=== PATIENT | female | born 1955 | race Caucasian/White ===

== ENCOUNTER 2019-01-01 23:44 | Emergency (ER) | payer MEDICAID ==
[~2019-01-01] VITALS: Ht 177.8 cm; Wt 195.0 kg
[2019-01-02 00:47] LABS: BASOPHILS # (AUTO) 0.1 /CMM (0.0-0.2); EOSINOPHILS % (AUTO) 4.2 % (0.0-6.0); HEMATOCRIT 31 % (33-45); HEMOGLOBIN 9.8 g/dL (11.5-14.8); LYMPHOCYTES # (AUTO) 1.7 /CMM (0.8-4.8); LYMPHOCYTES % (AUTO) 18.5 % (20.0-44.0); MEAN CORPUSCULAR HGB CONC 32 g/dl (31.0-36.0); MEAN CORPUSCULAR VOLUME 83 fL (82-100); MONOCYTES # (AUTO) 0.8 /CMM (0.1-1.30); MONOCYTES % (AUTO) 8.8 % (2.0-12.0); NEUTROPHILS # (AUTO) 6.1 /CMM (1.8-8.9); NEUTROPHILS % (AUTO) 67.5 % (43.0-81.0); PLATELET COUNT (AUTO) 284 /CMM (150-450); RED BLOOD CELL COUNT(AUTO) 3.72 MIL/uL (4.0-5.2); WHITE BLOOD COUNT (AUTO) 9.1 K/uL (4.3-11.0)
--- NOTE | 2019-01-02 00:58 | NUR ---
PT CLARA FROM [facility] FOR ABD PAIN AND BACK PAIN X 1 YR, PT NON-COMPLIANT WITH MEDICATIONS X 1 DAY. PT AXO4. PT PUT ON THE CLEANING HANDYMAN AND PULSE OX.
--- NOTE | 2019-01-02 00:59 | NUR ---
urine collected and sent to lab
[2019-01-02 01:06] LABS: CALCIUM, SERUM 9.3 mg/dL (8.5-10.1); CREATININE 1.3 mg/dL (0.6-1.3); POTASSIUM 4.3 mmol/L (3.5-5.1)
[2019-01-02 01:11] LABS: ALBUMIN 2.9 g/dL (3.4-5.0); BILIRUBIN,DIRECT 0.1 mg/dL (0.0-0.2); BILIRUBIN,TOTAL 0.4 mg/dL (0.2-1.0); TOTAL PROTEIN, SERUM 6.8 g/dL (6.4-8.2)
[2019-01-02 01:15] LABS: SALICYLATE 0.6 mg/dL (2.8-20.0)
[2019-01-02 01:21] LABS: APPEARANCE,URINE Clear (CLEAR); BILIRUBIN,URINE Negative (NEGATIVE); BLOOD, URINE Negative Ery/uL (NEGATIVE); COLOR,URINE Yellow (YELLOW); KETONES,URINE 15 (NEGATIVE); LEUKOCYTE ESTERASE ,URINE Negative (NEGATIVE); NITRITE, URINE Negative (NEGATIVE); PROTEIN,URINE >=300 mg/dl (NEGATIVE); UGLUCOSE Negative (NEGATIVE); UROBILINOGEN,URINE 0.2 EU/dL (0.2)
[2019-01-02 01:33] LABS: BACTERIA,URINE None seen /HPF (None Seen); RBC,URINE 0-2 /HPF (0-2); SQUAMOUS EPITHELIAL CELL,UR Moderate /HPF (None Seen); WBC,URINE 0-2 /HPF (0-3)
[2019-01-02 01:34] LABS: HYALINE CASTS, URINE Rare /LPF (None Seen); MUCUS,URINE Rare /LPF (None Seen)
--- NOTE | 2019-01-02 02:10 | NUR ---
OMAR PAIL BAILER AT BEDSIDE FOR EVALUATION
--- NOTE | 2019-01-02 02:41 | NUR ---
CALLED [facility] FOR TRANSPORTATION. ETA [phone]. TRIP #[id number]
[2019-01-02] MEDS ORDERED: CLONIDINE HCL 0.1 MG TABLET ONE (03:18)
[2019-01-02] MEDS ORDERED: CLONIDINE HCL 0.1 MG TABLET PO ONE (03:30)
--- NOTE | 2019-01-02 04:17 | NUR ---
PT REFUSING TO GO BACK TO FACILITY AND REQUESTING TO BE SENT BACK HOME TO APARTMENT. PT STATES "I CAN HIRE MY OWN CAREGIVER WHEN I GET HOME". ER MD AWARE AND STATES PT SHOULD SEE WEIGHT LOSS CENTRE MANAGER IN THE MORNING. PT AGREES TO NEW ARRANGEMENT. SPOKE WITH ADA, CHARGE NURSE AT [facility], AND INFORMED OF PT REFUSAL TO RETURN TO FACILITY. PT RESTING COMFORTABLY IN BED. NO ACUTE DISTRESS NOTED AT THIS TIME. WILL CONTINUE TO MONITOR.
--- NOTE | 2019-01-02 05:13 | NUR ---
PT COMPLAINING OF BACK PAIN. MD AWARE. PER VERBAL MD ORDER, WILL ADMINISTER NORCO 10/325 PO X1 NOW
[2019-01-02] MEDS ORDERED: HYDROCODONE/APAP 10/325MG 1 EA TABLET ONE (05:14)
[2019-01-02] MEDS ORDERED: HYDROCODONE/APAP 10/325MG 1 EA TABLET PO ONE (05:30)
--- NOTE | 2019-01-02 07:24 | NUR ---
REPORT GIVEN TO RAJAN ALBRIGHT FOR WAN.
--- NOTE | 2019-01-02 08:47 | NUR ---
Spoke to complex case manager Pennie regarding patient and information provided and address of her appartment.
[2019-01-02] MEDS ORDERED: HYDROCODONE/APAP 5/325MG 1 EACH TABLET ONE (08:57)
[2019-01-02] MEDS ORDERED: HYDROCODONE/APAP 5/325MG 1 EACH TABLET PO ONE (09:00)
--- NOTE | 2019-01-02 10:11 | NUR ---
spoke to patient reagrding placement to SNF and per patient she doesn't want to go back to her previous rehab, patient states "they don't treat me right over there". Explained to patient another option going to another SNF but patient insist to go back to her apartment, explained the risk and benefits and still insist to go back home. Spoke to MD and made aware.
--- NOTE | 2019-01-02 10:15 | NUR ---
called transport [phone] spoke to hiren rachel is [id number] trip number [id number]
[2019-01-02 12:25] VITALS: BP 135/81
--- NOTE | 2019-01-02 12:26 | NUR ---
Patient discharged to home in stable condition. Written and verbal after care instructions given. Patient verbalizes understanding of instruction. denies any pain nor chest at this time. In no apparent distress noted.
== END 2019-01-02 12:26 | disposition home or self-care (01) ==
LOC: ER 23:49
DX: G89.29 Other chronic pain (principal); E66.01 Morbid (severe) obesity due to excess calories; I10 Essential (primary) hypertension; E11.9 Type 2 diabetes mellitus without complications; F32.9 Major depressive disorder, single episode, unspecified; Z68.44 Body mass index [BMI] 60.0-69.9, adult; Z88.6 Allergy status to analgesic agent; Z88.8 Allergy status to other drugs, medicaments and biological substances
CPT/HCPCS: 36415; 80048; 80076; 80305; 80307; 80329; 81001; 85025; 99283; G0480; 81000-TC

== ENCOUNTER 2019-03-16 16:20 | Emergency (ER) | payer BC, MEDICAID, OTHER ==
[~2019-03-16] VITALS: Ht 180.3 cm; Wt 198.2 kg
--- NOTE | 2019-03-16 16:31 | NUR ---
CHARLETTE CULP From [facility] "Chest Pressure/ss/SOB. Given Asa/NTG no pain now. Pain worse w/activity/exertion" PT AAOX4, -SOB, NAD NOTED, VSS, PENDING MD YODER
[2019-03-16 16:42] LABS: BASOPHILS # (AUTO) 0.1 /CMM (0.0-0.2); BASOPHILS % (AUTO) 0.5 % (0.0-2.0); EOSINOPHILS % (AUTO) 3.6 % (0.0-6.0); HEMATOCRIT 34 % (33-45); LYMPHOCYTES # (AUTO) 1.1 /CMM (0.8-4.8); LYMPHOCYTES % (AUTO) 11.6 % (20.0-44.0); MEAN CORPUSCULAR HGB CONC 30 g/dl (31.0-36.0); MEAN CORPUSCULAR VOLUME 69 fL (82-100); MONOCYTES # (AUTO) 0.8 /CMM (0.1-1.30); NEUTROPHILS # (AUTO) 7.1 /CMM (1.8-8.9); NEUTROPHILS % (AUTO) 75.3 % (43.0-81.0); PLATELET COUNT (AUTO) 267 /CMM (150-450); RED BLOOD CELL COUNT(AUTO) 4.93 MIL/uL (4.0-5.2); WHITE BLOOD COUNT (AUTO) 9.4 K/uL (4.3-11.0)
[2019-03-16] MEDS ORDERED: SULF1TAB48 PO (16:43)
[2019-03-16] MEDS ORDERED: VALS320T2 PO (16:43)
[2019-03-16] MEDS ORDERED: INSU100V7 SQ (16:43)
[2019-03-16] MEDS ORDERED: FURO-145 PO (16:43)
[2019-03-16] MEDS ORDERED: ASPI-1169 PO (16:43)
[2019-03-16] MEDS ORDERED: ACET-868 PO (16:43)
[2019-03-16] MEDS ORDERED: CARV12.52 PO (16:43)
[2019-03-16] MEDS ORDERED: INSU100V27 SQ ×2 (16:43)
[2019-03-16] MEDS ORDERED: GABA-532 PO (16:43)
[2019-03-16] MEDS ORDERED: BACL10TA PO (16:43)
[2019-03-16] MEDS ORDERED: PARO10TA86 PO (16:43)
[2019-03-16] MEDS ORDERED: DOCU-141 PO (16:43)
[2019-03-16] MEDS ORDERED: HYDR28.32 TP (16:43)
[2019-03-16] MEDS ORDERED: SPIR25TA PO (16:43)
[2019-03-16 16:53] LABS: CALCIUM, SERUM 9.6 mg/dL (8.5-10.1); CREATININE 1.6 mg/dL (0.6-1.3); POTASSIUM 4.7 mmol/L (3.5-5.1)
[2019-03-16] MEDS ORDERED: FUROSEMIDE 40 MG/4 ML VIAL IV ONE (17:00)
[2019-03-16 17:06] LABS: ALBUMIN 2.8 g/dL (3.4-5.0); BILIRUBIN,DIRECT 0.1 mg/dL (0.0-0.2); BILIRUBIN,TOTAL 0.4 mg/dL (0.2-1.0); TOTAL PROTEIN, SERUM 7.2 g/dL (6.4-8.2)
--- NOTE | 2019-03-16 17:55 | NUR ---
CALLED OFFICE OF DR REVELES, LEFT VOICEMAIL
[2019-03-16 18:00] VITALS: BP 149/86
--- NOTE | 2019-03-16 18:32 | NUR ---
PT ACCCEPTED BY DR REVELES AT [facility]. AWAITING CALLBACK FROM [facility] FOR RN REPORT, GAVE AUTH FOR AMBULANCE
--- NOTE | 2019-03-16 19:19 | NUR ---
VIDEO SOFTWARE ENGINEER CHRIS [phone] STATES WAIT FOR CALL FROM [facility] FOR BED ASSIGNMENT
--- NOTE | 2019-03-16 20:25 | NUR ---
ANUSHKA [facility] [phone] CALL TRANSPORT
--- NOTE | 2019-03-16 20:33 | NUR ---
[facility] ETA [phone] TRIP#[id number]
[2019-03-16] MEDS ORDERED: MORPHINE SULFATE INJ 4 MG/ML DISP.SYRIN ONE (21:45)
[2019-03-16] MEDS ORDERED: ONDANSETRON HCL/PF 4 MG/2 ML VIAL ONE (21:45)
[2019-03-16] MEDS ORDERED: MORPHINE SULFATE INJ 2 MG/ML DISP.SYRIN IV ONE (22:00)
[2019-03-16] MEDS ORDERED: ONDANSETRON HCL/PF 4 MG/2 ML VIAL IVP ONE (22:00)
--- NOTE | 2019-03-16 22:00 | NUR ---
REPORT GIVEN TO DEJA CEDILLO AT [facility]
--- NOTE | 2019-03-16 23:30 | NUR ---
PT TRANSPORTED TO [facility], VSS, -SOB, PT STABLE, NAD NOTED, REPORT GIVEN TO STAFF
== END 2019-03-16 23:40 | disposition short-term general hospital (02) ==
LOC: ER 16:28
DX: I11.0 Hypertensive heart disease with heart failure (principal); I50.1 Left ventricular failure, unspecified; E11.9 Type 2 diabetes mellitus without complications; E66.01 Morbid (severe) obesity due to excess calories; Z68.44 Body mass index [BMI] 60.0-69.9, adult; Z88.6 Allergy status to analgesic agent; Z79.899 Other long term (current) drug therapy; Z79.4 Long term (current) use of insulin
CPT/HCPCS: 36415; 71045; 80048; 80076; 83880; 84484; 85025; 85730; 93005; 96374; 96375; 99285; J2270; J2405

== ENCOUNTER 2019-05-07 20:05 | Inpatient (IN) | payer BC, MEDICAID, OTHER ==
[~2019-05-07] VITALS: Ht 180.3 cm; Wt 163.3 kg
[~2019-05-07 20:05] MED LIST: ACET-868 PO; ASPI-1169 PO; BACL10TA PO; CARV12.52 PO; DOCU-141 PO; FURO-145 PO; GABA-532 PO; HYDR28.32 TP; INSU100V27 SQ; INSU100V7 SQ; PARO10TA86 PO; SPIR25TA PO; SULF1TAB48 PO; VALS320T2 PO
--- NOTE | 2019-05-07 20:10 | NUR ---
BIB EMS C/O CHRONIC BACK PAIN. PT WAS D/C FROM [facility] FOR BACK PAIN. PT ALERT AND AWAKE, BREATHING EVEN AND UNLABORED ON ROOM AIR W/ NAD NOTED. PT CONNECTED TO THE MONITOR AND POX.
[2019-05-07] MEDS ORDERED: ONDANSETRON HCL/PF 4 MG/2 ML VIAL ONE (20:45)
[2019-05-07] MEDS ORDERED: MORPHINE SULFATE INJ 4 MG/ML DISP.SYRIN ONE (20:46)
[2019-05-07] MEDS ORDERED: ONDANSETRON HCL/PF - ER 4 MG/2 ML VIAL IV ONE (21:00)
[2019-05-07] MEDS ORDERED: MORPHINE SULFATE INJ 2 MG/ML DISP.SYRIN IV ONE (21:00)
--- NOTE | 2019-05-07 21:20 | NUR ---
URINE COLLECTED AND SENT TO LAB
[2019-05-07 21:29] LABS: CALCIUM, SERUM 10.8 mg/dL (8.5-10.1); CREATININE 1.9 mg/dL (0.6-1.3)
[2019-05-07 21:59] LABS: BASOPHILS % (AUTO) 0.5 % (0.0-2.0); EOSINOPHILS % (AUTO) 3.3 % (0.0-6.0); HEMATOCRIT 40 % (33-45); HEMOGLOBIN 12.5 g/dL (11.5-14.8); LYMPHOCYTES # (AUTO) 1.5 /CMM (0.8-4.8); LYMPHOCYTES % (AUTO) 16.2 % (20.0-44.0); MEAN CORPUSCULAR HGB CONC 31 g/dl (31.0-36.0); MEAN CORPUSCULAR VOLUME 74 fL (82-100); MONOCYTES # (AUTO) 0.6 /CMM (0.1-1.30); MONOCYTES % (AUTO) 7.1 % (2.0-12.0); NEUTROPHILS # (AUTO) 6.5 /CMM (1.8-8.9); NEUTROPHILS % (AUTO) 72.9 % (43.0-81.0); PLATELET COUNT (AUTO) 259 /CMM (150-450); RED BLOOD CELL COUNT(AUTO) 5.41 MIL/uL (4.0-5.2)
[2019-05-07] MEDS ORDERED: IV NS 0.9% 500 ML BAG IV ONE (22:00)
[2019-05-07 22:07] LABS: APPEARANCE,URINE CLOUDY (CLEAR); COLOR,URINE YELLOW (YELLOW)
[2019-05-07 22:08] LABS: BILIRUBIN,URINE NEGATIVE (NEGATIVE); BLOOD, URINE TRACE Ery/uL (NEGATIVE); KETONES,URINE NEGATIVE (NEGATIVE); LEUKOCYTE ESTERASE ,URINE 2+ (NEGATIVE); NITRITE, URINE POSITIVE (NEGATIVE); PROTEIN,URINE 1+ mg/dl (NEGATIVE); UGLUCOSE NEGATIVE (NEGATIVE); UROBILINOGEN,URINE 0.2 EU/dL (0.2)
[2019-05-07 22:10] LABS: BACTERIA,URINE 2+ /HPF (None Seen); RBC,URINE 0-2 /HPF (0-2); WBC,URINE TOO NUMEROUS TO COUN /HPF (0-3)
[2019-05-07 22:11] LABS: SQUAMOUS EPITHELIAL CELL,UR Few /HPF (None Seen)
--- NOTE | 2019-05-07 22:20 | NUR ---
dr. alycia fountain paged per er md order.
[2019-05-07] MEDS ORDERED: MEROPENEM 1 G VIAL IV ONE (22:30)
[2019-05-07] MEDS ORDERED: MEROPENEM 500 MG in IV NS 0.9% 50 ML IV ONE (22:30)
[2019-05-07 22:42] LABS: BAND % (MANUAL) 4 % (0.0-5.0); EOSINOPHILS % (MANUAL) 6 % (0-4); LYMPHOCYTES % (MANUAL) 12 % (16-48); MONOCYTES % (MANUAL) 8 % (0-11.0); NEUTROPHILS % (MANUAL) 70 (42-76)
--- NOTE | 2019-05-07 22:43 | NUR ---
YUNG FONTANA TALKING TO DR. REVELES REGARDING PT.
--- NOTE | 2019-05-07 22:51 | NUR ---
CALLED [employer]. CORPORATE RESPONSIBILITY OFFICER WAS PAGED.
--- NOTE | 2019-05-07 22:53 | NUR ---
CALLED [facility] FOR [facility] BED
--- NOTE | 2019-05-07 23:09 | NUR ---
ER TALKING TO FARZAD CALLEJAS REGARDING PT ADMISSION.
[2019-05-07] MEDS ORDERED: IV NS 0.9% 1,000 ML IV PRN (23:40)
--- NOTE | 2019-05-07 23:58 | NUR ---
M/S [id number]
[2019-05-08] MEDS ORDERED: Z GUARD REMEDY 2 OZ OINT TP PRN
[2019-05-08] MEDS ORDERED: ACETAMINOPHEN 325 MG TABLET PO PRN
[2019-05-08] MEDS ORDERED: MAG HYDROX/AL HYDROX/SIMETH 30 ML UDC PO PRN
--- NOTE | 2019-05-08 00:05 | NUR ---
REPORT CALLED TO M/S JOSE RAMON ALEXANDRE. WILL TRANSPORT PT TO MS [id number]
--- NOTE | 2019-05-08 00:15 | NUR ---
MS/RN RECEIVED PATIENT FROM [facility]IA [facility]. PATIENT IS AWAKE, ALERT, ORIENTED, COMFORTABLE, NO SIGNS OF DISTRESS NOTED, MADE COMFORTABLE IN BED, ADMISSION DONE PER PROTOCOL, PHOTOS TAKEN ON ABNORMAL SKIN ASSESSMENT, PLAN OF CARE DISCUSSED WITH THE PATIENT, VERBALIZED UNDERSTANDING AND AGREEMENT, TAUGHT THE USE OF CALL LIGHT AND PLACED IT AT BEDSIDE WITHIN REACH, WILL MONITOR.
[2019-05-08 00:22] LABS: BILIRUBIN,DIRECT 0.1 mg/dL (0.0-0.2); BILIRUBIN,TOTAL 0.3 mg/dL (0.2-1.0); TOTAL PROTEIN, SERUM 7.7 g/dL (6.4-8.2)
[2019-05-08 00:30] VITALS: BP 142/61
[2019-05-08] MEDS: PANTOPRAZOLE 40 MG VIAL IV SCH ×2 (01:59→10:29)
[2019-05-08] MEDS: MORPHINE SULFATE INJ 2 MG/ML DISP.SYRIN IV PRN ×3 (02:06→15:24)
--- NOTE | 2019-05-08 02:50 | NUR ---
MS/RN PATIENT IS SLEEPING AT THIS TIME, APPEAR COMFORTABLE, BREATHING EVEN AND UNLABORED, NO DISTRESS NOTED, CALL LIGHT IN REACH. WILL CONTINUE TO MONITOR.
--- NOTE | 2019-05-08 07:30 | NUR ---
RN OPENING NOTES RECEIVED PATIENT IN BED RESTING. NOT IN ANY FORM OF DISTRESS. NO SOB. DENIED PAIN OR DISCOMFORT AT THIS TIME. IV ACCESS INTACT AND PATENT. KEPT PATIENT SAFE AND COMFORTABLE. BED IN LOW/LOCKED POSITION SIDERAILS UPX2, CALL LIGHT IN REACH. WILL CONT TO MONITOR ACCORDINGLY.
[2019-05-08] MEDS ORDERED: LIDO30AD10 TP (07:50)
[2019-05-08] MEDS ORDERED: HYDR-4077 PO (07:50)
[2019-05-08] MEDS ORDERED: MELO-107 PO (07:50)
[2019-05-08] MEDS ORDERED: INSU100I26 SQ (07:50)
[2019-05-08] MEDS ORDERED: LOPE2CAP PO (07:50)
[2019-05-08] MEDS ORDERED: CLON0.1T PO (07:50)
[2019-05-08 08:00] VITALS: BP 159/67
[2019-05-08 08:00] LABS: CALCIUM, SERUM 10.3 mg/dL (8.5-10.1); CREATININE 1.8 mg/dL (0.6-1.3); MAGNESIUM 2.1 mg/dL (1.8-2.4); PHOSPHORUS 4.4 mg/dL (2.5-4.9); POTASSIUM 4.6 mmol/L (3.5-5.1)
[2019-05-08 08:02] LABS: BASOPHILS % (AUTO) 0.6 % (0.0-2.0); EOSINOPHILS % (AUTO) 5.2 % (0.0-6.0); HEMATOCRIT 38 % (33-45); HEMOGLOBIN 11.8 g/dL (11.5-14.8); LYMPHOCYTES # (AUTO) 1.8 /CMM (0.8-4.8); LYMPHOCYTES % (AUTO) 24.4 % (20.0-44.0); MEAN CORPUSCULAR HGB CONC 32 g/dl (31.0-36.0); MEAN CORPUSCULAR VOLUME 74 fL (82-100); MONOCYTES # (AUTO) 0.6 /CMM (0.1-1.30); MONOCYTES % (AUTO) 8.5 % (2.0-12.0); NEUTROPHILS # (AUTO) 4.6 /CMM (1.8-8.9); NEUTROPHILS % (AUTO) 61.3 % (43.0-81.0); PLATELET COUNT (AUTO) 256 /CMM (150-450); RED BLOOD CELL COUNT(AUTO) 5.06 MIL/uL (4.0-5.2); WHITE BLOOD COUNT (AUTO) 7.5 K/uL (4.3-11.0)
[2019-05-08 08:14] LABS: THYROID STIMULATING HORMONE 1.142 uIU/mL (0.358-3.74)
[2019-05-08] MEDS ORDERED: MEROPENEM 500 MG in IV NS 0.9% 50 ML IV SCH (09:00)
[2019-05-08] MEDS: LIDOCAINE 5% (PATCH) 1 EA PATCH TP SCH ×2 (09:00→09:56)
[2019-05-08] MEDS: BACLOFEN (10 MG) 10 MG TABLET PO SCH ×3 (09:55→16:12)
[2019-05-08] MEDS: CLONIDINE HCL 0.1 MG TABLET PO SCH ×2 (09:55→16:12)
[2019-05-08] MEDS: hydrALAZINE HCL 50 MG TABLET PO SCH ×3 (09:55→16:11)
[2019-05-08] MEDS: CARVEDILOL 12.5 MG TABLET PO SCH ×2 (09:55→16:12)
[2019-05-08] MEDS: ASPIRIN 81 MG TAB.CHEW PO SCH (09:56)
[2019-05-08] MEDS: PAROXETINE HCL 10 MG TABLET PO SCH (09:56)
[2019-05-08] MEDS: DOCUSATE SODIUM 100 MG CAPSULE PO SCH (09:56)
--- NOTE | 2019-05-08 10:00 | NUR ---
rn notes patient refused lidocaine patch. per patient, "i dont want it. it doesnt work for me well.".
--- NOTE | 2019-05-08 10:25 | NUR ---
WOUND CARE CONSULT: LIMITED ASSESSMENT DUE TO PT LYING ON RT SIDE DUE TO PAIN. SKIN IS CLEAR ON BACK AND BUTTOCKS WITH SCAR NOTED TO LEFT BUTTOCK, PRESENT ON ADMISSION. PT REFUSING BARIATRIC BED. PT STATES IS ABLE TO TURN AND REPOSITION HERSELF IN BED AND IS CONTINENT AT THIS TIME. WILL SEE PRN. Addendum: 05/08/19 at 1026 by ASHLEY KNOX WNDNU Amended: Links added.
[2019-05-08] MEDS: INSULIN GLARGINE, 100 UNIT/ML CARTRIDGE SQ SCH ×2 (10:49→21:00)
[2019-05-08] MEDS: INSULIN ASPART/LISPRO 100 UNIT/ML CARTRIDGE SQ SCH ×2 (12:23→17:54)
[2019-05-08] MEDS: MEROPENEM 500 MG in IV NS 0.9% 50 ML IV SCH ×2 (12:29→23:15)
[2019-05-08] MEDS: ONDANSETRON HCL/PF 4 MG/2 ML VIAL IVP PRN (15:29)
[2019-05-08 16:00] VITALS: BP 117/45
--- NOTE | 2019-05-08 19:30 | NUR ---
RN CLOSING NOTES PATIENT IN STABLE CONDITION. ALL NEEDS ATTENDED AND PROVIDED. ALL DUE MEDS GIVEN ORDERED. KEPT PATIENT SAFE AND COMFORTABLE. BED IN LOW/LOCKED POSITION, SIDERAILS UPX2,C ALL LIGHT IN REACH. ENDORSED TO NIGHT RN FOR WAN.
--- NOTE | 2019-05-08 19:45 | NUR ---
RN OPENING NOTES RECEIVED REPORT FROM [facility]. FOUND Pt AWAKE, RESTING IN BED. ASSISTED Pt FOR REPOSITIONING. Pt IS A/OX4, VERBAL, ABLE TO MAKE NEEDS KNOWN. IV ACCESS ON LFA #22G, SL & TKO. SAFETY MEASURES IN PLACE. BED LOW, LOCKED, HOB ELEVATED, SIDE RAILS UP, CALL LIGHT AND BEDSIDE TABLE WITHIN REACH. WILL CONTINUE TO MONITOR Pt's CONDITION & SAFETY.
[2019-05-08 20:30] VITALS: BP 126/59
[2019-05-08 20:54] VITALS: BP 126/53
--- NOTE | 2019-05-08 21:39 | NUR ---
RN NOTES BLOOD GLUCOSE 130. DID NOT ADMINISTER SCHEDULED DOSE OF LANTUS 40UN. WILL CONTINUE TO MONITOR BG.
[2019-05-08] MEDS: HYDROCODONE/APAP 5/325MG 1 EACH TABLET PO PRN (21:51)
[2019-05-09] MEDS: ONDANSETRON HCL/PF 4 MG/2 ML VIAL IVP PRN ×2 (00:39→09:07)
[2019-05-09] MEDS: MORPHINE SULFATE INJ 2 MG/ML DISP.SYRIN IV PRN ×4 (00:40→21:17)
[2019-05-09] MEDS ORDERED: DEXTROSE 50%-WATER 50 ML DISP.SYRIN IV PRN (06:00)
--- NOTE | 2019-05-09 06:27 | NUR ---
RN NOTES AC ACCUCHECK BG 90. NO INSULIN COVERAGE NEEDED AT THIS TIME.
[2019-05-09] MEDS: BLOOD SUGAR DIAGNOSTIC 1 EACH STRIP IN SCH ×4 (06:36→23:03)
--- NOTE | 2019-05-09 07:00 | NUR ---
RN CLOSING NOTES NO SIGNIFICANT CHANGES IN Pt's CONDITION. ALL NEEDS MET AND ATTENDED TO. Pt IS RESTING IN BED COMFORTABLY. NO S/S OF ACUTE DISTRESS OR SOB NOTED DURING THE NIGHT. SAFETY MEASURES IN PLACE. BED LOW, LOCKED, HOB ELEVATED, SIDE RAILS UP, CALL LIGHT AND BEDSIDE TABLE WITHIN REACH. WILL ENDORSE TO DAYSHIFT RN FOR Pt's WAN.
--- NOTE | 2019-05-09 07:10 | NUR ---
M/S RN NOTES PATIENT RESTING IN BED, NO RESPIRATORY DISTRESS, NO C/O PAIN AT THIS TIME. SKIN WARM TO TOUCH, IV ACCESS SITE INTACT AND PATENT. PATIENT'S NEEDS ATTENDED, BED ON LOWEST LOCKED POSITION, CALL LIGHT WITHIN REACH. WILL CONTINUE TO MONITOR PATIENT.
[2019-05-09 07:30] LABS: FERRITIN 25 ng/mL (8-388)
[2019-05-09 08:00] VITALS: BP 156/69
[2019-05-09] MEDS: INSULIN ASPART/LISPRO 100 UNIT/ML CARTRIDGE SQ SCH ×3 (08:00→17:48)
[2019-05-09 08:33] LABS: IRON, SERUM 39 ug/dl (50-175); TOTAL IRON BINDING CAPACITY 296 ug/dl (250-450)
[2019-05-09] MEDS: PANTOPRAZOLE 40 MG VIAL IV SCH (08:43)
[2019-05-09] MEDS: hydrALAZINE HCL 50 MG TABLET PO SCH ×3 (08:44→17:00)
[2019-05-09] MEDS: ASPIRIN 81 MG TAB.CHEW PO SCH (08:44)
[2019-05-09] MEDS: BACLOFEN (10 MG) 10 MG TABLET PO SCH ×3 (08:44→17:53)
[2019-05-09] MEDS: DOCUSATE SODIUM 100 MG CAPSULE PO SCH (08:44)
[2019-05-09] MEDS: PAROXETINE HCL 10 MG TABLET PO SCH (08:45)
[2019-05-09] MEDS: INSULIN GLARGINE, 100 UNIT/ML CARTRIDGE SQ SCH ×2 (08:46→21:45)
[2019-05-09] MEDS: LIDOCAINE 5% (PATCH) 1 EA PATCH TP SCH (08:46)
[2019-05-09 08:55] LABS: CALCIUM, SERUM 9.7 mg/dL (8.5-10.1); CREATININE 1.8 mg/dL (0.6-1.3); POTASSIUM 4.2 mmol/L (3.5-5.1)
[2019-05-09] MEDS: CARVEDILOL 12.5 MG TABLET PO SCH ×2 (09:00→17:50)
[2019-05-09] MEDS: CLONIDINE HCL 0.1 MG TABLET PO SCH ×2 (09:00→17:00)
[2019-05-09] MEDS: MEROPENEM 500 MG in IV NS 0.9% 50 ML IV SCH (11:33)
[2019-05-09 16:00] VITALS: BP 139/70
--- NOTE | 2019-05-09 17:53 | NUR ---
M/S RN NOTES PATIENT'S BP AT120/73, 88 GAVE CARVEDILOL 12.5MG, WILL RECHECK BP IN AN HOUR, HELD HYDRALAZINE AND CATAPRES DUE TO BP. ALSO HELD INSULIN NOVOLOG 10 UNITS, BS AT 108. WILL CONTINUE TO MONITOR PATIENT.
--- NOTE | 2019-05-09 19:00 | NUR ---
M/S RN NOTES PATIENT RESTING IN BED, NO RESPIRATORY DISTRESS, PAIN TOLERABLE AT THIS TIME. SKIN WARM TO TOUCH, IV ACCESS SITE INTACT AND PATENT. PATIENT'S NEEDS ATTENDED, BED ON LOWEST LOCKED POSITION, CALL LIGHT WITHIN REACH, WILL ENDORSE TO ONCOMING NURSE.
--- NOTE | 2019-05-09 19:54 | NUR ---
MS RN OPENING NOTES RECEIVED PATIENT ALERT AND ORIENTED X 4. VERBALLY RESPONSIVE AND ABLE TO FOLLOW DIRECTIONS. BREATHING REGULAR AND UNLABORED ON 2 LPM VIA NC. LEFT FOREARM G22 IV LINE PATENT AND INTACT, INFUSING WELL WITH NO BLEEDING OR S/S OF INFECTION/INFILTRATION NOTED. SAFETY MEASURES IN PLACE, ASPIRATION PRECAUTION EMPHASIZED, REPOSITIONED FOR COMFORT, BED LOW AND LOCKED ON SEMI FOWLERS POSITION. CALL LIGHT WITHIN EASY REACH. WILL CONTINUE TO MONITOR ACCORDINGLY.
[2019-05-09 20:00] VITALS: BP 132/63
[2019-05-09 20:40] VITALS: BP 132/63
[2019-05-10] MEDS: MEROPENEM 500 MG in IV NS 0.9% 50 ML IV SCH ×3 (00:18→23:35)
[2019-05-10] MEDS: MORPHINE SULFATE INJ 2 MG/ML DISP.SYRIN IV PRN ×4 (01:19→22:24)
--- NOTE | 2019-05-10 06:24 | NUR ---
RN NOTES ALL NEEDS ATTENDED AND MET, ABLE TO REST AND SLEPT WITH LONG INTERVALS, KEPT CLEAN DRY AND COMFORTABLE, ASSISTED PATIENT TO REPOSITIONING. SAFETY MEASURES IN PLACE, ASPIRATION PRECAUTION EMPHASIZED, CALL LIGHT WITHIN EASY REACH. WILL ENDORSE TO AM NURSE FOR CONTINUITY OF CARE.
[2019-05-10] MEDS: BLOOD SUGAR DIAGNOSTIC 1 EACH STRIP IN SCH ×4 (07:13→22:39)
--- NOTE | 2019-05-10 07:35 | NUR ---
M/S RN NOTES PATIENT RESTING IN BED, NO RESPIRATORY DISTRESS, NO C/O PAIN AT THIS TIME. PATIENT'S IV ACCESS SITE INTACT AND PATENT, PATIENT'S NEEDS ATTENDED. BED ON LOWEST LOCKED POSITION, CALL LIGHT WITHIN REACH. WILL CONTINUE TO MONITOR.
[2019-05-10 08:00] VITALS: BP 183/81
[2019-05-10] MEDS: INSULIN ASPART/LISPRO 100 UNIT/ML CARTRIDGE SQ SCH ×3 (08:00→18:00)
[2019-05-10] MEDS: PANTOPRAZOLE 40 MG VIAL IV SCH (08:25)
[2019-05-10] MEDS: CLONIDINE HCL 0.1 MG TABLET PO SCH ×2 (08:25→18:14)
[2019-05-10] MEDS: LIDOCAINE 5% (PATCH) 1 EA PATCH TP SCH (08:25)
[2019-05-10] MEDS: DOCUSATE SODIUM 100 MG CAPSULE PO SCH (08:26)
[2019-05-10] MEDS: hydrALAZINE HCL 50 MG TABLET PO SCH ×3 (08:26→18:14)
[2019-05-10] MEDS: ASPIRIN 81 MG TAB.CHEW PO SCH (08:26)
[2019-05-10] MEDS: CARVEDILOL 12.5 MG TABLET PO SCH ×2 (08:26→18:14)
[2019-05-10] MEDS: BACLOFEN (10 MG) 10 MG TABLET PO SCH ×3 (08:26→18:17)
[2019-05-10] MEDS: INSULIN GLARGINE, 100 UNIT/ML CARTRIDGE SQ SCH ×2 (08:33→21:41)
[2019-05-10] MEDS: PAROXETINE HCL 10 MG TABLET PO SCH (08:52)
[2019-05-10] MEDS: AMLODIPINE BESYLATE 5 MG TABLET PO SCH (10:45)
[2019-05-10] MEDS: ONDANSETRON HCL/PF 4 MG/2 ML VIAL IVP PRN ×2 (12:38→18:20)
[2019-05-10 16:00] VITALS: BP 154/72
--- NOTE | 2019-05-10 19:35 | NUR ---
RN NOTES RECEIVED PATIENT IN BED RESTING COMFORTABLY IN MODERATE HIGH BACK REST. ALERT AND ORIENTED X 4. ABLE TO MAKE NEEDS KNOWN. NO SIGNS OF DISTRESS NOTED THROUGHOUT THE SHIFT. IV ACCESS INTACT AND PATENT, NO S/S OF INFECTION/INFILTRATION NOTED. PAIN IS MANAGEABLE AND TOLERABLE AT THIS TIME. SAFETY MEASURES IN PLACE, BED IN LOW AND LOCKED POSITION WITH SIDE RAILS UP X2. CALL LIGHT WITH IN EASY REACH. WILL CONTINUE TO MONITOR ACCORDINGLY.
[2019-05-10 20:00] VITALS: BP 113/69
[2019-05-10] MEDS: INSULIN REGULAR, HUMAN 100 UNIT/ML 3 ML VIAL SQ PRN (22:42)
[2019-05-11] MEDS: HYDROCODONE/APAP 5/325MG 1 EACH TABLET PO PRN (01:33)
[2019-05-11] MEDS: BLOOD SUGAR DIAGNOSTIC 1 EACH STRIP IN SCH ×4 (07:08→21:23)
--- NOTE | 2019-05-11 07:09 | NUR ---
RN NOTES ALL NEEDS ATTENDED AND MET, ABLE TO REST AND SLEPT WITH LONG INTERVALS, ATTEMPTED TO REINSERT PERIPHERAL IV ACCESS MULTIPLE TIMES, PATIENT IS HARDSTICK, PLEASE FOLLOW UP FOR MIDLINE INSERTION, WILL ENDORSE TO AM NURSE. PATIENT IS RESTING COMFORTABLY, REPOSITIONED FOR COMFORT, SAFETY MEASURES IN PLACE, NO SIGNS OF ACUTE DISTRESS, PATIENT WANTS TO TALK TO ATTENDING PHYSICIAN / MD TODAY CONCERNING HER MEDICAL HEALTH STATUS, PATIENT IS WORRIED IF SHE HAS CANCER. WILL ENDORSE TO AM NURSE FOR CONTINUITY OF CARE.
[2019-05-11 08:00] VITALS: BP 131/62
[2019-05-11] MEDS: INSULIN ASPART/LISPRO 100 UNIT/ML CARTRIDGE SQ SCH ×3 (08:00→18:00)
[2019-05-11] MEDS: PAROXETINE HCL 10 MG TABLET PO SCH ×2 (09:00→11:29)
[2019-05-11] MEDS: LIDOCAINE 5% (PATCH) 1 EA PATCH TP SCH ×2 (09:00→11:29)
[2019-05-11] MEDS: INSULIN GLARGINE, 100 UNIT/ML CARTRIDGE SQ SCH ×2 (11:16→21:26)
[2019-05-11] MEDS: PANTOPRAZOLE 40 MG VIAL IV SCH ×2 (11:27→14:26)
[2019-05-11] MEDS: BACLOFEN (10 MG) 10 MG TABLET PO SCH ×3 (11:27→17:45)
[2019-05-11] MEDS: CARVEDILOL 12.5 MG TABLET PO SCH ×2 (11:28→17:45)
[2019-05-11] MEDS: ASPIRIN 81 MG TAB.CHEW PO SCH (11:28)
[2019-05-11] MEDS: AMLODIPINE BESYLATE 5 MG TABLET PO SCH (11:28)
[2019-05-11] MEDS: DOCUSATE SODIUM 100 MG CAPSULE PO SCH (11:28)
[2019-05-11] MEDS: MAGNESIUM HYDROXIDE 30 ML UDC PO PRN (11:29)
[2019-05-11] MEDS: CLONIDINE HCL 0.1 MG TABLET PO SCH ×2 (12:30→17:45)
[2019-05-11] MEDS: hydrALAZINE HCL 50 MG TABLET PO SCH ×3 (12:30→18:27)
[2019-05-11] MEDS: MORPHINE SULFATE INJ 2 MG/ML DISP.SYRIN IV PRN ×3 (13:10→21:49)
[2019-05-11] MEDS: INSULIN REGULAR, HUMAN 100 UNIT/ML 3 ML VIAL SQ PRN (14:31)
[2019-05-11] MEDS: MEROPENEM 500 MG in IV NS 0.9% 50 ML IV SCH ×2 (15:01→23:34)
[2019-05-11 16:00] VITALS: BP 125/54
--- NOTE | 2019-05-11 18:30 | NUR ---
pt. requesting multiple checks on bgl.few insulin doses held due to pt. request.remains in isolation.in am upset with assigned md and ripped off id band and pulled out. iv and threw everything on floor. additionally refusing lidoderm patch and paxil.ok'd midline insertion. new midline lt. upper arm.
--- NOTE | 2019-05-11 19:10 | NUR ---
MS/RN OPENING NOTES: RECEIVED PATIENT RESTING COMFORTABLY IN IN BED. A/OX 4. ABLE TO MAKE NEEDS KNOWN. NO SIGNS OF DISTRESS NOTED THROUGHOUT THE SHIFT. IV ACCESS INTACT AND PATENT, NO S/S OF INFECTION/INFILTRATION NOTED. PAIN IS MANAGEABLE AND TOLERABLE AT THIS TIME. SAFETY MEASURES ARE IN PLACE, BED IN LOW AND LOCKED POSITION WITH SIDE RAILS UP X2. CALL LIGHT WITH IN EASY REACH. WILL CONTINUE TO MONITOR PATIENT ACCORDINGLY.
[2019-05-11 20:00] VITALS: BP 120/58
--- NOTE | 2019-05-11 21:49 | NUR ---
MS/RN NOTES: PATIENT COMPLAINED OF LEVEL 9 PAIN ON HER BACK. ADMINISTERED 2MG MORPHINE IV. VITAL SIGNS STABLE, BP 120/62. HR 64. PATIENT IN STABLE CONDITION. WILL CONTINUE MONITORING PATIENT ACCORDINGLY.
--- NOTE | 2019-05-11 22:00 | NUR ---
MS/RN NOTES: ACCUCHECK OF 118. NO INSULIN ADMINISTERED BASED ON SLIDING SCALE. PATIENT IS STABLE.
[2019-05-12] MEDS: MORPHINE SULFATE INJ 2 MG/ML DISP.SYRIN IV PRN ×4 (03:12→21:48)
--- NOTE | 2019-05-12 03:15 | NUR ---
MS/RN NOTES: PATIENT TURNED AND CHANGED, COMPLAINED OF LEVEL 9 PAIN ON HER BACK. ADMINISTERED 2MG MORPHINE IV. VITAL SIGNS STABLE, BP 119/64. HR 60. PATIENT IN STABLE CONDITION. WILL CONTINUE MONITORING PATIENT ACCORDINGLY.
[2019-05-12] MEDS: INSULIN REGULAR, HUMAN 100 UNIT/ML 3 ML VIAL SQ PRN ×2 (06:30→21:46)
[2019-05-12] MEDS: BLOOD SUGAR DIAGNOSTIC 1 EACH STRIP IN SCH ×4 (06:30→21:41)
--- NOTE | 2019-05-12 06:44 | NUR ---
MS/RN CLOSING NOTES: PATIENT ASLEEP IN BED. REMAINS A/OX 4. NO SIGNIFICANT CHANGES IN CONDITION. NO SIGNS OF DISTRESS NOTED THROUGHOUT THE SHIFT. IV ACCESS INTACT AND PATENT, NO COMPLAINS OF PAIN OR DISCOMFORT AT THIS TIME. ALL DUE MEDICATIONS GIVEN ORDERED, ALL NEEDS MET AND PROVIDED AT THIS TIME. KEPT WARM AND COMFORTABLE THROUGHOUT THE SHIFT. SAFETY MEASURES KEPT IN PLACE, BED IN LOW AND LOCKED POSITION WITH SIDE RAILS UP X2. CALL LIGHT WITH IN EASY REACH. WILL ENDORSE TO DAY SHIFT NURSE FOR WAN.
[2019-05-12 07:59] VITALS: BP 138/68
[2019-05-12 08:00] VITALS: BP 138/68
--- NOTE | 2019-05-12 08:00 | NUR ---
RN NOTES RECEIVED PATIENT IN THE BED OBESE, ON O2-2L NC.PATIENT HAS NO ACUTE RESPIRATORY DISTRESS, BREATHING UNLABORED. PATIENT WAS COMPLAINING OF PAIN 3/10 ON LOWER BACK, NEED ASSIST TO TURN AND REPOSTION IN THE BED. ADMINISTERED SCHEDULED MEDICATION, BS-122 MG/DL. PATIENT BED BOUND, NEEDS ATTENDED AND ANTICIPATED. IV ACCESS ON LEFT UA INTACT. PATIENT INCONTINENT USING DIAPER, SKIN INTACT, APPLIED Z-GUARD, CALL LIGHT WITHIN TO REACH, SAFETY PRECAUTION MAINTAINED ALL THE TIME.
[2019-05-12] MEDS: LIDOCAINE 5% (PATCH) 1 EA PATCH TP SCH (09:00)
[2019-05-12] MEDS: PAROXETINE HCL 10 MG TABLET PO SCH (09:00)
[2019-05-12 09:26] LABS: CALCIUM, SERUM 9.8 mg/dL (8.5-10.1); CREATININE 1.7 mg/dL (0.6-1.3); POTASSIUM 4.7 mmol/L (3.5-5.1)
[2019-05-12 09:33] LABS: BASOPHILS % (AUTO) 0.4 % (0.0-2.0); EOSINOPHILS % (AUTO) 4.3 % (0.0-6.0); HEMATOCRIT 38 % (33-45); HEMOGLOBIN 11.5 g/dL (11.5-14.8); LYMPHOCYTES # (AUTO) 1.6 /CMM (0.8-4.8); LYMPHOCYTES % (AUTO) 17.7 % (20.0-44.0); MEAN CORPUSCULAR HGB CONC 31 g/dl (31.0-36.0); MEAN CORPUSCULAR VOLUME 75 fL (82-100); MONOCYTES # (AUTO) 0.7 /CMM (0.1-1.30); MONOCYTES % (AUTO) 7.3 % (2.0-12.0); NEUTROPHILS # (AUTO) 6.3 /CMM (1.8-8.9); NEUTROPHILS % (AUTO) 70.3 % (43.0-81.0); PLATELET COUNT (AUTO) 264 /CMM (150-450)
[2019-05-12] MEDS: DOCUSATE SODIUM 100 MG CAPSULE PO SCH (10:38)
[2019-05-12] MEDS: PANTOPRAZOLE 40 MG VIAL IV SCH (10:38)
[2019-05-12] MEDS: BACLOFEN (10 MG) 10 MG TABLET PO SCH ×3 (10:39→17:29)
[2019-05-12] MEDS: AMLODIPINE BESYLATE 5 MG TABLET PO SCH (10:39)
[2019-05-12] MEDS: CLONIDINE HCL 0.1 MG TABLET PO SCH ×2 (10:39→17:30)
[2019-05-12] MEDS: hydrALAZINE HCL 50 MG TABLET PO SCH ×3 (10:40→17:29)
[2019-05-12] MEDS: CARVEDILOL 12.5 MG TABLET PO SCH ×2 (10:40→17:29)
[2019-05-12] MEDS: ASPIRIN 81 MG TAB.CHEW PO SCH (10:41)
[2019-05-12] MEDS: INSULIN GLARGINE, 100 UNIT/ML CARTRIDGE SQ SCH ×2 (10:49→21:44)
[2019-05-12] MEDS: INSULIN ASPART/LISPRO 100 UNIT/ML CARTRIDGE SQ SCH ×3 (10:51→18:00)
[2019-05-12] MEDS: MAGNESIUM HYDROXIDE 30 ML UDC PO PRN (10:56)
--- NOTE | 2019-05-12 10:56 | NUR ---
rn notes ADMINISTERED MOM FOR CONSTIPATION, ENCOURAGED TO INCREASE FLUID INTAKE.
[2019-05-12] MEDS: MEROPENEM 500 MG in IV NS 0.9% 50 ML IV SCH (12:26)
--- NOTE | 2019-05-12 12:29 | NUR ---
rn notes bs-126mg/dl, administered morphine sulfate 2 mg/ml iv push for lower back pain 01/31 per patient request, v/s taken bp 130/70, p-59, also administered scheduled medication. Infusing Merrem 100 ml/hr on left UA intact, assist patient turn and reposition q 2 hr, call light within to reach, safety precaution maintained all the time.
--- NOTE | 2019-05-12 15:08 | NUR ---
RN NOTES MEDICATION WERE ADMINISTERED FOR PAIN EFFECTIVE, PATIENT RESTING IN THE BED, ASSIST TURN AND REPOSTION Q 2 HR, CALL LIGHT WITHIN TO REACH.
[2019-05-12 16:00] VITALS: BP 142/65
--- NOTE | 2019-05-12 17:33 | NUR ---
RN NOTES ADMINISTERED MORPHINE SULFATE 2 MG/ML IV PUSH FOR LOWER BACK PAIN 10/10 PER PATIENT REQUEST PER PAIN SCALE, V/S TAKEN BP 142/65, P-55, ALSO ADMINISTERED SCHEDULED MEDICATION, CALL LIGHT WITHIN TO REACH. CONTINUED MONITORING.
--- NOTE | 2019-05-12 18:23 | NUR ---
rn notes bs-103 mg/dl no coverage given, medication were administered for pain effective. assist patient turn and reposition q 2 hr. call liight within to reach. endorsed oncoming nurse follow plan of care.
--- NOTE | 2019-05-12 19:15 | NUR ---
MS/RN OPENING NOTES: RECEIVED PATIENT RESTING COMFORTABLY IN IN BED. A/OX 4. ABLE TO MAKE NEEDS KNOWN. NO SIGNS OF DISTRESS NOTED, NO SOB NOTED. IV ACCESS INTACT AND PATENT, NO S/S OF INFECTION/INFILTRATION NOTED. NO COMPLAINS OF PAIN OR DISCOMFORT AT THIS TIME. SAFETY MEASURES ARE IN PLACE, BED IS IN LOW AND LOCKED POSITION WITH SIDE RAILS UP X2. CALL LIGHT WITH IN EASY REACH. WILL CONTINUE TO MONITOR PATIENT ACCORDINGLY.
[2019-05-12 20:00] VITALS: BP 110/50
--- NOTE | 2019-05-12 21:48 | NUR ---
MS/RN NOTES: PATIENT COMPLAINED OF LEVEL 10 PAIN ON HER BACK. ADMINISTERED 2MG MORPHINE IV. VITAL SIGNS STABLE, BP 138/68. HR 60. PATIENT IN STABLE CONDITION. WILL CONTINUE MONITORING PATIENT ACCORDINGLY.
[2019-05-13] MEDS: MORPHINE SULFATE INJ 2 MG/ML DISP.SYRIN IV PRN ×5 (02:26→22:02)
--- NOTE | 2019-05-13 02:26 | NUR ---
MS/RN NOTES: PATIENT WAS REPOSITIONED. COMPLAINED OF LEVEL 9 PAIN ON HER BACK. ADMINISTERED 2MG MORPHINE IV. VITAL SIGNS STABLE, BP 130/60. HR 62. PATIENT IN STABLE CONDITION. WILL CONTINUE MONITORING PATIENT ACCORDINGLY.
--- NOTE | 2019-05-13 06:27 | NUR ---
MS/RN NOTES: PATIENT WAS REPOSITIONED AND CHANGED. COMPLAINED OF LEVEL 9 PAIN ON HER BACK. ADMINISTERED 2MG MORPHINE IV. VITAL SIGNS STABLE, BP 120/66. HR 60. PATIENT IN STABLE CONDITION. WILL CONTINUE MONITORING PATIENT ACCORDINGLY.
--- NOTE | 2019-05-13 06:30 | NUR ---
MS/RN CLOSING NOTES: PATIENT REMAINS STABLE IN BED. A/OX 4. NO SIGNIFICANT CHANGES IN CONDITION. NO SIGNS OF DISTRESS NOTED THROUGHOUT THE SHIFT. IV ACCESS INTACT AND PATENT, NO COMPLAINS OF PAIN OR DISCOMFORT AT THIS TIME. TURNED AND ASSISTED IN REPOSITIONING. ALL DUE MEDICATIONS GIVEN ORDERED, ALL NEEDS MET AND PROVIDED AT THIS TIME. KEPT WARM AND COMFORTABLE THROUGHOUT THE SHIFT. SAFETY MEASURES KEPT IN PLACE, BED IN LOW AND LOCKED POSITION WITH SIDE RAILS UP X2. CALL LIGHT WITH IN EASY REACH. WILL ENDORSE TO DAY SHIFT NURSE FOR WAN.
[2019-05-13] MEDS: BLOOD SUGAR DIAGNOSTIC 1 EACH STRIP IN SCH ×4 (06:31→22:16)
[2019-05-13] MEDS: INSULIN REGULAR, HUMAN 100 UNIT/ML 3 ML VIAL SQ PRN ×2 (06:32→22:13)
[2019-05-13 08:00] VITALS: BP 126/59
[2019-05-13] MEDS: INSULIN ASPART/LISPRO 100 UNIT/ML CARTRIDGE SQ SCH ×3 (08:00→17:47)
--- NOTE | 2019-05-13 08:00 | NUR ---
RN NOTES RECEIVED PATIENT IN THE BED OBESE, ON O2-2L NC.PATIENT HAS NO ACUTE RESPIRATORY DISTRESS, BREATHING UNLABORED. WAS COMPLAINING OF PAIN 3/10 ON LOWER BACK, NEED ASSIST TO TURN AND REPOSTION IN THE BED. ADMINISTERED SCHEDULED MEDICATION, BS-94 MG/DL HELD COVERAGE. PATIENT BED BOUND, NEEDS ATTENDED AND ANTICIPATED. IV ACCESS ON LEFT UA INTACT. PATIENT INCONTINENT USING DIAPER, SKIN INTACT, APPLIED Z-GUARD, CALL LIGHT WITHIN TO REACH, SAFETY PRECAUTION MAINTAINED ALL THE TIME.
[2019-05-13] MEDS: LIDOCAINE 5% (PATCH) 1 EA PATCH TP SCH (09:00)
[2019-05-13] MEDS: PAROXETINE HCL 10 MG TABLET PO SCH (09:00)
[2019-05-13] MEDS: PANTOPRAZOLE 40 MG VIAL IV SCH (10:15)
[2019-05-13] MEDS: BACLOFEN (10 MG) 10 MG TABLET PO SCH ×3 (10:15→17:56)
[2019-05-13] MEDS: DOCUSATE SODIUM 100 MG CAPSULE PO SCH (10:15)
[2019-05-13] MEDS: CLONIDINE HCL 0.1 MG TABLET PO SCH ×2 (10:16→17:56)
[2019-05-13] MEDS: ASPIRIN 81 MG TAB.CHEW PO SCH (10:17)
[2019-05-13] MEDS: hydrALAZINE HCL 50 MG TABLET PO SCH ×3 (10:17→17:56)
[2019-05-13] MEDS: AMLODIPINE BESYLATE 5 MG TABLET PO SCH (10:18)
[2019-05-13] MEDS: CARVEDILOL 12.5 MG TABLET PO SCH ×2 (10:23→17:55)
[2019-05-13] MEDS: INSULIN GLARGINE, 100 UNIT/ML CARTRIDGE SQ SCH ×2 (10:33→22:14)
--- NOTE | 2019-05-13 10:44 | NUR ---
rn notes administered morphine sulfate 2mg/ml iv push for lower back pain 01/31 per patient request v/s taken bp 126/65, p-66, continued monitoring.
--- NOTE | 2019-05-13 11:37 | NUR ---
rn notes Patient depress stated "I have a cancer and i need treatment". Hospitalist aware of it. psych consultation ordered. continued monitoring.
[2019-05-13] MEDS: MEROPENEM 500 MG in IV NS 0.9% 50 ML IV SCH ×4 (12:35→23:52)
[2019-05-13 16:00] VITALS: BP 121/52
--- NOTE | 2019-05-13 17:51 | NUR ---
rn notes administered morphine sulfate 2 mg/ml iv push for pain 01/31 per patient request, v/s taken bp121/52, p-56, also administered scheduled medication, bs-113 mg/dl, no coverage given. needs attended and anticipated, call light within to reach, assist patient turn and reposition q 2 hr, patient eating dinner. endorsed oncoming nurse follow plan of care.
[2019-05-13] MEDS: MAGNESIUM HYDROXIDE 30 ML UDC PO PRN (18:58)
--- NOTE | 2019-05-13 18:58 | NUR ---
RN NOTES ADMINISTERED MILK OF MAGNESIA 30 ML PO PEN FOR CONSTIPATION, ENCOURAGED TO INCREASE FLUID INTAKE.
--- NOTE | 2019-05-13 19:45 | NUR ---
MS RN NOTES RECEIVED ON BED A/O X4,ABLE TO VERBALIZED NEEDS,OBESE,WITH LEFT UPPER ARM MIDLINE FOR MEDS.NOTED REDNESS ON BREAST FOLD,MANAGE WITH REMEDY.CALL LIGHT IN REACH,NEEDS ANTICIPATED.
[2019-05-13 20:00] VITALS: BP 139/60
--- NOTE | 2019-05-13 20:43 | NUR ---
MS RN NOTES ISOLATION PRECAUTION FOR ESBL URINE.
--- NOTE | 2019-05-13 21:30 | NUR ---
MS RN NOTES ACCU-CHECK BLOOD SUGAR CHECK 144,COVERED WITH HUMULIN R 2 UNITS PER SLIDING SCALE,ALONG WITH LANTUS 40UNITS GIVEN SQ ON RIGHT DELTOID.
--- NOTE | 2019-05-13 22:02 | NUR ---
MS RN NOTES PAIN MANAGEMENT C/O GENERALIZED PAIN 10/10 ON PAIN SCALE.MEDICATED WITH MORPHINE 2MG IV ORDERED.
--- NOTE | 2019-05-14 03:00 | NUR ---
MS RN NOTES SLEEPING,KEPT WARM AND COMFORTABLE.
--- NOTE | 2019-05-14 05:40 | NUR ---
MS RN NOTES ACCU-CHECK BLOOD SUGAR CHECK 101.NO INSULIN COVERAGE.
[2019-05-14] MEDS: BLOOD SUGAR DIAGNOSTIC 1 EACH STRIP IN SCH ×4 (06:21→21:16)
[2019-05-14] MEDS: MORPHINE SULFATE INJ 2 MG/ML DISP.SYRIN IV PRN ×2 (06:26→17:55)
--- NOTE | 2019-05-14 06:26 | NUR ---
MS RN NOTES PAIN MANAGEMENT AWAKE,C/O GENERALIZED PAIN 8/10 ON PAIN SCALE POST MORNING CARE,MEDICATED WITH MORPHINE 2MG IV ORDERED.
--- NOTE | 2019-05-14 06:58 | NUR ---
MS RN NOTES SLEPT WELL AT NIGHT,C/O GENERALIZED PAIN MANAGE WITH MORPHINE.IV ABX TOLERATED WELL.REMAINS ON ISOLATION PRECAUTION FOR ESBL URINE.IN NO ACUTE DISTRESS.WILL ENDORSE TO DAY NURSE FOR WAN.
[2019-05-14 08:00] VITALS: BP 134/65
[2019-05-14] MEDS: INSULIN ASPART/LISPRO 100 UNIT/ML CARTRIDGE SQ SCH ×4 (08:00→17:47)
--- NOTE | 2019-05-14 08:00 | NUR ---
MS RN NOTES RECEIVED ON BED A/O X4,ABLE TO VERBALIZED NEEDS,OBESE,WITH LEFT UPPER ARM MIDLINE FOR MEDS.NOTED REDNESS ON BREAST FOLD,MANAGE WITH REMEDY.CALL LIGHT IN REACH,NEEDS ANTICIPATED AND ATTENDED.ON CONTACT ISOLATION PRECAUTIONS FOR ESBL URINE.
[2019-05-14] MEDS: LIDOCAINE 5% (PATCH) 1 EA PATCH TP SCH ×2 (09:00→09:35)
[2019-05-14] MEDS: AMLODIPINE BESYLATE 5 MG TABLET PO SCH (09:38)
[2019-05-14] MEDS: ASPIRIN 81 MG TAB.CHEW PO SCH (09:43)
[2019-05-14] MEDS: CLONIDINE HCL 0.1 MG TABLET PO SCH ×2 (09:44→17:56)
[2019-05-14] MEDS: CARVEDILOL 12.5 MG TABLET PO SCH ×2 (09:44→17:57)
[2019-05-14] MEDS: hydrALAZINE HCL 50 MG TABLET PO SCH ×3 (09:44→17:58)
[2019-05-14] MEDS: DOCUSATE SODIUM 100 MG CAPSULE PO SCH (09:44)
[2019-05-14] MEDS: PAROXETINE HCL 10 MG TABLET PO SCH (09:45)
[2019-05-14] MEDS: PANTOPRAZOLE 40 MG VIAL IV SCH (09:45)
[2019-05-14] MEDS: BACLOFEN (10 MG) 10 MG TABLET PO SCH ×3 (09:45→17:56)
--- NOTE | 2019-05-14 09:50 | NUR ---
ROUTINE NOVOLOG 10 UNITS HELD AND NOT ADMINISTERED.BS 101
[2019-05-14] MEDS: HYDROCODONE/APAP 5/325MG 1 EACH TABLET PO PRN ×2 (09:54→13:54)
[2019-05-14] MEDS: INSULIN GLARGINE, 100 UNIT/ML CARTRIDGE SQ SCH ×2 (10:02→21:16)
--- NOTE | 2019-05-14 11:01 | NUR ---
PT REFUSED LIDOCAINE PATCH SAYING SHE FEELS NAUSEOUS WHEN SHE USES IT.DISCARDED LIDOCAINE PATCH THAT IS HALF OPENED.
--- NOTE | 2019-05-14 13:42 | NUR ---
BS 118-HELD NOVOLOG 10 UNITS
[2019-05-14] MEDS: MEROPENEM 500 MG in IV NS 0.9% 50 ML IV SCH (13:46)
[2019-05-14 16:00] VITALS: BP 111/46
--- NOTE | 2019-05-14 17:47 | NUR ---
BS 104-held novolog Insulin
--- NOTE | 2019-05-14 19:00 | NUR ---
DISCHARGE ON HOLD DUE TO AMBULANCE DOESN'T HAVE ANY BARIATRIC GURNEY.DENIES ANY PAIN OR DISTRESS.
--- NOTE | 2019-05-14 19:29 | NUR ---
RN NOTES PM SHIFT PATIENT ALERT AND ORIENTED X4, ON ROOM AIR, CHRONIC BACK PAIN, RECEIVED MORPHINE FROM AM SHIFT, CORBIN MIDLINE, PATENT AND SECURED WITH DRESSING, DELAYED DISCHARGE DUE TO NO AVAILABLE BARIATRIC GURNEY
[2019-05-14 20:00] VITALS: BP 122/59
[2019-05-14 20:31] VITALS: BP 122/59
[2019-05-14] MEDS: INSULIN REGULAR, HUMAN 100 UNIT/ML 3 ML VIAL SQ PRN (21:16)
--- NOTE | 2019-05-14 21:17 | NUR ---
RN NOTES BG N127 MG/DL, NO INSULIN GIVEN
[2019-05-15] MEDS: MEROPENEM 500 MG in IV NS 0.9% 50 ML IV SCH ×2 (00:14→12:19)
[2019-05-15] MEDS: MORPHINE SULFATE INJ 2 MG/ML DISP.SYRIN IV PRN ×4 (00:20→22:04)
[2019-05-15] MEDS: BLOOD SUGAR DIAGNOSTIC 1 EACH STRIP IN SCH ×4 (06:30→22:45)
[2019-05-15] MEDS: INSULIN REGULAR, HUMAN 100 UNIT/ML 3 ML VIAL SQ PRN ×2 (06:31→22:32)
--- NOTE | 2019-05-15 06:31 | NUR ---
RN NOTES BG 79 MG/DL, NO INSULIN GIVEN
--- NOTE | 2019-05-15 06:34 | NUR ---
RN NOTES RN NOTES PM SHIFT PATIENT ALERT AND ORIENTED X4, ON 2LPM VIA NC, CHRONIC LOW BACK PAIN, MORPHINE 2 MG IVPB GIVEN WITH ADEQUATE RELIEF, MERREM IVPB GIVEN FOR UTI, CORBIN MIDLINE SECURED WITH DRESSING, CONTACT ISOLATION DUE TO ESBL IN URINE, DRY COUGH NOTED, NOTIFIED DR. HERNANDEZ, NEW ORDER OF TESSALON PEARLS PO TID, FOR DISCHARGE TODAY AT [facility], DELAYED DISCHARGE DUE TO NO AVAILABLE BARIATRIC AMBULANCE, PHOTOS FOR DISCHARGE TAKEN AND IN CHART.
[2019-05-15 06:42] LABS: BASOPHILS % (AUTO) 0.2 % (0.0-2.0); EOSINOPHILS % (AUTO) 5.5 % (0.0-6.0); HEMATOCRIT 37 % (33-45); HEMOGLOBIN 11.6 g/dL (11.5-14.8); LYMPHOCYTES # (AUTO) 1.1 /CMM (0.8-4.8); LYMPHOCYTES % (AUTO) 13.4 % (20.0-44.0); MEAN CORPUSCULAR HGB CONC 31 g/dl (31.0-36.0); MEAN CORPUSCULAR VOLUME 75 fL (82-100); MONOCYTES # (AUTO) 0.6 /CMM (0.1-1.30); MONOCYTES % (AUTO) 7.2 % (2.0-12.0); NEUTROPHILS # (AUTO) 5.8 /CMM (1.8-8.9); NEUTROPHILS % (AUTO) 73.7 % (43.0-81.0); PLATELET COUNT (AUTO) 231 /CMM (150-450); RED BLOOD CELL COUNT(AUTO) 5.01 MIL/uL (4.0-5.2); WHITE BLOOD COUNT (AUTO) 7.9 K/uL (4.3-11.0)
[2019-05-15] MEDS: BENZONATATE 100 MG CAPSULE PO PRN (06:52)
[2019-05-15 06:59] LABS: ALBUMIN 2.5 g/dL (3.4-5.0); BILIRUBIN,TOTAL 0.3 mg/dL (0.2-1.0); CALCIUM, SERUM 9.6 mg/dL (8.5-10.1); CREATININE 1.4 mg/dL (0.6-1.3); MAGNESIUM 2.1 mg/dL (1.8-2.4); PHOSPHORUS 3.4 mg/dL (2.5-4.9); TOTAL PROTEIN, SERUM 6.7 g/dL (6.4-8.2)
--- NOTE | 2019-05-15 07:25 | NUR ---
MS RN OPENING NOTES: RECEIVED PATIENT AWAKE IN BED IN NO ACUTE SIGNS OF DISTRESS. A/OX 4. ABLE TO MAKE NEEDS KNOWN, DENIES PAIN OR ANY DISCOMFORTS AT THIS TIME. ON 02 VIA N/C @ 2LPM, TOLERATING WELL WITH NO SOB NOTED. CORBIN MIDLINE INTACT AND PATENT. SAFETY MEASURES IN PLACE: BED IS IN LOW AND LOCKED POSITION WITH SIDE RAILS UP X2. CALL LIGHT WITH IN EASY REACH. WILL CONTINUE TO MONITOR PATIENT ACCORDINGLY.
[2019-05-15 08:00] VITALS: BP 141/63
[2019-05-15] MEDS: INSULIN ASPART/LISPRO 100 UNIT/ML CARTRIDGE SQ SCH ×3 (08:00→17:52)
[2019-05-15] MEDS: ASPIRIN 81 MG TAB.CHEW PO SCH (08:33)
[2019-05-15] MEDS: DOCUSATE SODIUM 100 MG CAPSULE PO SCH (08:33)
[2019-05-15] MEDS: PAROXETINE HCL 10 MG TABLET PO SCH (08:34)
[2019-05-15] MEDS: BACLOFEN (10 MG) 10 MG TABLET PO SCH ×3 (08:34→16:59)
[2019-05-15] MEDS: hydrALAZINE HCL 50 MG TABLET PO SCH ×3 (08:34→17:00)
[2019-05-15] MEDS: CARVEDILOL 12.5 MG TABLET PO SCH ×2 (08:35→16:59)
[2019-05-15] MEDS: CLONIDINE HCL 0.1 MG TABLET PO SCH ×2 (08:35→17:00)
[2019-05-15] MEDS: AMLODIPINE BESYLATE 5 MG TABLET PO SCH (08:35)
--- NOTE | 2019-05-15 08:39 | NUR ---
RN NOTES/PAIN MANAGEMENT PT NOTED MOANING AND GRIMACING IN PAIN WITH C/O GENERALIZED PAIN WITH SCALE OF 9/10, MORPHINE 2MG/1ML IVP AT 0832. WILL CONTINUE TO MONITOR AND REASSESS PT.
[2019-05-15] MEDS: PANTOPRAZOLE 40 MG VIAL IV SCH (08:49)
[2019-05-15] MEDS: INSULIN GLARGINE, 100 UNIT/ML CARTRIDGE SQ SCH ×2 (09:00→21:00)
[2019-05-15] MEDS: LIDOCAINE 5% (PATCH) 1 EA PATCH TP SCH (09:00)
--- NOTE | 2019-05-15 09:27 | NUR ---
RN NOTES BLOOD SUGAR THIS MORNING IS 97MG/DL PT REFUSED LANTUS 40u. WILL CONTINUE TO MONITOR
[2019-05-15] MEDS: HYDROCODONE/APAP 5/325MG 1 EACH TABLET PO PRN (11:15)
--- NOTE | 2019-05-15 11:17 | NUR ---
RN NOTES/PAIN MANAGEMENT PT C/O LOWER BACK PAIN WITH SCALE OF 7/10, PRN NORCO 5/325 MG PO AT 1115. WILL CONTINUE TO MONITOR AND REASSESS PT.
--- NOTE | 2019-05-15 15:46 | NUR ---
RN NOTES/PAIN MANAGEMENT PT NOTED MOANING AND GRIMACING IN PAIN WITH C/O GENERALIZED PAIN ESPECIALLY ON HER LOWER BACK WITH SCALE OF 10/10, MORPHINE 2MG/1ML IVP AT 1544. WILL CONTINUE TO MONITOR AND REASSESS PT.
[2019-05-15] MEDS: ONDANSETRON HCL/PF 4 MG/2 ML VIAL IVP PRN ×2 (16:34→22:05)
[2019-05-15 16:36] VITALS: BP 124/62
--- NOTE | 2019-05-15 16:36 | NUR ---
RN NOTES PT COMPLAINED THAT SHE IS NAUSEATED AND VOMITED SMALL AMOUNT OF CLEAR LIQUIDS. PRN ZOFRAN 4MG/2ML IVP ADMINISTERED AT 1634. WILL CONTINUE TO MONITOR AND REASSESS PT.
--- NOTE | 2019-05-15 18:42 | NUR ---
MS RN CLOSING NOTES: PATIENT AWAKE IN BED AT THIS TIME. HOB KEPT ELEVATED. A/OX 4. ABLE TO MAKE NEEDS KNOWN. ON 02 VIA N/C @ 2LPM, TOLERATING WELL WITH NO SOB NOTED. CORBIN MIDLINE INTACT AND PATENT, NO REDNESS OR PHLEBITIS NOTED AT SITE. PT KEPT CLEAN, DRY AND COMFORTABLE IN BED. ALL NEEDS AND CARE ATTENDED WELL. SAFETY MEASURES KEPT IN PLACE: BED IN LOW LOCKED POSITION WITH SIDE RAILS UP X2. CALL LIGHT WITH IN EASY REACH. WILL ENDORSE TO TILE MECHANIC HELPER NURSE FOR WAN.
[2019-05-15 20:00] VITALS: BP 153/87
[2019-05-16] MEDS: MEROPENEM 500 MG in IV NS 0.9% 50 ML IV SCH ×2 (00:42→12:33)
--- NOTE | 2019-05-16 06:00 | NUR ---
MS RN NOTES BS CHECKED 134. PT REFUSED 2 UNITS OF REGULAR INSULIN COVERAGE. EXPLAINED TO PT IMPORTANCE OF BS COVERAGE IN HER POC BUT PT STILL REFUSED. WILL CONTINUE TO MONITOR.
[2019-05-16] MEDS: BLOOD SUGAR DIAGNOSTIC 1 EACH STRIP IN SCH ×4 (06:34→21:34)
--- NOTE | 2019-05-16 06:56 | NUR ---
MS RN NOTES AWAKE & RESPONSIVE. NOT IN ANY DISTRESS. NO SOB NOTED. DENIES ANY PAIN OR DISCOMFORT AT THIS TIME. WITH IVF INFUSING WELL. AM CARE DONE. MONITORED ACCORDINGLY. CALL LIGHT WITHIN REACH. BED IN LOWEST POSITION. SR UP X 2 FOR SAFETY. WILL ENDORSE TO NEXT SHIFT.
[2019-05-16] MEDS: MORPHINE SULFATE INJ 2 MG/ML DISP.SYRIN IV PRN ×3 (07:34→20:56)
[2019-05-16] MEDS: ONDANSETRON HCL/PF 4 MG/2 ML VIAL IVP PRN ×2 (07:36→20:56)
--- NOTE | 2019-05-16 07:38 | NUR ---
MS/RN OPENING NOTES RECEIVED PATIENT AWAKED LYING ON BED. ALERT AND ORIENTED X4. PATIENT COMPLAINED OF PAIN AT 9/10. PAIN MEDICATION WAS ADMINISTERED. NO RESPIRATORY DISTRESS NOTED. PATIENT WITH O2 AT 3L/MIN IN PLACE. BED IN LOWEST POSITION. SIDE RAILS UP X2. WILL CONTINUE TO MONITOR.
[2019-05-16 08:00] VITALS: BP 144/70
[2019-05-16] MEDS: INSULIN ASPART/LISPRO 100 UNIT/ML CARTRIDGE SQ SCH ×3 (08:04→18:00)
[2019-05-16] MEDS: AMLODIPINE BESYLATE 5 MG TABLET PO SCH (08:31)
[2019-05-16] MEDS: CLONIDINE HCL 0.1 MG TABLET PO SCH ×2 (08:32→17:20)
[2019-05-16] MEDS: CARVEDILOL 12.5 MG TABLET PO SCH ×2 (08:32→17:20)
[2019-05-16] MEDS: DOCUSATE SODIUM 100 MG CAPSULE PO SCH (08:32)
[2019-05-16] MEDS: ASPIRIN 81 MG TAB.CHEW PO SCH (08:33)
[2019-05-16] MEDS: LIDOCAINE 5% (PATCH) 1 EA PATCH TP SCH ×3 (08:33→09:00)
[2019-05-16] MEDS: hydrALAZINE HCL 50 MG TABLET PO SCH ×3 (08:33→17:19)
[2019-05-16] MEDS: BACLOFEN (10 MG) 10 MG TABLET PO SCH ×3 (08:33→17:20)
[2019-05-16] MEDS: PANTOPRAZOLE 40 MG VIAL IV SCH (08:57)
[2019-05-16] MEDS: PAROXETINE HCL 10 MG TABLET PO SCH (08:57)
[2019-05-16] MEDS: INSULIN GLARGINE, 100 UNIT/ML CARTRIDGE SQ SCH ×2 (09:00→21:00)
[2019-05-16 16:15] VITALS: BP 122/64
[2019-05-16] MEDS: HYDROCODONE/APAP 5/325MG 1 EACH TABLET PO PRN (17:19)
--- NOTE | 2019-05-16 17:45 | NUR ---
MS/RN NOTES BS 113MG/DL NO COVERAGE
--- NOTE | 2019-05-16 18:36 | NUR ---
MS/RN NOTES INSULIN NOT ADMINISTERED DUE TO BS 113, PATIENT IS NOT EATING.
--- NOTE | 2019-05-16 19:11 | NUR ---
MS/RN NOTES AWAKE & RESPONSIVE. NOT IN ANY DISTRESS. NO SOB NOTED. DENIES ANY PAIN OR DISCOMFORT AT THIS TIME. AM CARE DONE. MONITORED ACCORDINGLY. CALL LIGHT WITHIN REACH. BED IN LOWEST POSITION. SR UP X 2 FOR SAFETY. WILL ENDORSE TO NEXT SHIFT.
[2019-05-16 21:27] VITALS: BP 110/68
[2019-05-17] MEDS: MEROPENEM 500 MG in IV NS 0.9% 50 ML IV SCH ×2 (00:19→11:03)
[2019-05-17] MEDS: MORPHINE SULFATE INJ 2 MG/ML DISP.SYRIN IV PRN ×4 (02:31→20:30)
[2019-05-17] MEDS: ONDANSETRON HCL/PF 4 MG/2 ML VIAL IVP PRN ×3 (02:32→15:01)
[2019-05-17] MEDS: HYDROCODONE/APAP 5/325MG 1 EACH TABLET PO PRN ×2 (05:46→10:34)
[2019-05-17] MEDS: BLOOD SUGAR DIAGNOSTIC 1 EACH STRIP IN SCH ×4 (06:37→21:24)
--- NOTE | 2019-05-17 06:38 | NUR ---
MS RN NOTES AWAKE & RESPONSIVE. NOT IN ANY DISTRESS. NO SOB NOTED. DENIES ANY PAIN OR DISCOMFORT AT THIS TIME. WITH IV-HL PATENT & INTACT. AM CARE DONE. MONITORED ACCORDINGLY. CALL LIGHT WITHIN REACH. BED IN LOWEST POSITION. SR UP X 2 FOR SAFETY. WILL ENDORSE TO NEXT SHIFT.
--- NOTE | 2019-05-17 07:42 | NUR ---
RN OPENING NOTE PT RECEIVED IN BED AT LOWEST AND LOCKED POSITION WITH SIDE RAILS UP X2, A/O X4 BREATHING EVEN AND UNLABORED WITH NO S/S OF ANY DISTRESS, IV IS PATENT AND INTACT, POSSIBLE D/C WAS INFORMED THAT D/C WAS DELAYED TO BARIATRIC GURNEY BEING NEEDED, ON ISOLATION, SAFETY PRECAUTIONS IN PLACE, CALL LIGHT IN REACH, WILL MONITOR ACCORDINGLY.
[2019-05-17] MEDS: INSULIN ASPART/LISPRO 100 UNIT/ML CARTRIDGE SQ SCH ×3 (08:00→17:38)
--- NOTE | 2019-05-17 08:00 | NUR ---
RN NOTE 0800 DOSE OF NOVALOG NOT GIVEN DUE TO BS LEVEL OF 117, WILL MONITOR
[2019-05-17] MEDS: PANTOPRAZOLE 40 MG VIAL IV SCH (08:32)
[2019-05-17] MEDS: PAROXETINE HCL 10 MG TABLET PO SCH (08:32)
[2019-05-17] MEDS: AMLODIPINE BESYLATE 5 MG TABLET PO SCH (08:33)
[2019-05-17] MEDS: ASPIRIN 81 MG TAB.CHEW PO SCH (08:33)
[2019-05-17] MEDS: BACLOFEN (10 MG) 10 MG TABLET PO SCH ×3 (08:33→16:44)
[2019-05-17] MEDS: DOCUSATE SODIUM 100 MG CAPSULE PO SCH (08:33)
[2019-05-17] MEDS: hydrALAZINE HCL 50 MG TABLET PO SCH ×3 (08:34→16:44)
[2019-05-17] MEDS: CARVEDILOL 12.5 MG TABLET PO SCH ×2 (08:35→16:45)
[2019-05-17] MEDS: CLONIDINE HCL 0.1 MG TABLET PO SCH ×2 (08:36→16:45)
[2019-05-17] MEDS: INSULIN GLARGINE, 100 UNIT/ML CARTRIDGE SQ SCH ×2 (08:43→21:29)
[2019-05-17] MEDS: LIDOCAINE 5% (PATCH) 1 EA PATCH TP SCH (08:43)
[2019-05-17 09:41] VITALS: BP 127/58
--- NOTE | 2019-05-17 12:41 | NUR ---
RN NOTE 1300 NOVALOG NOT GIVEN DUE TO BS LEVEL OF 122, WILL MONITOR ACCORDINGLY
[2019-05-17 16:00] VITALS: BP 131/60
--- NOTE | 2019-05-17 17:39 | NUR ---
RN NOTE 1800 ABEL HELD DUE TO BS LEVEL OF 124, WILL MONITOR ACCORDINGLY
--- NOTE | 2019-05-17 18:21 | NUR ---
RN CLOSING NOTE PT IN BED AT LOWEST AND LOCKED POSITION WITH SIDE RAILS UP X2, A/O X4 BREATHING EVEN AND UNLABORED WITH NO DISTRESS OR PAIN AT THIS TIME, IV IS PATENT AND INTACT, PLACEMENT PENDING, ON ISOLATION, SAFETY PRECAUTIONS IN PLACE, CALL LIGHT IN REACH, ALL NEEDS ATTENDED TO, WILL ENDORSE TO NIGHT RN FOR WAN.
--- NOTE | 2019-05-17 19:17 | NUR ---
RN NOTES : RECEIVED AWAKE ONE BED, SEMI FOWLERS POSITION, LYING COMFORTABLY IN BED, A/OX4, BED BOUND, OBESE, CORBIN MID LINE INTACT AND PATENT. FALL,SAFETY ASPIRATION PRECAUTION OBSERVE, BED LOW AND LOCKED, CALL LIGHT KEPT WITHIN EASY REACH.ISOLATION PRECAUTION FOR ESBL URINE OBSERVED.
--- NOTE | 2019-05-17 19:47 | NUR ---
RN NOTES: TURN AND REPOSITIONED, 3 PERSON ASSIST, KEPT ON SEMI FOWLERS POSITION,ABLE TO MAKE NEEDS KNOWN, ATTENDED.
[2019-05-17 20:00] VITALS: BP 150/60
--- NOTE | 2019-05-17 20:34 | NUR ---
RN NOTES: AFTER REPOSITIONING, SHE COMPLAINTS OF BACK PAIN 8/, REQUESTING FOR HER PAIN MEDICATION, MORPHINE GIVEN, BP-150/60.NON PHARMACOLOGIC INTERVENTION GIVEN, BACK RUB, DIM LIGHT.
[2019-05-17 20:42] VITALS: BP 150/60
[2019-05-17] MEDS: INSULIN REGULAR, HUMAN 100 UNIT/ML 3 ML VIAL SQ PRN (21:40)
--- NOTE | 2019-05-17 21:54 | NUR ---
RN NOTES: BLOOD SUGAR CHECK-144, LANTUS AND HUMULIN R KIRT, WILL CONTINUE TO MONITOR FOR SIGN OF HYPER/HYPOGLYCEMIA. Addendum: 05/17/19 at 2204 by BIJAN SERRANO RN MAKE CORRECTION: BLOOD SUGAR IS 141 NOT 144.
[2019-05-18] MEDS: MEROPENEM 500 MG in IV NS 0.9% 50 ML IV SCH ×2 (00:25→11:50)
[2019-05-18] MEDS: MORPHINE SULFATE INJ 2 MG/ML DISP.SYRIN IV PRN ×5 (03:15→22:53)
--- NOTE | 2019-05-18 03:23 | NUR ---
RN NOTES: TURN AND REPOSITION, COMPLAINED OF PAIN /, REQUEST FOR HER PAIN MEDICATION, SHE ALSO SAID SHE PEE, MORNING CARE DONE, CLEAN AND CHANGE. KEPT COMFORTABLE IN BED, NON PHARMACOLOGIC INTERVENTION RENDERED, WARM BLANKET, AND GIVEN ICE CHIPS.
[2019-05-18] MEDS: BLOOD SUGAR DIAGNOSTIC 1 EACH STRIP IN SCH ×4 (06:43→21:25)
[2019-05-18] MEDS: HYDROCODONE/APAP 5/325MG 1 EACH TABLET PO PRN ×4 (06:43→21:35)
--- NOTE | 2019-05-18 06:45 | NUR ---
RN NOTES: COMPLAINED OF PAIN 12/01 REQUESTING FOR HER INJECTION BUT NOT YET DUE, EXPLAINED TO HER, SHE AGREED, SHE ASK FOR PAIN PILL, NORCO GIVEN AFTER NON PHARMACOLOGIC INTERVENTION IS INEFFECTIVE.
--- NOTE | 2019-05-18 07:22 | NUR ---
RN OPENING NOTE PT RECEIVED IN BED AT LOWEST AND LOCKED POSITION WITH SIDE RAILS UP X2, A/O X4 BREATHING EVEN AND UNLABORED WITH NO S/S OF ANY DISTRESS, IV IS PATENT AND INTACT, D/C PENDING, ON ISOLATION, SAFETY PRECAUTIONS IN PLACE, CALL LIGHT IN REACH, WILL MONITOR ACCORDINGLY.
--- NOTE | 2019-05-18 07:33 | NUR ---
RN NOTES: TURNING AND REPOSITIONING DONE, NEEDS ATTENDED, GIVEN JUICE, LATEST BS-93,FALL,SAFETY AND ASPIRATION PRECAUTION OBSERVE, ENDORSED FOR CONTINUITY .
[2019-05-18 08:00] VITALS: BP 125/45
[2019-05-18] MEDS: INSULIN ASPART/LISPRO 100 UNIT/ML CARTRIDGE SQ SCH ×3 (08:00→17:22)
--- NOTE | 2019-05-18 08:00 | NUR ---
RN NOTE 0800 NOVALOG NOT GIVEN DUE TO BS OF 116, WILL MONITOR
[2019-05-18] MEDS: DOCUSATE SODIUM 100 MG CAPSULE PO SCH (08:23)
[2019-05-18] MEDS: BACLOFEN (10 MG) 10 MG TABLET PO SCH ×3 (08:24→16:10)
[2019-05-18] MEDS: CARVEDILOL 12.5 MG TABLET PO SCH ×2 (08:25→16:11)
[2019-05-18] MEDS: ASPIRIN 81 MG TAB.CHEW PO SCH (08:25)
[2019-05-18] MEDS: PAROXETINE HCL 10 MG TABLET PO SCH (08:26)
[2019-05-18] MEDS: CLONIDINE HCL 0.1 MG TABLET PO SCH ×2 (08:28→16:11)
[2019-05-18] MEDS: hydrALAZINE HCL 50 MG TABLET PO SCH ×3 (08:28→16:10)
[2019-05-18] MEDS: PANTOPRAZOLE 40 MG VIAL IV SCH (08:28)
[2019-05-18] MEDS: LIDOCAINE 5% (PATCH) 1 EA PATCH TP SCH (08:49)
[2019-05-18] MEDS: INSULIN GLARGINE, 100 UNIT/ML CARTRIDGE SQ SCH ×2 (08:50→21:25)
[2019-05-18] MEDS: AMLODIPINE BESYLATE 5 MG TABLET PO SCH (08:52)
--- NOTE | 2019-05-18 11:14 | NUR ---
RN NOTE INSTRUMENT MAN CALLED AND FOLLOWED UP REGARDING D/C PLANNING, PER CM STILL AWAITING FOR FACILITY ACCEPTANCE
[2019-05-18] MEDS: INSULIN REGULAR, HUMAN 100 UNIT/ML 3 ML VIAL SQ PRN (13:14)
[2019-05-18] MEDS: ONDANSETRON HCL/PF 4 MG/2 ML VIAL IVP PRN (13:32)
[2019-05-18 16:00] VITALS: BP 115/54
--- NOTE | 2019-05-18 17:22 | NUR ---
RN NOTE 1800 NOVALOG NOT GIVEN DUE TO BS OF 123
--- NOTE | 2019-05-18 18:34 | NUR ---
RN CLOSING NOTE PT IN BED AT LOWEST AND LOCKED POSITION WITH SIDE RAILS UP X2, A/O X4 BREATHING EVEN AND UNLABORED WITH NO DISTRESS OR PAIN AT THIS TIME, IV IS PATENT AND INTACT, PLACEMENT PENDING, SAFETY PRECAUTIONS IN PLACE, CALL LIGHT IN REACH, ALL NEEDS ATTENDED TO, WILL ENDORSE TO NIGHT RN FOR WAN.
--- NOTE | 2019-05-18 19:35 | NUR ---
MS RN NOTES PATIENT IN BED RESTING COMFORTABLY IN MODERATE HIGH BACK REST. A/O X1, NO SIGNS OF DISTRESS NOTED THROUGHOUT THE SHIFT. MIDLINE ON HER LEFT UPPER ARM, INTACT AND PATENT. SAFETY MEASURES IN PLACE, BED ON LOWEST POSITION AND LOCKED. BED ALARM ON. DENIES ANY PAIN AT THIS TIME. CALL LIGHT WITH IN EASY REACH. WILL CONTINUE TO MONITOR ACCORDINGLY.
[2019-05-18 20:00] VITALS: BP 109/52
[2019-05-19] MEDS: MEROPENEM 500 MG in IV NS 0.9% 50 ML IV SCH ×2 (00:06→12:03)
[2019-05-19] MEDS: MORPHINE SULFATE INJ 2 MG/ML DISP.SYRIN IV PRN ×2 (03:58→08:42)
[2019-05-19] MEDS: BLOOD SUGAR DIAGNOSTIC 1 EACH STRIP IN SCH ×4 (06:51→22:00)
--- NOTE | 2019-05-19 07:06 | NUR ---
RN NOTES ALL NEEDS ATTENDED, ABLE TO REST AND SLEPT AT INTERVALS, SAFETY MEASURES INPLACE, KEPT CLEAN DRY AND COMFORTABLE. ENDORSED TO AM NURSE FOR CONTINUITY OF CARE.
--- NOTE | 2019-05-19 07:41 | NUR ---
MS RN OPENING NOTES RECEIVED PATIENT IN BED, AWAKE, A/O X 4. PATIENT ON OXYGEN THERAPY AT 3 LPM VIA NASAL CANULA. BREATHING NORMAL, NON-LABORED. MILD PAIN AT THIS TIME IN HER BACK DUE TO CHRONIC BACK PAIN. CORBIN MIDLINE PRESENT AND INTACT, FLUSHING WELL. SAFETY PRECAUTIONS IN PLACE; BED LOW AND LOCKED, RAILS UP X2, CALL LIGHT WITHIN REACH. WILL CONTINUE TO MONITOR PATIENT.
[2019-05-19 08:00] VITALS: BP 144/53
[2019-05-19] MEDS: INSULIN ASPART/LISPRO 100 UNIT/ML CARTRIDGE SQ SCH ×3 (08:00→18:00)
[2019-05-19] MEDS: PAROXETINE HCL 10 MG TABLET PO SCH (08:49)
[2019-05-19] MEDS: CARVEDILOL 12.5 MG TABLET PO SCH ×2 (08:50→16:43)
[2019-05-19] MEDS: CLONIDINE HCL 0.1 MG TABLET PO SCH ×2 (08:50→16:43)
[2019-05-19] MEDS: BACLOFEN (10 MG) 10 MG TABLET PO SCH ×3 (08:51→16:44)
[2019-05-19] MEDS: PANTOPRAZOLE 40 MG VIAL IV SCH (08:51)
[2019-05-19] MEDS: DOCUSATE SODIUM 100 MG CAPSULE PO SCH (08:51)
[2019-05-19] MEDS: ASPIRIN 81 MG TAB.CHEW PO SCH (08:51)
[2019-05-19] MEDS: LIDOCAINE 5% (PATCH) 1 EA PATCH TP SCH (08:53)
[2019-05-19] MEDS: hydrALAZINE HCL 50 MG TABLET PO SCH ×3 (09:00→16:43)
--- NOTE | 2019-05-19 09:12 | NUR ---
MS RN NOTES PATIENT IN PAIN 10/10 BACK AND LEGS REQUESTING MORPHINE. PRN MORPHINE ADMINISTERED. WILL REASSES LATER.
--- NOTE | 2019-05-19 09:15 | NUR ---
MS RN NOTES INSULIN NOVOLOG NON-ADMINISTERED DUE TO LOW BS THIS MORNING OF 92 AND PATIENT REFUSED TO EAT HER BREAKFAST. WILL CHECK LATER.
[2019-05-19] MEDS: AMLODIPINE BESYLATE 5 MG TABLET PO SCH (10:41)
[2019-05-19] MEDS: INSULIN GLARGINE, 100 UNIT/ML CARTRIDGE SQ SCH ×2 (11:14→21:00)
--- NOTE | 2019-05-19 14:16 | NUR ---
MS RN NOTES INSULIN NOVOLOG NON-ADMINISTERED. PATIENT'S BP HAS BEEN ON A LOWER SIDE SO FAR. PATIENT IS NOT EATING MUCH. LAST READING 128.
[2019-05-19 16:00] VITALS: BP 141/66
--- NOTE | 2019-05-19 16:45 | NUR ---
MS RN NOTES PATIENT REFUSES ALL HER MEDS STATING SHE HAS CANCER AND NOTHING WILL HELP HER. SHE IS FREE TO DECLINE HER MEDS.
--- NOTE | 2019-05-19 18:44 | NUR ---
MS RN CLOSING NOTES PATIENT IS IN BED AT THIS TIME, AWAKE, A/O X 3. PATIENT ON OXYGEN THERAPY AT 3 LPM VIA NASAL CANULA. BREATHING NORMAL, NON-LABORED. MILD PAIN AT THIS TIME IN HER BACK DUE TO CHRONIC BACK PAIN. MEDICATION ADMINISTERED TO MANAGE PAIN. PER MD PAIN MEDICATION WAS MODIFIED. CORBIN MIDLINE PRESENT AND INTACT, FLUSHING WELL. PATIENT REFUSED ALL HER MEDS AND VS AFTER 1600 STATING ITS HER CHOICE. SAFETY PRECAUTIONS IN PLACE; BED LOW AND LOCKED, RAILS UP X2, CALL LIGHT WITHIN REACH. WILL ENDORSE TO SET UP AND LAY OUT INSPECTOR.
--- NOTE | 2019-05-19 19:58 | NUR ---
RN NOTES RECEIVED PATIENT IRRITABLE, COMPLAINED OF PAIN BUT REFUSED TO TAKE PRN PAIN MEDICATIONS PER MD ORDERED. SAFETY MEASURES IN PLACE, ASPIRATION PRECAUTION EMPHASIZED, BED IN LOCKED POSITION, CALL LIGHT WITH IN EASY REACH. ALL NEEDS ANTICIPATED, WILL CONTINUE TO MONITOR ACCORDINGLY.
--- NOTE | 2019-05-19 20:25 | NUR ---
RN NOTES PATIENT REFUSED VITAL SIGNS ASSESSMENT.
--- NOTE | 2019-05-19 21:40 | NUR ---
RN NOTES PATIENT REFUSED INSULIN LANTUS 40 UNITS.
--- NOTE | 2019-05-19 22:10 | NUR ---
RN NOTES PATIENT REFUSED ACCUCHECK.
--- NOTE | 2019-05-19 23:00 | NUR ---
RN NOTES PATIENT REFUSED SKIN RE-ASSESSMENT, UNABLE TO TAKE PHOTOS FOR SKIN RE-ASSESSMENT. CHARGE NURSE AWARE THAT PATIENT HAS BEEN REFUSING ANY NURSING CARE AND MEDICAL INTERVENTION, SINCE 1900 UPON RECEIVING PATIENT.
--- NOTE | 2019-05-20 00:22 | NUR ---
RN NOTES PATIENT REFUSED ANTIBIOTIC MEROPENEM 500MG IV.
[2019-05-20] MEDS: HYDROCODONE/APAP 5/325MG 1 EACH TABLET PO PRN ×3 (03:40→22:39)
[2019-05-20 04:55] VITALS: BP 148/65
--- NOTE | 2019-05-20 06:17 | NUR ---
RN NOTES ALL NEEDS ATTENDED. PATIENT REFUSED SKIN RE-ASSESSMENT / REFUSED TO TAKE PHOTOS OF HER SKIN CONDITION. AT THIS TIME," NO, I DON'T WANT WANT TO BE BOTHERED, I WANT TO REST", VERBALIZED BY PATIENT. WILL ENDORSE TO AM NURSE FOR CONTINUITY OF CARE. SAFETY MEASURES MAINTAINED, CALL LIGHT WITHIN EASY REACH.
[2019-05-20 06:38] LABS: BASOPHILS % (AUTO) 0.3 % (0.0-2.0); EOSINOPHILS % (AUTO) 0.2 % (0.0-6.0); HEMATOCRIT 36 % (33-45); HEMOGLOBIN 11.3 g/dL (11.5-14.8); LYMPHOCYTES # (AUTO) 0.5 /CMM (0.8-4.8); LYMPHOCYTES % (AUTO) 14.9 % (20.0-44.0); MEAN CORPUSCULAR HGB CONC 31 g/dl (31.0-36.0); MEAN CORPUSCULAR VOLUME 75 fL (82-100); MONOCYTES # (AUTO) 0.5 /CMM (0.1-1.30); MONOCYTES % (AUTO) 14.4 % (2.0-12.0); NEUTROPHILS # (AUTO) 2.5 /CMM (1.8-8.9); NEUTROPHILS % (AUTO) 70.2 % (43.0-81.0); PLATELET COUNT (AUTO) 139 /CMM (150-450); RED BLOOD CELL COUNT(AUTO) 4.84 MIL/uL (4.0-5.2); WHITE BLOOD COUNT (AUTO) 3.5 K/uL (4.3-11.0)
[2019-05-20 06:45] LABS: ALBUMIN 2.2 g/dL (3.4-5.0); BILIRUBIN,TOTAL 0.3 mg/dL (0.2-1.0); CALCIUM, SERUM 8.7 mg/dL (8.5-10.1); CREATININE 1.4 mg/dL (0.6-1.3); MAGNESIUM 1.7 mg/dL (1.8-2.4); PHOSPHORUS 2.7 mg/dL (2.5-4.9); POTASSIUM 4.2 mmol/L (3.5-5.1); TOTAL PROTEIN, SERUM 6.5 g/dL (6.4-8.2)
[2019-05-20] MEDS: INSULIN ASPART/LISPRO 100 UNIT/ML CARTRIDGE SQ SCH ×3 (08:00→17:34)
[2019-05-20 08:29] VITALS: BP 143/58
--- NOTE | 2019-05-20 08:30 | NUR ---
m/s regional administrative assistant: md visit seen and examined by dr. gomez at this time.
[2019-05-20] MEDS: BACLOFEN (10 MG) 10 MG TABLET PO SCH ×3 (08:58→16:55)
[2019-05-20] MEDS: CARVEDILOL 12.5 MG TABLET PO SCH ×2 (08:58→16:45)
[2019-05-20] MEDS: PAROXETINE HCL 10 MG TABLET PO SCH (08:58)
[2019-05-20] MEDS: AMLODIPINE BESYLATE 5 MG TABLET PO SCH (08:58)
[2019-05-20] MEDS: CLONIDINE HCL 0.1 MG TABLET PO SCH ×2 (08:59→16:55)
[2019-05-20] MEDS: ASPIRIN 81 MG TAB.CHEW PO SCH (08:59)
[2019-05-20] MEDS: hydrALAZINE HCL 50 MG TABLET PO SCH ×3 (08:59→16:54)
[2019-05-20] MEDS: DOCUSATE SODIUM 100 MG CAPSULE PO SCH (08:59)
[2019-05-20] MEDS: LIDOCAINE 5% (PATCH) 1 EA PATCH TP SCH (09:00)
[2019-05-20] MEDS: INSULIN GLARGINE, 100 UNIT/ML CARTRIDGE SQ SCH ×2 (09:02→22:48)
[2019-05-20] MEDS: HEPARIN SODIUM, PORCINE 5000 UNITS/1 ML VIAL SQ SCH ×2 (09:06→22:46)
[2019-05-20] MEDS: BLOOD SUGAR DIAGNOSTIC 1 EACH STRIP IN SCH ×4 (09:07→22:48)
[2019-05-20] MEDS: PANTOPRAZOLE 40 MG VIAL IV SCH (09:30)
--- NOTE | 2019-05-20 09:44 | NUR ---
m/s clamp truck driver: notes c/o 10/31 generalize discomfort, medicated with 1 tab of norco as ordered. instructed to call for assistance. will monitor.
--- NOTE | 2019-05-20 10:30 | NUR ---
m/s administrative support coordinator: notes p.t., dr. gomez, primary nurse and video recorder mechanic at bedside for encouragement for changing and p.t. tx, pt refused to get up, but able to sit her up for a minute with max assistance. prior to sitting up, incontinent care of bladder and am care rendered by staff. no skin breakdown noted, pt still refuses skin photos. assisted back to bed, kept comfortable. instructed to call for assistance.
[2019-05-20] MEDS: MEROPENEM 500 MG in IV NS 0.9% 50 ML IV SCH ×3 (11:35)
--- NOTE | 2019-05-20 12:00 | NUR ---
m/s staple laster: notes lunch served, but pt doesn't want to eat it right now, pt goes back to sleep. call light within reach. will continue to monitor.
[2019-05-20] MEDS: Magnesium 1GM/D5W 100ML PREMIX 100 ML IV SCH ×2 (12:05→13:07)
--- NOTE | 2019-05-20 13:00 | NUR ---
m/s communications strategist: notes pt refused 1 pm due meds when offered. instructed to call for assistance.
--- NOTE | 2019-05-20 15:00 | NUR ---
m/s broach grinder: notes resting comfortable in bed. no distress noted. call light within reach. will monitor.
[2019-05-20 16:26] VITALS: BP 141/63
--- NOTE | 2019-05-20 18:25 | NUR ---
m/s contract agent: notes pm care rendered. kept clean and dry. needs attended. instructed to call for assistance. will continue to monitor.
--- NOTE | 2019-05-20 19:27 | NUR ---
m/s senior manager: notes bedside report given to bjorn (roxana) for continuity of care.
[2019-05-20 19:30] VITALS: BP 129/55
--- NOTE | 2019-05-20 19:40 | NUR ---
MSRN FULLY AWAKE, RESTING QUIETLY. NO SOB, PAINFREE. PROVIDED ICECHIPS REQUESTED. PLAN OF CARE AND MEDICATION REGIMEN DISCUSSED WITH PATIENT APPEARS TO UNDERSTAND. INSTRUCTED TO CALL STAFF FOR ANY ASSISTANCE OR DISCOMFORTS, KEPT DRY CLEAN AND COMFORTABLE.
[2019-05-20 20:00] VITALS: BP 129/55
--- NOTE | 2019-05-20 22:40 | NUR ---
MSRN VERBALIZES BUTTOCK PAIN, NORCO 1 TAB PO ADMINISTERED. BS WAS 102, NO COVERAGE. LANTUS HEL FOR NOW AND PATIENT STATED SHE DOES NOT NEED LANTUS TONIGHT. OFFERED SNACKS DECLINED. ONLY WANTS ICECHIPS. REPOSITIONED FOR COMFORT. KEPT DRY, CLEAN AND COMFORTABLE.
[2019-05-21] MEDS: MEROPENEM 500 MG in IV NS 0.9% 50 ML IV SCH ×3 (00:14→23:31)
[2019-05-21] MEDS: HYDROCODONE/APAP 5/325MG 1 EACH TABLET PO PRN ×3 (06:31→21:38)
--- NOTE | 2019-05-21 06:34 | NUR ---
msrn verbalizes generalized pain, norco 1 tab po administered.am care done, kept comfortable.
[2019-05-21] MEDS: BLOOD SUGAR DIAGNOSTIC 1 EACH STRIP IN SCH ×4 (06:36→21:48)
[2019-05-21] MEDS: INSULIN ASPART/LISPRO 100 UNIT/ML CARTRIDGE SQ SCH ×3 (08:00→17:20)
[2019-05-21 08:25] VITALS: BP 151/61
--- NOTE | 2019-05-21 08:30 | NUR ---
m/s pantograph transferrer: md visit seen and examined by katelyn ([email or web address]), pt for d'c planning to [facility] or home with home health. case management to make arrangement. pt verbalized understanding. will continue to monitor.
[2019-05-21] MEDS: BACLOFEN (10 MG) 10 MG TABLET PO SCH ×3 (08:32→17:00)
[2019-05-21] MEDS: hydrALAZINE HCL 50 MG TABLET PO SCH ×3 (08:32→17:00)
[2019-05-21] MEDS: AMLODIPINE BESYLATE 5 MG TABLET PO SCH (08:33)
[2019-05-21] MEDS: CARVEDILOL 12.5 MG TABLET PO SCH ×2 (08:33→17:00)
[2019-05-21] MEDS: DOCUSATE SODIUM 100 MG CAPSULE PO SCH (08:33)
[2019-05-21] MEDS: ASPIRIN 81 MG TAB.CHEW PO SCH (08:33)
[2019-05-21] MEDS: LIDOCAINE 5% (PATCH) 1 EA PATCH TP SCH (08:34)
[2019-05-21] MEDS: CLONIDINE HCL 0.1 MG TABLET PO SCH ×2 (08:34→17:00)
[2019-05-21] MEDS: INSULIN GLARGINE, 100 UNIT/ML CARTRIDGE SQ SCH ×2 (08:34→21:46)
[2019-05-21] MEDS: PAROXETINE HCL 10 MG TABLET PO SCH (08:36)
[2019-05-21] MEDS: HEPARIN SODIUM, PORCINE 5000 UNITS/1 ML VIAL SQ SCH ×2 (08:41→21:37)
[2019-05-21] MEDS: PANTOPRAZOLE 40 MG VIAL IV SCH (08:56)
--- NOTE | 2019-05-21 11:30 | NUR ---
m/s sql server architect: notes incontinent of bowel and bladder rendered. turned and repositioned. kept comfortable. instructed to call for assistance. will continue to monitor.
[2019-05-21] MEDS: PANTOPRAZOLE 40 MG TABLET.DR PO SCH (11:46)
--- NOTE | 2019-05-21 12:51 | NUR ---
m/s lump room supervisor: notes c/o 10/31 generalized discomfort. medicated with norco 5/325mg 1 tab po as ordered. instructed to call for assistance. will continue to monitor.
--- NOTE | 2019-05-21 13:51 | NUR ---
m/s senior java data architect: notes pt sounds asleep. no resp. distress noted. call light within reach. will continue to monitor.
[2019-05-21 16:05] VITALS: BP 145/69
--- NOTE | 2019-05-21 17:21 | NUR ---
m/s inductor tester: notes pt refused pm meds when offered, pt has no motivation at this time. encouraged to verbalized feelings. instructed to call for assistance. will monitor.
--- NOTE | 2019-05-21 19:13 | NUR ---
m/s consignee: notes bedside report given to sosa (rn) for continuity of care.
[2019-05-21 20:00] VITALS: BP 142/63
--- NOTE | 2019-05-21 20:06 | NUR ---
MS RN OPENING NOTES PATIENT RECEIVED RESTING BED A/O X 4. ON 4L OF O2 VIA NC BREATHING EVEN AND UNLABORED. NO SIGNS OF ACUTE DISTRESS. NO COMPLAINTS OF PAIN OR DISCOMFORT. MIDLINE LOCATED ON L UPPERARM. SAFETY PRECAUTIONS IN PLACE WITH CALL LIGHT WITHIN REACH, BREAKS ON, SIDE RAILS UP X 2, AND LOWEST POSITION. WILL CONTINUE TO MONITOR.
[2019-05-22] MEDS: HYDROCODONE/APAP 5/325MG 1 EACH TABLET PO PRN (03:51)
--- NOTE | 2019-05-22 06:13 | NUR ---
MS RN CLOSING NOTES PATIENT CURRENTLY RESTING IN BED A/O X 4. ON 2L OF O2 VIA NC BREATHING EVEN AND UNLABORED. NO COMPLAINTS OF PAIN OR DISCOMFORT. MIDLINE LOCATED ON L UPPER ARM. SAFETY PRECAUTIONS IN PLACE WITH BED IN LOWEST POSITION, CALL LIGHT WITHIN REACH, BREAKS ON, SIDE RAILS UP. PATIENT WAS KEPT CLEAN AND DRY THROUGHOUT THE NIGHT, ALL NEEDS ATTENDED TO. PATIENT WAS KEPT CLEAN AND DRY THROUGHOUT THE NIGHT, ALL NEEDS ATTENDED TO. WILL ENDORSE TO ONCOMING SHIFT ABOUT WAN.
[2019-05-22 06:30] LABS: BASOPHILS % (AUTO) 0.6 % (0.0-2.0); EOSINOPHILS % (AUTO) 1.2 % (0.0-6.0); HEMATOCRIT 37 % (33-45); HEMOGLOBIN 11.4 g/dL (11.5-14.8); LYMPHOCYTES # (AUTO) 0.9 /CMM (0.8-4.8); LYMPHOCYTES % (AUTO) 28.9 % (20.0-44.0); MEAN CORPUSCULAR HGB CONC 31 g/dl (31.0-36.0); MEAN CORPUSCULAR VOLUME 75 fL (82-100); MONOCYTES # (AUTO) 0.4 /CMM (0.1-1.30); MONOCYTES % (AUTO) 12.6 % (2.0-12.0); NEUTROPHILS # (AUTO) 1.7 /CMM (1.8-8.9); NEUTROPHILS % (AUTO) 56.7 % (43.0-81.0); PLATELET COUNT (AUTO) 144 /CMM (150-450)
[2019-05-22] MEDS: BLOOD SUGAR DIAGNOSTIC 1 EACH STRIP IN SCH ×4 (06:31→21:07)
[2019-05-22 07:05] LABS: ALBUMIN 2.2 g/dL (3.4-5.0); BILIRUBIN,TOTAL 0.4 mg/dL (0.2-1.0); CALCIUM, SERUM 9.1 mg/dL (8.5-10.1); CREATININE 1.3 mg/dL (0.6-1.3); MAGNESIUM 1.9 mg/dL (1.8-2.4); PHOSPHORUS 2.9 mg/dL (2.5-4.9); TOTAL PROTEIN, SERUM 6.4 g/dL (6.4-8.2)
[2019-05-22 08:00] VITALS: BP 164/63
[2019-05-22] MEDS: INSULIN ASPART/LISPRO 100 UNIT/ML CARTRIDGE SQ SCH ×3 (08:00→17:11)
--- NOTE | 2019-05-22 08:02 | NUR ---
MS RN OPENING NOTE PATIENT IN BED RESTING COMFORTABLY. PATIENT IN NO ACUTE DISTRESS. NO SOB NOTED. PATIENT BREATHING IS EVEN AND UNLABORED. PATIENT BED ALARM IS ON. PATIENT SAFETY PRECAUTIONS IN PLACE. PATIENT BED IS LOCKED AND IN LOWEST POSITION. CALL LIGHT WITHIN REACH. WILL CONTINUE TO MONITOR.
[2019-05-22] MEDS: hydrALAZINE HCL 50 MG TABLET PO SCH ×3 (09:00→17:08)
[2019-05-22] MEDS: LIDOCAINE 5% (PATCH) 1 EA PATCH TP SCH (09:00)
[2019-05-22] MEDS: AMLODIPINE BESYLATE 5 MG TABLET PO SCH (09:00)
[2019-05-22] MEDS: PAROXETINE HCL 10 MG TABLET PO SCH (09:00)
[2019-05-22] MEDS: CARVEDILOL 12.5 MG TABLET PO SCH ×2 (09:00→17:08)
[2019-05-22] MEDS: CLONIDINE HCL 0.1 MG TABLET PO SCH ×2 (09:00→17:08)
[2019-05-22] MEDS: INSULIN GLARGINE, 100 UNIT/ML CARTRIDGE SQ SCH ×2 (09:00→21:08)
[2019-05-22] MEDS: ASPIRIN 81 MG TAB.CHEW PO SCH (09:04)
[2019-05-22] MEDS: PANTOPRAZOLE 40 MG TABLET.DR PO SCH (09:04)
[2019-05-22] MEDS: DOCUSATE SODIUM 100 MG CAPSULE PO SCH (09:04)
[2019-05-22] MEDS: BACLOFEN (10 MG) 10 MG TABLET PO SCH ×3 (09:04→17:08)
[2019-05-22] MEDS: HEPARIN SODIUM, PORCINE 5000 UNITS/1 ML VIAL SQ SCH ×2 (09:10→21:12)
--- NOTE | 2019-05-22 09:10 | NUR ---
MS RN NOTE PATIENT BLOOD SUGAR 77. NON ADMIN HUMALOG WITH DECREASED BLOOD SUGAR. PATIENT REFUSED LANTUS. PATIENT NON ADMIN BP MEDS WITH HR 54. PATIENT REFUSED PAXIL AND LIDODERM PATCH, EDUCATED RISKS VS BENEFITS. PATIENT CONTINUED TO REFUSE.
--- NOTE | 2019-05-22 10:00 | NUR ---
MS RN NOTE PATIENT WITH BACK PAIN RATED AT 6/10, OFFERED NORCO BUT PATIENT REFUSED. REPOSITIONED PATIENT FOR COMFORT AND KEPT CLEAN AND DRY.
--- NOTE | 2019-05-22 12:27 | NUR ---
MS RN NOTE PATIENT BLOOD SUGAR 85 NO INSULIN COVERAGE PER PROTOCOL. HELD INSULIN HUMALOG 1300 DOSE DUE TO POOR APPETITE INTAKE AND DECREASED BLOOD SUGAR.
[2019-05-22 16:00] VITALS: BP 140/73
--- NOTE | 2019-05-22 17:11 | NUR ---
MS RN NOTE PATIENT BLOOD SUGAR IS 92. NO INSULIN COVERAGE NEEDED PER PROTOCOL. WILL HOLD INSULIN NOVOLOG DUE TO DECREASED INTAKE, APPETITE, AND DECREASED BLOOD SUGAR.
--- NOTE | 2019-05-22 18:55 | NUR ---
MS RN CLOSING NOTE PATIENT IN BED RESTING COMFORTABLY. PATIENT IN NO ACUTE DISTRESS. NO SOB NOTED. PATIENT BREATHING IS EVEN AND UNLABORED. PATIENT BED ALARM IS ON. PATIENT KEPT CLEAN, DRY, AND COMFORTABLE THROUGHOUT SHIFT. NEEDS AND CONCERNS ADDRESSED. PATIENT EXTREMITIES OFFLOADED ON PILLOWS. PATIENT TURNED AND REPOSITIONED MUCH PATIENT WOULD ALLOW. SAFETY PRECAUTIONS IN PLACE. PATIENT BED IS LOCKED AND IN LOWEST POSITION. CALL LIGHT WITHIN REACH. WILL ENDORSE CARE TO PM SHIFT FOR WAN.
--- NOTE | 2019-05-22 19:48 | NUR ---
MS/RN OPENING NOTE: PATIENT IN BED RESTING COMFORTABLY. PATIENT IN NO ACUTE DISTRESS. NO SOB NOTED. PATIENT BREATHING IS EVEN AND UNLABORED. PATIENT BED ALARM IS ON. PATIENT SAFETY PRECAUTIONS IN PLACE. PATIENT BED IS LOCKED AND IN LOWEST POSITION. CALL LIGHT WITHIN REACH. WILL CONTINUE TO MONITOR.
[2019-05-22 20:00] VITALS: BP 131/61
[2019-05-22] MEDS: INSULIN REGULAR, HUMAN 100 UNIT/ML 3 ML VIAL SQ PRN (21:13)
[2019-05-23] MEDS: HYDROCODONE/APAP 5/325MG 1 EACH TABLET PO PRN ×2 (04:02→16:27)
--- NOTE | 2019-05-23 04:05 | NUR ---
MS/RN NOTE: PATIENT WITH BACK PAIN RATED AT 7/10, ADMINISTERED 5MG NORCO PO 1 TAB. TOLERATED WELL. REPOSITIONED PATIENT FOR COMFORT AND KEPT CLEAN AND DRY. WILL CONTINUE MONITORING PT ACCORDINGLY.
--- NOTE | 2019-05-23 06:23 | NUR ---
MS/RN CLOSING NOTES: PATIENT IS RESTING IN BED. REMAINS A/O X 4. ON 2L OF O2 VIA NC. NO SOB NOTED, BREATHING EVEN AND UNLABORED. NO COMPLAINTS OF PAIN OR DISCOMFORT. MIDLINE LOCATED ON L UPPER ARM. ACCU-CHECK DONE WITH BS OF 103. NO INSULIN GIVEN BASED ON THE SLIDING SCALE. SAFETY PRECAUTIONS IN PLACE WITH BED IN LOWEST POSITION, CALL LIGHT WITHIN REACH, BREAKS ON, SIDE RAILS UP. KEPT WARM AND COMFORTABLE THROUGHOUT THE NIGHT. ALL NEEDS ATTENDED TO. PATIENT WAS KEPT CLEAN AND DRY THROUGHOUT THE SHIFT, WILL ENDORSE TO ONCOMING SHIFT ABOUT WAN.
[2019-05-23] MEDS: BLOOD SUGAR DIAGNOSTIC 1 EACH STRIP IN SCH ×3 (06:30→16:28)
[2019-05-23] MEDS: INSULIN REGULAR, HUMAN 100 UNIT/ML 3 ML VIAL SQ PRN (06:30)
[2019-05-23 08:00] VITALS: BP 133/66
[2019-05-23] MEDS: INSULIN ASPART/LISPRO 100 UNIT/ML CARTRIDGE SQ SCH ×3 (08:00→17:35)
--- NOTE | 2019-05-23 08:10 | NUR ---
ms rn received on bed, awake,alert,oriented x4,not in any form of distress, respirations even and unlabored,no sob noted, lungs are clear,abdomen soft,positive bowel sounds, denies pain at this time,all needs attended.
[2019-05-23] MEDS: hydrALAZINE HCL 50 MG TABLET PO SCH ×3 (09:00→16:27)
[2019-05-23] MEDS: AMLODIPINE BESYLATE 5 MG TABLET PO SCH (09:00)
[2019-05-23] MEDS: LIDOCAINE 5% (PATCH) 1 EA PATCH TP SCH (09:00)
[2019-05-23] MEDS: CLONIDINE HCL 0.1 MG TABLET PO SCH ×2 (09:00→16:28)
[2019-05-23] MEDS: INSULIN GLARGINE, 100 UNIT/ML CARTRIDGE SQ SCH (09:00)
--- NOTE | 2019-05-23 09:50 | NUR ---
ms rn due meds given, b/p meds held due to low b/p, refused to take accucheck for sugar, insulins held at this time. no s/s of hyper/hypoglycemia noted.
[2019-05-23] MEDS: BENZONATATE 100 MG CAPSULE PO PRN (10:07)
[2019-05-23] MEDS: BACLOFEN (10 MG) 10 MG TABLET PO SCH ×3 (10:07→16:26)
[2019-05-23] MEDS: ASPIRIN 81 MG TAB.CHEW PO SCH (10:07)
[2019-05-23] MEDS: PANTOPRAZOLE 40 MG TABLET.DR PO SCH (10:07)
[2019-05-23] MEDS: DOCUSATE SODIUM 100 MG CAPSULE PO SCH (10:07)
[2019-05-23] MEDS: PAROXETINE HCL 10 MG TABLET PO SCH (10:07)
[2019-05-23] MEDS: CARVEDILOL 12.5 MG TABLET PO SCH ×2 (10:11→16:27)
[2019-05-23] MEDS: HEPARIN SODIUM, PORCINE 5000 UNITS/1 ML VIAL SQ SCH (10:12)
--- NOTE | 2019-05-23 12:00 | NUR ---
ms rn accu check done - 89 - no insulins given at this time.
--- NOTE | 2019-05-23 14:00 | NUR ---
ms rn patient is to be discharge at 1630, ready for discharge,but patient refused to take pictures at this itme, will ask again in am.
[2019-05-23 16:00] VITALS: BP 148/60
--- NOTE | 2019-05-23 16:30 | NUR ---
ms rn due meds given,, blood sugar - 105- no insulin given at this time,all needs attended.
--- NOTE | 2019-05-23 17:00 | NUR ---
ms carpet yarn winder operator transportation no here, time moved later at 1830,all needs attended.
--- NOTE | 2019-05-23 20:20 | NUR ---
DISCHARGE Patient is A/O x4 has been cleared for discharge to SNF but patient strongly refused and preferred to go home. Per AM nurse and MIKAYLA Shay [facility] with caregiver will follow patient at home. Patient lives alone by herself. Discussed discharge instruction to patient with length of time, verbalized understanding. CORBIN midline removed, gauze applied. Patient refused skin body assessment for photos. All personal belongings checked and send with the patient upon dc. Patient left hosp in stable condition via ambulance.
--- NOTE | 2019-05-23 22:05 | NUR ---
CONTINUE PREVIOUS ORDERS Patient is back to hospital after being discharged to home. Per ambulance staff report, patient unable to transfer with assist from gurney to wheelchair, difficulty standing up. Patient is then c/o back pain and requesting to go back in the hosp. Per ambulance staff, there was no room to maneuver the gurney, not enough space to move gurney closer to patients house. Ambulance staff then brought patient back to the hosp. Nurse glazing department supervisor is aware. Informed Dr. Alvarenga with orders to continue previous orders, Charge nurse aware.
[2019-05-23 22:10] VITALS: BP 166/71
[2019-05-24] MEDS ORDERED: ACETAMINOPHEN 325 MG TABLET PO PRN (00:30)
[2019-05-24 01:25] VITALS: BP 166/72
[2019-05-24] MEDS: HYDROCODONE/APAP 5/325MG 1 EACH TABLET PO PRN ×4 (01:29→21:32)
[2019-05-24] MEDS ORDERED: Z GUARD REMEDY 2 OZ OINT TP PRN (01:30)
[2019-05-24] MEDS ORDERED: DEXTROSE 50%-WATER 50 ML DISP.SYRIN IV PRN (01:30)
[2019-05-24] MEDS ORDERED: BENZONATATE 100 MG CAPSULE PO PRN (02:30)
--- NOTE | 2019-05-24 06:23 | NUR ---
END OF SHIFT REPORT Patient in bed, A/O x3. Remains on Oxygen at 2LPM via NC, tolerating well. Reposition with 2 persons assist, refused at times. Skin precaution maintained. Back pain managed with PRN Kaplan. Safety measure in place.
[2019-05-24] MEDS: BLOOD SUGAR DIAGNOSTIC 1 EACH STRIP IN SCH ×4 (06:57→21:32)
[2019-05-24] MEDS: INSULIN REGULAR, HUMAN 100 UNIT/ML 3 ML VIAL SQ PRN (06:57)
[2019-05-24] MEDS: PANTOPRAZOLE 40 MG TABLET.DR PO SCH (07:30)
[2019-05-24] MEDS: INSULIN ASPART/LISPRO 100 UNIT/ML CARTRIDGE SQ SCH ×3 (08:00→18:00)
--- NOTE | 2019-05-24 08:01 | NUR ---
RN NOTES Patient requested for norco, and when about to give it to her she stated that she does not want it. Wasted the medication with Kierra ALBRIGHT at this time.
--- NOTE | 2019-05-24 08:04 | NUR ---
RN OPENING NOTES Patient remains on 2L nasal cannula, a/o x4 and is stating that she wants to leave this place. Unable to ambulate self at this time. Patient is stating that she is in pain but does not want to take norco at this time. Bed at the lowest setting, call light within reach, side rails up x2.
--- NOTE | 2019-05-24 08:34 | NUR ---
rn notes patient removed IV line at this time
[2019-05-24] MEDS: LIDOCAINE 5% (PATCH) 1 EA PATCH TP SCH (08:59)
[2019-05-24] MEDS: INSULIN GLARGINE, 100 UNIT/ML CARTRIDGE SQ SCH ×2 (09:00→21:00)
[2019-05-24] MEDS ORDERED: PAROXETINE HCL 10 MG TABLET PO SCH (09:00)
[2019-05-24] MEDS ORDERED: HEPARIN SODIUM,PORCINE/PF 50 UNIT/5 ML DISP.SYRIN IV SCH (09:00)
[2019-05-24] MEDS: CARVEDILOL 12.5 MG TABLET PO SCH ×2 (09:42→21:00)
[2019-05-24] MEDS: DOCUSATE SODIUM 100 MG CAPSULE PO SCH (09:42)
[2019-05-24] MEDS: AMLODIPINE BESYLATE 5 MG TABLET PO SCH (09:42)
[2019-05-24] MEDS: ASPIRIN 81 MG TAB.CHEW PO SCH (09:43)
[2019-05-24] MEDS: PAROXETINE HCL 10 MG TABLET PO SCH (09:43)
[2019-05-24] MEDS: hydrALAZINE HCL 50 MG TABLET PO SCH ×2 (09:43→18:16)
[2019-05-24] MEDS: CLONIDINE HCL 0.1 MG TABLET PO SCH ×2 (09:43→18:15)
[2019-05-24] MEDS: BACLOFEN (10 MG) 10 MG TABLET PO SCH ×3 (09:44→18:15)
[2019-05-24] MEDS: HEPARIN SODIUM, PORCINE 5000 UNITS/1 ML VIAL SQ SCH ×2 (09:46→21:31)
--- NOTE | 2019-05-24 12:07 | NUR ---
rn notes insulin not given due to blood sugar results of 113, and 107. Patient stated that she did not want the insulin at this time.
[2019-05-24 16:00] VITALS: BP 163/67
--- NOTE | 2019-05-24 18:27 | NUR ---
RN CLOSING NOTES Patient remains on 2l nasal cannula, no sob ntoed, patient remains a/ox 3. Patient denies pain at this time. Removed IV line and stated that she does not want one at this time. Blood sugar stable and refused her night time blood sugar check. No new labs at this time. Bed at the lowest setting, call light within reach, side rails up x2. Will give report to NOC RN for WAN bedside.
[2019-05-24 20:00] VITALS: BP 116/58
--- NOTE | 2019-05-24 20:00 | NUR ---
MS RN NOTE: PATIENT RESTING IN BED, NO ACUTE DISTRESS NOTED. BREATHING EVEN AND UNLABORED, NO SOB NOTED. ISOLATION PRECAUTIONS OBSERVED. NO S/S HYPER/HYPOGLYCEMIA NOTED. BED LOCKED AND IN LOWEST POSITION, CALL LIGHT IN REACH. WILL CONTINUE TO MONITOR.
--- NOTE | 2019-05-24 21:35 | NUR ---
MS RN NOTE: PATIENT BLOOD SUGAR LEVEL 116MG/DL, NO INSULIN GIVEN PER SLIDING SCALE. LANTUS NOT GIVEN AT THIS TIME. NO S/S OF HYPER/HYPOGLYCEMIA NOTED. WILL CONTINUE TO MONITOR.
--- NOTE | 2019-05-24 21:40 | NUR ---
MS RN NOTE: PATIENT COMPLAINS OF BACK PAIN 10/31, NORCO 5/325MG 1 TAB ORAL GIVEN PER MD ORDER. WILL CONTINUE TO MONITOR.
[2019-05-25] MEDS: HYDROCODONE/APAP 5/325MG 1 EACH TABLET PO PRN ×2 (03:15→08:09)
--- NOTE | 2019-05-25 03:20 | NUR ---
MS RN NOTE: PATIENT COMPLAINS OF BACK PAIN 10/31, NORCO 5/325MG 1 TAB ORAL GIVEN PER MD ORDER. WILL CONTINUE TO MONITOR.
--- NOTE | 2019-05-25 06:45 | NUR ---
MS RN NOTE: PATIENT RESTING IN BED, NO ACUTE DISTRESS NOTED. BREATHING EVEN AND UNLABORED, NO SOB NOTED. ISOLATION PRECAUTIONS OBSERVED. PATIENT BLOOD SUGAR LEVEL 110MG/DL, NO INSULIN NEEDED PER SLIDING SCALE. NO S/S HYPER/HYPOGLYCEMIA NOTED. BED LOCKED AND IN LOWEST POSITION, CALL LIGHT IN REACH. WILL ENDORSE TO DAY NURSE TO CONTINUE WITH PLAN OF CARE.
[2019-05-25] MEDS: BLOOD SUGAR DIAGNOSTIC 1 EACH STRIP IN SCH ×4 (06:46→21:35)
--- NOTE | 2019-05-25 07:10 | NUR ---
M/S RN NOTES PATIENT RESTING IN BED, NO RESPIRATORY DISTRESS, NO C/O PAIN AT THIS TIME. PATIENT SKIN WARM TO TOUCH. PATIENT REPOSITIONED Q2HRS, PATIENT'S NEEDS ATTENDED. BED ON LOWEST LOCKED POSITION, CALL LIGHT WITHIN REACH. WILL CONTINUE TO MONITOR.
[2019-05-25] MEDS: PANTOPRAZOLE 40 MG TABLET.DR PO SCH (07:36)
[2019-05-25 08:00] VITALS: BP 140/62
[2019-05-25] MEDS: INSULIN ASPART/LISPRO 100 UNIT/ML CARTRIDGE SQ SCH ×3 (08:00→17:38)
[2019-05-25] MEDS ORDERED: MORPHINE SULFATE INJ 2 MG/ML DISP.SYRIN SQ PRN (08:30)
[2019-05-25] MEDS: LIDOCAINE 5% (PATCH) 1 EA PATCH TP SCH (09:00)
[2019-05-25] MEDS: HEPARIN SODIUM, PORCINE 5000 UNITS/1 ML VIAL SQ SCH ×2 (09:04→21:28)
[2019-05-25] MEDS: BACLOFEN (10 MG) 10 MG TABLET PO SCH ×3 (09:05→16:17)
[2019-05-25] MEDS: DOCUSATE SODIUM 100 MG CAPSULE PO SCH (09:05)
[2019-05-25] MEDS: CLONIDINE HCL 0.1 MG TABLET PO SCH ×2 (09:05→16:17)
[2019-05-25] MEDS: ASPIRIN 81 MG TAB.CHEW PO SCH (09:05)
[2019-05-25] MEDS: AMLODIPINE BESYLATE 5 MG TABLET PO SCH (09:06)
[2019-05-25] MEDS: hydrALAZINE HCL 50 MG TABLET PO SCH ×2 (09:06→16:17)
[2019-05-25] MEDS: PAROXETINE HCL 10 MG TABLET PO SCH (09:06)
[2019-05-25] MEDS: CARVEDILOL 12.5 MG TABLET PO SCH ×2 (09:07→21:24)
[2019-05-25] MEDS: INSULIN GLARGINE, 100 UNIT/ML CARTRIDGE SQ SCH ×2 (09:19→21:00)
[2019-05-25] MEDS: MORPHINE SULFATE INJ 2 MG/ML DISP.SYRIN SQ PRN ×2 (13:25→21:25)
--- NOTE | 2019-05-25 17:38 | NUR ---
M/S RN NOTES PATIENT'S BS AT 80, INSULIN NOVOLOG NOT ADMINISTERED.
--- NOTE | 2019-05-25 18:30 | NUR ---
M/S RN NOTES PATIENT RESTING IN BED, NO RESPIRATORY DISTRESS, NO C/O PAIN AT THIS TIME. PATIENT'S SKIN WARM TO TOUCH. PT REPOSITIONED Q2HRS. PATIENT'S NEEDS ATTENDED, BED ON LOWEST LOCKED POSITION, CALL LIGHT WITHIN REACH. WILL ENDORSE TO ONCOMING NURSE.
--- NOTE | 2019-05-25 19:35 | NUR ---
RN OPEN NOTES RECEIVED PATIENT AWAKE IN BED. A/OX4. NO SIGNS OF DISTRESS OR DISCOMFORT. BREATHING EVEN AND UNLABORED. ON 2LPM O2 VIA NC. PATIENT HAS NO IV ACCESS, MD AWARE. BED IN LOW LOCKED POSITION WITH SIDE RAILS X2. CALL LIGHT WITHIN REACH. WILL CONTINUE TO MONITOR.
--- NOTE | 2019-05-25 21:25 | NUR ---
RN NOTES ADMINISTERED MORPHINE 2MG IN L ARM SQ ORDERED FOR 8/10 GENERALIZED PAIN AT PATIENT REQUEST. VSS. WILL CONTINUE TO MONITOR.
[2019-05-25 22:01] VITALS: BP 152/65
[2019-05-26] MEDS: HYDROCODONE/APAP 5/325MG 1 EACH TABLET PO PRN ×2 (01:13→08:55)
[2019-05-26] MEDS: BLOOD SUGAR DIAGNOSTIC 1 EACH STRIP IN SCH ×4 (06:34→21:52)
--- NOTE | 2019-05-26 06:45 | NUR ---
RN CLOSING NOTES PATIENT AWAKE IN BED. A/OX4. NO SIGNS OF DISTRESS OR DISCOMFORT. BREATHING EVEN AND UNLABORED. ON 2LPM O2 VIA NC. PATIENT HAS NO IV ACCESS, MD AWARE. ALL NEEDS MET. NO SIGNIFICANT CHANGES THROUGH THE NIGHT. PATIENT ASSISTED WITH REPOSITIONING Q2H AND PRN. BED IN LOW LOCKED POSITION WITH SIDE RAILS X2. CALL LIGHT WITHIN REACH. WILL ENDORSE TO AM SHIFT FOR WAN.
[2019-05-26] MEDS: PANTOPRAZOLE 40 MG TABLET.DR PO SCH (07:32)
[2019-05-26] MEDS: INSULIN ASPART/LISPRO 100 UNIT/ML CARTRIDGE SQ SCH ×3 (07:34→17:07)
--- NOTE | 2019-05-26 07:34 | NUR ---
M/S RN OPENING NOTES RECEIVED PATIENT ON BED, NON-AMBULATORY. A/O X4, RESPONSIVE TO ALL STIMULI. RESPIRATION EVEN AND NON LABORED WITH NO ACUTE RESPIRATORY DISTRESS, ON O2 AT 2LPM, PT REFUSED TO ELEVATE HEAD OF BED FOR GOOD BREATHING PATTERN STATED "I'M OKAY LIKE THIS" (FLAT). ABD SOFT AND NON DISTENDED WITH ACTIVE BOWEL SOUNDS. SKIN WARM TO TOUCH AND DRY. DENIES PAIN AND DISCOMFORT. ON ISOLATION DUE TO ESBL URINE. PENDING DISCHARGE WITH SNF PLACEMENT. PT HAS NO IV SITE. BLOOD SUGAR OF 106, NOT GIVEN FAST ACTING INSULIN. PT VERBALIZED UNDERSTANDING FOR NON-ADMIN. CALL LIGHT WITHIN REACH. ALL CONCERNS ATTENDED AT THIS TIME, WILL CONTINUE TO MONITOR CARE.
[2019-05-26 08:00] VITALS: BP 147/63
--- NOTE | 2019-05-26 08:17 | NUR ---
M/S RN NOTES PT SEEN BY JANELL. NO NEW ORDERS. WAITING FOR DISCHARGE PLACEMENT.
[2019-05-26] MEDS: PAROXETINE HCL 10 MG TABLET PO SCH (08:36)
[2019-05-26] MEDS: ASPIRIN 81 MG TAB.CHEW PO SCH (08:36)
[2019-05-26] MEDS: hydrALAZINE HCL 50 MG TABLET PO SCH ×2 (08:36→16:59)
[2019-05-26] MEDS: BACLOFEN (10 MG) 10 MG TABLET PO SCH ×3 (08:36→16:59)
[2019-05-26] MEDS: CLONIDINE HCL 0.1 MG TABLET PO SCH ×2 (08:36→16:58)
[2019-05-26] MEDS: DOCUSATE SODIUM 100 MG CAPSULE PO SCH (08:36)
[2019-05-26] MEDS: LIDOCAINE 5% (PATCH) 1 EA PATCH TP SCH ×3 (08:36→08:59)
[2019-05-26] MEDS: AMLODIPINE BESYLATE 5 MG TABLET PO SCH (08:36)
[2019-05-26] MEDS: INSULIN GLARGINE, 100 UNIT/ML CARTRIDGE SQ SCH ×2 (08:37→21:50)
[2019-05-26] MEDS: CARVEDILOL 12.5 MG TABLET PO SCH ×2 (08:37→21:51)
[2019-05-26] MEDS: HEPARIN SODIUM, PORCINE 5000 UNITS/1 ML VIAL SQ SCH ×2 (08:38→21:49)
--- NOTE | 2019-05-26 08:53 | NUR ---
M/S RN NOTES LIDOCAINE PATCH NON ADMINISTERED, PT REFUSED THE PATCH DUE TO REACTION OF "SHAKING". RISK AND BENEFITS DISCUSSED WITH PATIENT. NORCO ADMINISTERED FOR PAIN 4/10 GENERALIZED BODY. WILL EVALUATE PAIN
[2019-05-26] MEDS: MORPHINE SULFATE INJ 2 MG/ML DISP.SYRIN SQ PRN ×2 (09:37→16:59)
--- NOTE | 2019-05-26 12:13 | NUR ---
M/S RN NOTES INSULIN NOT GIVEN DUE TO BLOOD SUGAR 104. PT MADE AWARE OF THE RESULT AND STATED "ITS SAFE NOT TO GET IT CAUSE I KNOW MY SUGAR IS NORMAL ANYWAY". RISK AND BENEFITS DISCUSSED, PT VERBALIZED UNDERSTANDING. WILL MONITOR CARE
--- NOTE | 2019-05-26 14:35 | NUR ---
M/S RN NOTES PT ROUNDING DONE, PT ASLEEP COMFORTABLE ON RIGHT SIDE LYING POSITION. WILL CONTINUE TO MONITOR CARE
[2019-05-26 16:00] VITALS: BP 135/56
--- NOTE | 2019-05-26 17:07 | NUR ---
M/S RN NOTES BLOOD SUGAR 101. INSULIN DUE NOT GIVEN DUE TO NORMAL BLOOD SUGAR. PT REFUSED TO TAKE MEDICATION STATING "ITS IN NORMAL RANGE AGAIN, SO I'M OK". RISK AND BENEFITS DISCUSSED. WILL CONTINUE TO MONITOR CARE
--- NOTE | 2019-05-26 18:30 | NUR ---
M/S RN CLOSING NOTES PT A/OX 4, RESPONSIVE TO ALL STIMULI. PT NOT IN ACUTE RESPIRATORY DISTRESS, ON O2 AT 2LPM VIA N/C, SOB IN MINIMAL EXERTION SUCH REPOSITIONING. ABD SOFT AND NON DISTENDED, INCONTINENCE B&B. SKIN WARM TO TOUCH AND DRY. PAIN MANAGED BY MORPHINE AT THIS TIME, WITH PAIN SCALE OF 3/10, PAIN LOCATED ON LOWER BACK, AND GENERALIZED BODY ACHE. BED BATH GIVEN TODAY, NO NEW OPEN SKIN BREAKDOWN, PT TOLERATED WELL. BLE OFFLOAD. ALL CONCERNS ATTENDED. CALL LIGHT WITHIN REACHED. ENDORSED PT CARE TO NEXT SHIFT.
[2019-05-26 20:56] VITALS: BP 113/50
[2019-05-26] MEDS: INSULIN REGULAR, HUMAN 100 UNIT/ML 3 ML VIAL SQ PRN (21:50)
[2019-05-27] MEDS: MORPHINE SULFATE INJ 2 MG/ML DISP.SYRIN SQ PRN ×3 (00:13→15:17)
--- NOTE | 2019-05-27 06:14 | NUR ---
PT COOPERATIVE WITH MORNING HYGIENE CARE AND COMPLETE LINEN CHANGE. PT ABLE TO TURN WITH MINIMAL ASSISTANCE FROM MYSELF AND COVER MAKING MACHINE OPERATOR. PT TOLERATED INTERVENTION WELL. OBSERVED PT RESTING THROUGHOUT MOST OF SHIFT NO SIGNIFICANT CHANGE NOTED
[2019-05-27] MEDS: BLOOD SUGAR DIAGNOSTIC 1 EACH STRIP IN SCH ×4 (06:42→21:17)
--- NOTE | 2019-05-27 07:10 | NUR ---
RN OPENING NOTES RECEIVED PATIENT ON BED WATCHING TV. A/OX3, ABLE TO MAKE NEEDS KNOWN. NOT IN ANY FORM OF DISTRESS. NO SOB. DENIED PAIN OR DISCOMFORT AT THIS TIME. IV ACCESS INTACT AND PATENT. KEPT PATIENT SAFE AND COMFORTABLE. BED IN LOW/LOCKED POSITION, SIDERAILS UPX2,CALL LIGHT IN REACH. WILL CONTINUE TO MONITOR ACCORDINGLY. Addendum: 05/27/19 at 1110 by WESTON COLLAZO correction: NO IV ACCESS
[2019-05-27] MEDS: INSULIN ASPART/LISPRO 100 UNIT/ML CARTRIDGE SQ SCH ×3 (08:00→17:27)
[2019-05-27] MEDS: HEPARIN SODIUM, PORCINE 5000 UNITS/1 ML VIAL SQ SCH ×2 (08:30→21:00)
[2019-05-27] MEDS: hydrALAZINE HCL 50 MG TABLET PO SCH ×2 (08:35→17:27)
[2019-05-27] MEDS: PANTOPRAZOLE 40 MG TABLET.DR PO SCH (08:35)
[2019-05-27] MEDS: BACLOFEN (10 MG) 10 MG TABLET PO SCH ×3 (08:35→17:27)
[2019-05-27] MEDS: DOCUSATE SODIUM 100 MG CAPSULE PO SCH (08:36)
[2019-05-27] MEDS: CLONIDINE HCL 0.1 MG TABLET PO SCH ×2 (08:36→17:27)
[2019-05-27] MEDS: PAROXETINE HCL 10 MG TABLET PO SCH ×2 (08:36→08:43)
[2019-05-27] MEDS: AMLODIPINE BESYLATE 5 MG TABLET PO SCH (08:37)
[2019-05-27] MEDS: ASPIRIN 81 MG TAB.CHEW PO SCH (08:37)
[2019-05-27] MEDS: CARVEDILOL 12.5 MG TABLET PO SCH ×2 (08:37→21:00)
[2019-05-27] MEDS: LIDOCAINE 5% (PATCH) 1 EA PATCH TP SCH (08:43)
[2019-05-27] MEDS: INSULIN GLARGINE, 100 UNIT/ML CARTRIDGE SQ SCH ×2 (08:43→21:00)
[2019-05-27 09:16] VITALS: BP 151/75
[2019-05-27 16:00] VITALS: BP 135/57
[2019-05-27 16:04] VITALS: BP 135/57
--- NOTE | 2019-05-27 19:30 | NUR ---
RN CLOSING NOTES PATIENT IN STABLE CONDITION. ALL NEEDS ATTENDED AND PROVIDED. ALL DUE MEDS GIVEN ORDERED. ASSISTED WITH ADLS. KEPT PATIENT SAFE AND COMFORTABLE. BED IN LOW/LOCKED POSITION. SIDERAILS UPX2, HOB ELEVATED. CALL LIGHT IN REACH. ENDORSED TO NIGHT NURSE ACCORDINGLY.
[2019-05-27 20:00] VITALS: BP 138/66
[2019-05-27 20:18] VITALS: BP 138/66
--- NOTE | 2019-05-27 20:29 | NUR ---
MS RN OPENING NOTES PATIENT RESTING IN BED COMFORTABLY; A/O X3; BREATHING EVEN AND UNLABORED; NO SOB; NO S/S OF ACUTE RESPIRATORY DISTRESS NOTED; SAFETY PRECAUTIONS IN PLACE; HOB ELEVATED; BED LOCKED IN LOW POSITION; SIDE RAILS X2; CALL LIGHT WITHIN REACH; WILL CONTINUE TO MONITOR
[2019-05-28] MEDS: HYDROCODONE/APAP 5/325MG 1 EACH TABLET PO PRN (02:11)
[2019-05-28] MEDS: MORPHINE SULFATE INJ 2 MG/ML DISP.SYRIN SQ PRN ×4 (02:27→23:20)
--- NOTE | 2019-05-28 06:26 | NUR ---
MS RN CLOSING NOTES PATIENT RESTING IN BED COMFORTABLY; AWAKE, A/O X3; PATIENT BREATHING EVEN AND UNLABORED; PATIENT ON 3L NC, TOLERATING WELL; NO SOB OR S/S OF ACUTE RESPIRATORY DISTRESS NOTED; ALL NEEDS TENDED TO; SAFETY PRECAUTIONS IN PLACE; BED LOCKED IN LOW POSITION; BILATERAL SIDE RAILS X2; CALL LIGHT WITHIN EASY REACH; WILL ENDORSE CONTINUITY OF CARE TO ONCOMING NURSE.
[2019-05-28 07:34] LABS: BASOPHILS % (AUTO) 0.3 % (0.0-2.0); EOSINOPHILS % (AUTO) 7.1 % (0.0-6.0); HEMATOCRIT 39 % (33-45); HEMOGLOBIN 11.9 g/dL (11.5-14.8); LYMPHOCYTES # (AUTO) 1.1 /CMM (0.8-4.8); LYMPHOCYTES % (AUTO) 21.2 % (20.0-44.0); MEAN CORPUSCULAR HGB CONC 31 g/dl (31.0-36.0); MEAN CORPUSCULAR VOLUME 75 fL (82-100); MONOCYTES # (AUTO) 0.6 /CMM (0.1-1.30); MONOCYTES % (AUTO) 12.1 % (2.0-12.0); NEUTROPHILS % (AUTO) 59.3 % (43.0-81.0); PLATELET COUNT (AUTO) 208 /CMM (150-450); RED BLOOD CELL COUNT(AUTO) 5.12 MIL/uL (4.0-5.2)
[2019-05-28 07:47] LABS: ALBUMIN 2.4 g/dL (3.4-5.0); BILIRUBIN,TOTAL 0.4 mg/dL (0.2-1.0); CALCIUM, SERUM 9.4 mg/dL (8.5-10.1); CREATININE 1.1 mg/dL (0.6-1.3); MAGNESIUM 1.7 mg/dL (1.8-2.4); PHOSPHORUS 3.5 mg/dL (2.5-4.9); POTASSIUM 4.2 mmol/L (3.5-5.1); TOTAL PROTEIN, SERUM 6.5 g/dL (6.4-8.2)
[2019-05-28] MEDS: INSULIN ASPART/LISPRO 100 UNIT/ML CARTRIDGE SQ SCH ×3 (07:58→17:32)
[2019-05-28] MEDS: BLOOD SUGAR DIAGNOSTIC 1 EACH STRIP IN SCH ×4 (07:58→21:18)
[2019-05-28 08:00] VITALS: BP 141/62
--- NOTE | 2019-05-28 08:00 | NUR ---
m/s rn psychiatric: initial assessment received pt lying in bed awake, a/ox4. pt is well known to be non-compliant with meds/treatment. encouraged to verbalized feelings. also pt likes to lie supine, pt refused to be turned from side to side despite education provided prn. also pt is selective with her meds. pt has no iv access, still pending for discharge. instructed to call for assistance. will continue to monitor.
[2019-05-28] MEDS: INSULIN GLARGINE, 100 UNIT/ML CARTRIDGE SQ SCH ×2 (08:30→21:16)
[2019-05-28] MEDS: DOCUSATE SODIUM 100 MG CAPSULE PO SCH (08:31)
[2019-05-28] MEDS: PAROXETINE HCL 10 MG TABLET PO SCH (08:31)
[2019-05-28] MEDS: CARVEDILOL 12.5 MG TABLET PO SCH ×2 (08:31→21:18)
[2019-05-28] MEDS: ASPIRIN 81 MG TAB.CHEW PO SCH (08:32)
[2019-05-28] MEDS: PANTOPRAZOLE 40 MG TABLET.DR PO SCH (08:32)
[2019-05-28] MEDS: BACLOFEN (10 MG) 10 MG TABLET PO SCH ×3 (08:32→17:30)
[2019-05-28] MEDS: CLONIDINE HCL 0.1 MG TABLET PO SCH ×2 (08:32→16:51)
[2019-05-28] MEDS: LIDOCAINE 5% (PATCH) 1 EA PATCH TP SCH (08:33)
[2019-05-28] MEDS: AMLODIPINE BESYLATE 5 MG TABLET PO SCH (08:33)
[2019-05-28] MEDS: hydrALAZINE HCL 50 MG TABLET PO SCH ×2 (08:34→16:51)
[2019-05-28] MEDS: HEPARIN SODIUM, PORCINE 5000 UNITS/1 ML VIAL SQ SCH ×2 (08:38→21:17)
--- NOTE | 2019-05-28 08:40 | NUR ---
m/s catapult and arresting gear officer: notes c/o 12/01 generalized discomfort. medicated with morphine 2mg sq to left abdomen as ordered. instructed to call for assistance. will continue to monitor.
--- NOTE | 2019-05-28 09:10 | NUR ---
m/s outside sales consultant: notes verbalized relief of pain. instructed to call for assistance. will continue to monitor.
--- NOTE | 2019-05-28 10:00 | NUR ---
m/s tooth cutter spur: notes pt refusing to be turned and repositioned. instructed to call for assistance. will continue to monitor.
--- NOTE | 2019-05-28 10:25 | NUR ---
m/s microsoft application developer: notes order received for discharge to snf. cn aware. case management making arrangement. will continue to monitor.
[2019-05-28] MEDS ORDERED: MAGNESIUM OXIDE 400 MG TABLET PO ONE (11:30)
--- NOTE | 2019-05-28 12:00 | NUR ---
m/s new car make ready mechanic: notes lunch served. pt refused to be positioned. instructed to call for assistance. will monitor.
[2019-05-28] MEDS: INSULIN REGULAR, HUMAN 100 UNIT/ML 3 ML VIAL SQ PRN ×3 (12:05→21:16)
--- NOTE | 2019-05-28 14:42 | NUR ---
m/s administrative manager: notes c/o 12/01 generalized discomfort. medicated with morphine 2mg sq to left abdomen as ordered. instructed to call for assistance. will continue to monitor.
--- NOTE | 2019-05-28 15:12 | NUR ---
m/s cuff maker: notes pt verbalized relief of pain. instructed to call for assistance. will continue to monitor.
[2019-05-28 16:00] VITALS: BP 140/83
--- NOTE | 2019-05-28 17:00 | NUR ---
m/s gastroenterology nurse practitioner: notes dinner served. instructed to call for assistance. will continue to monitor.
--- NOTE | 2019-05-28 19:10 | NUR ---
m/s healthcare customer service: notes bedside report given to dilia (rn) for continuity of care.
--- NOTE | 2019-05-28 19:25 | NUR ---
MS RN OPENING NOTES PATIENT AWAKE IN BED. A/OX4. ABLE TO VERBALIZE NEEDS. ON 3L NC. NO S/S OF ACUTE RESPIRATORY DISTRESS AND NO COMPLAINTS OF PAIN AT THIS TIME. NO IV PRESENT. CONTACT PRECAUTIONS IN PLACE. BED LOCKED, SIDE RAILS X2, CALL LIGHT WITHIN REACH. WILL CONTINUE TO MONITOR.
[2019-05-28 20:00] VITALS: BP 142/65
[2019-05-28 20:42] VITALS: BP 142/65
[2019-05-28 21:00] VITALS: BP 154/76
[2019-05-29 07:24] LABS: CALCIUM, SERUM 9.1 mg/dL (8.5-10.1); CREATININE 1.1 mg/dL (0.6-1.3); MAGNESIUM 1.6 mg/dL (1.8-2.4); POTASSIUM 4.2 mmol/L (3.5-5.1)
[2019-05-29] MEDS: BLOOD SUGAR DIAGNOSTIC 1 EACH STRIP IN SCH ×4 (07:58→21:57)
[2019-05-29 08:00] VITALS: BP 144/68
--- NOTE | 2019-05-29 08:00 | NUR ---
MS RN CLOSING NOTES PATIENT AWAKE IN BED. A/OX4. ON 3L NC. NO S/S OF SOB AND NO COMPLAINTS OF PAIN AT THIS TIME. NO IV PRESENT. PATIENT ABLE TO VERBALIZE NEEDS. BED LOCKED, ALARM ON, SIDE RAILS X2, CALL LIGHT WITHIN REACH. WILL ENDORSE TO DAY SHIFT NURSE TO FOLLOW PLAN OF CARE.
[2019-05-29] MEDS: PANTOPRAZOLE 40 MG TABLET.DR PO SCH (08:21)
[2019-05-29] MEDS: DOCUSATE SODIUM 100 MG CAPSULE PO SCH (08:22)
[2019-05-29] MEDS: AMLODIPINE BESYLATE 5 MG TABLET PO SCH (08:22)
[2019-05-29] MEDS: hydrALAZINE HCL 50 MG TABLET PO SCH ×2 (08:22→17:28)
[2019-05-29] MEDS: PAROXETINE HCL 10 MG TABLET PO SCH (08:22)
[2019-05-29] MEDS: CLONIDINE HCL 0.1 MG TABLET PO SCH ×2 (08:22→17:28)
[2019-05-29] MEDS: ASPIRIN 81 MG TAB.CHEW PO SCH (08:23)
[2019-05-29] MEDS: BACLOFEN (10 MG) 10 MG TABLET PO SCH ×3 (08:23→17:28)
[2019-05-29] MEDS: HEPARIN SODIUM, PORCINE 5000 UNITS/1 ML VIAL SQ SCH ×2 (08:26→21:56)
[2019-05-29] MEDS: INSULIN ASPART/LISPRO 100 UNIT/ML CARTRIDGE SQ SCH ×3 (08:27→18:00)
[2019-05-29] MEDS: CARVEDILOL 12.5 MG TABLET PO SCH ×2 (08:33→21:56)
[2019-05-29] MEDS: INSULIN GLARGINE, 100 UNIT/ML CARTRIDGE SQ SCH ×2 (08:35→21:57)
[2019-05-29] MEDS: LIDOCAINE 5% (PATCH) 1 EA PATCH TP SCH (09:00)
[2019-05-29] MEDS ORDERED: MAGNESIUM OXIDE 400 MG TABLET PO ONE (10:00)
[2019-05-29] MEDS: MORPHINE SULFATE INJ 2 MG/ML DISP.SYRIN SQ PRN (10:19)
[2019-05-29] MEDS: INSULIN REGULAR, HUMAN 100 UNIT/ML 3 ML VIAL SQ PRN ×3 (12:36→21:58)
--- NOTE | 2019-05-29 15:20 | NUR ---
Patient cleared for d//c to rehab by . All paperwork for d/c prepared and d/c pictures taken
[2019-05-29 16:00] VITALS: BP 148/66
--- NOTE | 2019-05-29 18:11 | NUR ---
called to [facility] for report, no response
--- NOTE | 2019-05-29 19:25 | NUR ---
MS RN OPENING NOTES RECEIVED PATIENT FROM MORNING SHIFT, ALERT AND ORIENTED X 3. VERBALLY RESPONSIVE AND ABLE TO FOLLOW DIRECTIONS. BREATHING REGULAR AND UNLABORED ON OXYGEN AT 3L/MIN VIA NASAL CANNULA . NO IV ACCESS. REFUSED BODY ASSESSMENT AND VITAL SIGNS TAKING, RISK AND BENEFITS EXPLAINED. NO COMPLAINTS OF PAIN/DISCOMFORT REPORTED AT THIS TIME. BED LOW AND LOCKED ON SEMI FOWLERS POSITION. CALL LIGHT IN REACH. WILL CONTINUE TO MONITOR.
--- NOTE | 2019-05-29 19:43 | NUR ---
PATIENT CLEARED FOR D/C TO REHAB BY . ALL NEEDS ATTENDED, D/C INSTRUCTIONS PREPARED, D/C PICTURES TAKEN AND PLACED IN THE CHART. NO IV ASSESS. VS ARE STABLE AND WITHIN ROOM AIR . WILL ENDORSE TO NEXT SHIFT FOR WAN.
[2019-05-29 22:00] VITALS: BP 155/71
--- NOTE | 2019-05-29 22:00 | NUR ---
MS RN NOTES PATIENT REFUSED TO BE DISCHARGE IN SNF, PER HER SHE WANTED TO GO HOME. EXPLAINED TO HER THAT SHE NEEDS TO HAVE SOMEONE TO TAKE CARE OF HER AND IN THE [facility] THEY CAN ASSIST HER WITH ALL HER NEEDS. RISK AND BENEFITS EXPLAINED. CHARGE NURSE AND RN CONVENIENCE STORE MANAGER NOTIFIED. CALLED SECURITY AND SPOKE TO THE PATIENT BUT SHE STILL REFUSED TO GO. [facility] WAITING OUTSIDE THE ROOM. MARTY VALDEZ MADE AWARE AND PER HIM JUST DO THE DISCHARGE TOMORROW MORNING. [facility] AWARE. WILL CONTINUE TO MONITOR.
--- NOTE | 2019-05-29 22:30 | NUR ---
MS RN NOTES BS 141MG/DL, LANTUS 40UNITS AND REGULAR INSULIN 2UNITS GIVEN SQ, SITE ROTATED. SNACKS PROVIDED ON BEDSIDE. WILL CONTINUE TO MONITOR.
--- NOTE | 2019-05-30 05:40 | NUR ---
MS RN NOTES REFUSED BLOOD DRAW FOR AM LABS, RISK AND BENEFITS EXPLAINED X 3.
[2019-05-30] MEDS: INSULIN REGULAR, HUMAN 100 UNIT/ML 3 ML VIAL SQ PRN (06:37)
[2019-05-30] MEDS: BLOOD SUGAR DIAGNOSTIC 1 EACH STRIP IN SCH ×2 (06:37→12:22)
--- NOTE | 2019-05-30 06:38 | NUR ---
MS RN NOTES BS 150MG/DL, REGULAR INSULIN 2UNITS GIVEN SQ. SNACKS PROVIDED ON BEDSIDE. WILL CONTINUE TO MONITOR.
--- NOTE | 2019-05-30 06:40 | NUR ---
MS RN CLOSING NOTES PATIENT IN BED ALERT AND ORIENTED X 3. VERBALLY RESPONSIVE AND ABLE TO FOLLOW DIRECTIONS. BREATHING REGULAR AND UNLABORED ON OXYGEN AT 3L/MIN VIA NASAL CANNULA . NO IV ACCESS. NO COMPLAINTS OF PAIN/DISCOMFORT REPORTED THE WHOLE SHIFT. BED LOW AND LOCKED ON SEMI FOWLERS POSITION. CALL LIGHT IN REACH. WILL ENDORSE TO MORNING SHIFT FOR WAN AND DISCHARGE.
[2019-05-30] MEDS: PANTOPRAZOLE 40 MG TABLET.DR PO SCH (07:33)
[2019-05-30 08:00] VITALS: BP 158/69
[2019-05-30] MEDS: INSULIN ASPART/LISPRO 100 UNIT/ML CARTRIDGE SQ SCH ×2 (08:00→13:00)
[2019-05-30] MEDS: LIDOCAINE 5% (PATCH) 1 EA PATCH TP SCH (09:00)
[2019-05-30] MEDS: BACLOFEN (10 MG) 10 MG TABLET PO SCH ×2 (09:03→13:00)
[2019-05-30] MEDS: DOCUSATE SODIUM 100 MG CAPSULE PO SCH (09:03)
[2019-05-30] MEDS: AMLODIPINE BESYLATE 5 MG TABLET PO SCH (09:03)
[2019-05-30] MEDS: CARVEDILOL 12.5 MG TABLET PO SCH (09:03)
[2019-05-30] MEDS: PAROXETINE HCL 10 MG TABLET PO SCH (09:03)
[2019-05-30] MEDS: ASPIRIN 81 MG TAB.CHEW PO SCH (09:03)
[2019-05-30 09:04] VITALS: BP 158/69
[2019-05-30] MEDS: hydrALAZINE HCL 50 MG TABLET PO SCH (09:04)
[2019-05-30] MEDS: CLONIDINE HCL 0.1 MG TABLET PO SCH (09:04)
[2019-05-30] MEDS: HEPARIN SODIUM, PORCINE 5000 UNITS/1 ML VIAL SQ SCH (09:06)
[2019-05-30] MEDS: INSULIN GLARGINE, 100 UNIT/ML CARTRIDGE SQ SCH (09:13)
[2019-05-30] MEDS: MORPHINE SULFATE INJ 2 MG/ML DISP.SYRIN SQ PRN ×3 (09:21→10:18)
--- NOTE | 2019-05-30 09:57 | NUR ---
MS/RN OPENING NOTES PATIENT IN BED ALERT AND ORIENTED X 3. VERBALLY RESPONSIVE AND ABLE TO FOLLOW DIRECTIONS. BREATHING REGULAR AND UNLABORED ON OXYGEN AT 3L/MIN VIA NASAL CANNULA. FOR DISCHARGE TODAY. BED LOW AND LOCKED ON SEMI FOWLERS POSITION. CALL LIGHT IN REACH. WILL CONTINUE TO MONITOR.
[2019-05-30 14:15] LABS: BASOPHILS % (AUTO) 0.3 % (0.0-2.0); EOSINOPHILS % (AUTO) 3.2 % (0.0-6.0); HEMATOCRIT 37 % (33-45); HEMOGLOBIN 11.7 g/dL (11.5-14.8); LYMPHOCYTES # (AUTO) 1.1 /CMM (0.8-4.8); MEAN CORPUSCULAR HGB CONC 31 g/dl (31.0-36.0); MEAN CORPUSCULAR VOLUME 75 fL (82-100); MONOCYTES # (AUTO) 0.7 /CMM (0.1-1.30); MONOCYTES % (AUTO) 10.9 % (2.0-12.0); NEUTROPHILS # (AUTO) 4.2 /CMM (1.8-8.9); NEUTROPHILS % (AUTO) 67.6 % (43.0-81.0); PLATELET COUNT (AUTO) 224 /CMM (150-450); RED BLOOD CELL COUNT(AUTO) 4.99 MIL/uL (4.0-5.2); WHITE BLOOD COUNT (AUTO) 6.2 K/uL (4.3-11.0)
--- NOTE | 2019-05-30 14:34 | NUR ---
MS/RN NOTES PATIENT IS LYING ON BED COMFORTABLY. PATIENT IS ALERT AND ORIENTED X3. PATIENT DENIES PAIN AT THIS TIME. RESPIRATION REGULAR AND UNLABORED. THE PATIENT IN NO APPARENT DISTRESS. PATIENT DISCHARGED AT 1352 PM. PATIENT WAS GIVEN DISCHARGED INSTRUCTIONS AND PATIENT VERBALIZED UNDERSTANDING. THE PATIENT LEFT THE HOSPITAL IN A STABLE CONDITION, ACCOMPANIED BY 4 EMT VIA AMBULANCE.
[2019-05-30 14:40] LABS: CALCIUM, SERUM 9.4 mg/dL (8.5-10.1); MAGNESIUM 1.6 mg/dL (1.8-2.4); PHOSPHORUS 2.7 mg/dL (2.5-4.9); POTASSIUM 3.9 mmol/L (3.5-5.1)
[2019-07-02] MEDS ORDERED: NITR100C15 PO (12:36)
== END 2019-05-30 13:45 | DRG 463 ==
LOC: ER 20:06 → TELE 23:00 → MED 23:58 → UNDOADMIN 23:58 → UNDODISIN 05-23 20:20 → MED 05-23 22:34
PROVIDERS: ADMIT Nurse Practitioner Acute Care; ATTEND Nurse Practitioner Acute Care
PROC: 05HF33Z Insertion of Infusion Device into Left Cephalic Vein, Percutaneous Approach (ICD-10-PCS; principal; 2019-05-11)
DX: N12 Tubulo-interstitial nephritis, not specified as acute or chronic (principal); N17.0 Acute kidney failure with tubular necrosis; G93.41 Metabolic encephalopathy; I50.33 Acute on chronic diastolic (congestive) heart failure; E66.01 Morbid (severe) obesity due to excess calories; N28.1 Cyst of kidney, acquired; E11.9 Type 2 diabetes mellitus without complications; B96.20 Unspecified Escherichia coli [E. coli] as the cause of diseases classified elsewhere; F29 Unspecified psychosis not due to a substance or known physiological condition; F32.9 Major depressive disorder, single episode, unspecified; I11.0 Hypertensive heart disease with heart failure; G89.29 Other chronic pain; Z91.19 Patient's noncompliance with other medical treatment and regimen; Z74.01 Bed confinement status; Z87.11 Personal history of peptic ulcer disease; Z87.440 Personal history of urinary (tract) infections; Z90.49 Acquired absence of other specified parts of digestive tract; I25.10 Atherosclerotic heart disease of native coronary artery without angina pectoris; G47.33 Obstructive sleep apnea (adult) (pediatric); Z88.6 Allergy status to analgesic agent; Z88.8 Allergy status to other drugs, medicaments and biological substances; Z79.4 Long term (current) use of insulin; Z79.82 Long term (current) use of aspirin; Z79.899 Other long term (current) drug therapy; Z68.43 Body mass index [BMI] 50.0-59.9, adult; T50.1X5A Adverse effect of loop [high-ceiling] diuretics, initial encounter; T46.5X5A Adverse effect of other antihypertensive drugs, initial encounter; Y92.129 Unspecified place in nursing home as the place of occurrence of the external cause; F45.21 Hypochondriasis; N20.0 Calculus of kidney
CPT/HCPCS: 36410; 36415; 73502; 80048-TC; 80053-TC; 80061-TC; 80076-TC; 81000-TC; 82728-TC; 82962-TC; 83540-TC; 83690-TC; 83735-TC; 84100-TC; 84443-TC; 84484-TC; 85025-TC; 87040-TC; 87081-TC; 87086-TC; 87186-TC; 93307-TC; 97110-TC; 97112-TC; 97530-TC; A4216; C9113; G0378; J1642; J1644; J1815; J2185; J2270; J2405; J3475; J7030; J7040; J7050

== ENCOUNTER 2019-06-29 03:02 | Inpatient (IN) | payer MEDICAID ==
[2019-06-28 20:00] VITALS: BP 136/67
[~2019-06-29] VITALS: Ht 170.2 cm; Wt 151.5 kg
[~2019-06-29 03:02] MED LIST changes: -ACET-868 PO; +CLON0.1T PO; -GABA-532 PO; +HYDR-4077 PO; -HYDR28.32 TP; +INSU100I26 SQ; -INSU100V7 SQ; +LIDO30AD10 TP; +LOPE2CAP PO; +MELO-107 PO; -SULF1TAB48 PO
--- NOTE | 2019-06-29 03:20 | NUR ---
PT BIBA C/O SOB, CHRONIC LOWER BACK PAIN, NAUSEA, AND VOMITING. PT AAOX4, RR EVEN AND UNLABORED ON ROOM AIR W/ NAD NOTED. PT CONNECTED TO THE MIDDLE SCHOOL TEACHER AND POX. AWAITING FOR MD YODER
[2019-06-29] MEDS ORDERED: OLAN2.5T3 PO (03:37)
[2019-06-29] MEDS ORDERED: GLIM2TAB31 PO (03:37)
[2019-06-29] MEDS ORDERED: OLAN5TAB3 PO (03:37)
[2019-06-29] MEDS ORDERED: LINA5TAB PO (03:37)
--- NOTE | 2019-06-29 03:42 | NUR ---
URINE COLLECTED AND SENT TO LAB
[2019-06-29 03:43] LABS: BASOPHILS # (AUTO) 0.1 /CMM (0.0-0.2); BASOPHILS % (AUTO) 0.5 % (0.0-2.0); EOSINOPHILS % (AUTO) 1.6 % (0.0-6.0); HEMATOCRIT 41 % (33-45); HEMOGLOBIN 12.9 g/dL (11.5-14.8); LYMPHOCYTES # (AUTO) 1.6 /CMM (0.8-4.8); LYMPHOCYTES % (AUTO) 12.2 % (20.0-44.0); MEAN CORPUSCULAR HGB CONC 32 g/dl (31.0-36.0); MEAN CORPUSCULAR VOLUME 79 fL (82-100); MONOCYTES # (AUTO) 1.1 /CMM (0.1-1.30); MONOCYTES % (AUTO) 8.9 % (2.0-12.0); NEUTROPHILS # (AUTO) 9.9 /CMM (1.8-8.9); NEUTROPHILS % (AUTO) 76.8 % (43.0-81.0); PLATELET COUNT (AUTO) 255 /CMM (150-450); RED BLOOD CELL COUNT(AUTO) 5.17 MIL/uL (4.0-5.2); WHITE BLOOD COUNT (AUTO) 12.8 K/uL (4.3-11.0)
[2019-06-29 04:00] LABS: CALCIUM, SERUM 10.1 mg/dL (8.5-10.1); CARBON DIOXIDE 28 mmol/L (21-32); CHLORIDE 104 mmol/L (98-107); CREATININE 1.8 mg/dL (0.6-1.3); GLUCOSE 256 mg/dL (74-106); POTASSIUM 3.9 mmol/L (3.5-5.1); SODIUM SERUM 143 mmol/L (136-145); UREA NITROGEN, BLOOD 59 mg/dL (7-18)
[2019-06-29 04:03] LABS: APPEARANCE,URINE CLOUDY (CLEAR); BILIRUBIN,URINE NEGATIVE (NEGATIVE); BLOOD, URINE MODERATE Ery/uL (NEGATIVE); COLOR,URINE YELLOW (YELLOW); KETONES,URINE NEGATIVE (NEGATIVE); LEUKOCYTE ESTERASE ,URINE LARGE (NEGATIVE); NITRITE, URINE NEGATIVE (NEGATIVE); PH,URINE 5.5 (5.0-8.0); PROTEIN,URINE 100 mg/dl (NEGATIVE); UGLUCOSE NEGATIVE (NEGATIVE); UROBILINOGEN,URINE 0.2 EU/dL (0.2)
[2019-06-29 04:04] LABS: ACETAMINOPHEN 0 ug/ml (10-30); ALANINE AMINOTRANSFERASE 23 U/L (12-78); ALBUMIN 2.9 g/dL (3.4-5.0); ALCOHOL, BLOOD < 3 mg/dL (0-0); ALKALINE PHOSPHATASE 97 U/L (46-116); ASPARTATE AMINOTRANSFERASE 15 U/L (15-37); BILIRUBIN,DIRECT 0.1 mg/dL (0.0-0.2); BILIRUBIN,TOTAL 0.4 mg/dL (0.2-1.0); SALICYLATE 1.5 mg/dL (2.8-20.0); TOTAL PROTEIN, SERUM 7.6 g/dL (6.4-8.2)
[2019-06-29 04:08] LABS: RBC,URINE 21-50 /HPF (0-2)
[2019-06-29 04:09] LABS: BACTERIA,URINE Many /HPF (None Seen); SQUAMOUS EPITHELIAL CELL,UR Few /HPF (None Seen); WBC,URINE TOO NUMEROUS TO COUN /HPF (0-3)
[2019-06-29] MEDS ORDERED: NITROFURANTOIN/NITROFURAN MAC 100 MG CAPSULE PO ONE (05:30)
--- NOTE | 2019-06-29 05:30 | NUR ---
PT REFUSED MACROBID AND PAIN MEDICATION. PT STARTED YELLING AND REMOVING HER PULSE OX AND CUFF.
[2019-06-29] MEDS ORDERED: NITROFURANTOIN/NITROFURAN MAC 100 MG CAPSULE ONE (05:33)
--- NOTE | 2019-06-29 06:00 | NUR ---
CRISIS WOOD TOOL MAKER ART AT BEDSIDE
--- NOTE | 2019-06-29 07:32 | NUR ---
REPORT GIVEN TO TYRONE FROM [facility]
--- NOTE | 2019-06-29 07:33 | NUR ---
REPORT GIVEN TO JOSE RAMON WANG FOR WAN
--- NOTE | 2019-06-29 07:34 | NUR ---
RECEIVED REPORT FROM JOSE RAMON RODRIGUEZ FOR WAN. PT IS ASLEEP EASILY AROUSABLE, AAOX0, NOT IN RESPIRATORY DISTRESS, V/S STABLE, KEPT RESTED AND COMFORTABLE, WILL CONTINUE TO MONITOR.
--- NOTE | 2019-06-29 07:57 | NUR ---
TRANSPORT CALLED [phone] [facility] 90 MINS TRIP NUMBER [id number]
--- NOTE | 2019-06-29 09:00 | NUR ---
PER PT SHE DOESNT WANT TO GO BACK TO FACILITY MD AWARE.
--- NOTE | 2019-06-29 09:22 | NUR ---
DELAYED PICKUP TO 1200
[2019-06-29] MEDS ORDERED: ACET-2605 PO (10:15)
[2019-06-29] MEDS ORDERED: ACET-868 PO (10:15)
--- NOTE | 2019-06-29 12:28 | NUR ---
PLACED [facility] ON WILL CALL
--- NOTE | 2019-06-29 13:39 | NUR ---
CALLED ENEDELIA KENT FOR UPDATE [facility] LEFT MESSAGE. AWAITING CALL BACK.
--- NOTE | 2019-06-29 13:59 | NUR ---
ENEDELIA KENT ON THE PHONE TALKING TO DR SHORT ABOUT PT'S PLAN OF CARE.
--- NOTE | 2019-06-29 14:57 | NUR ---
GAVE MOVESHEET TO ADMITTING
[2019-06-29] MEDS ORDERED: CEFTRIAXONE 1GM BAG (ER ONLY) 1 GM/50 ML PIGGYBACK IV ONE (15:30)
[2019-06-29] MEDS ORDERED: IV NS 0.9% 1,000 ML IV PRN (16:17)
[2019-06-29] MEDS ORDERED: MAGNESIUM HYDROXIDE 30 ML UDC PO PRN (16:30)
[2019-06-29] MEDS ORDERED: DEXTROSE 50%-WATER 50 ML DISP.SYRIN IV PRN (16:30)
[2019-06-29] MEDS ORDERED: ACETAMINOPHEN 325 MG TABLET PO PRN ×2 (16:30)
[2019-06-29] MEDS ORDERED: LOPERAMIDE HCL (2 MG CAP) 2 MG CAPSULE PO PRN (16:30)
[2019-06-29] MEDS ORDERED: MAG HYDROX/AL HYDROX/SIMETH 30 ML UDC PO PRN (16:30)
[2019-06-29] MEDS ORDERED: Z GUARD REMEDY 2 OZ OINT TP PRN (16:30)
[2019-06-29] MEDS ORDERED: CEFTRIAXONE 1GM BAG (ER ONLY) 50 ML IV ONE (16:31)
--- NOTE | 2019-06-29 16:50 | NUR ---
ADMIT TO ROOM 203 MEDSURG
[2019-06-29] MEDS ORDERED: MISCELLANEOUS MED 1 EA EA PO SCH (17:00)
--- NOTE | 2019-06-29 17:42 | NUR ---
REPORT GIVEN TO JOSE RAMON ONTIVEROS, PT WILL BE TRANSPORTED TO 2ND FLOOR
--- NOTE | 2019-06-29 18:15 | NUR ---
RECEIVED PATIENT FROM ER VIA GURNEY. PATIENT IS A/OX3-4, ABLE TO MAKE NEEDS KNOWN. NOT IN ANY FORM OF DISTRESS. NO SOB. DENIED PAIN OR DISCOMFORT AT THIS TIME. IV ACCESS INTACT AND PATENT. SITUATED THE PATIENT IN THE ROOM. VSS. CLEANED AND CHANGED PATIENT'S SOILED DIAPER. BELONGINGS CHECKED AND NOTED ON THE BELONGINGS FORM. BED IN LOW/LOCKED POSITION, SIDERAILS UPX2, CALL LIGHT IN REACH. ENDORSED TO RUBBER PRODUCTION MACHINE OPERATOR NURSE FOR ADMISSION
[2019-06-29 18:23] VITALS: BP 139/94
[2019-06-29] MEDS: CARVEDILOL 12.5 MG TABLET PO SCH (18:24)
[2019-06-29] MEDS: FUROSEMIDE 20 MG TABLET PO SCH (18:24)
[2019-06-29] MEDS: hydrALAZINE HCL 50 MG TABLET PO SCH (18:25)
[2019-06-29] MEDS: BACLOFEN (10 MG) 10 MG TABLET PO SCH (18:25)
[2019-06-29] MEDS: CEPHALEXIN MONOHYDRATE 500 MG CAPSULE PO SCH (18:25)
[2019-06-29] MEDS: CLONIDINE HCL 0.1 MG TABLET PO SCH (18:25)
[2019-06-29] MEDS: BLOOD SUGAR DIAGNOSTIC 1 EACH STRIP IN SCH ×2 (18:43→22:08)
[2019-06-29] MEDS: ENOXAPARIN SODIUM 30 MG/0.3 ML DISP.SYRIN SQ SCH (18:44)
--- NOTE | 2019-06-29 19:20 | NUR ---
RN CLOSING NOTES PATIENT IN STABLE CONDITION. ALL NEEDS ATTENDED AND PROVIDED. ALL DUE MEDS GIVEN ORDERED. KEPT PATIENT SAFE AND COMFORTABLE. BED IN LOW/LOCKED POSITION, SIDERAILS UPX2, CALL LIGHT IN REACH. ENDORSED ACCORDINGLY.
--- NOTE | 2019-06-29 19:50 | NUR ---
RN OPENING NOTES RECEIVED REPORT FROM AKILANHSHARON ONTIVEROS. Pt IS A NEW ADMISSION, ARRIVED TO THE FLOOR @1815. FOUND Pt AWAKE, RESTING IN BED. A/OX3, VERBAL, ABLE TO MAKE NEEDS KNOWN. IV ACCESS ON RAC #20G. SAFETY MEASURES IN PLACE. BED LOW, LOCKED, HOB ELEVATED, SIDE RAILS UP, CALL LIGHT AND BEDSIDE TABLE WITHIN REACH. WILL CONTINUE TO MONITOR Pt's CONDITION AND SAFETY THROUGHOUT THE NIGHT.
[2019-06-29] MEDS: OLANZAPINE 5 MG TABLET PO SCH (22:00)
--- NOTE | 2019-06-29 22:05 | NUR ---
RN NOTES BG 270. ADMINISTERED 6UN OF INSULIN PER SLIDING SCALE. Pt GIVEN A SNACK AT BEDSIDE.
[2019-06-29] MEDS: INSULIN REGULAR, HUMAN 100 UNIT/ML 3 ML VIAL SQ PRN (22:21)
[2019-06-30 06:16] LABS: BASOPHILS # (AUTO) 0.1 /CMM (0.0-0.2); BASOPHILS % (AUTO) 0.5 % (0.0-2.0); EOSINOPHILS % (AUTO) 2.9 % (0.0-6.0); HEMATOCRIT 40 % (33-45); HEMOGLOBIN 12.8 g/dL (11.5-14.8); LYMPHOCYTES # (AUTO) 1.7 /CMM (0.8-4.8); LYMPHOCYTES % (AUTO) 15.7 % (20.0-44.0); MEAN CORPUSCULAR HGB CONC 32 g/dl (31.0-36.0); MEAN CORPUSCULAR VOLUME 80 fL (82-100); MONOCYTES # (AUTO) 0.9 /CMM (0.1-1.30); MONOCYTES % (AUTO) 8.1 % (2.0-12.0); NEUTROPHILS % (AUTO) 72.8 % (43.0-81.0); PLATELET COUNT (AUTO) 242 /CMM (150-450); RED BLOOD CELL COUNT(AUTO) 5.05 MIL/uL (4.0-5.2)
--- NOTE | 2019-06-30 06:30 | NUR ---
RN NOTES AC ACCUCHECK BG 235. ADMINISTERED 4UN OF INSULIN PER SLIDING SCALE.
[2019-06-30] MEDS: BLOOD SUGAR DIAGNOSTIC 1 EACH STRIP IN SCH ×4 (06:54→21:43)
[2019-06-30] MEDS: HYDROCODONE/APAP 5/325MG 1 EACH TABLET PO PRN (06:55)
[2019-06-30 07:02] LABS: CALCIUM, SERUM 10.1 mg/dL (8.5-10.1); CREATININE 1.6 mg/dL (0.6-1.3); MAGNESIUM 2.2 mg/dL (1.8-2.4); PHOSPHORUS 4.9 mg/dL (2.5-4.9); POTASSIUM 3.8 mmol/L (3.5-5.1)
[2019-06-30 07:03] LABS: THYROID STIMULATING HORMONE 0.832 uIU/mL (0.358-3.74)
[2019-06-30] MEDS: INSULIN REGULAR, HUMAN 100 UNIT/ML 3 ML VIAL SQ PRN ×5 (07:04→22:32)
[2019-06-30] MEDS: PANTOPRAZOLE 40 MG TABLET.DR PO SCH (07:30)
--- NOTE | 2019-06-30 07:35 | NUR ---
RN CLOSING NOTES NO SIGNIFICANT CHANGES IN Pt's CONDITION. Pt IS RESTING IN BED. NO S/S OF ACUTE DISTRESS OR SOB NOTED DURING THE NIGHT. ALL NEEDS MET AND ATTENDED TO. SAFETY MEASURES IN PLACE. ENDORSED TO DAYSHIFT RN FOR Pt's WAN.
--- NOTE | 2019-06-30 07:49 | NUR ---
MS RN OPENING NOTE PATIENT IN BED RESTING COMFORTABLY. PATIENT IN NO ACUTE DISTRESS. NO SOB NOTED. PATIENT BREATHING IS EVEN AND UNLABORED. PATIENT BED ALARM IS ON. SAFETY PRECAUTIONS IN PLACE. PATIENT BED IS LOCKED AND IN LOWEST POSITION. CALL LIGHT WITHIN REACH. WILL CONTINUE TO MONITOR.
[2019-06-30 08:00] VITALS: BP 131/61
[2019-06-30] MEDS: OLANZAPINE 2.5 MG TABLET PO SCH (08:23)
[2019-06-30] MEDS: PAROXETINE HCL 10 MG TABLET PO SCH (08:23)
[2019-06-30] MEDS: SPIRONOLACTONE 25 MG TABLET PO SCH (08:31)
[2019-06-30] MEDS: hydrALAZINE HCL 50 MG TABLET PO SCH ×4 (08:33→17:22)
[2019-06-30] MEDS: GLIMEPIRIDE 1 MG TABLET PO SCH (08:33)
[2019-06-30] MEDS: DOCUSATE SODIUM 100 MG CAPSULE PO SCH (08:34)
[2019-06-30] MEDS: CARVEDILOL 12.5 MG TABLET PO SCH ×3 (08:34→17:21)
[2019-06-30] MEDS: ASPIRIN 81 MG TAB.CHEW PO SCH (08:34)
[2019-06-30] MEDS: CLONIDINE HCL 0.1 MG TABLET PO SCH ×3 (08:34→17:21)
[2019-06-30] MEDS: CEPHALEXIN MONOHYDRATE 500 MG CAPSULE PO SCH ×3 (08:35→17:21)
[2019-06-30] MEDS: BACLOFEN (10 MG) 10 MG TABLET PO SCH ×4 (08:35→17:00)
[2019-06-30] MEDS: FUROSEMIDE 20 MG TABLET PO SCH (08:35)
[2019-06-30] MEDS: VALSARTAN 80 MG TABLET PO SCH (08:35)
[2019-06-30] MEDS: LINAGLIPTIN 5 MG TABLET PO SCH (08:36)
--- NOTE | 2019-06-30 08:46 | NUR ---
MS RN NOTE PATIENT REFUSING ALL 0730 AND 0900 AM MEDICATIONS. DISCUSSED RISKS VS BENEFITS, EDUCATION, AND IMPORTANCE OF MEDICATIONS. PATIENT STATES " NO I DONT WANT ANY OF THOSE I CHANGED MY MIND AND I REFUSE ALL THOSE MEDICATIONS. I WANTED TO BE CHECKED FOR BONE CANCER, NOT THESE MEDICATIONS." SUMMER NICOLE NOTIFIED AND MADE AWARE.
[2019-06-30] MEDS ORDERED: MELOXICAM 7.5 MG TABLET PO PRN (09:00)
--- NOTE | 2019-06-30 10:51 | NUR ---
MS RN NOTE PATIENT GOT AGITATED AND REFUSED TO HAVE IV FLUIDS ONGOING. EDUCATED RISKS VS BENEFITS AND STATED THAT IT WAS NORMAL SALINE INFUSING. PATIENT RAISE VOICED AND STATED REFUSAL OF IV FLUIDS. Addendum: 06/30/19 at 1054 by SURINDER ANTHONY RN MS RN NOTE PATIENT GOT AGITATED AND REFUSED TO HAVE IV FLUIDS ONGOING. EDUCATED RISKS VS BENEFITS AND STATED THAT IT WAS NORMAL SALINE 0.9% INFUSING. PATIENT RAISE VOICED AND STATED REFUSAL OF IV FLUIDS.
--- NOTE | 2019-06-30 11:45 | NUR ---
MS RN NOTE ATTEMPTED TO OBTAIN BLOOD SUGAR CHECK.PATIENT CHOSE TO IGNORE ME TWICE WHEN SPEAKING TO THE PATIENT IN A KIND MANNER. ON THE THIRD ATTEMPT PATIENT ALLOWED ME TO CHECK BLOOD SUGAR AND WAS 171 AND PATIENT ALLOWED FOR INSULIN COVERAGE 3 UNITS INSULIN PRN.
--- NOTE | 2019-06-30 12:13 | NUR ---
MS RN NOTE PATIENT REFUSED TO HAVE 1300 MEDICATIONS FOR TODAY. EDUCATED IMPORTANCE OF MEDICATIONS. PATIENT IGNORED ME DESPITE RISKS VS BENEFITS EDUCATION. PATIENT CONTINUED TO REFUSE.
[2019-06-30] MEDS ORDERED: HALOPERIDOL LACTATE INJ 5 MG/ML VIAL IM PRN (13:00)
--- NOTE | 2019-06-30 14:18 | NUR ---
MS RN NOTE KINDLY OFFERED TO REPOSITION AND CHANGE LINEN FOR PATIENT, PATIENT REFUSED AT THIS TIME.
[2019-06-30 16:00] VITALS: BP 115/76
--- NOTE | 2019-06-30 16:59 | NUR ---
MS RN NOTE PATIENT REFUSED 1700 MEDICATIONS. PATIENT REFUSED INSULIN COVERAGE PRN FOR BLOOD SUGAR 171. EDUCATED RISKS VS BENEFITS. 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 NOTIFIED SUMMER NICOLE AND MADE AWARE TO HER OF PATIENT CONDITION AND NON COMPLIANCE. DR. RANDALL SEEN AND EVALUATED PATIENT. WILL CONTINUE TO MONITOR.
--- NOTE | 2019-06-30 17:30 | NUR ---
MS RN NOTE PATIENT CHANGED MIND AND NOW HAD STATED TO TAKE 1700 MEDICATIONS, TO COMPLY WITH MEDICATIONS AT THIS TIME. PATIENT ONLY REFUSED BACLOFEN 1700 DOSE. EDUCATED IMPORTANCE OF MEDICATIONS COMPLIANCE. PATIENT CONTINUED TO REFUSE BACLOFEN AT THIS TIME. PATIENT AGREED TO TAKE INSULIN FOR 3 UNITS INSULIN PRN FOR BLOOD SUGAR 171.
--- NOTE | 2019-06-30 18:59 | NUR ---
MS RN CLOSING NOTE PATIENT IN BED RESTING COMFORTABLY. PATIENT IN NO ACUTE DISTRESS. NO SOB NOTED. PATIENT BREATHING IS EVEN AND UNLABORED. PATIENT REFUSING IVF AT THIS TIME. PATIENT ONLY ALLOWED US TO REPOSITION HER TWICE TOWARDS 1700 AND 1800. EDUCATED RISKS AND BENEFITS. PATIENT HAD ONE BOWEL MOVEMENT AND WAS KEPT CLEAN AND DRY ONCE PATIENT ALLOWED US TO CHANGE HER LINENS PARTIALLY. PATIENT HAS BEEN INCONSISTENT WITH COMPLIANCE TO CARE. SUMMER NICOLE HAS BEEN MADE AWARE. ATTENDED TO PATIENT NEEDS. PATIENT BED ALARM IS ON. SAFETY PRECAUTIONS IN PLACE. PATIENT BED IS LOCKED AND IN LOWEST POSITION. CALL LIGHT WITHIN REACH. WILL ENDORSE CARE TO PM SHIFT FOR WAN.
--- NOTE | 2019-06-30 19:45 | NUR ---
RN OPENING NOTES RECEIVED REPORT FROM DAYSHIFT JOSE RAMON CADENA. FOUND Pt AWAKE, RESTING IN BED, WATCHING TV. Pt IS A/OX2-3, VERBAL, ABLE TO MAKE NEEDS KNOWN. IV ACCESS ON RAC #20G. Pt IS REFUSING NS IVF AT THIS TIME. NO S/S OF ACUTE DISTRESS OR SOB NOTED. SAFETY MEASURES IN PLACE. BED LOW, LOCKED, HOB ELEVATED, SIDE RAILS UP, CALL LIGHT AND BEDSIDE TABLE WITHIN REACH. WILL CONTINUE TO MONITOR Pt's CONDITION AND SAFETY THROUGHOUT THE NIGHT.
[2019-06-30 20:25] VITALS: BP 113/68
--- NOTE | 2019-06-30 20:30 | NUR ---
RN NOTES PAGED ONCALL HOSPITALIST DR ROLON IN REGARDS TO Pt REQUESTING FOR STRONGER PAIN MEDS THAN NORCO-5. WAITING FOR CALL BACK.
--- NOTE | 2019-06-30 20:45 | NUR ---
RN NOTES SPOKE WITH DR ROLON ON THE PHONE. GAVE VERBAL ORDERS TO PLACE PRN MORPHINE 2MG Q6H FOR PAIN. WILL CARRY OUT ORDERS.
[2019-06-30 21:00] VITALS: BP 113/68
[2019-06-30] MEDS: OLANZAPINE 5 MG TABLET PO SCH (21:41)
[2019-06-30] MEDS: ENOXAPARIN SODIUM 30 MG/0.3 ML DISP.SYRIN SQ SCH (21:42)
[2019-06-30] MEDS: MORPHINE SULFATE INJ 2 MG/ML DISP.SYRIN IV PRN (21:44)
[2019-06-30] MEDS: ONDANSETRON HCL/PF 4 MG/2 ML VIAL IVP PRN (22:02)
--- NOTE | 2019-06-30 22:37 | NUR ---
RN NOTES BG ACCUCHECK 232. ADMINISTERED 4UN OF INSULIN PER SLIDING SCALE. SNACKS PROVIDED.
[2019-07-01 06:35] LABS: BASOPHILS # (AUTO) 0.1 /CMM (0.0-0.2); BASOPHILS % (AUTO) 0.5 % (0.0-2.0); EOSINOPHILS % (AUTO) 4.8 % (0.0-6.0); HEMATOCRIT 38 % (33-45); HEMOGLOBIN 12.1 g/dL (11.5-14.8); LYMPHOCYTES % (AUTO) 20.7 % (20.0-44.0); MEAN CORPUSCULAR HGB CONC 32 g/dl (31.0-36.0); MEAN CORPUSCULAR VOLUME 81 fL (82-100); MONOCYTES # (AUTO) 0.7 /CMM (0.1-1.30); MONOCYTES % (AUTO) 7.3 % (2.0-12.0); NEUTROPHILS # (AUTO) 6.3 /CMM (1.8-8.9); NEUTROPHILS % (AUTO) 66.7 % (43.0-81.0); PLATELET COUNT (AUTO) 236 /CMM (150-450); RED BLOOD CELL COUNT(AUTO) 4.75 MIL/uL (4.0-5.2); WHITE BLOOD COUNT (AUTO) 9.4 K/uL (4.3-11.0)
[2019-07-01] MEDS: PANTOPRAZOLE 40 MG TABLET.DR PO SCH (06:35)
[2019-07-01] MEDS: BLOOD SUGAR DIAGNOSTIC 1 EACH STRIP IN SCH ×4 (06:36→22:06)
[2019-07-01] MEDS: INSULIN REGULAR, HUMAN 100 UNIT/ML 3 ML VIAL SQ PRN ×3 (06:44→21:19)
--- NOTE | 2019-07-01 06:45 | NUR ---
RN NOTES AC ACCUCHECK BG 222. ADMINISTERED 4UN OF INSULIN PER SLIDING SCALE.
--- NOTE | 2019-07-01 06:49 | NUR ---
RN CLOSING NOTES NO SIGNIFICANT CHANGES IN Pt's CONDITION. Pt IS RESTING IN BED. PER Pt NO LONGER WANTS TO TAKE ZYPREXA, WILL ENDORSE TO NEXT RN. NO S/S OF ACUTE DISTRESS OR SOB NOTED DURING THE NIGHT. ALL NEEDS MET AND ATTENDED TO. SAFETY MEASURES IN PLACE. WILL ENDORSE TO DAYSHIFT RN FOR Pt's WAN.
[2019-07-01 06:57] LABS: ALBUMIN 2.8 g/dL (3.4-5.0); BILIRUBIN,TOTAL 0.3 mg/dL (0.2-1.0); CALCIUM, SERUM 9.9 mg/dL (8.5-10.1); CREATININE 1.7 mg/dL (0.6-1.3); MAGNESIUM 2.2 mg/dL (1.8-2.4); PHOSPHORUS 5.1 mg/dL (2.5-4.9); POTASSIUM 3.7 mmol/L (3.5-5.1); TOTAL PROTEIN, SERUM 7.1 g/dL (6.4-8.2)
--- NOTE | 2019-07-01 07:47 | NUR ---
M/S RN NOTES PATIENT RESTING IN BED, NO RESPIRATORY DISTRESS, O2 AT 2L VIA NASAL CANULA. PATIENT WITH NO C/O PAIN AT THIS TIME. SKIN WARM TO TOUCH, IV ACCESS SITE INTACT AND PATENT. PATIENT'S NEEDS ATTENDED, BED ON LOWEST LOCKED POSITION, CALL LIGHT WITHIN REACH. WILL CONTINUE TO MONITOR.
[2019-07-01 08:00] VITALS: BP 108/58
[2019-07-01] MEDS: GLIMEPIRIDE 1 MG TABLET PO SCH (08:58)
[2019-07-01] MEDS: DOCUSATE SODIUM 100 MG CAPSULE PO SCH (08:58)
[2019-07-01] MEDS: LINAGLIPTIN 5 MG TABLET PO SCH (08:58)
[2019-07-01] MEDS: BACLOFEN (10 MG) 10 MG TABLET PO SCH ×3 (08:59→17:00)
[2019-07-01] MEDS: ASPIRIN 81 MG TAB.CHEW PO SCH (08:59)
[2019-07-01] MEDS: CEPHALEXIN MONOHYDRATE 500 MG CAPSULE PO SCH (08:59)
[2019-07-01] MEDS: OLANZAPINE 2.5 MG TABLET PO SCH (08:59)
[2019-07-01] MEDS: PAROXETINE HCL 10 MG TABLET PO SCH (08:59)
[2019-07-01] MEDS: hydrALAZINE HCL 50 MG TABLET PO SCH ×3 (09:00→17:00)
[2019-07-01] MEDS: CARVEDILOL 12.5 MG TABLET PO SCH ×2 (09:00→17:00)
[2019-07-01] MEDS: VALSARTAN 80 MG TABLET PO SCH (09:00)
[2019-07-01] MEDS: SPIRONOLACTONE 25 MG TABLET PO SCH (09:00)
[2019-07-01] MEDS: CLONIDINE HCL 0.1 MG TABLET PO SCH ×2 (09:00→17:00)
[2019-07-01] MEDS: HYDROCODONE/APAP 5/325MG 1 EACH TABLET PO PRN ×2 (11:56→20:53)
[2019-07-01] MEDS: NITROFURANTOIN/NITROFURAN MAC 100 MG CAPSULE PO SCH (18:08)
--- NOTE | 2019-07-01 18:30 | NUR ---
M/S RN NOTES PATIENT AWAKE IN BED, NO RESPIRATORY DISTRESS, NO C/O PAIN AT THIS TIME. SKIN WARM TO TOUCH, IV ACCESS SITE INTACT AND PATENT. PATIENT REFUSES SOME MEDICATIONS, GIVEN RISKS AND BENEFITS BUT PATIENT STILL REFUSES. PATIENT'S NEEDS ATTENDED, BED ON LOWEST LOCKED POSITION, CALL LIGHT WITHIN REACH. WILL ENDORSE TO ONCOMING NURSE.
--- NOTE | 2019-07-01 19:05 | NUR ---
RN MS OPENING NOTES RECEIVED PATIENT IN BED AWAKE ALERT AND ORIENTED X3, RESPIRATIONS EVEN AND UNLABORED WITH EQUAL RISE AND FALL OF CHEST, ON 2 L VIA NC TOLERATING WELL , AT THIS TIME DENIES PAIN. IV SITE TO RIGHT AC #20G INTACT AND PATENT NO REDNESS, NO INFILTRATION PRESENT, SAFETY PRECAUTIONS IN PLACE, LOW BED AND LOCKED, BED ALARM IN PLACE, ORIENTED TO STAFF AND CALL LIGHT AND KEPT WITHIN REACH. ICS PER REQUEST GIVEN AND PERINEAL CARE PROVIDED. ALL NEEDS ATTENDED AT THIS TIME, WILL CONTINUE TO MONITOR AND ATTEND TO NEEDS.
[2019-07-01 20:00] VITALS: BP 138/69
--- NOTE | 2019-07-01 20:53 | NUR ---
rn ms notes patient complaint of pain to generalized area states 10/31 requested for norco prn norco given as ordered, will continue to monitor for effectiveness. offered repositioning. lights dimmed.
[2019-07-01] MEDS ORDERED: SULFAMETH/TRIMETH 800/160 MG 1 UDTAB TABLET PO SCH (21:00)
[2019-07-01 21:06] VITALS: BP 138/69
[2019-07-01] MEDS: ENOXAPARIN SODIUM 30 MG/0.3 ML DISP.SYRIN SQ SCH (21:11)
[2019-07-01] MEDS: OLANZAPINE 5 MG TABLET PO SCH (22:00)
--- NOTE | 2019-07-01 22:05 | NUR ---
RN MS NOTES PATIENT REFUSED ZYPREXA STATES " IT TOOK A LONG TIME TO LEAVE HER SYSTEM AND MADE HER ANGRY"
[2019-07-01] MEDS: ONDANSETRON HCL/PF 4 MG/2 ML VIAL IVP PRN (22:18)
--- NOTE | 2019-07-01 22:22 | NUR ---
RN MS NOTES PATIENT COMPLAINT OF NAUSEA ZOFRAN PRN OFFERED PATIENT AGREED. PRN ZOFRAN GIVEN WILL CONTINUE TO MONITOR FOR EFFECTIVENESS.
[2019-07-02] MEDS: MORPHINE SULFATE INJ 2 MG/ML DISP.SYRIN IV PRN ×2 (02:14→10:57)
--- NOTE | 2019-07-02 02:16 | NUR ---
rn ms notes patient complaint of pain 7/10 sometimes goes to 10/10 generalized pain at this time. requested for pain medication. morphine prn offered patient agreed. prn given will continue to monitor for effectiveness. vs wnl 149/62, 80,18,100% sp02
[2019-07-02 04:46] LABS: APPEARANCE,URINE SL CLOUDY (CLEAR); BILIRUBIN,URINE NEGATIVE (NEGATIVE); BLOOD, URINE NEGATIVE Ery/uL (NEGATIVE); COLOR,URINE YELLOW (YELLOW); KETONES,URINE NEGATIVE (NEGATIVE); LEUKOCYTE ESTERASE ,URINE SMALL (NEGATIVE); NITRITE, URINE NEGATIVE (NEGATIVE); PROTEIN,URINE TRACE mg/dl (NEGATIVE); UGLUCOSE NEGATIVE (NEGATIVE); UROBILINOGEN,URINE 0.2 EU/dL (0.2)
[2019-07-02 05:00] LABS: CREATININE, URINE 137.7 MG/DL (30.0-125.0); URINE TOTAL PROTEIN 46.4 mg/dL (0-11.9)
[2019-07-02 05:03] LABS: BACTERIA,URINE Few /HPF (None Seen); RBC,URINE 0-2 /HPF (0-2); SQUAMOUS EPITHELIAL CELL,UR Few /HPF (None Seen); WBC,URINE TOO NUMEROUS TO COUN /HPF (0-3)
[2019-07-02 05:50] LABS: EOSINOPHIL,URINE None Seen
[2019-07-02] MEDS: INSULIN REGULAR, HUMAN 100 UNIT/ML 3 ML VIAL SQ PRN ×3 (06:23→17:41)
[2019-07-02] MEDS: BLOOD SUGAR DIAGNOSTIC 1 EACH STRIP IN SCH ×3 (06:23→17:42)
[2019-07-02 06:26] LABS: BASOPHILS % (AUTO) 0.5 % (0.0-2.0); EOSINOPHILS % (AUTO) 4.6 % (0.0-6.0); HEMATOCRIT 38 % (33-45); HEMOGLOBIN 12.1 g/dL (11.5-14.8); LYMPHOCYTES # (AUTO) 1.7 /CMM (0.8-4.8); LYMPHOCYTES % (AUTO) 17.6 % (20.0-44.0); MEAN CORPUSCULAR HGB CONC 32 g/dl (31.0-36.0); MEAN CORPUSCULAR VOLUME 81 fL (82-100); MONOCYTES # (AUTO) 0.7 /CMM (0.1-1.30); MONOCYTES % (AUTO) 7.6 % (2.0-12.0); NEUTROPHILS # (AUTO) 6.7 /CMM (1.8-8.9); NEUTROPHILS % (AUTO) 69.7 % (43.0-81.0); PLATELET COUNT (AUTO) 234 /CMM (150-450); RED BLOOD CELL COUNT(AUTO) 4.67 MIL/uL (4.0-5.2); WHITE BLOOD COUNT (AUTO) 9.6 K/uL (4.3-11.0)
[2019-07-02 06:44] LABS: CALCIUM, SERUM 9.7 mg/dL (8.5-10.1); CREATININE 1.8 mg/dL (0.6-1.3); MAGNESIUM 2.1 mg/dL (1.8-2.4); PHOSPHORUS 4.7 mg/dL (2.5-4.9); POTASSIUM 3.7 mmol/L (3.5-5.1)
--- NOTE | 2019-07-02 07:10 | NUR ---
RN MS CLOSING NOTES PATIENT IN BED AWAKE ALERT AND ORIENTED X3, RESPIRATIONS EVEN AND UNLABORED WITH EQUAL RISE AND FALL OF CHEST, ON 2 L VIA NC TOLERATING WELL , AT THIS TIME DENIES PAIN. IV SITE TO RIGHT AC #20G INTACT AND PATENT NO REDNESS, NO INFILTRATION PRESENT,IVF RUNNING ORDERED, SAFETY PRECAUTIONS IN PLACE, LOW BED AND LOCKED, BED ALARM IN PLACE, CALL LIGHT KEPT WITHIN REACH. ICE PER REQUEST GIVEN AND PERINEAL CARE PROVIDED. ALL NEEDS ATTENDED AT THIS TIME, WILL CONTINUE TO MONITOR AND ENDORSE TO NEXT SHIFT, PATIENT SLEPT WELL THROUGHOUT SHIFT.
--- NOTE | 2019-07-02 07:30 | NUR ---
RN MS NOTES PT IN BED, ASLEEP, EASY TO AROUSE, ALERT AND ORIENTED, NO COMPLAINT OF PAIN OR ANY DISCOMFORT AT THIS TIME, BREATHING PATTERN NORMAL, CALL LIGHT WITHIN REACH, IV FLUIDS INFUSING WELL, NEEDS ATTENDED.
[2019-07-02 08:06] VITALS: BP 150/74
[2019-07-02] MEDS: SPIRONOLACTONE 25 MG TABLET PO SCH (08:10)
[2019-07-02] MEDS: VALSARTAN 80 MG TABLET PO SCH (08:10)
[2019-07-02] MEDS: NITROFURANTOIN/NITROFURAN MAC 100 MG CAPSULE PO SCH (08:11)
[2019-07-02] MEDS: ASPIRIN 81 MG TAB.CHEW PO SCH (08:11)
[2019-07-02] MEDS: CARVEDILOL 12.5 MG TABLET PO SCH ×2 (08:11→16:27)
[2019-07-02] MEDS: DOCUSATE SODIUM 100 MG CAPSULE PO SCH (08:11)
[2019-07-02] MEDS: GLIMEPIRIDE 1 MG TABLET PO SCH (08:11)
[2019-07-02] MEDS: PANTOPRAZOLE 40 MG TABLET.DR PO SCH (08:11)
[2019-07-02] MEDS: BACLOFEN (10 MG) 10 MG TABLET PO SCH ×3 (08:12→16:28)
[2019-07-02] MEDS: CLONIDINE HCL 0.1 MG TABLET PO SCH ×3 (08:12→18:14)
[2019-07-02] MEDS: hydrALAZINE HCL 50 MG TABLET PO SCH ×3 (08:12→16:27)
[2019-07-02] MEDS: PAROXETINE HCL 10 MG TABLET PO SCH (08:22)
[2019-07-02] MEDS: LINAGLIPTIN 5 MG TABLET PO SCH (08:24)
[2019-07-02] MEDS: OLANZAPINE 2.5 MG TABLET PO SCH (08:24)
[2019-07-02] MEDS: ONDANSETRON HCL/PF 4 MG/2 ML VIAL IVP PRN (11:01)
[2019-07-02] MEDS ORDERED: NITR100C15 PO (12:36)
--- NOTE | 2019-07-02 13:00 | NUR ---
RN MS NOTES PT IN BED, AWAKE, ALERT AND ORIENTED, PAIN MEDS GIVEN FOR PAIN MANAGEMENT, TOLERATES CURRENT DIET, IV FLUIDS INFUSING WELL, CALL LIGHT WITHIN REACH, NO OTHER COMPLAINT AT THIS TIME, NEEDS ATTENDED.
[2019-07-02 16:30] VITALS: BP 116/60
[2019-07-02 18:14] VITALS: BP 162/66
--- NOTE | 2019-07-02 18:24 | NUR ---
RN MS NOTES PT IN BED, AWAKE, ALERT AND ORIENTED, NO COMPLAINT OF PAIN OR ANY DISCOMFORT, NO SOB, TOLERATES ROOM AIR, CALL LIGHT WITHIN REACH, DISCHARGE ORDER GIVEN BY DR. RANGEL, DISCHARGE AND MEDICATION INSTRUCTIONS PROVIDED TO PT, VERBALIZED UNDERSTANDING, REPORT GIVEN TO PATRIC ALBRIGHT ADMITTING NURSE OF [facility], BELONGINGS ACCOUNTED FOR, SKIN CHECK AND PHOTOS DONE, PICKED UP BY 5 AMBULANCE PERSONNEL, LEFT VIA GUERNEY IN STABLE CONDITION.
== END 2019-07-02 18:24 | DRG 463 ==
LOC: ER 03:05 → MEDSG2 16:51
PROVIDERS: ADMIT Registered Nurse; ATTEND Nurse Practitioner Acute Care
DX: N39.0 Urinary tract infection, site not specified (principal); N17.0 Acute kidney failure with tubular necrosis; G92 Toxic encephalopathy; F33.3 Major depressive disorder, recurrent, severe with psychotic symptoms; E44.1 Mild protein-calorie malnutrition; E66.01 Morbid (severe) obesity due to excess calories; E11.9 Type 2 diabetes mellitus without complications; B96.20 Unspecified Escherichia coli [E. coli] as the cause of diseases classified elsewhere; I11.0 Hypertensive heart disease with heart failure; I50.9 Heart failure, unspecified; Z79.4 Long term (current) use of insulin; Z87.891 Personal history of nicotine dependence; Z87.11 Personal history of peptic ulcer disease; Z90.49 Acquired absence of other specified parts of digestive tract; Z90.710 Acquired absence of both cervix and uterus; F44.81 Dissociative identity disorder; G89.4 Chronic pain syndrome; Z91.19 Patient's noncompliance with other medical treatment and regimen; Z79.82 Long term (current) use of aspirin; D72.829 Elevated white blood cell count, unspecified; E88.09 Other disorders of plasma-protein metabolism, not elsewhere classified; Z68.43 Body mass index [BMI] 50.0-59.9, adult; E86.9 Volume depletion, unspecified; Z79.84 Long term (current) use of oral hypoglycemic drugs
CPT/HCPCS: 36415; 80048-TC; 80053-TC; 80061-TC; 80076-TC; 80305; 81000-TC; 82550-TC; 82570-TC; 82962-TC; 83735-TC; 84100-TC; 84155-TC; 84300-TC; 84443-TC; 85025-TC; 87081-TC; 87086-TC; 87186-TC; 97112-TC; 97530-TC; G0378; G0480; J0696; J1650; J1815; J2270; J2405; J7030

== ENCOUNTER 2020-02-22 14:18 | Inpatient (IN) | payer MEDICAID ==
[~2020-02-22] VITALS: Ht 177.8 cm; Wt 158.8 kg
[~2020-02-22 14:18] MED LIST changes: +ACET-2605 PO; +ACET-868 PO; +GLIM2TAB31 PO; -LIDO30AD10 TP; +LINA5TAB PO; +NITR100C15 PO; +OLAN2.5T3 PO; +OLAN5TAB3 PO
--- NOTE | 2020-02-22 14:18 | NUR ---
PT BIBRA 39 FROM SNF C/O TAIL BONE FOR 8 MONTHS. PT IS AAOX3, NOT IN RESPIRATORY DISTRESS, V/S STABLE, KEPT RESTED AND COMFORTABLE. WILL CONTINUE TO MONITOR.
--- NOTE | 2020-02-22 15:37 | NUR ---
URINE SPECIMEN COLLECTED AND SENT TO LAB.
[2020-02-22 16:25] LABS: BASOPHILS # (AUTO) 0.1 /CMM (0.0-0.2); BASOPHILS % (AUTO) 0.9 % (0.0-2.0); EOSINOPHILS % (AUTO) 4.2 % (0.0-6.0); HEMATOCRIT 40 % (33-45); HEMOGLOBIN 12.8 g/dL (11.5-14.8); LYMPHOCYTES # (AUTO) 1.8 /CMM (0.8-4.8); LYMPHOCYTES % (AUTO) 14.6 % (20.0-44.0); MEAN CORPUSCULAR HGB CONC 32 g/dl (31.0-36.0); MEAN CORPUSCULAR VOLUME 89 fL (82-100); MONOCYTES # (AUTO) 0.8 /CMM (0.1-1.30); MONOCYTES % (AUTO) 6.6 % (2.0-12.0); NEUTROPHILS # (AUTO) 8.9 /CMM (1.8-8.9); NEUTROPHILS % (AUTO) 73.7 % (43.0-81.0); PLATELET COUNT (AUTO) 281 /CMM (150-450); RED BLOOD CELL COUNT(AUTO) 4.55 MIL/uL (4.0-5.2); WHITE BLOOD COUNT (AUTO) 12.1 K/uL (4.3-11.0)
[2020-02-22] MEDS ORDERED: ONDA4TAB5 PO (16:31)
[2020-02-22] MEDS ORDERED: NA P133E RC (16:31)
[2020-02-22] MEDS ORDERED: CRAN400C PO (16:31)
[2020-02-22] MEDS ORDERED: BISA10SU11 RC (16:31)
[2020-02-22] MEDS ORDERED: GLUC1KIT IJ (16:31)
[2020-02-22] MEDS ORDERED: CRAN3875 PO (16:31)
[2020-02-22 16:40] LABS: APPEARANCE,URINE CLEAR (CLEAR); BILIRUBIN,URINE NEGATIVE (NEGATIVE); BLOOD, URINE SMALL Ery/uL (NEGATIVE); COLOR,URINE YELLOW (YELLOW); LEUKOCYTE ESTERASE ,URINE MODERATE (NEGATIVE); NITRITE, URINE NEGATIVE (NEGATIVE); PH,URINE 5.5 (5.0-8.0); PROTEIN,URINE 30 mg/dl (NEGATIVE); UGLUCOSE NEGATIVE (NEGATIVE); UROBILINOGEN,URINE 0.2 EU/dL (0.2)
[2020-02-22 16:44] LABS: CALCIUM, SERUM 10.3 mg/dL (8.5-10.1); CARBON DIOXIDE 27 mmol/L (21-32); CHLORIDE 105 mmol/L (98-107); CREATININE 1.6 mg/dL (0.6-1.3); GLUCOSE 179 mg/dL (74-106); POTASSIUM 4.6 mmol/L (3.5-5.1); SODIUM SERUM 139 mmol/L (136-145); UREA NITROGEN, BLOOD 41 mg/dL (7-18)
[2020-02-22] MEDS ORDERED: HYDR-4384 PO (16:44)
[2020-02-22] MEDS ORDERED: LINA5TAB PO (16:44)
[2020-02-22] MEDS ORDERED: SENN-175 PO (16:44)
[2020-02-22] MEDS ORDERED: METO-295 PO (16:44)
[2020-02-22] MEDS ORDERED: HYDR-4077 PO (16:44)
[2020-02-22] MEDS ORDERED: PARO10TA86 PO (16:44)
[2020-02-22] MEDS ORDERED: MELO-107 PO (16:44)
[2020-02-22] MEDS ORDERED: LANS15CA18 PO (16:44)
[2020-02-22] MEDS ORDERED: METF-440 PO (16:44)
[2020-02-22] MEDS ORDERED: INSU100V27 SQ (16:44)
[2020-02-22] MEDS ORDERED: INSU100V42 (16:44)
[2020-02-22] MEDS ORDERED: ACET-2605 PO (16:44)
[2020-02-22] MEDS ORDERED: LOPE2CAP PO (16:44)
[2020-02-22] MEDS ORDERED: ACET325T53 PO (16:44)
[2020-02-22 16:52] LABS: BACTERIA,URINE 4+ /HPF (None Seen); SQUAMOUS EPITHELIAL CELL,UR 0-2 /HPF (None Seen); WBC,URINE 21-50 /HPF (0-3)
[2020-02-22] MEDS ORDERED: IV NS 0.9% 1,000 ML BAG IV ONE (17:00)
[2020-02-22] MEDS ORDERED: CEFTRIAXONE 1 G in IV D5W 50 ML IV ONE (17:00)
[2020-02-22] MEDS ORDERED: CEFTRIAXONE 1GM BAG (ER ONLY) 50 ML IV ONE (17:00)
[2020-02-22 17:20] LABS: ALANINE AMINOTRANSFERASE 20 U/L (12-78); ALBUMIN 2.8 g/dL (3.4-5.0); ALKALINE PHOSPHATASE 93 U/L (46-116); ASPARTATE AMINOTRANSFERASE 20 U/L (15-37); BILIRUBIN,DIRECT 0.1 mg/dL (0.0-0.2); BILIRUBIN,TOTAL 0.4 mg/dL (0.2-1.0); TOTAL PROTEIN, SERUM 7.7 g/dL (6.4-8.2)
[2020-02-22 17:22] LABS: ACETAMINOPHEN < 2 ug/ml (10-30)
[2020-02-22 17:42] LABS: ALCOHOL, BLOOD < 3 mg/dL (0-0)
--- NOTE | 2020-02-22 19:08 | NUR ---
REPORT GIVEN TO JOSE RAMON BRUNO FOR WAN.
--- NOTE | 2020-02-22 19:10 | NUR ---
PT AAOX4, VSS, RESPIRATIONS EVEN AND UNLABORED ON RA W/ NAD NOTED. PT CONNECTED TO THE MONITOR AND POX
--- NOTE | 2020-02-22 19:46 | NUR ---
CALLED LAB FOR COVID [facility]AB
--- NOTE | 2020-02-22 20:17 | NUR ---
TAKEN TO CT.
[2020-02-22] MEDS ORDERED: HYDROCODONE/APAP 10/325MG TABLET PO ONE (20:30)
--- NOTE | 2020-02-22 20:36 | NUR ---
DR. LEON SPEAKING WITH DR. CLEMENTS
[2020-02-22] MEDS ORDERED: OLANZAPINE 5 MG TABLET ONE (20:43)
[2020-02-22] MEDS ORDERED: HYDROCODONE/APAP 10/325MG TABLET ONE (20:43)
[2020-02-22] MEDS ORDERED: OLANZAPINE 5 MG/TAB.RAPDIS ONE (20:44)
--- NOTE | 2020-02-22 20:52 | NUR ---
PT REFUSED TO HAVE HER VS TAKEN
--- NOTE | 2020-02-22 20:52 | NUR ---
PT REFUSED TO BE PLACED ON THE MONITOR
[2020-02-22] MEDS ORDERED: OLANZAPINE 5 MG/TAB.RAPDIS PO ONE (21:00)
--- NOTE | 2020-02-22 21:31 | NUR ---
Call from lab. Rapid covid negative.
[2020-02-22] MEDS ORDERED: TEMAZEPAM 15 MG CAPSULE PO PRN (23:00)
[2020-02-22] MEDS ORDERED: DEXTROSE 50%-WATER 50 ML DISP.SYRIN IV PRN (23:00)
[2020-02-22] MEDS ORDERED: MAGNESIUM HYDROXIDE 30 ML UDC PO PRN (23:00)
[2020-02-22] MEDS ORDERED: ONDANSETRON HCL/PF 4 MG/2 ML VIAL IVP PRN (23:00)
[2020-02-22] MEDS ORDERED: MAG HYDROX/AL HYDROX/SIMETH 30 ML UDC PO PRN (23:00)
[2020-02-22] MEDS ORDERED: ACETAMINOPHEN 325 MG TABLET PO PRN (23:00)
[2020-02-22] MEDS ORDERED: Z GUARD REMEDY 2 OZ OINT TP PRN (23:00)
--- NOTE | 2020-02-22 23:29 | NUR ---
REPORT GIVEN TO JOSE RAMON FALLON FOR WAN
[2020-02-22 23:40] VITALS: BP 114/64
--- NOTE | 2020-02-22 23:40 | NUR ---
rn ms notes received patient from er via gurney safely transferred to bed ,awake alert and oriented x3, respirations even and unlabored with equal rise and fall of chest, denies any pain or discomfort at this time, iv site to right wrist #20g intact and patent, no redness,no infiltration present, skin assessment done note with right and left post.upper thigh scattered pressure ulcers, and sacral dti, redness, to right breastfold. abd fold and perineal , areas cleansed and covered, and kept dry, belongings list done, oriented to staff and call light and kept within reach, low bed and locked, bed alarm in place, discussed plan of care, will continue to monitor, remains comfortable at this time.
[2020-02-23] MEDS: IV NS 0.9% 1,000 ML IV PRN ×2 (00:23→12:13)
[2020-02-23] MEDS ORDERED: MEROPENEM 1 G in IV NS 0.9% 100 ML IV ONE (05:00)
[2020-02-23] MEDS: METOCLOPRAMIDE HCL 10 MG TABLET PO SCH ×3 (05:00→21:00)
[2020-02-23] MEDS ORDERED: MEROPENEM 1 G in IV NS 0.9% 100 ML IV SCH (05:00)
[2020-02-23] MEDS ORDERED: MEROPENEM 1 G VIAL IV ONE (05:15)
[2020-02-23] MEDS: BLOOD SUGAR DIAGNOSTIC 1 EACH STRIP IN SCH ×4 (06:11→22:07)
[2020-02-23] MEDS: INSULIN REGULAR, HUMAN 100 UNIT/ML 3 ML VIAL SQ PRN ×4 (06:11→22:09)
--- NOTE | 2020-02-23 06:20 | NUR ---
rn ms closing notes patient in bed ,awake ,alert ,and oriented x3, respirations even and unlabored with equal rise and fall of chest, denies any pain or discomfort at this time, iv site to right wrist #20g intact and patent, no redness,no infiltration present, right and left post.upper thigh scattered pressure ulcers, and sacral dti, redness, to right breastfold. abd fold and perineal , areas cleansed and covered, and kept dry, offloaded. call light kept within reach, low bed and locked, bed alarm in place, discussed plan of care, will continue to monitor, remains comfortable at this time, fluids offered throughout shift pt did not want fluids when asked, also refused ordered reglan states 'i dont want it i dont take that". will endorse to next shift. all needs met.
[2020-02-23] MEDS: PANTOPRAZOLE 40 MG TABLET.DR PO SCH (07:30)
[2020-02-23 07:32] LABS: BASOPHILS % (AUTO) 0.6 % (0.0-2.0); EOSINOPHILS % (AUTO) 7.5 % (0.0-6.0); HEMATOCRIT 37 % (33-45); HEMOGLOBIN 11.9 g/dL (11.5-14.8); LYMPHOCYTES # (AUTO) 1.8 /CMM (0.8-4.8); MEAN CORPUSCULAR HGB CONC 32 g/dl (31.0-36.0); MEAN CORPUSCULAR VOLUME 89 fL (82-100); MONOCYTES # (AUTO) 0.6 /CMM (0.1-1.30); MONOCYTES % (AUTO) 8.5 % (2.0-12.0); NEUTROPHILS # (AUTO) 4.5 /CMM (1.8-8.9); NEUTROPHILS % (AUTO) 59.4 % (43.0-81.0); PLATELET COUNT (AUTO) 254 /CMM (150-450); RED BLOOD CELL COUNT(AUTO) 4.18 MIL/uL (4.0-5.2); WHITE BLOOD COUNT (AUTO) 7.6 K/uL (4.3-11.0)
--- NOTE | 2020-02-23 07:53 | NUR ---
MS RN OPENING NOTES BEDSIDE ENDORSEMENT DONE. PATIENT IS IN BED SLEEPING, ABLE TO BE AWAKENED. A/O X3, ABLE TO MAKE NEEDS KNOWN. BREATHING EVEN AND UNLABORED IN ROOM AIR, NO ACUTE DISTRESS. IV LINE ON RIGHT WRIST #20 INTACT AND PATENT. ENDORSED BY PREVIOUS SHIFT RN THAT PATIENT HAS TENDENCY TO REFUSE MEDS, AND WOUND CONSULT ALREADY ORDERED. SAFETY PRECAUTIONS IN PLACE: BED LOCKED AND ON LOWEST POSITION, SR UP X2, CALL LIGHT W/IN REACH. WILL CONTINUE TO MONITOR.
[2020-02-23 08:04] LABS: CALCIUM, SERUM 9.6 mg/dL (8.5-10.1); CREATININE 1.3 mg/dL (0.6-1.3); MAGNESIUM 2.1 mg/dL (1.8-2.4); PHOSPHORUS 3.3 mg/dL (2.5-4.9); POTASSIUM 4.2 mmol/L (3.5-5.1)
[2020-02-23 08:14] LABS: THYROID STIMULATING HORMONE 0.255 uIU/mL (0.358-3.74)
[2020-02-23] MEDS: OLANZAPINE 5 MG TABLET PO SCH (09:00)
[2020-02-23] MEDS: HEPARIN SODIUM, PORCINE 5000 UNITS/1 ML VIAL SQ SCH ×2 (09:00→21:00)
[2020-02-23] MEDS: PAROXETINE HCL 20 MG TABLET PO SCH (09:00)
[2020-02-23] MEDS: hydrALAZINE HCL 50 MG TABLET PO SCH ×3 (09:00→16:26)
[2020-02-23] MEDS: VALSARTAN 80 MG TABLET PO SCH (09:33)
[2020-02-23] MEDS: HYDROCODONE/APAP 5/325MG TABLET PO PRN ×2 (09:33→20:18)
--- NOTE | 2020-02-23 10:09 | NUR ---
RN NOTES SPOKE W/ PATIENT AND ASKED ABOUT MEDICATIONS THAT SHE WANTS TO TAKE. PATIENT IS AWAKE AND VERBALLY RESPONSIVE, A/O X3, ABLE TO MAKE NEEDS KNOWN. PATIENT REFUSED MORNING MEDICATIONS EXCEPT FOR VALSARTAN, ALSO WANTED PAIN MEDICATION; PATIENT IS OKAY WITH NORCO. BOTH MEDICATIONS GIVEN TO PATIENT.
[2020-02-23] MEDS: MEROPENEM 1 G in IV NS 0.9% 100 ML IV SCH ×2 (12:14→20:17)
--- NOTE | 2020-02-23 12:14 | NUR ---
RN NOTES INFORMED PATIENT THAT SHE HAS ACCU-CHECK AND IV/PO MEDICATIONS FOR NOON TIME; PER PATIENT, SHE IS OKAY WITH ACCU-CHECK AND IV MEDICATIONS BUT REFUSES HYDRALAZINE AND REGLAN.
--- NOTE | 2020-02-23 18:55 | NUR ---
MS RN CLOSING NOTES PATIENT IS IN BED SLEEPING, ABLE TO BE AWAKENED. A/O X3, ABLE TO MAKE NEEDS KNOWN. BREATHING EVEN AND UNLABORED IN ROOM AIR, NO ACUTE DISTRESS. IV LINE ON RIGHT WRIST #20 INTACT AND PATENT W/ IVF OF NS RUNNING AT 75ML/HR, INFUSING WELL. SAFETY PRECAUTIONS MAINTAINED: BED LOCKED AND ON LOWEST POSITION, SR UP X2, CALL LIGHT W/IN REACH. WILL ENDORSE TO SUPERCHARGER MECHANIC RN FOR WAN.
--- NOTE | 2020-02-23 19:00 | NUR ---
RN OPENING NOTE RECEIVED PATIENT IN BED RESTING ALERT ORIENTED X3 VERBALLY RESPONSIVE,ON MED SURG MONITORING, NO SOB NOT ACUTE DISTRESS NOTED,ON ROOM AIR,IV SITE IS ON RIGHT WRIST PATENT,INTACT FLUSHED IV HYDRATION NORMAL SALINE 0.9% 75 CC/HR RUNNING INCONTINENT BOWEL/BLADDER,IMPLEMENT SAFETY MEASURE,BED LOCKED IN LOW POSITON,BED ALARM IS ON,CALL LIGHT WITHIN REACH,CONTINUE TO MONITOR.
[2020-02-23 20:00] VITALS: BP 132/73
--- NOTE | 2020-02-23 21:12 | NUR ---
RN NOTE PATIENT REFUSED TO TAKE REGLAN AND HEPARIN INJECTION,EXPLAINED RISKS AND BENEFITS STILL REFUSED,CONTINUE TO MONITOR
[2020-02-23] MEDS: OLANZAPINE 2.5 MG TABLET PO SCH (22:00)
--- NOTE | 2020-02-23 22:16 | NUR ---
RN NOTE PATIENT REFUSED TO TAKE ZYPREXA 5 MG,EXPLAINED RISKS AND BENEFITS STILL REFUSED,CONTINUE TO MONITOR,BLOOD SUGAR IS 83 NOT INSULIN REQUIRED ,WILL RECHECK BS ONE HOUR LATER,OFFERED HER ORANG JUICE SHE REFUSED PUT IN BED SIDE WHEN SHE WANTS DRINK,CALL LIGHT WITHIN REACH CONTINUE TO MONITOR
--- NOTE | 2020-02-23 23:16 | NUR ---
RN NOTE BLOOD SUGAR IS 110 CONTINUE TO MONITOR.
--- NOTE | 2020-02-23 23:29 | NUR ---
Received report from JOSE RAMON Fischer for continuity of care.
--- NOTE | 2020-02-23 23:30 | NUR ---
Patient in bed resting comfortably. Patient is alert and oriented x3. Able to make needs known. Patient breathing well on roof air, no SOB or acute respiratory distress noted. IV access noted on right wrist 20 gauge, infusing NS @ 75mL/hr. Safety precaution in place, bed is in the lowest level, bed is locked, alarm is on, side rails x2 are up, and call light is within reach. Will continue to monitor.
--- NOTE | 2020-02-23 23:32 | NUR ---
RN NOTE PATIENT REMAINS ALERT ORIENTED X3 VERBALLY RESPONSIVE NO SOB NOT ACUTE DISTRESS NOTED ENDORSE AILYN ALBRIGHT FOR CONTINUATION OF CARE.
[2020-02-24] MEDS: MEROPENEM 1 G in IV NS 0.9% 100 ML IV SCH ×3 (04:19→21:56)
[2020-02-24] MEDS: HYDROCODONE/APAP 5/325MG TABLET PO PRN ×3 (04:20→15:48)
--- NOTE | 2020-02-24 04:20 | NUR ---
Patient complains of generalized body ache. Patient rates pain 7 on a 0-10 numerical scale. Administered PRN [place] per MD order. Will continue to monitor.
[2020-02-24] MEDS: METOCLOPRAMIDE HCL 10 MG TABLET PO SCH ×3 (04:21→21:00)
--- NOTE | 2020-02-24 04:21 | NUR ---
Patient refused Reglan. Explained the risks and benefits but patient still refused.
[2020-02-24] MEDS: BLOOD SUGAR DIAGNOSTIC 1 EACH STRIP IN SCH ×4 (06:32→21:53)
[2020-02-24] MEDS: INSULIN REGULAR, HUMAN 100 UNIT/ML 3 ML VIAL SQ PRN ×3 (06:32→21:41)
[2020-02-24 06:39] LABS: BASOPHILS % (AUTO) 0.6 % (0.0-2.0); CALCIUM, SERUM 9.4 mg/dL (8.5-10.1); CREATININE 1.3 mg/dL (0.6-1.3); EOSINOPHILS % (AUTO) 7.2 % (0.0-6.0); HEMATOCRIT 38 % (33-45); HEMOGLOBIN 12.1 g/dL (11.5-14.8); LYMPHOCYTES # (AUTO) 1.8 /CMM (0.8-4.8); LYMPHOCYTES % (AUTO) 23.9 % (20.0-44.0); MEAN CORPUSCULAR HGB CONC 32 g/dl (31.0-36.0); MEAN CORPUSCULAR VOLUME 90 fL (82-100); MONOCYTES # (AUTO) 0.6 /CMM (0.1-1.30); MONOCYTES % (AUTO) 8.7 % (2.0-12.0); NEUTROPHILS # (AUTO) 4.4 /CMM (1.8-8.9); NEUTROPHILS % (AUTO) 59.6 % (43.0-81.0); PLATELET COUNT (AUTO) 255 /CMM (150-450); POTASSIUM 4.2 mmol/L (3.5-5.1); RED BLOOD CELL COUNT(AUTO) 4.28 MIL/uL (4.0-5.2); WHITE BLOOD COUNT (AUTO) 7.4 K/uL (4.3-11.0)
--- NOTE | 2020-02-24 07:15 | NUR ---
MS RN NOTES PATIENT RECEIVED IN BED SLEEPING EASILY AWAKEN BY NAME AND LIGHT TOUCH. ALERT AND ORIENTED X 3. PATIENT ON ROOM AIR WITH NO SIGNS OF RESPIRATORY DISTRESS WITH EVEN NON-LABORED BREATHING. PATIENT SKIN WARM AND DRY TO TOUCH. IV ACCESS INTACT AND PATENT. SAFETY PRECAUTIONS IMPLEMENTED WITH BED LOCKED BED IN THE LOWEST POSITION, BILATERAL SIDE RAILS UP, BED ALARM ON, AND CALL LIGHT WITHIN EASY REACH OF THE PATIENT. WILL CONTINUE TO MONITOR PATIENT.
--- NOTE | 2020-02-24 07:15 | NUR ---
Patient in bed sleeping comfortably. Patient breathing well. No SOB or acute respiratory distress noted. Safety precaution maintained, bed in lowest level, bed is locked, side rails x2 are up, and call light is within reach. Will endorse to next shift.
[2020-02-24] MEDS: PANTOPRAZOLE 40 MG TABLET.DR PO SCH (07:30)
[2020-02-24 08:00] VITALS: BP_SYST 163; BP_DIAS 84; BP_DIAS 86
[2020-02-24] MEDS: HEPARIN SODIUM, PORCINE 5000 UNITS/1 ML VIAL SQ SCH ×2 (08:31→21:40)
[2020-02-24] MEDS: VALSARTAN 80 MG TABLET PO SCH (08:34)
[2020-02-24] MEDS: hydrALAZINE HCL 50 MG TABLET PO SCH ×3 (08:34→16:39)
[2020-02-24] MEDS: PAROXETINE HCL 20 MG TABLET PO SCH (08:35)
[2020-02-24] MEDS: OLANZAPINE 5 MG TABLET PO SCH (08:35)
--- NOTE | 2020-02-24 08:40 | NUR ---
MS RN NOTES PATIENT REFUSED MORNING MEDICATIONS STATING, "I DON'T NEED THEM, THEY DON'T WORK FOR ME." EDUCATED THE PATIENT THE IMPORTANCE OF EACH MEDICATION, PATIENT STILL KEPT REFUSING AFTER MULTIPLE ATTEMPTS. WILL CONTINUE TO MONITOR PATIENT.
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
[2020-02-24 12:00] VITALS: BP 149/84
[2020-02-24] MEDS: CLOTRIMAZOLE 1% 15 GM TUBE TP SCH ×2 (12:20→16:39)
[2020-02-24 16:00] VITALS: BP 157/80
[2020-02-24] MEDS: IV NS 0.9% 1,000 ML IV PRN (16:42)
--- NOTE | 2020-02-24 18:22 | NUR ---
MS RN NOTES PATIENT IN BED, AWAKE, ALERT AND ORIENTED X 3. ON ROOM AIR WITH NO SIGNS OF RESPIRATORY DISTRESS, WITH EVEN NON-LABORED BREATHING, AND NO SOB NOTED. PATIENT SKIN KEPT CLEAN AND DRY AND MET ALL OF PATIENT'S NEEDS. IV ACCESS INTACT AND PATENT, INFUSING IV FLUIDS AT 75ml/hr. INFORMED DR. 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 PATIENT PRESENTS WITH NO SIGNS OF PAIN OR DISCOMFORT AT THIS TIME. SAFETY PRECAUTIONS IMPLEMENTED WITH THE BED LOCKED, BED IN THE LOWEST POSITION, BILATERAL SIDE RAILS UP, BED ALARM ON AND CALL LIGHT WITHIN EASY REACH OF THE PATIENT. WILL ENDORSE PLAN OF CARE TO UPCOMING RN.
[2020-02-24] MEDS: HYDROCODONE/APAP 10/325MG TABLET PO PRN (19:34)
--- NOTE | 2020-02-24 19:34 | NUR ---
MS/RN NOTE Patient c/o generalized pain level 8, aching throbbing. Administered 10mg norco as ordered. VSS. Will continue to monitor.
[2020-02-24 20:00] VITALS: BP 149/81
--- NOTE | 2020-02-24 20:00 | NUR ---
MS/RN OPENING NOTE Patient awake in bed, A/O x3. Breathing even, clear, unlabored, on room air. No acute distress or SOB noted. Tongue midline, no tracheal deviation. CRP <3 seconds. No JVD. Pedal pulses 2+. Skin warm, pink, dry. Redness noted on perineum, sacrum, and breast folds. IV site right wrist 20g running NS 75 ml/hr. No redness or infiltration. Abdomen large, round, soft, non-tender. BS hypoactive all quadrants. Patient is incontinent. Urine output clear, yellow. Bed in low position, wheels locked, side rails up x2, call light within reach.
[2020-02-24] MEDS: MUPIROCIN OINT 2% 22 GM TUBE NS SCH (21:38)
[2020-02-24] MEDS: OLANZAPINE 2.5 MG TABLET PO SCH (21:56)
--- NOTE | 2020-02-24 22:34 | NUR ---
MS/RN NOTE Patient refused PO medications at this time. Will continue to monitor.
[2020-02-25] MEDS: HYDROCODONE/APAP 10/325MG TABLET PO PRN ×2 (00:50→09:36)
--- NOTE | 2020-02-25 00:50 | NUR ---
MS/RN NOTE Patient c/o generalized pain level 9, aching throbbing. Administered 10mg norco as ordered. VSS. Will continue to monitor.
[2020-02-25] MEDS: MEROPENEM 1 G in IV NS 0.9% 100 ML IV SCH ×2 (04:03→13:00)
[2020-02-25] MEDS: METOCLOPRAMIDE HCL 10 MG TABLET PO SCH ×2 (04:07→13:00)
--- NOTE | 2020-02-25 04:24 | NUR ---
MS/RN NOTE Patient c/o pain medication ineffective in managing pain. Contacted hospitalist regarding pain management. No new med orders at this time, no more pain medications for this patient per hospitalist. Will continue to monitor.
[2020-02-25] MEDS: PANTOPRAZOLE 40 MG TABLET.DR PO SCH (06:30)
[2020-02-25] MEDS: BLOOD SUGAR DIAGNOSTIC 1 EACH STRIP IN SCH ×2 (06:43→12:00)
[2020-02-25] MEDS: INSULIN REGULAR, HUMAN 100 UNIT/ML 3 ML VIAL SQ PRN (06:44)
--- NOTE | 2020-02-25 06:51 | NUR ---
MS/RN CLOSING NOTE Patient awake in bed, A/O x3. Breathing even, clear, unlabored, on room air. No acute distress or SOB noted. Skin warm, pink, dry. Redness noted on perineum, sacrum, and breast folds. Bony prominences offload. IV site LFA wrist 20g running NS 75 ml/hr. No redness or infiltration. 1 bowel movement this shift, moderate, brown soft, formed. Patient is incontinent. Urine output clear, yellow x2. Bed in low position, wheels locked, side rails up x2, call light within reach.
--- NOTE | 2020-02-25 07:33 | NUR ---
MS RN OPENING NOTES BEDSIDE ENDORSEMENT DONE. PATIENT IS IN BED AWAKE AND VERBALLY. A/O X3, ABLE TO MAKE NEEDS KNOWN. BREATHING EVEN AND UNLABORED IN ROOM AIR, NO ACUTE DISTRESS. IV LINE DISLODGED PER PATIENT AND SEEN BY PRODUCT SUPPORT REP RN AT BEDSIDE. PATIENT NO COMPLAINT OF DISCOMFORT AT THIS TIME. SAFETY PRECAUTIONS IN PLACE: BED LOCKED AND ON LOWEST POSITION, SR UP X2, CALL LIGHT W/IN REACH. WILL CONTINUE TO MONITOR.
[2020-02-25 08:00] VITALS: BP_SYST 143; BP_SYST 173; BP_DIAS 88; BP_DIAS 98
[2020-02-25] MEDS ORDERED: FURO-145 PO (08:31)
[2020-02-25] MEDS ORDERED: NITR100C6 PO (08:31)
[2020-02-25] MEDS: hydrALAZINE HCL 50 MG TABLET PO SCH ×2 (09:00→13:00)
[2020-02-25] MEDS: OLANZAPINE 5 MG TABLET PO SCH (09:00)
[2020-02-25] MEDS: HEPARIN SODIUM, PORCINE 5000 UNITS/1 ML VIAL SQ SCH (09:00)
[2020-02-25] MEDS: PAROXETINE HCL 20 MG TABLET PO SCH (09:00)
[2020-02-25] MEDS: MUPIROCIN OINT 2% 22 GM TUBE NS SCH (09:00)
[2020-02-25] MEDS: CLOTRIMAZOLE 1% 15 GM TUBE TP SCH (09:00)
[2020-02-25] MEDS: VALSARTAN 80 MG TABLET PO SCH (09:35)
--- NOTE | 2020-02-25 13:59 | NUR ---
RN NOTES PATIENT REFUSED PHOTOS TO BE TAKEN OF SKIN ISSUES. PATIENT IS A/O X3 AND MAKES NEEDS KNOWN AND UNDERSTANDS.
[2020-02-25] MEDS: HYDROCODONE/APAP 5/325MG TABLET PO PRN (14:47)
--- NOTE | 2020-02-25 15:10 | NUR ---
RN NOTES PATIENT FOR DISCHARGE TO [facility]. REPORT GIVEN TO JOSE RAMON GEORGES, OF [facility]. MIKAYLA GUERRA INFORMED PATIENT'S BROTHER OF PATIENT'S DISCHARGE TODAY.
[2020-02-25 16:00] VITALS: BP 130/72
--- NOTE | 2020-02-25 16:30 | NUR ---
AUTO CLUTCH SPECIALIST NOTES NOTES PATIENT DISCHARGED TODAY TO [facility], PICKED UP BY 2 NEWSPAPER CARRIERS SUPERVISOR, VIA [facility] [employer]. PATIENT IS AWAKE AND VERBALLY RESPONSIVE, A/O X3, ABLE TO MAKE NEEDS KNOWN. BELONGINGS LIST AND DISCHARGE FORM SIGNED BY PATIENT. PATIENT ABLE TO BE CLEANED BY ME AND EBENEZER ROBB ASSIGNED; PATIENT REFUSED PHOTOS TO BE TAKEN. BEDSIDE ENDORSEMENT GIVEN TO EMT STAFF. CHARGE NURSE AND MD AWARE OF DISCHARGE. Addendum: 02/25/20 at 1636 by DANTE OWENS RN VS TAKEN BP-130/72, P-76, R-20, T-97.5, [id number]-70% IN ROOM AIR
== END 2020-02-25 16:25 | DRG 422 ==
LOC: ER 14:19 → MED 23:14
PROVIDERS: ADMIT Nurse Practitioner Acute Care; ATTEND Internal Medicine
DX: E86.0 Dehydration (principal); N39.0 Urinary tract infection, site not specified; N17.0 Acute kidney failure with tubular necrosis; F29 Unspecified psychosis not due to a substance or known physiological condition; R53.2 Functional quadriplegia; D68.59 Other primary thrombophilia; G47.33 Obstructive sleep apnea (adult) (pediatric); E11.40 Type 2 diabetes mellitus with diabetic neuropathy, unspecified; E66.01 Morbid (severe) obesity due to excess calories; Z91.19 Patient's noncompliance with other medical treatment and regimen; G89.29 Other chronic pain; Z85.828 Personal history of other malignant neoplasm of skin; Z87.11 Personal history of peptic ulcer disease; Z88.6 Allergy status to analgesic agent; Z88.8 Allergy status to other drugs, medicaments and biological substances; Z91.048 Other nonmedicinal substance allergy status; Z79.4 Long term (current) use of insulin; Z79.899 Other long term (current) drug therapy; Z79.82 Long term (current) use of aspirin; B96.89 Other specified bacterial agents as the cause of diseases classified elsewhere; F45.21 Hypochondriasis; K21.9 Gastro-esophageal reflux disease without esophagitis; I50.32 Chronic diastolic (congestive) heart failure; E44.0 Moderate protein-calorie malnutrition; I13.0 Hypertensive heart and chronic kidney disease with heart failure and stage 1 through stage 4 chronic kidney disease, or unspecified chronic kidney disease; E11.22 Type 2 diabetes mellitus with diabetic chronic kidney disease; N18.9 Chronic kidney disease, unspecified; L60.0 Ingrowing nail; M20.42 Other hammer toe(s) (acquired), left foot; M20.41 Other hammer toe(s) (acquired), right foot; R60.9 Edema, unspecified; Z90.710 Acquired absence of both cervix and uterus; Z90.49 Acquired absence of other specified parts of digestive tract; Z16.35 Resistance to multiple antimicrobial drugs; B96.20 Unspecified Escherichia coli [E. coli] as the cause of diseases classified elsewhere; Z87.891 Personal history of nicotine dependence; Z82.49 Family history of ischemic heart disease and other diseases of the circulatory system; E07.9 Disorder of thyroid, unspecified; Z68.43 Body mass index [BMI] 50.0-59.9, adult
CPT/HCPCS: 36415; 70450-TC; 71045-TC; 72220-TC; 80048-TC; 80061-TC; 80076-TC; 81000-TC; 82962-TC; 83735-TC; 84100-TC; 84443-TC; 84484-TC; 85025-TC; 87081-TC; 87086-TC; 87186-TC; 97112-TC; 97530-TC; C9803; G0378; G0480; J0696; J1644; J1815; J2185; J7030; J7060; J8597

== ENCOUNTER 2020-03-09 13:53 | Inpatient (IN) | payer MEDICAID ==
[~2020-03-09] VITALS: Ht 177.8 cm; Wt 161.9 kg
[~2020-03-09 13:53] MED LIST changes: -ACET-868 PO; +ACET325T53 PO; -BACL10TA PO; +BISA10SU11 RC; +CRAN3875 PO; +CRAN400C PO; +GLUC1KIT IJ; +HYDR-4384 PO; +LANS15CA18 PO; -MELO-107 PO; +METF-440 PO; +METO-295 PO; +NA P133E RC; -NITR100C15 PO; +NITR100C6 PO; +ONDA4TAB5 PO; +SENN-175 PO
--- NOTE | 2020-03-09 14:16 | NUR ---
[facility]O FROM SNF TO ER BED 7. AAOX4. NOT IN RESP DISTRESS. BROUGHT IN FOR R HIP PAIN S/P FELL OFF HER BED AND LANDED ON HER RIGHT SIDE. PAIN IS 10/10. UNABLE TO MOVE HER LEG TO ASSESS FOR SHORTNING OR ROTATION. WAS AT THE BEDSIDE FOR EVAL.
[2020-03-09] MEDS ORDERED: ONDANSETRON HCL/PF 4 MG/2 ML VIAL ONE (14:24)
[2020-03-09] MEDS ORDERED: HYDROMORPHONE 1 MG/1 ML DISP.SYRIN ONE ×3 (14:24→17:30)
[2020-03-09] MEDS ORDERED: ONDANSETRON HCL/PF - ER 4 MG/2 ML VIAL IV ONE (14:30)
[2020-03-09] MEDS ORDERED: HYDROMORPHONE 1 MG/1 ML DISP.SYRIN IV ONE ×3 (14:30→17:30)
[2020-03-09] MEDS ORDERED: RIVA10TA PO (14:36)
[2020-03-09] MEDS ORDERED: LACT1CAP7 PO (14:36)
[2020-03-09] MEDS ORDERED: MAGN400O6 PO (14:36)
[2020-03-09] MEDS ORDERED: CRAN425C6 PO (14:36)
[2020-03-09] MEDS ORDERED: FURO-145 PO (14:36)
[2020-03-09] MEDS ORDERED: AMIN30LI27 PO (14:36)
[2020-03-09] MEDS ORDERED: MAG30ORA PO (14:36)
[2020-03-09 15:02] LABS: BASOPHILS # (AUTO) 0.1 /CMM (0.0-0.2); BASOPHILS % (AUTO) 0.7 % (0.0-2.0); EOSINOPHILS % (AUTO) 1.8 % (0.0-6.0); HEMATOCRIT 37 % (33-45); HEMOGLOBIN 11.7 g/dL (11.5-14.8); LYMPHOCYTES # (AUTO) 1.9 /CMM (0.8-4.8); MEAN CORPUSCULAR HGB CONC 32 g/dl (31.0-36.0); MEAN CORPUSCULAR VOLUME 88 fL (82-100); MONOCYTES # (AUTO) 0.7 /CMM (0.1-1.30); MONOCYTES % (AUTO) 5.8 % (2.0-12.0); NEUTROPHILS # (AUTO) 9.1 /CMM (1.8-8.9); NEUTROPHILS % (AUTO) 75.7 % (43.0-81.0); PLATELET COUNT (AUTO) 304 /CMM (150-450); RED BLOOD CELL COUNT(AUTO) 4.22 MIL/uL (4.0-5.2)
[2020-03-09 15:30] LABS: CALCIUM, SERUM 9.4 mg/dL (8.5-10.1); CREATININE 1.5 mg/dL (0.6-1.3); POTASSIUM 4.4 mmol/L (3.5-5.1)
--- NOTE | 2020-03-09 16:03 | NUR ---
LEACH CATH INSERTED PER MD ORDERED WITH STRICT STERILE TECHNIQUE. PT WAS MEDICATED PRIOR TO PROCEDURE FOR PAIN
[2020-03-09] MEDS ORDERED: IV NS 0.9% 1,000 ML IV ONE (16:30)
--- NOTE | 2020-03-09 16:41 | NUR ---
PAGED [facility].
--- NOTE | 2020-03-09 16:56 | NUR ---
CALLED NURSING SUP FOR M/S BED.
--- NOTE | 2020-03-09 17:51 | NUR ---
PAGEDon BROWN FOR ORTHO CONSULT.
[2020-03-09] MEDS ORDERED: Z GUARD REMEDY 2 OZ OINT TP PRN (18:30)
[2020-03-09] MEDS ORDERED: MAGNESIUM HYDROXIDE 30 ML UDC PO PRN (18:30)
[2020-03-09] MEDS ORDERED: ACETAMINOPHEN 325 MG TABLET PO PRN (18:30)
[2020-03-09] MEDS ORDERED: ONDANSETRON HCL/PF 4 MG/2 ML VIAL IVP PRN (18:30)
[2020-03-09] MEDS ORDERED: MAG HYDROX/AL HYDROX/SIMETH 30 ML UDC PO PRN (18:30)
--- NOTE | 2020-03-09 20:00 | NUR ---
PT REFUSED TO HAVE HER VITAL SIGN TAKEN
--- NOTE | 2020-03-09 20:05 | NUR ---
BED ASSIGNMENT 323-2
--- NOTE | 2020-03-09 20:30 | NUR ---
REPORT GIVEN TO JOSE RAMON WARE FOR WAN
--- NOTE | 2020-03-09 20:39 | NUR ---
PT BEING TRANSPORTWED TO UNIT ON [facility] WITH EMT AND RN AT BEDSIDE. PT IS IN STABLE CONDITION FOR TRANSPORT.
[2020-03-09] MEDS: HYDROMORPHONE 1 MG/1 ML DISP.SYRIN IV PRN (20:51)
[2020-03-09] MEDS: IV NS 0.9% 1,000 ML IV PRN (20:54)
[2020-03-09 21:00] VITALS: BP_SYST 124; BP_SYST 148; BP_DIAS 72; BP_DIAS 79
--- NOTE | 2020-03-09 21:00 | NUR ---
MS WEB PRODUCTION ASSISTANT NOTES RECEIVED PATIENT FROM ER VIA GURNEY, ALERT AND ORIENTED X 3. VERBALLY RESPONSIVE AND ABLE TO FOLLOW DIRECTIONS. BREATHING REGULAR AND UNLABORED ON ROOM AIR. LEFT HAND G20 IV LINE INTACT AND PATENT, FLUSHING WELL WITH NO BLEEDING OR S/S OF INFILTRATION NOTED. CRIES AND SCREAMS OF PAIN ON HER RIGHT HIP, DILAUDID 1MG GIVEN VIA IVP. NON-PHARMACOLOGICAL INTERVENTIONS PROVIDED. PRE MEDICATED PATIENT PRIOR TO BODY ASSESSMENT. NOTED WITH SACRAL REDNESS, RIGHT GROIN AND ABDOMINAL FOLDS REDNESS, RIGHT LOWER LEG SCABS AND LEFT POSTERIOR LEG SKIN TEAR. PHOTOS TAKEN, ATTACHED TO CHART. LEACH CATH INTACT, DRAINING CLEAR YELLOW URINE WITH MODERATE AMOUNT ON BAG. VITAL SIGNS AND BELONGINGS CHECKED BY GUNNER'S MATE M. PATIENT SAID SHE DOESN'T HAVE AN ADVANCE DIRECTIVES AND WISHED TO BE FULL CODE. BED LOW AND LOCKED ON LOW FOWLERS POSITION. CALL LIGHT IN REACH. WILL CONTINUE TO MONITOR.
--- NOTE | 2020-03-09 21:45 | NUR ---
MS RN NOTES PATIENT REQUESTING ICE CHIPS AND WATER, NOTIFIED WITH ORDERS TO START NOTHING BY MOUTH DIET POST MIDNIGHT.
--- NOTE | 2020-03-09 22:00 | NUR ---
MS RN NOTES PATIENT REFUSED FLU VACCINE, VERBALIZED THAT IT HAS A "REVERSE EFFECT" ON HER. ALSO REFUSED DVT PUMP APPLICATION. RISK AND BENEFITS EXPLAINED.
[2020-03-09] MEDS: HYDROCODONE/APAP 5/325MG TABLET PO PRN (22:15)
[2020-03-09] MEDS: SENNOSIDES 8.6 MG TABLET PO SCH (22:15)
[2020-03-10] MEDS ORDERED: DEXTROSE 50%-WATER 50 ML DISP.SYRIN IV PRN (01:00)
[2020-03-10] MEDS: METOCLOPRAMIDE HCL 10 MG TABLET PO SCH ×3 (04:50→21:40)
[2020-03-10] MEDS: HYDROMORPHONE 1 MG/1 ML DISP.SYRIN IV PRN ×5 (05:24→23:00)
[2020-03-10] MEDS: INSULIN REGULAR, HUMAN 100 UNIT/ML 3 ML VIAL SQ PRN ×2 (05:25→23:56)
[2020-03-10] MEDS: BLOOD SUGAR DIAGNOSTIC 1 EACH STRIP IN SCH ×3 (05:25→23:54)
[2020-03-10] MEDS: IV NS 0.9% 1,000 ML IV PRN ×2 (06:04→23:41)
--- NOTE | 2020-03-10 06:30 | NUR ---
MS RN CLOSING NOTES PATIENT IN BED, ALERT AND ORIENTED X 3. AFEBRILE WITH NO S/S OF DISTRESS OBSERVED. LEFT HAND G20 IV LINE PATENT AND INFUSING WELL. NO COMPLAINTS OF PAIN/DISCOMFORT REPORTED AT THIS TIME. MAINTAINED NOTHING BY MOUTH. BED LOW AND LOCKED ON LOW FOWLERS POSITION. CALL LIGHT IN REACH. WILL ENDORSE TO MORNING SHIFT FOR WAN.
[2020-03-10 07:37] LABS: BASOPHILS % (AUTO) 0.5 % (0.0-2.0); EOSINOPHILS % (AUTO) 2.7 % (0.0-6.0); HEMATOCRIT 36 % (33-45); HEMOGLOBIN 11.4 g/dL (11.5-14.8); LYMPHOCYTES # (AUTO) 1.5 /CMM (0.8-4.8); LYMPHOCYTES % (AUTO) 16.4 % (20.0-44.0); MEAN CORPUSCULAR HGB CONC 32 g/dl (31.0-36.0); MEAN CORPUSCULAR VOLUME 87 fL (82-100); MONOCYTES # (AUTO) 0.8 /CMM (0.1-1.30); MONOCYTES % (AUTO) 8.8 % (2.0-12.0); NEUTROPHILS # (AUTO) 6.8 /CMM (1.8-8.9); NEUTROPHILS % (AUTO) 71.6 % (43.0-81.0); PLATELET COUNT (AUTO) 230 /CMM (150-450); RED BLOOD CELL COUNT(AUTO) 4.07 MIL/uL (4.0-5.2); WHITE BLOOD COUNT (AUTO) 9.4 K/uL (4.3-11.0)
[2020-03-10 08:00] VITALS: BP 154/77
--- NOTE | 2020-03-10 08:00 | NUR ---
RECEIVED PT. NPO FOR SURGERY TODAY.DR. BROWN CALLING RN AND STATING POSSIBLE INTRAMEDULLARY NAILING RT. FEMUR IF HE CAN GET HER ON SCHEDULE.PT. NPO SINCE MIDNOC.
[2020-03-10 08:01] LABS: ALBUMIN 2.5 g/dL (3.4-5.0); BILIRUBIN,TOTAL 0.4 mg/dL (0.2-1.0); CREATININE 1.3 mg/dL (0.6-1.3); MAGNESIUM 1.9 mg/dL (1.8-2.4); POTASSIUM 4.7 mmol/L (3.5-5.1); TOTAL PROTEIN, SERUM 6.8 g/dL (6.4-8.2)
[2020-03-10] MEDS: CARVEDILOL 12.5 MG TABLET PO SCH ×2 (09:00→17:29)
[2020-03-10] MEDS: FUROSEMIDE 20 MG TABLET PO SCH (09:00)
[2020-03-10] MEDS: PAROXETINE HCL 10 MG TABLET PO SCH (09:00)
[2020-03-10] MEDS: SPIRONOLACTONE 25 MG TABLET PO SCH (09:00)
[2020-03-10] MEDS: GLIMEPIRIDE 1 MG TABLET PO SCH (09:00)
[2020-03-10] MEDS: VALSARTAN 80 MG TABLET PO SCH (09:00)
[2020-03-10] MEDS: CLONIDINE HCL 0.1 MG TABLET PO SCH ×2 (09:00→17:30)
[2020-03-10] MEDS: OLANZAPINE 5 MG TABLET PO SCH (09:00)
[2020-03-10] MEDS: hydrALAZINE HCL 50 MG TABLET PO SCH ×3 (09:00→18:25)
[2020-03-10] MEDS: LINAGLIPTIN 5 MG TABLET PO SCH (09:00)
[2020-03-10] MEDS: ASPIRIN 81 MG TAB.CHEW PO SCH (09:00)
[2020-03-10] MEDS: INSULIN GLARGINE, 100 UNIT/ML CARTRIDGE SQ SCH ×2 (09:00→17:00)
[2020-03-10] MEDS: PANTOPRAZOLE 40 MG VIAL IV SCH (09:01)
[2020-03-10 09:37] LABS: IRON, SERUM 45 ug/dl (50-175); TOTAL IRON BINDING CAPACITY 283 ug/dl (250-450)
[2020-03-10 09:55] LABS: CHOLESTEROL 146 mg/dL (<200); FERRITIN 53 ng/mL (8-388); HDL CHOLESTEROL 36 mg/dL (40-60); LDL 84 mg/dL (0-99); THYROID STIMULATING HORMONE 0.205 uIU/mL (0.358-3.74); TRIGLYCERIDES 154 mg/dL (30-150)
--- NOTE | 2020-03-10 11:04 | NUR ---
WOUND CARE CONSULT: PT REFUSED TO BE TURNED FOR SKIN ASSESSMENT. REVIEWED CHART, NURSING DOCUMENTATION AND PHOTOS WHICH INDICATE SKIN DISCOLORATIONS, RASHES TO SKIN FOLDS AND WOUND TO LEFT POSTERIOR THIGH, PRESENT ON ADMISSION. RECOMMENDATIONS MADE FOR SKIN PROTECTION AND WOUND CARE. DISCUSSED WITH NURSING STAFF. PT IS ON TU ISOFLEX LOW AIRLOSS BED. MDIN AGREEMENT WITH PLAN OF CARE.
[2020-03-10] MEDS ORDERED: HEPARIN SODIUM, PORCINE 5000 UNITS/1 ML VIAL SQ SCH (11:30)
--- NOTE | 2020-03-10 14:51 | NUR ---
IV INFILTRATED,REMOVED,RESTART RT.WRISt. #20 GAUGE,
[2020-03-10 16:00] VITALS: BP 128/60
[2020-03-10] MEDS: HYDROCODONE/APAP 5/325MG TABLET PO PRN ×2 (17:08→21:41)
[2020-03-10] MEDS: CLOTRIMAZOLE 1% 15 GM TUBE TP SCH (17:31)
--- NOTE | 2020-03-10 17:31 | NUR ---
JUST MEDICATED FOR RT. HIP PAIN AND BACK PAIN.SURGERY PENDING NOW FOR TOMORROW.SO WILL BE OFF NPO FOR NOW AND WILL RECEIVE DINNER.NO FOOD TODAY AND ONLY SALINE IV,SO INSULIN COVERAGE AND LANTUS HELD AT DINNER.
[2020-03-10] MEDS ORDERED: HEPARIN SODIUM, PORCINE 5000 UNITS/1 ML VIAL SQ ONE (18:00)
--- NOTE | 2020-03-10 18:16 | NUR ---
MED. X2 WITH DILAUDID INJECTION,X1 WITH NORCO.
--- NOTE | 2020-03-10 18:38 | NUR ---
JUST MEDICATED AGAIN WITH DILAUDID.
--- NOTE | 2020-03-10 19:39 | NUR ---
RN OPENING NOTE: Patient in bed resting comfortably. Patient awake, alert, and oriented x3, able to make needs known. Patient breathing even and unlabored on room air. No SOB or acute respiratory distress noted. Noted IV access on right wrist, 20 gauge, patent, no redness, or infiltration. Infusing NS@ 75mL/hr. Noted Foreman Catheter draining clear yellow output. Safety precaution in place, bed is in the lowest level, bed is locked, alarm is on, side rails x2 are up, and call light is within reach. Will continue to monitor.
[2020-03-10 20:00] VITALS: BP 115/64
[2020-03-10] MEDS: SENNOSIDES 8.6 MG TABLET PO SCH (21:40)
--- NOTE | 2020-03-10 21:41 | NUR ---
Patient complains of right hip pain. Patient describes pain as aching and throbbing and rates pain 7 on a 0-10 numerical scale. Administered PRN [place] per MD order.
--- NOTE | 2020-03-10 22:00 | NUR ---
Patient refused wound care. Explained risk and benefit but patient still refused.
--- NOTE | 2020-03-10 23:01 | NUR ---
Patient complains of right hip pain and back. Patient describes pain as throbbing and aching and rates pain 8 on a 0-10 numerical scale. Administered PRN Dilaudid per MD order. Will continue to monitor.
[2020-03-11] MEDS: HYDROMORPHONE 1 MG/1 ML DISP.SYRIN IV PRN ×4 (03:07→20:37)
--- NOTE | 2020-03-11 03:08 | NUR ---
Patient complains of right hip pain. Patient describes pain as aching and throbbing and rates pain an 8 on a 0-10 numerical scale. Administered PRN Dilaudid per MD order. Will continue to monitor.
[2020-03-11] MEDS: METOCLOPRAMIDE HCL 10 MG TABLET PO SCH ×3 (05:00→21:00)
--- NOTE | 2020-03-11 05:03 | NUR ---
Patient refused Reglan. Explained risk and benefits but patient still refused.
[2020-03-11] MEDS: INSULIN REGULAR, HUMAN 100 UNIT/ML 3 ML VIAL SQ PRN ×3 (05:13→17:16)
[2020-03-11] MEDS: BLOOD SUGAR DIAGNOSTIC 1 EACH STRIP IN SCH ×3 (05:13→17:16)
--- NOTE | 2020-03-11 06:33 | NUR ---
RN CLOSING NOTE: Patient in bed resting comfortably. Patient breathing even and unlabored with no signs of SOB or acute respiratory distress. Safety measure maintained, bed is in the lowest level, bed is locked, alarm is on, side rails x2 are up, and call light is within reach. Will endorse to next shift.
[2020-03-11 07:10] LABS: BASOPHILS % (AUTO) 0.5 % (0.0-2.0); HEMATOCRIT 33 % (33-45); HEMOGLOBIN 10.6 g/dL (11.5-14.8); LYMPHOCYTES # (AUTO) 1.5 /CMM (0.8-4.8); LYMPHOCYTES % (AUTO) 15.7 % (20.0-44.0); MEAN CORPUSCULAR HGB CONC 32 g/dl (31.0-36.0); MEAN CORPUSCULAR VOLUME 89 fL (82-100); MONOCYTES # (AUTO) 0.8 /CMM (0.1-1.30); NEUTROPHILS # (AUTO) 6.8 /CMM (1.8-8.9); NEUTROPHILS % (AUTO) 70.8 % (43.0-81.0); PLATELET COUNT (AUTO) 222 /CMM (150-450); RED BLOOD CELL COUNT(AUTO) 3.75 MIL/uL (4.0-5.2); WHITE BLOOD COUNT (AUTO) 9.6 K/uL (4.3-11.0)
[2020-03-11 07:37] LABS: ALBUMIN 2.3 g/dL (3.4-5.0); BILIRUBIN,TOTAL 0.3 mg/dL (0.2-1.0); CALCIUM, SERUM 8.9 mg/dL (8.5-10.1); CREATININE 1.3 mg/dL (0.6-1.3); PHOSPHORUS 2.6 mg/dL (2.5-4.9); POTASSIUM 4.6 mmol/L (3.5-5.1); TOTAL PROTEIN, SERUM 6.5 g/dL (6.4-8.2)
--- NOTE | 2020-03-11 07:43 | NUR ---
MS RN OPENING NOTES RECEIVED PT AWAKE IN BED IN NO ACUTE SIGNS OF DISTRESS. HOB ELEVATED. A/O X 3. ABLE TO MAKE NEEDS KNOWN, DENIES PAIN OR ANY DISCOMFORTS AT THIS TIME. ON 02 VIA N/C AT 2LPM AT THIS TIME, BREATHING EVEN AND UNLABORED. IV ACCESS ON RIGHT WRIST #20G RUNNING NS @ 75 ML/HR, NO S/S OF INFILTRATION NOTED AT SITE. LEACH IN PLACE AND DRAINING CLEAR YELLOW URINE TO BEDSIDE URINARY BAG. SAFETY PRECAUTIONS IN PLACE: BED IN LOWEST LOCKED POSITION, CALL LIGHT WITHIN REACH, BREAKS ON, SIDE RAILS UP X2. WILL CONTINUE TO MONITOR PT ACCORDINGLY.
[2020-03-11 08:00] VITALS: BP 125/92
--- NOTE | 2020-03-11 08:43 | NUR ---
RN NOTES PT C/O RIGHT HIP AND BACK PAIN WITH SCALE OF 8/10, PRN DILAUDID 1MG/ML IVP ADMINISTERED AT 0842. WILL CONTINUE TO MONITOR AND REASSESS PT.
[2020-03-11] MEDS: hydrALAZINE HCL 50 MG TABLET PO SCH ×3 (09:00→17:02)
[2020-03-11] MEDS: SPIRONOLACTONE 25 MG TABLET PO SCH (09:00)
[2020-03-11] MEDS: VALSARTAN 80 MG TABLET PO SCH (09:00)
[2020-03-11] MEDS: CLONIDINE HCL 0.1 MG TABLET PO SCH ×2 (09:00→17:02)
[2020-03-11] MEDS: FUROSEMIDE 20 MG TABLET PO SCH (09:00)
[2020-03-11] MEDS: CARVEDILOL 12.5 MG TABLET PO SCH ×2 (09:00→17:02)
[2020-03-11] MEDS: ASPIRIN 81 MG TAB.CHEW PO SCH (09:00)
[2020-03-11] MEDS: LINAGLIPTIN 5 MG TABLET PO SCH (09:00)
[2020-03-11] MEDS: OLANZAPINE 5 MG TABLET PO SCH (09:00)
[2020-03-11] MEDS: PAROXETINE HCL 10 MG TABLET PO SCH (09:00)
[2020-03-11] MEDS: GLIMEPIRIDE 1 MG TABLET PO SCH (09:00)
[2020-03-11] MEDS: INSULIN GLARGINE, 100 UNIT/ML CARTRIDGE SQ SCH ×2 (09:00→17:15)
[2020-03-11] MEDS: PANTOPRAZOLE 40 MG VIAL IV SCH (09:10)
[2020-03-11] MEDS: CLOTRIMAZOLE 1% 15 GM TUBE TP SCH ×2 (09:16→17:03)
--- NOTE | 2020-03-11 09:17 | NUR ---
RN NOTES BLOOD SUGAR 209MG/DL, INSULIN LANTUS 40 UNITS SCHEDULED FOR 0900 NOT ADMINISTERED PT IS NPO PER MD ORDER. WILL CONTINUE TO MONITOR.
[2020-03-11] MEDS: IV NS 0.9% 1,000 ML IV PRN (16:58)
[2020-03-11] MEDS: HYDROCODONE/APAP 5/325MG TABLET PO PRN (18:43)
--- NOTE | 2020-03-11 19:02 | NUR ---
MS RN CLOSING NOTES PT IN BED AWAKE AT THIS TIME. HOB ELEVATED. A/O X 3. ABLE TO MAKE NEEDS KNOWN. ON 02 VIA N/C AT 2LPM AT THIS TIME, BREATHING EVEN AND UNLABORED. IV ACCESS ON LFA #22G INTACT AND PATENT, NS @ 75 ML/HR INFUSING, NO S/S OF INFILTRATION NOTED AT SITE. LEACH IN PLACE AND DRAINING CLEAR YELLOW URINE TO BEDSIDE URINARY BAG. SAFETY PRECAUTIONS IN PLACE: BED IN LOWEST LOCKED POSITION, CALL LIGHT WITHIN REACH, BREAKS ON, SIDE RAILS UP X2. PT FOR IM RODDING OF RIGHT HIP BY DR BROWN TOMORROW AT 0730, NPO POST MIDNIGHT WILL BE ENFORCED. WILL ENDORSE TO TRANSPORT ASSISTANT NURSE FOR WAN.
--- NOTE | 2020-03-11 19:30 | NUR ---
MS/RN OPENING NOTES RECEIVED PATIENT IN BED, AWAKE. PATIENT IS ALERT AND ORIENTED X 3. PATIENT IS ON 2L OXYGEN NC, TOLERATING WELL. NO SIGNS OF SOB OR RESPIRATORY DISTRESS NOTED. PATIENT STATES PAIN AT RIGHT HIP AREA AT THIS TIME. PATIENT HAS LEACH CATH IN PLACE, DRAINING CLEAR YELLOW URINE. PATIENT HAS RIGHT FOREARM IV INTACT RUNNING NS AT 75 ML/HR. PATIENT WILL GO FOR IM RODDING OF RIGHT HIP BY DR BROWN TOMORROW AT 0730, NPO POST MIDNIGHT WILL BE ENFORCED. SAFETY MEASURES ARE IN PLACE, BED IS LOCKED AND PLACED IN THE LOW POSITION, SIDE RAILS UP X 2. CALL LIGHT IS WITHIN REACH. WILL MONITOR THROUGH OUT SHIFT.
[2020-03-11 20:00] VITALS: BP 128/63
[2020-03-11] MEDS ORDERED: HEPARIN SODIUM, PORCINE 5000 UNITS/1 ML VIAL SQ ONE (20:00)
--- NOTE | 2020-03-11 20:10 | NUR ---
MS/RN NOTES PATIENT HAS NEW ORDER FOR HEPARIN 1ML. PATIENT WILL HAVE SURGERY TOMORROW. NOTIFIED MARTY KING ABOUT ORDER. MARTY KING VERIFIED TO GIVE HEPARIN. ORDERS HAVE BEEN CARRIED OUT.
--- NOTE | 2020-03-11 20:40 | NUR ---
MS/RN NOTES PATIENT IN PAIN, STATED 10/10 ON RIGHT HIP. PATIENT GIVEN DILAUDID 1MG IVP. V/S ARE WITHIN NORMAL LIMITS. WILL CONTINUE TO ASSESS PATIENT.
[2020-03-11] MEDS: SENNOSIDES 8.6 MG TABLET PO SCH (22:00)
[2020-03-12] VITALS (24 sets, daily range): BP systolic 102–177; BP diastolic 51–128
--- NOTE | 2020-03-12 | NUR ---
MS/RN NOTES INSULIN HELD PER SLIDING SCALE, PATIENT IS NPO FOR AM SURGERY.
[2020-03-12] MEDS: BLOOD SUGAR DIAGNOSTIC 1 EACH STRIP IN SCH ×4 (00:09→17:31)
[2020-03-12] MEDS: HYDROMORPHONE 1 MG/1 ML DISP.SYRIN IV PRN ×2 (00:37→04:35)
--- NOTE | 2020-03-12 00:40 | NUR ---
MS/RN NOTES PATIENT IN PAIN, ON RIGHT HIP. PATIENT GIVEN DILAUDID 1MG IVP. V/S ARE WITHIN NORMAL LIMITS. WILL CONTINUE TO ASSESS PATIENT.
[2020-03-12] MEDS: METOCLOPRAMIDE HCL 10 MG TABLET PO SCH ×4 (05:00→21:34)
[2020-03-12 06:13] LABS: BASOPHILS % (AUTO) 0.4 % (0.0-2.0); EOSINOPHILS % (AUTO) 3.9 % (0.0-6.0); HEMATOCRIT 34 % (33-45); HEMOGLOBIN 10.9 g/dL (11.5-14.8); LYMPHOCYTES # (AUTO) 1.3 /CMM (0.8-4.8); LYMPHOCYTES % (AUTO) 11.2 % (20.0-44.0); MEAN CORPUSCULAR HGB CONC 32 g/dl (31.0-36.0); MEAN CORPUSCULAR VOLUME 88 fL (82-100); MONOCYTES # (AUTO) 0.8 /CMM (0.1-1.30); MONOCYTES % (AUTO) 7.1 % (2.0-12.0); NEUTROPHILS # (AUTO) 8.7 /CMM (1.8-8.9); NEUTROPHILS % (AUTO) 77.4 % (43.0-81.0); PLATELET COUNT (AUTO) 226 /CMM (150-450); RED BLOOD CELL COUNT(AUTO) 3.92 MIL/uL (4.0-5.2); WHITE BLOOD COUNT (AUTO) 11.3 K/uL (4.3-11.0)
--- NOTE | 2020-03-12 06:30 | NUR ---
MS/RN CLOSING NOTES PATIENT IN BED, RESTING. PATIENT IS ALERT AND ORIENTED X 3. PATIENT IS ON 2L OXYGEN NC, TOLERATING WELL. NO SIGNS OF SOB OR RESPIRATORY DISTRESS NOTED. PATIENT HAS LEACH CATH IN PLACE, DRAINING CLEAR YELLOW URINE. PATIENT HAS RIGHT FOREARM IV INTACT RUNNING NS AT 75 ML/HR. PATIENT WILL GO FOR IM RODDING OF RIGHT HIP BY DR BROWN THIS MORNING AT 0730, NPO POST MIDNIGHT. ALL NEEDS HAVE BEEN MET DURING SHIFT. SAFETY MEASURES ARE IN PLACE, BED IS LOCKED AND PLACED IN THE LOW POSITION, SIDE RAILS UP X 2. CALL LIGHT IS WITHIN REACH. WILL ENDORSE TO DAY SHIFT.
[2020-03-12 06:54] LABS: CALCIUM, SERUM 8.9 mg/dL (8.5-10.1); CREATININE 1.2 mg/dL (0.6-1.3); MAGNESIUM 1.7 mg/dL (1.8-2.4); PHOSPHORUS 2.5 mg/dL (2.5-4.9); POTASSIUM 4.1 mmol/L (3.5-5.1)
[2020-03-12] MEDS ORDERED: BACITRACIN 50000 UNITS/VIAL ONE (07:13)
[2020-03-12] MEDS ORDERED: BUPIVACAINE 0.5 % PF 150 MG/30 ML VIAL ONE (07:13)
[2020-03-12] MEDS ORDERED: ANESTHESIA TRAY IN PYXIS 1 EA TRAY MC ONE (07:13)
--- NOTE | 2020-03-12 07:15 | NUR ---
RECEIVED REPORT FROM ASSOCIATE THEATRE PROFESSOR NURSE SJ, PATIENT VITALS WERE WITHIN NORMAL LIMIT AND NO FEVER. PATIENT WAS NPO AND SURGERY CONSENTS WERE SIGNED AND CHECKLIST WAS DONE BY ASSOCIATE THEATRE PROFESSOR NURSE. PATIENT LEFT TO SURGERY VIA GURNEY TO THE OR AT 0715.
[2020-03-12] MEDS ORDERED: TETRACAINE/BENZOCAINE/BUTAMBEN 56 GM SPRAY TP ONE (07:22)
[2020-03-12] MEDS ORDERED: SEVOFLURANE 250 ML BOTTLE IH ONE (07:22)
[2020-03-12] MEDS ORDERED: LIDOCAINE 2% JEL 5 ML TUBE ONE (07:23)
[2020-03-12] MEDS ORDERED: FENTANYL PF 250MCG/5ML AMPUL ONE (07:24)
[2020-03-12] MEDS ORDERED: KETAMINE HCL (500MG/10ML) 50 MG/ML VIAL ONE (07:24)
[2020-03-12] MEDS ORDERED: AMIODARONE 150 MG/3 ML VIAL IV ONE (08:32)
[2020-03-12] MEDS: VALSARTAN 80 MG TABLET PO SCH (09:00)
[2020-03-12] MEDS: CLONIDINE HCL 0.1 MG TABLET PO SCH ×2 (09:00→17:11)
[2020-03-12] MEDS: OLANZAPINE 5 MG TABLET PO SCH (09:00)
[2020-03-12] MEDS: SPIRONOLACTONE 25 MG TABLET PO SCH (09:00)
[2020-03-12] MEDS: LINAGLIPTIN 5 MG TABLET PO SCH (09:00)
[2020-03-12] MEDS: FUROSEMIDE 20 MG TABLET PO SCH (09:00)
[2020-03-12] MEDS: GLIMEPIRIDE 1 MG TABLET PO SCH (09:00)
[2020-03-12] MEDS: hydrALAZINE HCL 50 MG TABLET PO SCH ×3 (09:00→17:11)
[2020-03-12] MEDS: CLOTRIMAZOLE 1% 15 GM TUBE TP SCH ×2 (09:00→17:12)
[2020-03-12] MEDS: ASPIRIN 81 MG TAB.CHEW PO SCH (09:00)
[2020-03-12] MEDS: PANTOPRAZOLE 40 MG VIAL IV SCH (09:00)
[2020-03-12] MEDS: INSULIN GLARGINE, 100 UNIT/ML CARTRIDGE SQ SCH ×2 (09:00→17:26)
[2020-03-12] MEDS: PAROXETINE HCL 10 MG TABLET PO SCH (09:00)
[2020-03-12] MEDS: CARVEDILOL 12.5 MG TABLET PO SCH ×2 (09:00→17:10)
[2020-03-12] MEDS ORDERED: DESFLURANE 240 ML BOTTLE IH ONE (09:24)
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
[2020-03-12] MEDS ORDERED: FENTANYL PF 100MCG/2ML AMPUL ONE (10:46)
[2020-03-12] MEDS ORDERED: HYDROMORPHONE 1 MG/1 ML DISP.SYRIN ONE (10:46)
--- NOTE | 2020-03-12 10:55 | NUR ---
GAVE REPORT TO ICU NURSE BERNA Mcintosh FOR CONTINUITY OF CARE. PATIENT BELONGINGS WERE TAKEN TO ICU ROOM 256 BY EBENEZER HOLLAND.
[2020-03-12] MEDS: Magnesium 1GM/D5W 100ML PREMIX 100 ML IV SCH ×2 (11:17→11:42)
[2020-03-12] MEDS ORDERED: IV D5/0.45 NACL W/20 MEQ KCL 1L IV PRN ×2 (12:30)
[2020-03-12] MEDS: MORPHINE SULFATE INJ 4 MG/ML DISP.SYRIN IV PRN ×5 (12:32→22:44)
[2020-03-12] MEDS ORDERED: DEXAMETHASONE SOD PHOSPHATE 4 MG/ML VIAL IV ONE (14:30)
[2020-03-12] MEDS: ALBUTEROL HALF STRENGTH 1.25 MG/3 ML VIAL.NEB NEB SCH ×2 (16:19→19:59)
[2020-03-12] MEDS: IPRATROPIUM NEB FS 0.5 MG/2.5 ML AMPUL.NEB NEB SCH ×2 (16:19→19:59)
[2020-03-12] MEDS: ANCEF 1 GM/50 ML D5W IV SCH ×2 (17:09)
[2020-03-12] MEDS: INSULIN REGULAR, HUMAN 100 UNIT/ML 3 ML VIAL SQ PRN (17:29)
[2020-03-12] MEDS: SENNOSIDES 8.6 MG TABLET PO SCH ×2 (21:34→22:00)
--- NOTE | 2020-03-12 22:00 | NUR ---
RN NOTES PATIENT REFUSED FOR BP CUFF TO BE PLACE FOR BP MONITORING. EXPLAINED RISK AND BENEFITS BUT PT STILL REFUSES. OUTPATIENT PHYSICAL THERAPIST MADE AWARE. OUTPATIENT PHYSICAL THERAPIST ALSO ATTEMPTED TO TALK TO PT BUT PT STILL REFUSED. WILL INFORM RAMÓN FONTANA FOR HEADS UP. WILL CONTINUE TO MONITOR AND ASSESS THROUGHOUT THE SHIFT.
--- NOTE | 2020-03-12 22:05 | NUR ---
RN NOTES CALLED AND COMMUNICATED WITH RAMÓN FONTANA REGARDING REFUSAL OF PT FOR BP MONITORING / FOR PLACEMENT OF BP CUFF. RAMÓN FONTANA ACKNOWLEDGED. ALSO VERIFIED IF PT CAN ALREADY BE DOWNGRADED TO [facility] STATUS PROVIDED CURRENT STATUS OF PT. RAMÓN FONTANA SAID YES. WILL CARRY OUT ORDER ADVISED.
--- NOTE | 2020-03-12 22:50 | NUR ---
RN NOTES GAVE REPORT TO ADAN. PATIENT IS ALERT AND ORIENTED X2-3 ARABIC SPEAKING. PATIENT MOST RECENT V/S TAKEN AND RECORDED BP(125/51) T (98.2) HR (77) RR (20) 02 SAT (99%). PATIENT HAS IV LINE @ L AC #18 ; RUNNING IVF OF D5 1/2 NS +20 MEQ POTASSIUM CHLORIDE AT 75 ML/HR AND .9 NS @75MLS/HR ; INFUSING WELL. LAST PAIN MEDS (MORPHINE 4MG @2240 PM. PT STILL NPO. WITH LEACH CATH DRAINING 200 CC URINE OUTPUTAT THE TIME OF TRANSFER. PATIENT TRANSFERRED TO [facility] UNIT ROOM 103 VIA MEDICAL BED. ALL PATIENT BELONGINGS TRANSFERRED WITH THE PATIENT. PATIENT SAFETY WAS MAINTAINED, JOSE RAMON ARELLANO RECEIVED THE PATIENT AND WILL CONTINUE CARE. REGIONAL RETAIL SALES MANAGER FROM ICU AND [facility] BOTH MADE AWARE.
--- NOTE | 2020-03-12 23:05 | NUR ---
RN OPENING NOTES RECEIVED PT IN BED, A/O X 4. ON OXYGEN VIA NASAL CANNULA AT 3L. TOLERATING WELL. PT SATURATING AT 99%. NO SIGNS OF RESP DISTRESS OR SOB NOTED AT THIS TIME. NO DIFFICULTY BREATHING. PT HAS IV LINE LEFT AC #20 WITH D5 1/2 NS RUNNING AT 75ML/HR NO S/S OF INFILTRATION NOTED AT THIS TIME. PT PT HAS F/C NOTED DRAINING CLEAR YELLOW URINE. PT STILL NPO AT THIS TIME. SAFETY MEASURES IN PLACE. CALL LIGHT WITHIN REACH. BED IS LOCKED IN LOWEST POSITION WITH BED ALARM ON. WILL CONTINUE TO MONITOR.
[2020-03-13] VITALS: BP 120/62
--- NOTE | 2020-03-13 00:30 | NUR ---
PER MD ENVIRONMENTAL SERVICES AIDE CHRISTINE BAIRD DC D5 1/2 NS WITH POTASSIUM, CONTINUE IV NS ORDERED.
[2020-03-13] MEDS: BLOOD SUGAR DIAGNOSTIC 1 EACH STRIP IN SCH ×5 (00:51→23:15)
[2020-03-13] MEDS: IV NS 0.9% 1,000 ML IV PRN (00:51)
[2020-03-13] MEDS: INSULIN REGULAR, HUMAN 100 UNIT/ML 3 ML VIAL SQ PRN ×5 (01:21→23:14)
[2020-03-13] MEDS: ANCEF 1 GM/50 ML D5W IV SCH ×2 (01:22)
[2020-03-13] MEDS: IPRATROPIUM NEB FS 0.5 MG/2.5 ML AMPUL.NEB NEB SCH ×5 (01:30→20:07)
[2020-03-13] MEDS: ALBUTEROL HALF STRENGTH 1.25 MG/3 ML VIAL.NEB NEB SCH ×5 (01:30→20:07)
--- NOTE | 2020-03-13 02:15 | NUR ---
RT AT BEDSIDE, PT REFUSED BREATHING TREATMENT AT THIS TIME. STILL ON O2 VIA NASAL CANNULA AT 3L SATURATING WELL AT 99% NO S/S OF DIFFICULTY BREATHING OR RESP DISTRESS OR SOB AT THIS TIME.
[2020-03-13 04:00] VITALS: BP 108/50
[2020-03-13] MEDS: MORPHINE SULFATE INJ 4 MG/ML DISP.SYRIN IV PRN ×7 (04:44→22:22)
[2020-03-13] MEDS: METOCLOPRAMIDE HCL 10 MG TABLET PO SCH ×3 (05:00→20:03)
--- NOTE | 2020-03-13 05:00 | NUR ---
PT C/O PAIN LOCATED RIGHT LEG AND GENERALIZED PAIN. PRN M[place]PH[place] ADMINISTERED ORDERED. WILL CONTINUE TO MONITOR.
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
[2020-03-13 06:55] LABS: BASOPHILS % (AUTO) 0.1 % (0.0-2.0); EOSINOPHILS % (AUTO) 0.1 % (0.0-6.0); HEMATOCRIT 29 % (33-45); HEMOGLOBIN 9.3 g/dL (11.5-14.8); LYMPHOCYTES # (AUTO) 1.3 /CMM (0.8-4.8); LYMPHOCYTES % (AUTO) 10.1 % (20.0-44.0); MEAN CORPUSCULAR HGB CONC 32 g/dl (31.0-36.0); MEAN CORPUSCULAR VOLUME 88 fL (82-100); MONOCYTES # (AUTO) 0.8 /CMM (0.1-1.30); MONOCYTES % (AUTO) 6.4 % (2.0-12.0); NEUTROPHILS # (AUTO) 10.9 /CMM (1.8-8.9); NEUTROPHILS % (AUTO) 83.3 % (43.0-81.0); PLATELET COUNT (AUTO) 224 /CMM (150-450); RED BLOOD CELL COUNT(AUTO) 3.35 MIL/uL (4.0-5.2); WHITE BLOOD COUNT (AUTO) 13.1 K/uL (4.3-11.0)
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
--- NOTE | 2020-03-13 07:30 | NUR ---
RN OPENING NOTES RECEIVED PT IN BED, A/O X 4. ON O2 VIA NASAL CANNULA AT 3L, SATURATING AT 100%. NO SOB OR ANY SIGNS OF RESP NOTED AT THIS TIME. IV LINE LAC #20 WITH D5 1/2 NS RUNNING AT 75ML/HR, INFUSING WELL. PT HAS LEACH CATH DRAINING CLEAR YELLOW URINE. PT STILL NPO. SAFETY MEASURES IMPLEMENTED. CALL LIGHT WITHIN REACH. BED IS LOCKED AND AT LOWEST POSITION WITH SIDE RAILS UP X2. WILL CONTINUE TO MONITOR.
[2020-03-13 07:42] LABS: CALCIUM, SERUM 8.6 mg/dL (8.5-10.1); CREATININE 1.1 mg/dL (0.6-1.3); MAGNESIUM 1.9 mg/dL (1.8-2.4); PHOSPHORUS 2.8 mg/dL (2.5-4.9); POTASSIUM 4.7 mmol/L (3.5-5.1)
[2020-03-13 08:00] VITALS: BP 108/69
[2020-03-13] MEDS: CLOTRIMAZOLE 1% 15 GM TUBE TP SCH ×2 (09:00→17:00)
[2020-03-13] MEDS: INSULIN GLARGINE, 100 UNIT/ML CARTRIDGE SQ SCH ×2 (09:00→17:00)
[2020-03-13] MEDS ORDERED: IOHEXOL-350 100 ML VIAL IV ONE (09:03)
[2020-03-13] MEDS ORDERED: CT SWABBABLE VALVE TRANS SET 1 EA INFUS.SET MC ONE (09:03)
[2020-03-13] MEDS ORDERED: IV NS 0.9% 250 ML IV ONE (09:03)
--- NOTE | 2020-03-13 09:10 | NUR ---
RN NOTES PT BROUGHT TO RADIOLOGY FOR CT PULMONARY ANGIOGRAM. PT STABLE. VS WNL. NO SOB OR ANY DISTRESS NOTED AT THIS TIME
--- NOTE | 2020-03-13 09:25 | NUR ---
RN NOTES PT BROUGHT BACK TO ROOM. PT ON STABLE CONDITION. VS WNL. NO SOB OR ANY RESPI DISTRESS NOTED AT TIME. PT REPORTED PAIN. ADMINISTERED MORPHINE ORDERED. WILL CONTINUE TO MONITOR
[2020-03-13] MEDS: PANTOPRAZOLE 40 MG VIAL IV SCH (09:34)
--- NOTE | 2020-03-13 09:55 | NUR ---
RN NOTES CALLED DR. SCHWARTZ ABOUT PT STILL ON NPO. MD ORDERED RESUME PREVIOUS DIET. MECHANICAL SOFT DIET. CARRIED OUT
[2020-03-13] MEDS: VALSARTAN 80 MG TABLET PO SCH (11:29)
[2020-03-13] MEDS: LINAGLIPTIN 5 MG TABLET PO SCH (11:30)
[2020-03-13] MEDS: GLIMEPIRIDE 1 MG TABLET PO SCH (11:30)
[2020-03-13] MEDS: CLONIDINE HCL 0.1 MG TABLET PO SCH ×2 (11:30→17:00)
[2020-03-13] MEDS: OLANZAPINE 5 MG TABLET PO SCH (11:30)
[2020-03-13] MEDS: CARVEDILOL 12.5 MG TABLET PO SCH ×2 (11:31→17:00)
[2020-03-13] MEDS: HYDROCODONE/APAP 5/325MG TABLET PO PRN ×2 (11:31→16:58)
[2020-03-13] MEDS: ASPIRIN 81 MG TAB.CHEW PO SCH (11:31)
[2020-03-13] MEDS: hydrALAZINE HCL 50 MG TABLET PO SCH ×3 (11:32→17:00)
[2020-03-13] MEDS: PAROXETINE HCL 10 MG TABLET PO SCH (11:33)
[2020-03-13] MEDS: RIVAROXABAN 10 MG TABLET PO SCH ×2 (11:41→17:00)
[2020-03-13 12:00] VITALS: BP 116/45
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
[2020-03-13 16:00] VITALS: BP 123/42
--- NOTE | 2020-03-13 17:00 | NUR ---
RN NOTES PT REFUSED INSULIN LANTUS, COREG, CLONIDINE, HYDRALAZINE AND XARELTO DESPITE EDUCATION X3. WILL CONTINUE TO MONITOR
--- NOTE | 2020-03-13 19:21 | NUR ---
RN CLOSING NOTES PT RESTING IN BED, A/O X 4. ON O2 VIA NASAL CANNULA AT 3L, SATURATING AT 100%. NO SOB OR ANY SIGNS OF RESP NOTED AT THIS TIME. IV LINE LAC #20 INTACT, PATENT AND FLUSHED. PT HAS LEACH CATH DRAINING CLEAR YELLOW URINE. PT STILL NPO. SAFETY MEASURES IMPLEMENTED. CALL LIGHT WITHIN REACH. BED IS LOCKED AND AT LOWEST POSITION WITH SIDE RAILS UP X2. WILL ENDORSE TO NIGHT NURSE FOR WAN.
[2020-03-13 20:00] VITALS: BP 107/57
[2020-03-13] MEDS: ZOLPIDEM TARTRATE 5 MG TABLET PO PRN (20:02)
[2020-03-13] MEDS: SENNOSIDES 8.6 MG TABLET PO SCH (20:02)
[2020-03-13] MEDS ORDERED: ENOXAPARIN SODIUM 40 MG/0.4 ML DISP.SYRIN SQ SCH (23:30)
[2020-03-14] VITALS: BP 137/54
[2020-03-14] MEDS: MORPHINE SULFATE INJ 4 MG/ML DISP.SYRIN IV PRN ×8 (01:44→21:51)
[2020-03-14] MEDS: IPRATROPIUM NEB FS 0.5 MG/2.5 ML AMPUL.NEB NEB SCH ×4 (01:56→19:44)
[2020-03-14] MEDS: ALBUTEROL HALF STRENGTH 1.25 MG/3 ML VIAL.NEB NEB SCH ×4 (01:56→19:44)
[2020-03-14 04:00] VITALS: BP 107/49
[2020-03-14] MEDS: METOCLOPRAMIDE HCL 10 MG TABLET PO SCH ×3 (04:28→21:35)
[2020-03-14] MEDS: INSULIN REGULAR, HUMAN 100 UNIT/ML 3 ML VIAL SQ PRN ×4 (04:44→23:37)
[2020-03-14] MEDS: BLOOD SUGAR DIAGNOSTIC 1 EACH STRIP IN SCH ×4 (05:00→23:35)
[2020-03-14] MEDS ORDERED: HYDROMORPHONE INJ 2 MG/ML DISP.SYRIN IV PRN ×2 (06:30→07:00)
--- NOTE | 2020-03-14 06:35 | NUR ---
RN notes Received patient awake in bed with no pulmonary distress. Breathing even and unlabored. On O2 via nasal cannula at 3lpm tolerating well. Alert and oriented x 4, verbally able to communicate needs. Complaining of right hip pain with 10/10 using pain scale. Morphine 4mg IV push given almost every 2 hours. Effective only for 2 hours and patient would start moaning and screaming for pain again. Called MD and obtained order for hydromorphone 2mg slow IV push. Noted and carried out. Needs attended. Kept clean and dry. Will endorse to next shift for continuity of care. Addendum: 03/14/20 at 0659 by UNIQUE JACQUES RN dilaudid order was only 2mg and not 4mg as above stated x 1. Aministered via slow iv push with relief.
[2020-03-14 07:20] LABS: BASOPHILS % (AUTO) 0.4 % (0.0-2.0); EOSINOPHILS % (AUTO) 4.9 % (0.0-6.0); HEMATOCRIT 30 % (33-45); HEMOGLOBIN 9.2 g/dL (11.5-14.8); LYMPHOCYTES # (AUTO) 1.8 /CMM (0.8-4.8); LYMPHOCYTES % (AUTO) 14.9 % (20.0-44.0); MEAN CORPUSCULAR HGB CONC 31 g/dl (31.0-36.0); MEAN CORPUSCULAR VOLUME 89 fL (82-100); MONOCYTES % (AUTO) 8.5 % (2.0-12.0); NEUTROPHILS # (AUTO) 8.4 /CMM (1.8-8.9); NEUTROPHILS % (AUTO) 71.3 % (43.0-81.0); PLATELET COUNT (AUTO) 232 /CMM (150-450); RED BLOOD CELL COUNT(AUTO) 3.33 MIL/uL (4.0-5.2); WHITE BLOOD COUNT (AUTO) 11.7 K/uL (4.3-11.0)
[2020-03-14 07:41] LABS: CALCIUM, SERUM 8.8 mg/dL (8.5-10.1); CREATININE 1.3 mg/dL (0.6-1.3); MAGNESIUM 2.1 mg/dL (1.8-2.4); PHOSPHORUS 2.5 mg/dL (2.5-4.9); POTASSIUM 4.5 mmol/L (3.5-5.1)
--- NOTE | 2020-03-14 07:58 | NUR ---
ASSISTANT TO THE DEAN NOTE PATIENT IN BED AWAKE ALERT , ON 3L NC, NO SOB NOTED AT THIS TIME,ON TELEMONITOR HR 98 , LAC HL INTACT AND FLUSHED WELL , REFUSED TO PLACE DVT PUMPS AT THIS TIME, DRESSING ON RT HIP IN PLACE ,NO ACTIVE BLEEDING NOTED WITH LEACH CATH TO GRAVITY WITH YELLOW COLOR URINE , BED IN LOWEST AND LOCKED POSITION , CALL LIGHT WITHIN REACH
[2020-03-14 08:00] VITALS: BP 150/66
[2020-03-14] MEDS: ASPIRIN 81 MG TAB.CHEW PO SCH (08:38)
[2020-03-14] MEDS: hydrALAZINE HCL 50 MG TABLET PO SCH ×3 (08:39→16:26)
[2020-03-14] MEDS: LINAGLIPTIN 5 MG TABLET PO SCH (08:39)
[2020-03-14] MEDS: VALSARTAN 80 MG TABLET PO SCH (08:42)
[2020-03-14] MEDS: CARVEDILOL 12.5 MG TABLET PO SCH ×2 (08:44→16:26)
[2020-03-14] MEDS: PANTOPRAZOLE 40 MG VIAL IV SCH (08:45)
[2020-03-14] MEDS: CLONIDINE HCL 0.1 MG TABLET PO SCH ×2 (08:54→16:25)
[2020-03-14] MEDS: GLIMEPIRIDE 1 MG TABLET PO SCH (08:54)
[2020-03-14] MEDS: INSULIN GLARGINE, 100 UNIT/ML CARTRIDGE SQ SCH ×2 (08:55→16:32)
[2020-03-14] MEDS: OLANZAPINE 5 MG TABLET PO SCH (08:55)
[2020-03-14] MEDS: PAROXETINE HCL 10 MG TABLET PO SCH (09:00)
[2020-03-14] MEDS: CLOTRIMAZOLE 1% 15 GM TUBE TP SCH ×2 (09:00→16:26)
--- NOTE | 2020-03-14 10:00 | NUR ---
MS RN NOTE CALLED TO CHARLINE SCHWARTZ RN SUPERVISOR HOME RESTORATION SERVICE NOTIFIED THAT PATIENT STILL WITH SEVERE PAIN STSTED OK TO HAVE NORCO IN BETWEEN MORPHINE
--- NOTE | 2020-03-14 10:48 | NUR ---
MS RN NOTE TRIED X3 TO REPOSITION PATEIN AND OFFERED ICE PACK ON PAIN SITE RT SIDE, STILL DONT WANT IT AND DONT WANT TO HAVE NORCO IN BETWEEN MORPHINE SHOT AND REFUSED TO DO REPOSITION , EXPLAINED OF IMPORTANCE AND RISK POSITING STILL REFUSING, WILL CONT TO ENCOURAGE TO CHANGE POSITION
--- NOTE | 2020-03-14 11:17 | NUR ---
MS RN NOTE PT AT BEDSIDE REFUSED TO DO TX AND EVAL ALSO REFUSED TO APPLY DVT PUMPS EXPLAINED OF IMPORTANCE AND BENEFITS, STILL REFUSING
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
--- NOTE | 2020-03-14 13:15 | NUR ---
ms rn note on ra, no sob will monitor
[2020-03-14] MEDS: HYDROCODONE/APAP 5/325MG TABLET PO PRN ×2 (13:40→18:11)
--- NOTE | 2020-03-14 13:47 | NUR ---
ileana schmidt note called again to Guerita schmidt reservations agent reported that patient still in pain still wants to give norco first Addendum: 03/14/20 at 1400 by DEBBIE CASTILLO RN [place] given as ordered ,will cont to monitor
[2020-03-14] MEDS: ENOXAPARIN SODIUM 40 MG/0.4 ML DISP.SYRIN SQ SCH (15:19)
--- NOTE | 2020-03-14 15:25 | NUR ---
MS RN NOTE OFFERED AGAIN TO DO REPOSITION AND CLEAN UP BUT STRONGLY REFUSED CALLED CHARGE NURSE SOON AND EXPLAINED AGAIN FOE BENEFITS OF CLEANING AND REPOSITION WITH 3 NURSES AN CHARGE NURSE ABLE TO CLEAN UP AND REPOSITION PATIENT STILL VERY ANGRY MORPHINE 4 MG IVP GIVEN ORDERED
--- NOTE | 2020-03-14 15:29 | NUR ---
MS RN MARLENA BALL RN CASH CHECKER AT BEDSIDE NOTIFIED THAT PATIENT REFUSING REPOSIION AND USE INTENSIVE SPIROMETER AND DVT PUMPS AND SOME PO MEDS ,NOTIFIED THAT RT LEG IS SWOLLEN , ORDERED DOPPLEX STUDY , WILL CONT TO MONITOR CLOSELY Addendum: 03/14/20 at 1606 by DEBBIE CASTILLO RN OFFERED TO DO REPOSITION STATED WANTS TO STAY ON MY BACK ITS FEEL MORE COMFORTABLE , PATIENT WISH IS RESPECTED
[2020-03-14 16:00] VITALS: BP 116/45
--- NOTE | 2020-03-14 17:36 | NUR ---
MS RN NOTE MORPHINE 4MG IVP GIVEN ORDERED HAVING DINNER ,FED BY STAFF, WILL CONT TO MONITOR
--- NOTE | 2020-03-14 18:15 | NUR ---
ms rn note placed back to 3l nc of o2 saturation 95%, [place] po given bp 139/68, still prefer to say on her back and refused any change position , will cont to monitor
[2020-03-14 20:00] VITALS: BP 138/68
--- NOTE | 2020-03-14 20:20 | NUR ---
RN NOTES: -RECEIVED ENDORSEMENT FROM BERTHA/RN,PATIENT IS ON O2 AT 3L/MIN VIA NC, SHE REFUSE BIPAP, A/0X4, ORIENTED TO UNIT AND STAFF, ON BLOOD SUGAR MONITORING, OBESE PATIENT.ON LEACH CATH DRAINING INTO YELLOWISH COLORED URINE. -FALL,SAFETY AND ASPIRATION PRECAUTION OBSERVED, BED LOW AND LOCKED, CALL LIGHT KEPT WITHIN EASY REACH, SIDE RAILS UP X2.
[2020-03-14] MEDS: SENNOSIDES 8.6 MG TABLET PO SCH (21:35)
--- NOTE | 2020-03-14 21:47 | NUR ---
RN NOTES: -AWAKEN TO TAKE HER ORAL MEDICATION,INITIALLY SHE REFUSED THEN SHE AGREED, SHE STARTED TO CRY AND MOAN, SHE VERBALIZED SHE IS IN PAIN AND ASKING FOR HER MORPHINE PRN Q2H, DUE NOW, LATEST BP-135/65, RR-20 [id number]%RA. -9 MORPHINE GIVEN.
--- NOTE | 2020-03-14 22:06 | NUR ---
RN NOTES: -JEROD/RT WITH ANOTHER RT, JUST CAME IN TO START HER ON BIPAP, SHE AGREED. -NOTIFIED RT SHE JUST HAD HER PAIN MEDICATION AT 2150. KEPT ON CLOSE WATCH. -FALL,SAFETY AND ASPIRATION PRECAUTION OBSERVED, BED LOW AND LOCKED, KEPT CALL LIGHT WITHIN EASY REACH.
--- NOTE | 2020-03-14 22:20 | NUR ---
RN NOTES: RT/JEROD NOTIFIED RN THAT PATIENT REFUSED FOR THE BIPAP RIGHT NOW, THE FACE MASK DID NOT FIT HER WELL,DESPITE RT EXPLANATION AND TRYING TO ADJUST IT TO HER COMFORT, SHE REFUSED AT THE MOMENT, RT SAID THEY WILL COME BACK AND RE-CHECK HER AGAIN. -SHE WAS PUT BACK IN O2 AT 4L/MIN VIA NC SPO2-96%.
--- NOTE | 2020-03-14 22:24 | NUR ---
RT attempted to placed pt on noc bipap, per md order. pt did not tolerate, even with mask size adjustment. placed back on 3LNC. pt tolerating well. notified roxana castellon. will try again later, if pt allows.
--- NOTE | 2020-03-14 23:40 | NUR ---
RN NOTES: BLOOD SUGAR CHECKED-225, INSULIN GIVEN PER SCALE WILL CONTINUE TO MONITOR FOR SIGN OF HYPER/HYPOGLYCEMIA.
[2020-03-15] VITALS: BP 129/60
[2020-03-15] MEDS: MORPHINE SULFATE INJ 4 MG/ML DISP.SYRIN IV PRN ×7 (00:05→17:03)
--- NOTE | 2020-03-15 00:18 | NUR ---
RN NOTES: -AWAKE SHE IS RESTLESS AND ANXIOUS ASKING FOR HER PAIN MEDICATION,BP-128/65 WA-75 RR-21, MORPHINE GIVEN PER PATIENT REQUEST. -KEPT ON CLOSE WATCH, ASK IF SHE WANTS RT TO START HER ON BIPAP, SHE REFUSED.
--- NOTE | 2020-03-15 01:13 | NUR ---
RN NOTES: ABLE TO SLEEP AND REST, KEPT ON CLOSE MONITOR.
[2020-03-15] MEDS: IPRATROPIUM NEB FS 0.5 MG/2.5 ML AMPUL.NEB NEB SCH ×4 (01:42→19:54)
[2020-03-15] MEDS: ALBUTEROL HALF STRENGTH 1.25 MG/3 ML VIAL.NEB NEB SCH ×4 (01:42→19:54)
--- NOTE | 2020-03-15 02:27 | NUR ---
RN NOTES: -AWAKE IN BETWEEN, RT GIVE NEBULIZATION, AFTER THAT SHE COMPLAINED OF PAIN /, SHE KEEP ON INSISTING FOR HER PAIN MEDICATION,CHECKED BP-127/60 DE-75 RR-18,NON LABORED BREATHING, NO SOB, MORPHINE PRN GIVEN.NON PHARMACOLOGIC INTERVENTION RENDERED. KEPT WARM AND COMFORTABLE. -KEPT ON CLOSE VISUAL CHECK.
[2020-03-15 04:00] VITALS: BP 139/60
[2020-03-15] MEDS: METOCLOPRAMIDE HCL 10 MG TABLET PO SCH ×3 (05:00→21:53)
[2020-03-15] MEDS: BLOOD SUGAR DIAGNOSTIC 1 EACH STRIP IN SCH ×3 (05:21→17:50)
--- NOTE | 2020-03-15 05:21 | NUR ---
RN NOTES: BLOOD SUGAR CHECKED-172, INSULIN GIVEN PER SCALE, SHE REFUSED TO TAKE HER ORAL MEDICATION.WILL CONTINUE TO MONITOR FOR SIGN OF HYPER/HYPOGLYCEMIA.
[2020-03-15] MEDS: INSULIN REGULAR, HUMAN 100 UNIT/ML 3 ML VIAL SQ PRN ×2 (05:24→22:31)
[2020-03-15 06:14] LABS: BASOPHILS # (AUTO) 0.1 /CMM (0.0-0.2); BASOPHILS % (AUTO) 0.6 % (0.0-2.0); EOSINOPHILS % (AUTO) 7.1 % (0.0-6.0); HEMATOCRIT 28 % (33-45); HEMOGLOBIN 8.7 g/dL (11.5-14.8); LYMPHOCYTES # (AUTO) 1.7 /CMM (0.8-4.8); LYMPHOCYTES % (AUTO) 17.3 % (20.0-44.0); MEAN CORPUSCULAR HGB CONC 31 g/dl (31.0-36.0); MEAN CORPUSCULAR VOLUME 88 fL (82-100); MONOCYTES # (AUTO) 0.8 /CMM (0.1-1.30); MONOCYTES % (AUTO) 8.1 % (2.0-12.0); NEUTROPHILS # (AUTO) 6.5 /CMM (1.8-8.9); NEUTROPHILS % (AUTO) 66.9 % (43.0-81.0); PLATELET COUNT (AUTO) 217 /CMM (150-450); RED BLOOD CELL COUNT(AUTO) 3.15 MIL/uL (4.0-5.2); WHITE BLOOD COUNT (AUTO) 9.7 K/uL (4.3-11.0)
[2020-03-15 06:24] LABS: CALCIUM, SERUM 9.1 mg/dL (8.5-10.1); CREATININE 1.4 mg/dL (0.6-1.3); MAGNESIUM 2.1 mg/dL (1.8-2.4); POTASSIUM 4.5 mmol/L (3.5-5.1)
--- NOTE | 2020-03-15 06:53 | NUR ---
RN NOTES: ABLE TO SLEEP AND REST, REPOSITIONED,URINE OUTPUT-600, NO BOWEL MOVEMENT, LATEST WEIGHT-360, NON LABORED BREATHING, NO SOB,ENDORSE FOR CONTINUITY OF CARE.
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
[2020-03-15 08:00] VITALS: BP 138/72
[2020-03-15] MEDS: CARVEDILOL 12.5 MG TABLET PO SCH ×3 (09:00→17:02)
[2020-03-15] MEDS: CLONIDINE HCL 0.1 MG TABLET PO SCH ×3 (09:00→17:02)
[2020-03-15] MEDS: hydrALAZINE HCL 50 MG TABLET PO SCH ×4 (09:00→17:03)
[2020-03-15] MEDS: CLOTRIMAZOLE 1% 15 GM TUBE TP SCH ×2 (09:00→17:10)
[2020-03-15] MEDS: LINAGLIPTIN 5 MG TABLET PO SCH ×2 (09:00→09:13)
[2020-03-15] MEDS: ASPIRIN 81 MG TAB.CHEW PO SCH ×2 (09:00→09:13)
[2020-03-15] MEDS: GLIMEPIRIDE 1 MG TABLET PO SCH ×2 (09:00→09:12)
[2020-03-15] MEDS: PANTOPRAZOLE 40 MG/PACK PACK PO SCH ×2 (09:00→09:13)
[2020-03-15] MEDS: VALSARTAN 80 MG TABLET PO SCH ×2 (09:00→09:14)
[2020-03-15] MEDS: OLANZAPINE 5 MG TABLET PO SCH ×2 (09:00→09:13)
[2020-03-15] MEDS: PAROXETINE HCL 10 MG TABLET PO SCH ×2 (09:00→09:13)
[2020-03-15] MEDS: INSULIN GLARGINE, 100 UNIT/ML CARTRIDGE SQ SCH ×2 (09:00→17:00)
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
--- NOTE | 2020-03-15 10:13 | NUR ---
RN NOTE PATIENT IS CURRENTLY REFUSING OXYGEN AND REFUSING ALL CARE. STATES SHE WANTS TO LEAVE THE HOSPITAL. EDUCATION GIVEN, BUT PATIENT IGNORED.
--- NOTE | 2020-03-15 11:52 | NUR ---
RN NOTES ACCUCHECK. BS 192 MG/DL. PATIENT REFUSED INSULIN COVERAGE DESPITE EXPLAINING THE RISK.
--- NOTE | 2020-03-15 12:22 | NUR ---
RN NOTE PATIENT REFUSED TO TAKE AFTERNOON MEDICATION. EXPLAINED RISKS TO PATIENT AND PROVIDED EDUCATION X3, PATIENT CONTINUED TO REFUSED.
--- NOTE | 2020-03-15 14:56 | NUR ---
RN NOTES PM CARE DONE. DRESSING CHANGE TO SURGICAL SITE, SOILED.
[2020-03-15] MEDS: ENOXAPARIN SODIUM 40 MG/0.4 ML DISP.SYRIN SQ SCH (15:22)
[2020-03-15 16:00] VITALS: BP 146/57
--- NOTE | 2020-03-15 17:11 | NUR ---
RN NOTE: INSULIN PATIENT REFUSED LANTUS INSULIN. EDUCATED PATIENT ABOUT THE MEDICATION AND THE RISKS OF NOT TAKING IT X3, PATIENT CONTINUED TO REFUSE STATING "I'M NOT EATING ANYWAY".
--- NOTE | 2020-03-15 18:00 | NUR ---
RN NOTE PATIENT SEEN BY .
--- NOTE | 2020-03-15 18:19 | NUR ---
RN CLOSING NOTE PT RESTING IN BED, A/O X 4. ON O2 VIA NASAL CANNULA AT 3L BUT REFUSES TO PUT NASAL CANNULA ON. NO SOB OR ANY SIGNS OF RESP NOTED AT THIS TIME. IV LINE LAC #20 INTACT, PATENT AND FLUSHED. PT HAS LEACH CATH DRAINING CLEAR YELLOW URINE. PATIENT HAS CONTINUED REFUSING TREATMENT. BOTH DOSES OF LANTUS INSULIN WERE REFUSED WELL THE REGULAR INSULIN FOR SLIDING SCALE. SAFETY MEASURES IMPLEMENTED. CALL LIGHT WITHIN REACH. BED IS LOCKED AND AT LOWEST POSITION WITH SIDE RAILS UP X2. WILL ENDORSE TO NIGHT NURSE FOR WAN.
[2020-03-15 20:00] VITALS: BP 138/68
[2020-03-15] MEDS: SENNOSIDES 8.6 MG TABLET PO SCH (21:52)
[2020-03-15] MEDS: ZOLPIDEM TARTRATE 5 MG TABLET PO PRN (21:52)
[2020-03-16] MEDS: MORPHINE SULFATE INJ 2 MG/ML DISP.SYRIN IV PRN ×4 (00:07→18:31)
[2020-03-16] MEDS: BLOOD SUGAR DIAGNOSTIC 1 EACH STRIP IN SCH ×4 (00:08→18:07)
--- NOTE | 2020-03-16 00:13 | NUR ---
RT NOTE PT REFUSING BIPAP AT THIS TIME. RN UNIQUE NOTIFIED AND IS AWARE. NO DISTRESS NOTED AT THIS TIME. WILL CONTINUE TO MONITOR CLOSELY.
[2020-03-16] MEDS: IPRATROPIUM NEB FS 0.5 MG/2.5 ML AMPUL.NEB NEB SCH ×3 (01:30→13:11)
[2020-03-16] MEDS: ALBUTEROL HALF STRENGTH 1.25 MG/3 ML VIAL.NEB NEB SCH ×3 (01:30→13:11)
--- NOTE | 2020-03-16 01:44 | NUR ---
RT NOTE PT REFUSING BIPAP AND TX AT THIS TIME. NASAL CANNULA OFF. PT NOT COOPERATING. NO DISTRESS NOTED. RN UNIQUE AWARE.
[2020-03-16] MEDS: HYDROCODONE/APAP 5/325MG TABLET PO PRN ×2 (03:03→09:29)
[2020-03-16 04:00] VITALS: BP 141/67
--- NOTE | 2020-03-16 04:02 | NUR ---
RN notes Received patient in bed with no pulmonary distress or shortness of breath breathing even and unlabored. On 2 lpm O2 via nasal cannula tolerating well. Intermittently awake and sleep. When awake, patient is agitated and screams a lot. She wants to get up and out and to bring her to a hospital. Tried to divert attention, effective for a while and then starts screaming again. At about 02:00 patient removed all her wrist bands and refused to wear it back. Pulled out her IV and nasal cannula. Throws pillows around and undress herself. Morphine administered, Golden given with help. Patient refused BIPAP. Doing continuous monitoring and visual checking. Kept clean and dry. Needs attended.
[2020-03-16] MEDS: METOCLOPRAMIDE HCL 10 MG TABLET PO SCH ×2 (04:27→12:39)
--- NOTE | 2020-03-16 04:48 | NUR ---
RN nurse Patient awoke from sleep very agitated, thrown all her food on the floor. Spoke to patient to relax and morphine would be administered. Patient instantly calmed down. Re-inserted IV on the left hand with good back flow, Procedure well tolerated. Wrist band and Blood band were put on the left ankle.
[2020-03-16] MEDS: INSULIN REGULAR, HUMAN 100 UNIT/ML 3 ML VIAL SQ PRN ×3 (06:08→18:11)
[2020-03-16 06:54] LABS: CALCIUM, SERUM 8.9 mg/dL (8.5-10.1); CREATININE 1.1 mg/dL (0.6-1.3); MAGNESIUM 1.9 mg/dL (1.8-2.4); PHOSPHORUS 2.4 mg/dL (2.5-4.9); POTASSIUM 4.1 mmol/L (3.5-5.1)
--- NOTE | 2020-03-16 07:00 | NUR ---
RN OPENING NOTE PT IN BED, AWAKE, A/Ox3, ON NC 3LPM WITH NO SIGNS OF RESP DISTRESS OR SOB. PT STATES PAIN LEVEL OF 8/10, WILL ADMIN PAIN MEDS PER PROTOCOL. PT HAS LEACH CATH DRAINING TO GRAVITY, CLEAR SEAN URINE. PT IS BED BOUND, PER REPORT REFUSING TO GET OOB. PT HAS SACRAL REDNESS AND RT HIP SUTURE SITE, DRSG CLEAN AND INTACT. PT HAS A LT AC #20 FLUSHED, PATENT AND SALINE LOCKED, NO SIGNS OF INFECTION OF INFILTRATION. PT SAFETY PRECAUTIONS IN PLACE- BED LOCKED AND IN LOWEST POSITION, CALL LIGHT WITHIN REACH, BED ALARM ON, SR UPx2. WILL CONTINUE TO MONITOR.
[2020-03-16] MEDS: INSULIN GLARGINE, 100 UNIT/ML CARTRIDGE SQ SCH ×2 (09:00→18:10)
[2020-03-16] MEDS: GLIMEPIRIDE 1 MG TABLET PO SCH (09:01)
[2020-03-16] MEDS: hydrALAZINE HCL 50 MG TABLET PO SCH ×3 (09:03→17:18)
[2020-03-16] MEDS: ASPIRIN 81 MG TAB.CHEW PO SCH (09:03)
[2020-03-16] MEDS: PAROXETINE HCL 10 MG TABLET PO SCH (09:04)
[2020-03-16] MEDS: CARVEDILOL 12.5 MG TABLET PO SCH ×2 (09:06→17:18)
[2020-03-16] MEDS: OLANZAPINE 5 MG TABLET PO SCH (09:09)
[2020-03-16] MEDS: PANTOPRAZOLE 40 MG/PACK PACK PO SCH (09:09)
[2020-03-16] MEDS: LINAGLIPTIN 5 MG TABLET PO SCH (09:10)
[2020-03-16] MEDS: CLOTRIMAZOLE 1% 15 GM TUBE TP SCH ×2 (09:11→17:20)
[2020-03-16] MEDS: VALSARTAN 80 MG TABLET PO SCH (09:20)
[2020-03-16 10:10] LABS: BASOPHILS % (AUTO) 0.4 % (0.0-2.0); EOSINOPHILS % (AUTO) 5.2 % (0.0-6.0); HEMATOCRIT 27 % (33-45); HEMOGLOBIN 8.8 g/dL (11.5-14.8); LYMPHOCYTES # (AUTO) 1.4 /CMM (0.8-4.8); LYMPHOCYTES % (AUTO) 13.1 % (20.0-44.0); MEAN CORPUSCULAR HGB CONC 32 g/dl (31.0-36.0); MEAN CORPUSCULAR VOLUME 88 fL (82-100); MONOCYTES # (AUTO) 0.8 /CMM (0.1-1.30); MONOCYTES % (AUTO) 7.2 % (2.0-12.0); NEUTROPHILS # (AUTO) 7.8 /CMM (1.8-8.9); NEUTROPHILS % (AUTO) 74.1 % (43.0-81.0); PLATELET COUNT (AUTO) 235 /CMM (150-450); RED BLOOD CELL COUNT(AUTO) 3.09 MIL/uL (4.0-5.2); WHITE BLOOD COUNT (AUTO) 10.6 K/uL (4.3-11.0)
[2020-03-16] MEDS: CLONIDINE HCL 0.1 MG TABLET PO SCH ×2 (10:58→17:18)
[2020-03-16] MEDS: NEUTRA PHOS 1 POWD.PACKET PO SCH ×2 (11:08→18:30)
[2020-03-16 12:00] VITALS: BP 148/75
--- NOTE | 2020-03-16 13:19 | NUR ---
RN MS1 PER ORDERS TO CHANGE ZYPREX DAILY TO 5 MG BI DAILY
[2020-03-16] MEDS: ENOXAPARIN SODIUM 40 MG/0.4 ML DISP.SYRIN SQ SCH (15:27)
[2020-03-16] MEDS ORDERED: PARO10TA4 PO (15:54)
[2020-03-16] MEDS ORDERED: OLAN5TAB3 PO (15:54)
[2020-03-16] MEDS ORDERED: OLANZAPINE 5 MG TABLET PO SCH (17:00)
[2020-03-16 17:18] VITALS: BP 140/64
--- NOTE | 2020-03-16 18:12 | NUR ---
RN MS1 PATIENT GETTING DISCHARGE TO [facility]. FAMILY AWARE MD AWARE. PATIENT DID NOT WANT TO SIGN DISCHARGE PAPER WORK , PATIENT ALSO REFUSED TO TAKE PICTURES PATIENT EDUCATION 3X TIMES. PATIENT STILL REFUSED. AND WANTED US OUT OF THE ROOM AT THIS TIME PATIENT IS WAITING FOR PIC UP FROM REPORT GIVEN TO CHARGE NURSE AT [facility] ALSO TOLD CHARGE MARIA EUGENIA THAT THEY REQUIRE BARIATRIC BED
--- NOTE | 2020-03-16 19:49 | NUR ---
MEDICAL RECORDS SECRETARY NOTES, PATIENT TAKEN AT THIS TIME BY [facility]NEY , ACCOMPANIED BY [facility], IN STABLE CONDITION, A/O AND AWARE THAT SHES GOING TO [facility], NO SOB/ACUTE DISTRESS NOTED, PATIENT TAKE BELONGINGS WITH HER, VERBALIZED UNDERSTANDING, F/C AND IV SITE REMOVED PRIOR TO DISCHARGE, PATIENT VS 128/70, 89, 20, 98.5, 95% ON 2LP VIA NC.
== END 2020-03-16 19:49 | DRG 308 ==
LOC: ER 14:00 → MED 20:17 → ICU 03-12 10:37 → TELE-TD 03-12 22:50 → TELE1 03-13 09:11 → MEDSG1 03-14 08:26
PROVIDERS: ADMIT Nurse Practitioner Acute Care; ATTEND Nurse Practitioner Acute Care
PROC: 0QS806Z Reposition Right Femoral Shaft with Intramedullary Internal Fixation Device, Open Approach (ICD-10-PCS; principal; 2020-03-12)
DX: M80.051A Age-related osteoporosis with current pathological fracture, right femur, initial encounter for fracture (principal); N17.0 Acute kidney failure with tubular necrosis; G92 Toxic encephalopathy; I13.0 Hypertensive heart and chronic kidney disease with heart failure and stage 1 through stage 4 chronic kidney disease, or unspecified chronic kidney disease; N18.9 Chronic kidney disease, unspecified; E11.22 Type 2 diabetes mellitus with diabetic chronic kidney disease; E44.0 Moderate protein-calorie malnutrition; D68.69 Other thrombophilia; D72.829 Elevated white blood cell count, unspecified; W18.30XA Fall on same level, unspecified, initial encounter; Y93.9 Activity, unspecified; Y92.129 Unspecified place in nursing home as the place of occurrence of the external cause; Z79.4 Long term (current) use of insulin; Z79.82 Long term (current) use of aspirin; Z87.891 Personal history of nicotine dependence; Z91.19 Patient's noncompliance with other medical treatment and regimen; I25.10 Atherosclerotic heart disease of native coronary artery without angina pectoris; E66.01 Morbid (severe) obesity due to excess calories; Z68.43 Body mass index [BMI] 50.0-59.9, adult; D64.9 Anemia, unspecified; F44.81 Dissociative identity disorder; G47.33 Obstructive sleep apnea (adult) (pediatric); Z87.440 Personal history of urinary (tract) infections; F33.3 Major depressive disorder, recurrent, severe with psychotic symptoms; I50.9 Heart failure, unspecified; J96.91 Respiratory failure, unspecified with hypoxia; F43.10 Post-traumatic stress disorder, unspecified; Z87.11 Personal history of peptic ulcer disease
CPT/HCPCS: 36415; 71045-TC; 73501; 73502; 73552; 80048-TC; 80053-TC; 80061-TC; 82728-TC; 82962-TC; 83540-TC; 83735-TC; 84100-TC; 84439-TC; 84443-TC; 84484-TC; 85025-TC; 85610-TC; 85730-TC; 86850-TC; 87081-TC; 93307-TC; 93970-TC; 94799-TC; A6209; C1713; C9113; C9803; G0378; J0282; J0690; J1100; J1170; J1644; J1650; J1815; J2270; J2405; J2704; J3010; J3475; J3480; J3490; J7030; J7050; J7060; J8597; Q9967

== ENCOUNTER 2020-12-30 17:41 | Emergency (ER) | payer MEDICARE, MEDICAID ==
[~2020-12-30] VITALS: Ht 177.8 cm; Wt 181.4 kg
[~2020-12-30 17:41] MED LIST changes: -ACET325T53 PO; +AMIN30LI27 PO; -CRAN3875 PO; -CRAN400C PO; +CRAN425C6 PO; -GLUC1KIT IJ; +LACT1CAP7 PO; +MAG30ORA PO; +MAGN400O6 PO; -NITR100C6 PO; -OLAN2.5T3 PO; +PARO10TA4 PO; -PARO10TA86 PO; +RIVA10TA PO
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
--- NOTE | 2020-12-30 18:30 | NUR ---
RADIOLOGY AT BEDSIDE
[2020-12-30 18:55] LABS: BASOPHILS # (AUTO) 0.1 K/uL (0.0-0.2); BASOPHILS % (AUTO) 0.6 % (0.0-2.0); EOSINOPHILS % (AUTO) 4.1 % (0.0-6.0); HEMATOCRIT 34 % (33-45); HEMOGLOBIN 10.7 g/dL (11.5-14.8); LYMPHOCYTES # (AUTO) 2.2 K/uL (0.8-4.8); LYMPHOCYTES % (AUTO) 16.4 % (20.0-44.0); MEAN CORPUSCULAR HGB CONC 32 g/dl (31.0-36.0); MEAN CORPUSCULAR VOLUME 84 fL (82-100); MONOCYTES # (AUTO) 0.9 K/uL (0.1-1.30); MONOCYTES % (AUTO) 6.9 % (2.0-12.0); NEUTROPHILS # (AUTO) 9.6 K/uL (1.8-8.9); PLATELET COUNT (AUTO) 278 K/uL (150-450); RED BLOOD CELL COUNT(AUTO) 4.02 MIL/uL (4.0-5.2); WHITE BLOOD COUNT (AUTO) 13.3 K/uL (4.3-11.0)
[2020-12-30 19:14] LABS: CREATINE KINASE, TOTAL 70 U/L (26-192)
[2020-12-30 19:27] LABS: ALANINE AMINOTRANSFERASE 15 U/L (12-78); ALBUMIN 2.8 g/dL (3.4-5.0); ALKALINE PHOSPHATASE 87 U/L (46-116); ASPARTATE AMINOTRANSFERASE 18 U/L (15-37); BILIRUBIN,TOTAL 0.1 mg/dL (0.2-1.0); CALCIUM, SERUM 9.8 mg/dL (8.5-10.1); CARBON DIOXIDE 25 mmol/L (21-32); CHLORIDE 106 mmol/L (98-107); CREATININE 1.9 mg/dL (0.6-1.3); GLUCOSE 191 mg/dL (74-106); LIPASE 48 U/L (73-393); POTASSIUM 4.7 mmol/L (3.5-5.1); SODIUM SERUM 141 mmol/L (136-145); UREA NITROGEN, BLOOD 56 mg/dL (7-18)
[2020-12-30 19:36] LABS: BILIRUBIN,URINE Negative (NEGATIVE); COLOR,URINE YELLOW (YELLOW); LEUKOCYTE ESTERASE ,URINE Small (NEGATIVE); NITRITE, URINE Positive (NEGATIVE); PH,URINE 5.5 (5.0-8.0); PROTEIN,URINE Trace mg/dl (NEGATIVE); UGLUCOSE Negative (NEGATIVE); UROBILINOGEN,URINE 0.2 EU/dL (0.2)
[2020-12-30 19:43] LABS: BACTERIA,URINE 2+ /HPF (None Seen); RBC,URINE NONE SEEN /HPF (0-2); SQUAMOUS EPITHELIAL CELL,UR Few /HPF (None Seen)
[2020-12-30] MEDS ORDERED: CIPR500T5 PO (19:50)
--- NOTE | 2020-12-30 19:50 | NUR ---
CALLED [facility], NO BARIATRIC GURNEY AVAILABLE
--- NOTE | 2020-12-30 19:55 | NUR ---
CALLED [facility], NO BARIATRIC GURNEY AVAILABLE
--- NOTE | 2020-12-30 19:58 | NUR ---
CALLED [facility], NO BARIATRIC GURNEY AVAILABLE
--- NOTE | 2020-12-30 19:58 | NUR ---
Patient is to be discharged back to facility. Written and verbal after care instructions given. Patient verbalizes understanding of instruction.
--- NOTE | 2020-12-30 20:01 | NUR ---
CALLED [facility], NO BARIATRIC GURNEY AVAILABLE
--- NOTE | 2020-12-30 20:05 | NUR ---
CALLED [facility], NO BARIATRIC GURNEY AVAILABLE
--- NOTE | 2020-12-30 20:15 | NUR ---
PT REMOVED BP CUFF AND REFUSING V/S.
--- NOTE | 2020-12-30 20:30 | NUR ---
Isabela dugan in ED - 12/30/20 at 2030 by LYNNE CALLED [facility], NO BARIATRIC MIAN DICKEY
--- NOTE | 2020-12-30 20:30 | NUR ---
Isabela dugan in [facility] - 12/30/20 at 2032 by LYNNE CALLED [facility], RAUL DICKEY
--- NOTE | 2020-12-30 20:30 | NUR ---
[facility]ED [facility], NO BARIAT[facility]IC GURNEY AVAILABLE
--- NOTE | 2020-12-30 20:49 | NUR ---
VENESSA RENDON [facility] [phone] CONFIRMED 1AM KATHY PAPPAS SHELLFISH MEAT SEPARATOR OPERATOR.
--- NOTE | 2020-12-30 21:01 | NUR ---
CALLED [facility] TWICE, UNABLE TO GET IN TOUCH WITH SNF STAFF. LINE TRANSFERRED TO [facility] DEPT WHO ATTEMPTED TO FORWARD CALL TO SNF, AGAIN UNABLE TO BE PICKED UP BY STAFF. WILL CALL BACK LATER.
--- NOTE | 2020-12-30 22:07 | NUR ---
GAVE REPORT TO BECKY FROM [facility].
--- NOTE | 2020-12-31 00:54 | NUR ---
GAVE REPORT TO [facility]. PICKED UP PT IN STABLE CONDITION.
[2020-12-31 00:58] VITALS: BP 125/75
== END 2020-12-31 00:59 ==
LOC: ER 17:48
DX: N39.0 Urinary tract infection, site not specified (principal); E66.01 Morbid (severe) obesity due to excess calories; Z68.43 Body mass index [BMI] 50.0-59.9, adult; I12.9 Hypertensive chronic kidney disease with stage 1 through stage 4 chronic kidney disease, or unspecified chronic kidney disease; E11.22 Type 2 diabetes mellitus with diabetic chronic kidney disease; N18.9 Chronic kidney disease, unspecified; G89.29 Other chronic pain; Z90.49 Acquired absence of other specified parts of digestive tract; Z98.890 Other specified postprocedural states; Z88.6 Allergy status to analgesic agent; Z88.8 Allergy status to other drugs, medicaments and biological substances; Z91.048 Other nonmedicinal substance allergy status; Z79.899 Other long term (current) drug therapy; Z79.84 Long term (current) use of oral hypoglycemic drugs; Z79.82 Long term (current) use of aspirin
CPT/HCPCS: 36415; 71045-TC; 80048-TC; 80076-TC; 81001; 82550-TC; 83690-TC; 83880; 84484-TC; 85025-TC; 85730-TC; 87086-TC; 87186-TC

== ENCOUNTER 2021-08-15 19:07 | Inpatient (IN) | payer MEDICARE, MEDICAID ==
[~2021-08-15] VITALS: Ht 167.6 cm; Wt 163.3 kg
[~2021-08-15 19:07] MED LIST changes: +CIPR500T5 PO
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
--- NOTE | 2021-08-15 19:24 | NUR ---
LAC #20G S/L; PATENT AND INTACT. BLOOD COLLECTED AND SENT TO LAB
--- NOTE | 2021-08-15 19:27 | NUR ---
F/C 16FR INSERTED. URINE COLLECTED AND SENT TO LAB
--- NOTE | 2021-08-15 20:01 | NUR ---
PT RETURNED TO ER BED [address]
[2021-08-15 20:07] LABS: BASOPHILS # (AUTO) 0.1 K/uL (0.0-0.2); BASOPHILS % (AUTO) 0.8 % (0.0-2.0); EOSINOPHILS % (AUTO) 2.9 % (0.0-6.0); HEMATOCRIT 34 % (33-45); HEMOGLOBIN 10.9 g/dL (11.5-14.8); LYMPHOCYTES # (AUTO) 1.9 K/uL (0.8-4.8); LYMPHOCYTES % (AUTO) 14.4 % (20.0-44.0); MEAN CORPUSCULAR HGB CONC 32 g/dl (31.0-36.0); MEAN CORPUSCULAR VOLUME 84 fL (82-100); MONOCYTES # (AUTO) 0.7 K/uL (0.1-1.30); MONOCYTES % (AUTO) 5.1 % (2.0-12.0); NEUTROPHILS # (AUTO) 9.9 K/uL (1.8-8.9); NEUTROPHILS % (AUTO) 76.8 % (43.0-81.0); PLATELET COUNT (AUTO) 333 K/uL (150-450); WHITE BLOOD COUNT (AUTO) 12.9 K/uL (4.3-11.0)
[2021-08-15 20:08] LABS: CALCIUM, SERUM 10.1 mg/dL (8.5-10.1); CARBON DIOXIDE 27 mmol/L (21-32); CHLORIDE 104 mmol/L (98-107); CREATININE 2.2 mg/dL (0.6-1.3); GLUCOSE 259 mg/dL (74-106); POTASSIUM 5.4 mmol/L (3.5-5.1); SODIUM SERUM 140 mmol/L (136-145); UREA NITROGEN, BLOOD 57 mg/dL (7-18)
--- NOTE | 2021-08-15 20:09 | NUR ---
RT AT PT'S BEDSIDE FOR ABG
[2021-08-15 20:14] LABS: ALANINE AMINOTRANSFERASE 19 U/L (12-78); ALBUMIN 2.8 g/dL (3.4-5.0); ALCOHOL, BLOOD < 3 mg/dL (0-0); ALKALINE PHOSPHATASE 77 U/L (46-116); ASPARTATE AMINOTRANSFERASE 27 U/L (15-37); BILIRUBIN,DIRECT 0.1 mg/dL (0.0-0.2); BILIRUBIN,TOTAL 0.2 mg/dL (0.2-1.0)
[2021-08-15 20:14] LABS: ABG BASE EXCESS 1.1 mmol/L; ABG PCO2 40.8 mmHg (35.0-45.0); ABG PH 7.417 (7.350-7.450); ABG PO2 123.1 mmHg (75.0-100.0); COHb 0.3 % (0.5-1.5); O2Hb 98.3 % (94.0-97.0); SITE, ABG Left Radial
[2021-08-15] MEDS ORDERED: IV NS 0.9% 1,000 ML BAG IV ONE (20:30)
[2021-08-15 20:34] LABS: BILIRUBIN,URINE NEGATIVE (NEGATIVE); COLOR,URINE YELLOW (YELLOW); LEUKOCYTE ESTERASE ,URINE MODERATE (NEGATIVE); NITRITE, URINE POSITIVE (NEGATIVE); PROTEIN,URINE 30 mg/dl (NEGATIVE); UGLUCOSE 500 MG/DL mg/dL (NEGATIVE); UROBILINOGEN,URINE 0.2 EU/dL (0.2)
[2021-08-15 20:48] LABS: BACTERIA,URINE Many /HPF (None Seen); SQUAMOUS EPITHELIAL CELL,UR FEW /HPF (None Seen); WBC,URINE TOO NUMEROUS TO COUN /HPF (0-3)
--- NOTE | 2021-08-15 20:50 | NUR ---
COVID SWAB COLLECTED AND SENT TO LAB
--- NOTE | 2021-08-15 20:56 | NUR ---
MOVE SHEET SUBMITTED.
[2021-08-15] MEDS ORDERED: MORPHINE SULFATE INJ 4 MG/ML DISP.SYRIN ONE (20:59)
[2021-08-15] MEDS ORDERED: CEFTRIAXONE 1 G in IV D5W 50 ML IV ONE (21:00)
[2021-08-15] MEDS ORDERED: MORPHINE SULFATE INJ 2 MG/ML DISP.SYRIN IV ONE (21:00)
[2021-08-15] MEDS ORDERED: CEFTRIAXONE 1GM BAG (ER ONLY) 50 ML IV ONE (21:03)
[2021-08-15] MEDS ORDERED: BISACODYL SUPP (10 MG) 10 MG/SUPP.RECT SUPP.RECT RC PRN (22:00)
[2021-08-15] MEDS ORDERED: MAG HYDROX/AL HYDROX/SIMETH 30 ML UDC PO PRN (22:00)
[2021-08-15] MEDS ORDERED: MAGNESIUM HYDROXIDE 30 ML UDC PO PRN (22:00)
[2021-08-15] MEDS ORDERED: Z GUARD REMEDY 4 OZ OINT TP PRN (22:00)
[2021-08-15] MEDS ORDERED: ACETAMINOPHEN 325 MG TABLET PO PRN (22:00)
[2021-08-15] MEDS ORDERED: DEXTROSE 50%-WATER 50 ML DISP.SYRIN IV PRN (22:00)
[2021-08-15] MEDS ORDERED: ENOXAPARIN SODIUM 40 MG/0.4 ML DISP.SYRIN SQ SCH (22:00)
--- NOTE | 2021-08-15 22:18 | NUR ---
NURSING SUP CALLED AND BED [phone] - 2
[2021-08-15] MEDS: hydrALAZINE HCL 50 MG TABLET PO SCH (22:30)
--- NOTE | 2021-08-15 22:33 | NUR ---
REPORT GIVEN TO GRICELDA
[2021-08-15 22:50] VITALS: BP 134/73
--- NOTE | 2021-08-15 22:52 | NUR ---
PT TRANSFERRED TO 3W VIA ACLS IN STABLE CONDITION.
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
[2021-08-15] MEDS ORDERED: PIPERACILLIN /TAZOBACTAM 3.375 G VIAL IV ONE (23:37)
[2021-08-15] MEDS: BLOOD SUGAR DIAGNOSTIC 1 EACH STRIP IN SCH (23:54)
[2021-08-16] VITALS: BP 133/65
--- NOTE | 2021-08-16 | NUR ---
NURSING SWALLOW EVAL PATIENT NOT ABLE TO FOLLOW COMMANDS. PATIENT WILL BE KEPT NPO. CHARGE NURSE AWARE. PO MEDS HELD.
[2021-08-16] MEDS: ZOSYN IVPB 3.375 G in IV D5W 50ml IV SCH ×4 (00:01→17:45)
[2021-08-16 04:00] VITALS: BP 153/69
[2021-08-16] MEDS: hydrALAZINE HCL 50 MG TABLET PO SCH ×3 (05:00→21:00)
[2021-08-16] MEDS ORDERED: PIPERACILLIN /TAZOBACTAM 3.375 G VIAL IV ONE (05:56)
[2021-08-16] MEDS: MORPHINE SULFATE INJ 2 MG/ML DISP.SYRIN IV PRN ×3 (06:00→16:53)
[2021-08-16 06:01] LABS: BASOPHILS % (AUTO) 0.3 % (0.0-2.0); EOSINOPHILS % (AUTO) 2.1 % (0.0-6.0); HEMATOCRIT 34 % (33-45); HEMOGLOBIN 10.4 g/dL (11.5-14.8); LYMPHOCYTES # (AUTO) 1.2 K/uL (0.8-4.8); LYMPHOCYTES % (AUTO) 11.4 % (20.0-44.0); MEAN CORPUSCULAR HGB CONC 31 g/dl (31.0-36.0); MEAN CORPUSCULAR VOLUME 85 fL (82-100); MONOCYTES # (AUTO) 0.6 K/uL (0.1-1.30); MONOCYTES % (AUTO) 5.4 % (2.0-12.0); NEUTROPHILS # (AUTO) 8.7 K/uL (1.8-8.9); NEUTROPHILS % (AUTO) 80.8 % (43.0-81.0); PLATELET COUNT (AUTO) 295 K/uL (150-450); RED BLOOD CELL COUNT(AUTO) 3.99 MIL/uL (4.0-5.2); WHITE BLOOD COUNT (AUTO) 10.8 K/uL (4.3-11.0)
--- NOTE | 2021-08-16 06:37 | NUR ---
RN CLOSING NOTE PATIENT BS 315 MG/DL, INSULIN COVERAGE PER SS. [facility]. PATIENT GIVEN MORPHINE PATIENT WAS RESTLESS AND SCREAMING. PATIENT IS STILL CONFUSED, UNABLE TO COMPREHEND INSTRUCTIONS. PATIENT IS CURRENTLY NPO AT THIS TIME PENDING ST [facility]. SAFETY MEASURES IN PLACE: BED LOCKED AND IN LOWEST POSITION, CALL LIGHT WITHIN REACH, SIDE RAILS UP, BED ALARM ON. WILL ENDORSE TO DAY SHIFT NURSE FOR WAN. Addendum: 08/16/21 at 0644 by DANE SINHA RN TELE MONITOR READS SR 80 BPM WITH BBB
[2021-08-16] MEDS: BLOOD SUGAR DIAGNOSTIC 1 EACH STRIP IN SCH ×3 (06:46→17:45)
[2021-08-16] MEDS: INSULIN REGULAR, HUMAN 100 UNIT/ML 3 ML VIAL SQ PRN ×2 (07:01→12:15)
[2021-08-16 07:26] LABS: ALBUMIN 2.6 g/dL (3.4-5.0); BILIRUBIN,TOTAL 0.2 mg/dL (0.2-1.0); CALCIUM, SERUM 9.8 mg/dL (8.5-10.1); CREATININE 2.1 mg/dL (0.6-1.3); MAGNESIUM 2.1 mg/dL (1.8-2.4); PHOSPHORUS 3.3 mg/dL (2.5-4.9); POTASSIUM 5.5 mmol/L (3.5-5.1); TOTAL PROTEIN, SERUM 7.5 g/dL (6.4-8.2)
--- NOTE | 2021-08-16 07:30 | NUR ---
RADIO MACHINIST OPENING NOTES RECEIVED PATIENT ON BED RESTING AND A/O X1, CONFUSED AND UNABLE TO FOLLOW INSTRUCTIONS. ON O2 AT 4LPM VIA NASAL CANNULA TOLERATING WELL. NO SOB NOTED. ON TELE MONITOR CURRENTLY READING SINUS RHYTHM AT 86BPM. WITH IV ACCESS AT LEFT AC G20 SALINE LOCKED, PATENT AND INTACT. WITH LEACH CATHETER IN PLACED DRAINING CLEAR YELLOW URINE. SAFETY MEASURES IN PLACED. CALL LIGHT WITHIN REACH. BED ON LOWEST LOCKED POSITION, SIDE RAILS UP X2. WILL CONTINUE TO MONITOR.
[2021-08-16 08:20] VITALS: BP 153/70
[2021-08-16 08:20] LABS: THYROID STIMULATING HORMONE 0.354 uIU/mL (0.358-3.74)
[2021-08-16] MEDS: ASPIRIN 81 MG TAB.CHEW PO SCH (09:00)
[2021-08-16] MEDS: DOCUSATE SODIUM 100 MG CAPSULE PO SCH ×2 (09:00→16:46)
[2021-08-16] MEDS ORDERED: FUROSEMIDE 20 MG TABLET PO SCH (09:00)
[2021-08-16] MEDS: SPIRONOLACTONE 25 MG TABLET PO SCH (09:00)
[2021-08-16] MEDS: PAROXETINE HCL 20 MG TABLET PO SCH (09:00)
[2021-08-16] MEDS: POLYETHYLENE GLYCOL 3350 17 GM POWD.PACK PO SCH (09:00)
[2021-08-16] MEDS: LINAGLIPTIN 5 MG TABLET PO SCH (09:00)
[2021-08-16] MEDS: CARVEDILOL 12.5 MG TABLET PO SCH ×2 (09:00→21:00)
[2021-08-16] MEDS: OLANZAPINE 5 MG TABLET PO SCH ×2 (09:00→16:46)
[2021-08-16] MEDS: VALSARTAN 80 MG TABLET PO SCH (09:00)
[2021-08-16] MEDS: INSULIN GLARGINE, 100 UNIT/ML CARTRIDGE SQ SCH ×3 (09:00→21:33)
--- NOTE | 2021-08-16 10:03 | NUR ---
WOUND CARE CONSULT: PT REFUSED TO TURN FOR SKIN ASSESSMENT. LEFT ANKLE WOUND NOTED WELL DRY WOUNDS TO TOES, PRESENT ON ADMISSION. ADMISSION PHOTOS SHOW SACRAL SCARRING WITH OPEN AREA AND FULL THICKNESS WOUND TO RT BUTTOCK, PRESENT ON ADMISSION. SURGICAL AND DPM CONSULTS CALLED TO DR PERALES AND DR LONG. RECOMMENDATIONS MADE FOR SKIN PROTECTION INCLUDING BARIMAX ETS AIR BED. IN AGREEMENT WITH PLAN OF CARE.
[2021-08-16 12:02] VITALS: BP 134/98
[2021-08-16 16:01] VITALS: BP 142/86
[2021-08-16] MEDS: RIVAROXABAN 10 MG TABLET PO SCH (16:46)
--- NOTE | 2021-08-16 19:28 | NUR ---
LOG INSPECTOR CLOSING NOTES PATIENT ON BED RESTING AND A/O X1, CONFUSED AND UNABLE TO FOLLOW INSTRUCTIONS. ON O2 AT 4LPM VIA NASAL CANNULA TOLERATING WELL. NO SOB NOTED. ON TELE MONITOR CURRENTLY READING SINUS RHYTHM AT 81BPM. WITH IV ACCESS AT LEFT AC G20 SALINE LOCKED, PATENT AND INTACT. WITH LEACH CATHETER IN PLACED DRAINING CLEAR YELLOW URINE. SAFETY MEASURES IN PLACED. CALL LIGHT WITHIN REACH. BED ON LOWEST LOCKED POSITION, SIDE RAILS UP X2. WILL ENDORSE TO NEXT SHIFT FOR WAN.
--- NOTE | 2021-08-16 20:06 | NUR ---
RN OPENING NOTE PATIENT IN BED, AWAKE, PATIENT EXTREMELY CONFUSED. UNABLE TO COMPREHEND INSTRUCTIONS. PATIENT IS CURRENTLY NPO AT THIS TIME. PATIENT ON TELE MONITOR READS SR 82 BPM. PATIENT HAS A LEACH CATHETER IN PLACE DRAINING VIA GRAVITY. LAC 20 GPATENT AND INTACT, SALINE LOCKED AT THIS TIME. SAFETY MEASURES IN PLACE: BED LOCKED AND IN LOWEST POSITION, CALL LIGHT WITHIN REACH, SIDE RAILS UP, BED ALARM ON. WILL MONITOR PATIENT CLOSELY.
[2021-08-16] MEDS ORDERED: DEXTROSE 50%-WATER 50 ML DISP.SYRIN IV PRN (20:30)
[2021-08-16] MEDS ORDERED: IV 1/2NS 1000 ML 1,000 ML IV PRN (20:30)
[2021-08-16] MEDS: hydrALAZINE HCL IV 20 MG VIAL IV PRN (21:25)
--- NOTE | 2021-08-16 21:25 | NUR ---
RN NOTE HYDRALAZINE GIVEN FOR BP 177/104. WILL REASSESS AT A LATER TIME
[2021-08-16 22:00] VITALS: BP 153/86
[2021-08-17] VITALS: BP 146/95
[2021-08-17] MEDS: ZOSYN IVPB 3.375 G in IV D5W 50ml IV SCH ×4 (00:13→18:04)
[2021-08-17] MEDS: BLOOD SUGAR DIAGNOSTIC 1 EACH STRIP IN SCH ×4 (00:14→18:04)
[2021-08-17] MEDS: INSULIN REGULAR, HUMAN 100 UNIT/ML 3 ML VIAL SQ PRN ×3 (00:17→18:15)
[2021-08-17] MEDS: hydrALAZINE HCL 50 MG TABLET PO SCH ×3 (05:00→20:46)
--- NOTE | 2021-08-17 05:20 | NUR ---
RN NOTE RE-TRIED TO GIVE PATIENT SOME WATER, PATIENT STILL NOT TAKING IN INSTRUCTIONS WELL. PULLED OUT PIV ON LAC. Addendum: 08/17/21 at 0514 by DANE SINHA RN PATIENT RESTLESS AND REMOVING TELE BOX, AND NC
[2021-08-17 06:00] VITALS: BP 150/80
--- NOTE | 2021-08-17 06:30 | NUR ---
GOT ORDER FOR ANASTACIA SOFT WRIST RESTRAINTS. PATIENT CONTINUES TO BE UNCOOPERATIVE WITH CARE. RAC 24 G INSERTED. PATENT AND INTACT.
[2021-08-17 07:12] LABS: BASOPHILS % (AUTO) 0.3 % (0.0-2.0); EOSINOPHILS % (AUTO) 2.1 % (0.0-6.0); HEMATOCRIT 34 % (33-45); HEMOGLOBIN 10.5 g/dL (11.5-14.8); LYMPHOCYTES # (AUTO) 1.5 K/uL (0.8-4.8); LYMPHOCYTES % (AUTO) 12.9 % (20.0-44.0); MEAN CORPUSCULAR HGB CONC 31 g/dl (31.0-36.0); MEAN CORPUSCULAR VOLUME 85 fL (82-100); MONOCYTES # (AUTO) 0.8 K/uL (0.1-1.30); MONOCYTES % (AUTO) 6.8 % (2.0-12.0); NEUTROPHILS # (AUTO) 8.9 K/uL (1.8-8.9); NEUTROPHILS % (AUTO) 77.9 % (43.0-81.0); PLATELET COUNT (AUTO) 307 K/uL (150-450); RED BLOOD CELL COUNT(AUTO) 4.01 MIL/uL (4.0-5.2); WHITE BLOOD COUNT (AUTO) 11.4 K/uL (4.3-11.0)
--- NOTE | 2021-08-17 07:30 | NUR ---
CONFERENCE CONCIERGE OPENING NOTES RECEIVED PATIENT ON BARIATRIC BED RESTING AND A/O X1, CONFUSED AND UNABLE TO FOLLOW INSTRUCTIONS. ON O2 AT 4LPM VIA NASAL CANNULA TOLERATING WELL. NO SOB NOTED. ON TELE MONITOR CURRENTLY READING SINUS RHYTHM AT 76BPM. WITH IV ACCESS AT RIGHT AC G24 WITH IVF NS AT 70ML/HR INFUSING WELL. ON BILATERAL SOFT WRIST RESTRAINTS. WITH LEACH CATHETER IN PLACED DRAINING CLEAR YELLOW URINE. SAFETY MEASURES IN PLACED. CALL LIGHT WITHIN REACH. BED ON LOWEST LOCKED POSITION, SIDE RAILS UP X2. WILL CONTINUE TO MONITOR.
[2021-08-17 08:08] LABS: ALBUMIN 2.6 g/dL (3.4-5.0); BILIRUBIN,DIRECT 0.1 mg/dL (0.0-0.2); BILIRUBIN,TOTAL 0.3 mg/dL (0.2-1.0); CALCIUM, SERUM 9.8 mg/dL (8.5-10.1); CREATININE 1.8 mg/dL (0.6-1.3); POTASSIUM 4.5 mmol/L (3.5-5.1); TOTAL PROTEIN, SERUM 7.6 g/dL (6.4-8.2)
[2021-08-17 08:32] VITALS: BP 153/82
[2021-08-17] MEDS: SPIRONOLACTONE 25 MG TABLET PO SCH (09:00)
[2021-08-17] MEDS: ASPIRIN 81 MG TAB.CHEW PO SCH (09:00)
[2021-08-17] MEDS: DOCUSATE SODIUM 100 MG CAPSULE PO SCH ×2 (09:00→16:45)
[2021-08-17] MEDS: LINAGLIPTIN 5 MG TABLET PO SCH (09:00)
[2021-08-17] MEDS: PAROXETINE HCL 20 MG TABLET PO SCH (09:00)
[2021-08-17] MEDS: CARVEDILOL 12.5 MG TABLET PO SCH ×2 (09:00→20:47)
[2021-08-17] MEDS: VALSARTAN 80 MG TABLET PO SCH (09:00)
[2021-08-17] MEDS: OLANZAPINE 5 MG TABLET PO SCH ×2 (09:00→16:45)
[2021-08-17] MEDS: POLYETHYLENE GLYCOL 3350 17 GM POWD.PACK PO SCH (09:00)
[2021-08-17] MEDS: INSULIN GLARGINE, 100 UNIT/ML CARTRIDGE SQ SCH ×2 (10:16→21:11)
--- NOTE | 2021-08-17 10:30 | NUR ---
RN NOTE DONE NURSING SWALLOW EVAL AND PATIENT IS ABLE TO SWALLOW ICE CHIPS AND SIP WATER USING STRAW.
[2021-08-17 11:58] VITALS: BP 167/84
[2021-08-17 16:12] VITALS: BP 162/80
[2021-08-17] MEDS: RIVAROXABAN 10 MG TABLET PO SCH (16:45)
--- NOTE | 2021-08-17 19:09 | NUR ---
HEARING AID REPAIR TECHNICIAN CLOSING NOTES PATIENT ON BARIATRIC BED RESTING AND A/O X2-3 WITH PERIODS OF CONFUSION. ON O2 AT 4LPM VIA NASAL CANNULA TOLERATING WELL. NO SOB NOTED. ON TELE MONITOR CURRENTLY READING SINUS RHYTHM AT 80BPM. WITH IV ACCESS AT LEFT FA G20 WITH IVF NS AT 70ML/HR INFUSING WELL. PATIENT IS ABLE TO DRINK FLUIDS AND TAKE CRUSHED MEDS WITH JELLO. WITH LEACH CATHETER IN PLACED DRAINING CLEAR YELLOW URINE. DUE MEDS GIVEN. SAFETY MEASURES IN PLACED. CALL LIGHT WITHIN REACH. BED ON LOWEST LOCKED POSITION, SIDE RAILS UP X2. WILL ENDORSE TO NEXT SHIFT FOR WAN.
[2021-08-17 20:00] VITALS: BP 145/76
--- NOTE | 2021-08-17 20:46 | NUR ---
RN NOTE NURSING SWALLOW SCREEN DONE AND PASSED, BEFORE GIVING PO MEDS
[2021-08-17] MEDS: IV NS 0.9% 1,000 ML IV SCH (22:21)
[2021-08-18] VITALS: BP 162/70
[2021-08-18] MEDS: INSULIN REGULAR, HUMAN 100 UNIT/ML 3 ML VIAL SQ PRN ×5 (00:37→23:32)
[2021-08-18] MEDS: BLOOD SUGAR DIAGNOSTIC 1 EACH STRIP IN SCH ×5 (00:41→23:31)
[2021-08-18] MEDS: ZOSYN IVPB 3.375 G in IV D5W 50ml IV SCH ×5 (00:41→23:40)
[2021-08-18 04:00] VITALS: BP 170/69
[2021-08-18] MEDS: hydrALAZINE HCL 50 MG TABLET PO SCH ×3 (04:48→21:22)
[2021-08-18] MEDS: hydrALAZINE HCL IV 20 MG VIAL IV PRN (04:48)
--- NOTE | 2021-08-18 04:49 | NUR ---
RN NOTE BP 170/69, HR 92. PT REFUSED PO HYDRALAZINE. PRN IV HYDRALAZINE GIVEN ORDERED
--- NOTE | 2021-08-18 06:48 | NUR ---
RN NOTE PT RESTING IN BED, EASILY AROUSABLE TO STIMULI, A/OX2-3. RESPIRATIONS EVEN/UNLABORED. CONTINUES ON IVF NS @75ML/HR. TELE MONITOR READING SR, HR 92. PT IN NO ACUTE DISTRESS. SLEPT WELL DURING THE NIGHT. SAFETY MEASURES MAINTAINED.
--- NOTE | 2021-08-18 07:29 | NUR ---
MORPHOLOGY TEACHER OPENING NOTES RECEIVED PATIENT IN BED AWAKE AND LYING AT SEMI-DELEON'S POSITION. O A/O X2-3. ABLE TO MAKE NEEDS KNOWN, DENIES PAIN OR ANY DISCOMFORTS AT THIS TIME. ON O2 AT 4LPM VIA NASAL CANNULA, TOLERATING WELL, NO SOB NOTED. ON TELE MONITOR CURRENTLY READING SINUS RHYTHM, HR 97 BPM, NO C/O CARDIAC DISTRESS VOICED. IV ACCESS ON RFA G#20 WITH IVF OF NS 75ML/HR INFUSING WELL. LEACH CATHETER IN PLACED DRAINING CLEAR YELLOW URINE VIA GRAVITY. SAFETY MEASURES IN PLACED:CALL LIGHT WITHIN REACH, BED ON LOWEST LOCKED POSITION, SIDE RAILS UP X3. WILL CONTINUE TO MONITOR PT.
[2021-08-18] MEDS: ONDANSETRON HCL/PF 4 MG/2 ML VIAL IVP PRN (07:54)
--- NOTE | 2021-08-18 07:55 | NUR ---
RN NOTES PT NOTED VOMITING LIGHT YELLOWISH COLORED EMESIS, PRN ZOFRAN 4MGIVP ADMINISTERED @ 0754. WILL CONTINUE TO MONITOR AND REASSESS PT.
[2021-08-18 08:00] VITALS: BP 138/78
[2021-08-18 08:11] LABS: BASOPHILS # (AUTO) 0.1 K/uL (0.0-0.2); BASOPHILS % (AUTO) 0.7 % (0.0-2.0); EOSINOPHILS % (AUTO) 1.3 % (0.0-6.0); HEMATOCRIT 35 % (33-45); HEMOGLOBIN 10.9 g/dL (11.5-14.8); LYMPHOCYTES # (AUTO) 1.4 K/uL (0.8-4.8); LYMPHOCYTES % (AUTO) 10.4 % (20.0-44.0); MEAN CORPUSCULAR HGB CONC 31 g/dl (31.0-36.0); MEAN CORPUSCULAR VOLUME 84 fL (82-100); MONOCYTES # (AUTO) 0.7 K/uL (0.1-1.30); MONOCYTES % (AUTO) 5.7 % (2.0-12.0); NEUTROPHILS # (AUTO) 10.7 K/uL (1.8-8.9); NEUTROPHILS % (AUTO) 81.9 % (43.0-81.0); PLATELET COUNT (AUTO) 279 K/uL (150-450); RED BLOOD CELL COUNT(AUTO) 4.23 MIL/uL (4.0-5.2)
[2021-08-18 08:26] LABS: CALCIUM, SERUM 9.7 mg/dL (8.5-10.1); CREATININE 1.7 mg/dL (0.6-1.3); POTASSIUM 4.1 mmol/L (3.5-5.1)
[2021-08-18] MEDS: DOCUSATE SODIUM 100 MG CAPSULE PO SCH ×2 (09:00→16:49)
[2021-08-18] MEDS: POLYETHYLENE GLYCOL 3350 17 GM POWD.PACK PO SCH (09:00)
[2021-08-18] MEDS: LINAGLIPTIN 5 MG TABLET PO SCH (09:19)
[2021-08-18] MEDS: ASPIRIN 81 MG TAB.CHEW PO SCH (09:20)
[2021-08-18] MEDS: CARVEDILOL 12.5 MG TABLET PO SCH ×2 (09:20→21:22)
[2021-08-18] MEDS: OLANZAPINE 5 MG TABLET PO SCH ×2 (09:21→16:49)
[2021-08-18] MEDS: SPIRONOLACTONE 25 MG TABLET PO SCH (09:21)
[2021-08-18] MEDS: PAROXETINE HCL 20 MG TABLET PO SCH (09:21)
[2021-08-18] MEDS: VALSARTAN 80 MG TABLET PO SCH (09:23)
[2021-08-18] MEDS: THERAHONEY GEL 1.5 OZ TUBE TP SCH (09:25)
[2021-08-18] MEDS: INSULIN GLARGINE, 100 UNIT/ML CARTRIDGE SQ SCH ×2 (09:29→21:42)
[2021-08-18] MEDS: IV NS 0.9% 1,000 ML IV SCH ×2 (12:05→23:40)
--- NOTE | 2021-08-18 14:55 | NUR ---
RN NOTES PT IS NOW MORE ALERT AND RESPONSIVE. PASSED NURSING SCREEN SWALLOW TODAY W/O PROBLEM. SPEECH THERAPIST UN- ABLE TO COME TODAY TO DO SWALLOW EVALUATION. DR LACY MADE AWARE WITH ORDER TO START PT ON SOFT DIET CCHO, CARDIAC DIET. WILL MONITOR FOR ANY SIGNS OF ASPIRATION.
[2021-08-18 16:00] VITALS: BP 136/82
[2021-08-18] MEDS: RIVAROXABAN 10 MG TABLET PO SCH (16:50)
--- NOTE | 2021-08-18 18:43 | NUR ---
MS RN CLOSING NOTES PATIENT IN BED ASLEEP AT THIS TIME, EASILY AROUSABLE. HOB ELEVATED. A/O X2-3. ABLE TO MAKE NEEDS KNOWN, NOTED WITH PERIODS OF CONFUSION AND FORGETFULNESS DURING THE DAY. ON O2 AT 4LPM VIA N/C, TOLERATING WELL, NO SOB NOTED. PT WITH PIV'S ON LFA G#24 AND RFA G#20 WITH IVF OF NS 75ML/HR INFUSING WELL, NO S/SX OF INFILTRATIONS AT SITES NOTED. LEACH CATHETER IN PLACE AND DRAINING CLEAR YELLOW URINE VIA GRAVITY, LEACH CARE DONE. PT TURNED AND REPOSITIONED Q 2HRS AND PRN. KEPT CLEAN, DRY AND COMFORTABLE AT ALL TIMES. SAFETY MEASURES IN PLACED: CALL LIGHT WITHIN REACH, BED ON LOWEST LOCKED POSITION, SIDE RAILS UP X3. WILL ENDORSE WAN TO CELL TESTER NURSE.
--- NOTE | 2021-08-18 19:10 | NUR ---
MS RN OPENING NOTES RECEIVED PATIENT LAYING AWAKE IN BED. A/0 X2-3. PATIENT WITH REGULAR AND UNLABORED BREATHING ON 4 LPM VIA NASAL CANULA , TOLERATED WELL. NO SIGNS AND SYMPTOMS OF DISTRESS NOTED AT THIS TIME. NO COMPLAINS OF PAIN OR DISCOMFORT AT THIS TIME. IV ACCESSES LFA G #20 INFUSING NS @ 75 ML/HR RFA G #24 SL. IV ACCESSES PATENT AND INTACT. SAFETY PRECAUTIONS ENFORCED WITH BED LOCKED AND AT LOWEST POSITION. CALL LIGHT WITHIN REACH AT ALL TIMES. WILL CONTINUE TO MONITOR PATIENT.
[2021-08-18 20:00] VITALS: BP 158/71
[2021-08-19] MEDS: ZOSYN IVPB 3.375 G in IV D5W 50ml IV SCH ×4 (05:38→23:35)
[2021-08-19] MEDS: hydrALAZINE HCL 50 MG TABLET PO SCH ×3 (05:38→21:38)
[2021-08-19] MEDS: BLOOD SUGAR DIAGNOSTIC 1 EACH STRIP IN SCH ×4 (06:04→23:44)
[2021-08-19] MEDS: INSULIN REGULAR, HUMAN 100 UNIT/ML 3 ML VIAL SQ PRN ×4 (06:06→23:46)
--- NOTE | 2021-08-19 07:04 | NUR ---
MS RN CLOSING NOTES PATIENT STILL LAYING AWAKE IN BED. A/0 X2-3. PATIENT WITH REGULAR AND UNLABORED BREATHING ON 4 LPM VIA NASAL CANULA , TOLERATED WELL. NO SIGNS AND SYMPTOMS OF DISTRESS NOTED AT THIS TIME. NO COMPLAINS OF PAIN OR DISCOMFORT AT THIS TIME. IV ACCESSES LFA G #20 INFUSING NS @ 75 ML/HR RFA G #24 SL. IV ACCESSES PATENT AND INTACT. SAFETY PRECAUTIONS ENFORCED WITH BED LOCKED AND AT LOWEST POSITION. CALL LIGHT WITHIN REACH AT ALL TIMES. WILL ENDORSE CONTINUITY OF CARE TO DAY SHIFT NURSE.
[2021-08-19 07:21] LABS: BASOPHILS % (AUTO) 0.3 % (0.0-2.0); EOSINOPHILS % (AUTO) 1.3 % (0.0-6.0); HEMATOCRIT 36 % (33-45); HEMOGLOBIN 11.2 g/dL (11.5-14.8); LYMPHOCYTES # (AUTO) 1.5 K/uL (0.8-4.8); LYMPHOCYTES % (AUTO) 9.6 % (20.0-44.0); MEAN CORPUSCULAR HGB CONC 31 g/dl (31.0-36.0); MEAN CORPUSCULAR VOLUME 83 fL (82-100); MONOCYTES # (AUTO) 0.8 K/uL (0.1-1.30); NEUTROPHILS # (AUTO) 13.1 K/uL (1.8-8.9); NEUTROPHILS % (AUTO) 83.8 % (43.0-81.0); PLATELET COUNT (AUTO) 305 K/uL (150-450); RED BLOOD CELL COUNT(AUTO) 4.31 MIL/uL (4.0-5.2); WHITE BLOOD COUNT (AUTO) 15.6 K/uL (4.3-11.0)
--- NOTE | 2021-08-19 07:37 | NUR ---
RN OPENING NOTES RECEIVED PATIENT AWAKE IN BED AT SEMI-DELEON'S POSITION. PATIENT IS A/O X2-3. ABLE TO MAKE NEEDS KNOWN IN NIGERIAN LANGUAGE. DENIES PAIN OR ANY DISCOMFORTS AT THIS TIME. ON O2 INHALATION VIA NASAL CANNULA AT 4LPM TOLERATING WELL, NO SOB NOTED. IV ACCESS ON RFA WITH IVF OF NS 75ML/HR INFUSING WELL. IV ACCESS ON LFA #20 INTACT. LEACH CATHETER IN PLACED DRAINING CLEAR YELLOW URINE VIA GRAVITY. SAFETY MEASURES IN PLACED:CALL LIGHT WITHIN REACH, BED ON LOWEST LOCKED POSITION, SIDE RAILS UP X3.HEAD OF THE BED ELEVATED FOR ASPIRATION PRECAUTION. WILL CONTINUE TO MONITOR THE PATIENT..
[2021-08-19 07:45] LABS: CALCIUM, SERUM 9.3 mg/dL (8.5-10.1); CREATININE 1.7 mg/dL (0.6-1.3); MAGNESIUM 1.7 mg/dL (1.8-2.4); PHOSPHORUS 2.9 mg/dL (2.5-4.9); POTASSIUM 3.7 mmol/L (3.5-5.1)
[2021-08-19 08:00] VITALS: BP 165/79
[2021-08-19] MEDS: ASPIRIN 81 MG TAB.CHEW PO SCH (09:09)
[2021-08-19] MEDS: PAROXETINE HCL 20 MG TABLET PO SCH (09:09)
[2021-08-19] MEDS: OLANZAPINE 5 MG TABLET PO SCH ×2 (09:09→18:03)
[2021-08-19] MEDS: POLYETHYLENE GLYCOL 3350 17 GM POWD.PACK PO SCH (09:09)
[2021-08-19] MEDS: VALSARTAN 80 MG TABLET PO SCH (09:10)
[2021-08-19] MEDS: CARVEDILOL 12.5 MG TABLET PO SCH ×2 (09:11→21:37)
[2021-08-19] MEDS: SPIRONOLACTONE 25 MG TABLET PO SCH (09:11)
[2021-08-19] MEDS: DOCUSATE SODIUM 100 MG CAPSULE PO SCH ×2 (09:11→18:03)
[2021-08-19] MEDS: LINAGLIPTIN 5 MG TABLET PO SCH (09:11)
[2021-08-19] MEDS: INSULIN GLARGINE, 100 UNIT/ML CARTRIDGE SQ SCH ×2 (09:17→21:46)
[2021-08-19] MEDS ORDERED: MAGNESIUM OXIDE 400 MG TABLET PO ONE (10:00)
[2021-08-19] MEDS: THERAHONEY GEL 1.5 OZ TUBE TP SCH (12:04)
[2021-08-19 16:00] VITALS: BP 145/78
[2021-08-19] MEDS: IV NS 0.9% 1,000 ML IV SCH (18:03)
[2021-08-19] MEDS: RIVAROXABAN 10 MG TABLET PO SCH (18:04)
--- NOTE | 2021-08-19 19:07 | NUR ---
RN CLOSING NOTES PATIENT AWAKE IN BED AT SEMI-DELEON'S POSITION. PATIENT IS A/O X2-3. ABLE TO MAKE NEEDS KNOWN IN [place] LANGUAGE.CONFUSED. REORIENT THE PATIENT FREQUENTLY. DENIES PAIN OR ANY DISCOMFORTS AT THIS TIME. ON O2 INHALATION VIA NASAL CANNULA AT 4LPM TOLERATING WELL, NO SOB NOTED. IV ACCESS ON RFA WITH IVF OF NS 75ML/HR INFUSING WELL. IV ACCESS ON LFA #20 INTACT. LEACH CATHETER IN PLACED DRAINING CLEAR YELLOW URINE VIA GRAVITY. ALL DUE MEDS AND TREATMENTS GIVEN ORDERED.SAFETY MEASURES IN PLACED:CALL LIGHT WITHIN REACH, BED ON LOWEST LOCKED POSITION, SIDE RAILS UP X3.HEAD OF THE BED ELEVATED FOR ASPIRATION PRECAUTION. WILL ENDORSE FOR WAN..
[2021-08-19] MEDS: Magnesium 1GM/D5W 100ML PREMIX PIGGYBACK IV SCH ×2 (19:12→20:51)
[2021-08-19 20:00] VITALS: BP 141/79
[2021-08-20] MEDS: IV NS 0.9% 1,000 ML IV SCH ×2 (04:06→16:40)
[2021-08-20] MEDS: ZOSYN IVPB 3.375 G in IV D5W 50ml IV SCH (05:02)
[2021-08-20] MEDS: hydrALAZINE HCL 50 MG TABLET PO SCH ×3 (05:02→20:56)
[2021-08-20] MEDS: INSULIN REGULAR, HUMAN 100 UNIT/ML 3 ML VIAL SQ PRN ×4 (06:03→23:21)
[2021-08-20] MEDS: BLOOD SUGAR DIAGNOSTIC 1 EACH STRIP IN SCH ×4 (06:05→23:15)
[2021-08-20 07:11] LABS: BASOPHILS % (AUTO) 0.2 % (0.0-2.0); EOSINOPHILS % (AUTO) 2.1 % (0.0-6.0); HEMATOCRIT 35 % (33-45); HEMOGLOBIN 10.9 g/dL (11.5-14.8); LYMPHOCYTES # (AUTO) 1.5 K/uL (0.8-4.8); LYMPHOCYTES % (AUTO) 10.8 % (20.0-44.0); MEAN CORPUSCULAR HGB CONC 31 g/dl (31.0-36.0); MEAN CORPUSCULAR VOLUME 84 fL (82-100); MONOCYTES # (AUTO) 0.9 K/uL (0.1-1.30); MONOCYTES % (AUTO) 6.2 % (2.0-12.0); NEUTROPHILS # (AUTO) 11.4 K/uL (1.8-8.9); NEUTROPHILS % (AUTO) 80.7 % (43.0-81.0); PLATELET COUNT (AUTO) 274 K/uL (150-450); RED BLOOD CELL COUNT(AUTO) 4.14 MIL/uL (4.0-5.2); WHITE BLOOD COUNT (AUTO) 14.2 K/uL (4.3-11.0)
--- NOTE | 2021-08-20 07:15 | NUR ---
RN CLOSING NOTES Patient is A&Ox3 alert to name and light touch. Foreman cath had 1300cc output. No BM this shift. LFA #20G intact and patent running NS at 75cc/hr. No s/s of hypo or hyperglycemia. Tolerating IVF and IV ABX well. No complaints overnight. Currently resting in bed in no signs of distress.
--- NOTE | 2021-08-20 07:30 | NUR ---
ms rn received patient on bed, awake,alert,oriented x4, not in any form of distress, respirations even and unlabored,no sob noted, lungs are clear, abdomen soft,positive bowel sounds, w/ amezquita cath to gravity bag, yellowish urine output,denies pain at this time, will monitor patient.
[2021-08-20 08:00] VITALS: BP 167/95
[2021-08-20 09:02] LABS: CALCIUM, SERUM 9.8 mg/dL (8.5-10.1); CREATININE 1.6 mg/dL (0.6-1.3); MAGNESIUM 2.1 mg/dL (1.8-2.4); POTASSIUM 3.7 mmol/L (3.5-5.1)
--- NOTE | 2021-08-20 09:20 | NUR ---
ms schmidt breakfast served,due med given. tolerated well.
[2021-08-20] MEDS: VALSARTAN 80 MG TABLET PO SCH (09:38)
[2021-08-20] MEDS: SPIRONOLACTONE 25 MG TABLET PO SCH (09:39)
[2021-08-20] MEDS: LINAGLIPTIN 5 MG TABLET PO SCH (09:39)
[2021-08-20] MEDS: CARVEDILOL 12.5 MG TABLET PO SCH ×2 (09:39→20:56)
[2021-08-20] MEDS: OLANZAPINE 5 MG TABLET PO SCH ×2 (09:39→18:06)
[2021-08-20] MEDS: DOCUSATE SODIUM 100 MG CAPSULE PO SCH ×2 (09:39→18:06)
[2021-08-20] MEDS: PAROXETINE HCL 20 MG TABLET PO SCH (09:39)
[2021-08-20] MEDS: ASPIRIN 81 MG TAB.CHEW PO SCH (09:40)
[2021-08-20] MEDS: POLYETHYLENE GLYCOL 3350 17 GM POWD.PACK PO SCH (09:40)
[2021-08-20] MEDS: MEROPENEM 500 MG in IV NS 0.9% 100 ML IV SCH ×3 (09:44→20:55)
[2021-08-20] MEDS: INSULIN GLARGINE, 100 UNIT/ML CARTRIDGE SQ SCH ×2 (10:03→21:22)
--- NOTE | 2021-08-20 15:35 | NUR ---
ms rn on bed, sleeping,no distress noted.
[2021-08-20 16:00] VITALS: BP 139/77
[2021-08-20] MEDS: GLUCERNA SHAKE 237 ML CAN PO SCH (17:00)
[2021-08-20] MEDS: RIVAROXABAN 10 MG TABLET PO SCH (18:07)
[2021-08-20] MEDS: ONDANSETRON HCL/PF 4 MG/2 ML VIAL IVP PRN ×2 (18:12→18:46)
[2021-08-20] MEDS: THERAHONEY GEL 1.5 OZ TUBE TP SCH (18:14)
--- NOTE | 2021-08-20 19:12 | NUR ---
RN NOTES: RECEIVED ASLEEP ON BED, PER ENDORSEMENT SHE VOMITED AND HAD BM IN THE MORNING, SHE WAS GIVEN ZOFRAN, AT THIS TIME SHE IS RESTING. -INCONTINENT ON LEACH CATH DRAINING INTO YELLOWISH COLORED URINE AT 100CC LEVEL, IV CANNULA ON RFA G#24 AND LFA g#20 IVF NS AT 75 CC/HR ON GOING.
[2021-08-20 20:00] VITALS: BP 158/72
--- NOTE | 2021-08-21 | NUR ---
RN NOTES: ASLEEP IN THE NIGHT BLOOD SUGAR CHECKED-221, GIVEN INSULIN PER SCALE WILL CONTINUE TO MONITOR FOR SIGN OF HYPER/HYPOGLYCEMIA.
[2021-08-21] MEDS: MEROPENEM 500 MG in IV NS 0.9% 100 ML IV SCH ×3 (05:11→20:27)
[2021-08-21] MEDS: hydrALAZINE HCL 50 MG TABLET PO SCH ×3 (05:37→20:28)
[2021-08-21] MEDS: BLOOD SUGAR DIAGNOSTIC 1 EACH STRIP IN SCH ×3 (05:38→17:31)
[2021-08-21] MEDS: INSULIN REGULAR, HUMAN 100 UNIT/ML 3 ML VIAL SQ PRN ×3 (05:40→18:34)
[2021-08-21] MEDS: IV NS 0.9% 1,000 ML IV SCH ×2 (06:00→19:30)
[2021-08-21 06:46] LABS: BASOPHILS # (AUTO) 0.1 K/uL (0.0-0.2); BASOPHILS % (AUTO) 0.3 % (0.0-2.0); EOSINOPHILS % (AUTO) 1.7 % (0.0-6.0); HEMATOCRIT 35 % (33-45); LYMPHOCYTES # (AUTO) 1.4 K/uL (0.8-4.8); LYMPHOCYTES % (AUTO) 9.2 % (20.0-44.0); MEAN CORPUSCULAR HGB CONC 32 g/dl (31.0-36.0); MEAN CORPUSCULAR VOLUME 84 fL (82-100); MONOCYTES # (AUTO) 0.9 K/uL (0.1-1.30); NEUTROPHILS # (AUTO) 12.4 K/uL (1.8-8.9); NEUTROPHILS % (AUTO) 82.8 % (43.0-81.0); PLATELET COUNT (AUTO) 277 K/uL (150-450); RED BLOOD CELL COUNT(AUTO) 4.15 MIL/uL (4.0-5.2)
[2021-08-21 07:02] LABS: CALCIUM, SERUM 9.6 mg/dL (8.5-10.1); CREATININE 1.5 mg/dL (0.6-1.3); PHOSPHORUS 2.4 mg/dL (2.5-4.9); POTASSIUM 3.6 mmol/L (3.5-5.1)
--- NOTE | 2021-08-21 07:43 | NUR ---
RN NOTES: CONTINUE TO HYDRATE, DRINKING WATER, TOLERATED, ASPIRATION PRECAUTION OBSERVED, AT AROUND 0400, HAD BM, SOFT INCONSISTENCY, NORMAL STOOL, NO FOUL SMELLING,CLEAN AND CHANGED, ENDORSED FOR CONTINUITY OF CARE.
[2021-08-21 08:00] VITALS: BP 161/80
[2021-08-21] MEDS ORDERED: NEUTRA PHOS 1 POWD.PACKET PO ONE (09:00)
[2021-08-21] MEDS: DOCUSATE SODIUM 100 MG CAPSULE PO SCH ×2 (09:00→17:00)
[2021-08-21] MEDS: POLYETHYLENE GLYCOL 3350 17 GM POWD.PACK PO SCH (09:00)
[2021-08-21] MEDS: SPIRONOLACTONE 25 MG TABLET PO SCH (09:39)
[2021-08-21] MEDS: LINAGLIPTIN 5 MG TABLET PO SCH (09:39)
[2021-08-21] MEDS: OLANZAPINE 5 MG TABLET PO SCH ×2 (09:39→17:31)
[2021-08-21] MEDS: CARVEDILOL 12.5 MG TABLET PO SCH ×2 (09:39→20:28)
[2021-08-21] MEDS: VALSARTAN 80 MG TABLET PO SCH (09:39)
[2021-08-21] MEDS: ASPIRIN 81 MG TAB.CHEW PO SCH (09:39)
[2021-08-21] MEDS: PAROXETINE HCL 20 MG TABLET PO SCH (09:39)
[2021-08-21] MEDS: GLUCERNA SHAKE 237 ML CAN PO SCH ×3 (09:40→17:00)
[2021-08-21] MEDS: THERAHONEY GEL 1.5 OZ TUBE TP SCH (09:41)
[2021-08-21] MEDS: INSULIN GLARGINE, 100 UNIT/ML CARTRIDGE SQ SCH ×2 (09:46→20:31)
--- NOTE | 2021-08-21 10:00 | NUR ---
ms rn on bed,no distress noted,all needs attended.
[2021-08-21] MEDS: hydrALAZINE HCL IV 20 MG VIAL IV PRN (12:59)
[2021-08-21 16:00] VITALS: BP 148/63
[2021-08-21] MEDS: RIVAROXABAN 10 MG TABLET PO SCH (17:32)
--- NOTE | 2021-08-21 19:00 | NUR ---
ms rn on bed,no distress noted,all needs attended.
--- NOTE | 2021-08-21 19:34 | NUR ---
RN OPENING NOTES RECEIVED PT IN BED, AWAKE. AOx3. ON NC 4LPM AND TOLERATING WELL. NO SOB NOTED. NO S/SX OF RESPIRATORY DISTRESS NOTED. IV ACCESS IN RFA #24 G AND LFA #20G RUNNING NS @ 75 ML/HR. SAFETY PRECAUTIONS IN PLACE: BED IN LOWEST, LOCKED POSITION, SIDERAILS UPx2, AND BRAKES ON. TABLE AND CALL LIGHT WITHIN REACH. WILL CONTINUE TO MONITOR.
[2021-08-21 20:00] VITALS: BP 166/72
[2021-08-22] MEDS: BLOOD SUGAR DIAGNOSTIC 1 EACH STRIP IN SCH ×4 (00:14→17:10)
[2021-08-22] MEDS: INSULIN REGULAR, HUMAN 100 UNIT/ML 3 ML VIAL SQ PRN ×3 (00:16→17:10)
[2021-08-22] MEDS: MEROPENEM 500 MG in IV NS 0.9% 100 ML IV SCH ×3 (04:41→21:31)
[2021-08-22] MEDS: hydrALAZINE HCL 50 MG TABLET PO SCH ×3 (04:42→21:32)
--- NOTE | 2021-08-22 04:42 | NUR ---
PT REFUSED HYDRALAZINE, STATED "SHE IS GETTING TOO MANY MEDS HERE". EDUCATED PATIENT THAT HYDRALAZINE WAS TO LOWER HER HYPERTENSION OF 155 / 71 AND 101 BPM BUT SHE REFUSED. WILL CONTINUE TO MONITOR.
[2021-08-22 06:36] LABS: CALCIUM, SERUM 9.7 mg/dL (8.5-10.1); CREATININE 1.2 mg/dL (0.6-1.3); PHOSPHORUS 2.3 mg/dL (2.5-4.9); POTASSIUM 3.9 mmol/L (3.5-5.1)
--- NOTE | 2021-08-22 06:47 | NUR ---
RN CLOSING NOTES PT IN BED, ASLEEP, AWAKENS TO VERBAL STIMULI. AOx3. ON NC 4LPM AND TOLERATING WELL. NO SOB NOTED. NO S/SX OF RESPIRATORY DISTRESS NOTED. IV ACCESS IN RFA #24 G AND R HAND #22 RUNNING NS @ 75 ML/HR. ALL NEEDS MET. PT KEPT CLEAN AND DRY. SAFETY PRECAUTIONS IN PLACE: BED IN LOWEST, LOCKED POSITION, SIDERAILS UPx2, AND BRAKES ON. TABLE AND CALL LIGHT WITHIN REACH. WILL ENDORSE TO ONCOMING SHIFT FOR WAN.
--- NOTE | 2021-08-22 07:45 | NUR ---
RN OPENING NOTES Patient seen comfortably lying in bed, no apparent distress noted, respirations even and unlabored, no shortness of breath, no grimacing, denies any pain or discomfort at this time. Call light left within reach, safety precautions in place, brakes locked, side rails up X 2, will monitor closely for any changes.
[2021-08-22 08:30] VITALS: BP 158/76
[2021-08-22] MEDS: POLYETHYLENE GLYCOL 3350 17 GM POWD.PACK PO SCH (08:42)
[2021-08-22] MEDS: GLUCERNA SHAKE 237 ML CAN PO SCH ×3 (08:42→17:10)
[2021-08-22] MEDS: SPIRONOLACTONE 25 MG TABLET PO SCH (08:42)
[2021-08-22] MEDS: PAROXETINE HCL 20 MG TABLET PO SCH (08:42)
[2021-08-22] MEDS: OLANZAPINE 5 MG TABLET PO SCH ×2 (08:42→16:23)
[2021-08-22] MEDS: ASPIRIN 81 MG TAB.CHEW PO SCH (08:42)
[2021-08-22] MEDS: VALSARTAN 80 MG TABLET PO SCH (08:43)
[2021-08-22] MEDS: CARVEDILOL 12.5 MG TABLET PO SCH ×2 (08:43→21:32)
[2021-08-22] MEDS: DOCUSATE SODIUM 100 MG CAPSULE PO SCH ×3 (08:43→16:34)
[2021-08-22] MEDS: LINAGLIPTIN 5 MG TABLET PO SCH (08:43)
[2021-08-22] MEDS: INSULIN GLARGINE, 100 UNIT/ML CARTRIDGE SQ SCH ×2 (08:58→21:56)
[2021-08-22] MEDS ORDERED: NEUTRA PHOS 1 POWD.PACKET PO ONE (10:00)
[2021-08-22 10:32] LABS: ALBUMIN 2.3 g/dL (3.4-5.0); BILIRUBIN,TOTAL 0.4 mg/dL (0.2-1.0); CALCIUM, SERUM 9.5 mg/dL (8.5-10.1); CREATININE 1.3 mg/dL (0.6-1.3); POTASSIUM 4.2 mmol/L (3.5-5.1); TOTAL PROTEIN, SERUM 6.8 g/dL (6.4-8.2)
[2021-08-22] MEDS ORDERED: MERO500V23 IV (11:41)
[2021-08-22] MEDS ORDERED: IV NS 0.9% 1,000 ML IV PRN (14:58)
[2021-08-22] MEDS: THERAHONEY GEL 1.5 OZ TUBE TP SCH (15:06)
[2021-08-22] MEDS: RIVAROXABAN 10 MG TABLET PO SCH (16:24)
[2021-08-22] MEDS: hydrALAZINE HCL IV 20 MG VIAL IV PRN (16:24)
[2021-08-22 16:29] VITALS: BP 168/78
[2021-08-22 17:00] VITALS: BP 157/74
--- NOTE | 2021-08-22 18:34 | NUR ---
RN CLOSING NOTES Patient lying in bed, no shortness of breath, breathing even and unlabored, no apparent distress noted, no grimacing. All due medications given as per MD order, tolerating well. No s/s of hypo or hyperglycemia, no tremors, no change in level of consciousness, insulin given per sliding scale as per MD order as needed. Patient has an order for IV antibiotics, tolerating well and also has an ongoing IV fluid for hydration (0.9NS at 75ml/hr), infusing well. Patient has IV peripheral lines on her right forearm and right hand, patent, intact and flushing well, no redness, no swelling noted, no s/s of infiltration at this time. Foreman catheter draining clear yellowish urine free from any sediments, no hematuria, and no unusual odor noted in urine, no grimacing when bladder palpated, bladder non distended during shift. Kept clean and dry, and all needs attended, call light left within reach, safety precautions in place, brakes locked, side rails up X 2, will endorse to next shift for continuity of care.
--- NOTE | 2021-08-22 19:49 | NUR ---
MS RN OPENING NOTES: RECEIVED PATIENT SLEEP IN BED COMFORTABLY, BED IN LOW POSITION, CALL LIGHTS WITHIN REACH, NO COMPLAIN OF PAIN AND DISCOMFORT AT THIS TIME ON LEACH CATHETER WITH 150CC URINE OUTPUT, WITH IV LINE AT RFA#20 AND R HAND#22 WITH ONGOING NSS@75ML/HR INFUSING WELL, PATIENT KEPT CLEAN AND DRY ALL NEEDS MET ENDORSE TO INCOMING SHIFT.
[2021-08-22 20:00] VITALS: BP 165/81
[2021-08-22 21:27] VITALS: BP 168/81
[2021-08-23] MEDS: INSULIN REGULAR, HUMAN 100 UNIT/ML 3 ML VIAL SQ PRN ×2 (00:33→08:07)
--- NOTE | 2021-08-23 01:24 | NUR ---
RN NOTES: BS-[id number] - 6 UNITS INSULIN GIVEN PER SLIDING SCALE
[2021-08-23] MEDS: ONDANSETRON HCL/PF 4 MG/2 ML VIAL IVP PRN (02:34)
[2021-08-23] MEDS: BLOOD SUGAR DIAGNOSTIC 1 EACH STRIP IN SCH ×2 (06:00)
[2021-08-23] MEDS: MEROPENEM 500 MG in IV NS 0.9% 100 ML IV SCH (06:32)
[2021-08-23] MEDS: hydrALAZINE HCL 50 MG TABLET PO SCH (06:32)
[2021-08-23 07:25] LABS: BASOPHILS # (AUTO) 0.1 K/uL (0.0-0.2); BASOPHILS % (AUTO) 0.4 % (0.0-2.0); EOSINOPHILS % (AUTO) 1.7 % (0.0-6.0); HEMATOCRIT 37 % (33-45); HEMOGLOBIN 11.6 g/dL (11.5-14.8); LYMPHOCYTES # (AUTO) 1.4 K/uL (0.8-4.8); LYMPHOCYTES % (AUTO) 8.9 % (20.0-44.0); MEAN CORPUSCULAR HGB CONC 32 g/dl (31.0-36.0); MEAN CORPUSCULAR VOLUME 83 fL (82-100); MONOCYTES # (AUTO) 0.9 K/uL (0.1-1.30); MONOCYTES % (AUTO) 5.8 % (2.0-12.0); NEUTROPHILS % (AUTO) 83.2 % (43.0-81.0); PLATELET COUNT (AUTO) 301 K/uL (150-450); RED BLOOD CELL COUNT(AUTO) 4.43 MIL/uL (4.0-5.2); WHITE BLOOD COUNT (AUTO) 15.6 K/uL (4.3-11.0)
--- NOTE | 2021-08-23 07:30 | NUR ---
PT RECEIVED. RESTING COMFORTABLY IN BED. NO S/S OR C/O PAIN OR DISTRESS NOTED. SIDE RAILS UP X2, CALL LIGHT LEFT WITHIN REACH. WILL CONTINUE PLAN OF CARE.
[2021-08-23 07:47] LABS: CALCIUM, SERUM 9.6 mg/dL (8.5-10.1); CREATININE 1.3 mg/dL (0.6-1.3); MAGNESIUM 1.9 mg/dL (1.8-2.4); POTASSIUM 4.1 mmol/L (3.5-5.1)
--- NOTE | 2021-08-23 08:00 | NUR ---
RN CLOSING NOTES: PATIENT WAS AWAKE IN BED, BED IN LOW POSITION, CALL LIGHTS WITHIN REACH, NO COMPLAIN OF PAIN AND DISCOMFORT AT THIS TIME, PATIENT WAS A/OX4 ABLE TO MAKE NEEDS KNOWN, PATIENT KEPT CLEAN AND DRY ALL NEEDS MET ENDORSE TO INCOMING SHIFT.
[2021-08-23] MEDS: SPIRONOLACTONE 25 MG TABLET PO SCH (08:22)
[2021-08-23] MEDS: ASPIRIN 81 MG TAB.CHEW PO SCH (08:22)
[2021-08-23] MEDS: OLANZAPINE 5 MG TABLET PO SCH (08:22)
[2021-08-23] MEDS: VALSARTAN 80 MG TABLET PO SCH (08:22)
[2021-08-23] MEDS: LINAGLIPTIN 5 MG TABLET PO SCH (08:23)
[2021-08-23] MEDS: CARVEDILOL 12.5 MG TABLET PO SCH (08:29)
[2021-08-23] MEDS: PAROXETINE HCL 20 MG TABLET PO SCH (08:29)
[2021-08-23] MEDS: GLUCERNA SHAKE 237 ML CAN PO SCH (08:30)
[2021-08-23 08:31] VITALS: BP 166/79
[2021-08-23] MEDS: INSULIN GLARGINE, 100 UNIT/ML CARTRIDGE SQ SCH (08:40)
[2021-08-23] MEDS: POLYETHYLENE GLYCOL 3350 17 GM POWD.PACK PO SCH (08:42)
[2021-08-23] MEDS: DOCUSATE SODIUM 100 MG CAPSULE PO SCH (08:42)
--- NOTE | 2021-08-23 10:00 | NUR ---
PT TRANSFERRED TO SNF DISCHARGE INSTRUCTIONS GIVEN ORDERED. ALL QUESTIONS AND CONCERNS ADDRESSED. PATIENT VERBALIZED UNDERSTANDING. IV REMOVED WITH CATHETER INTACT, PRESSURE DRESSING APPLIED. MEDICATION RECONCILIATION FORM COMPLETED AND COPY GIVEN TO PATIENT. REPORT GIVEN AND PATIENT TRANSPORTED BY AMBULANCE WITH ALL PERSONAL BELONGINGS. NO DISTRESS NOTED AT TIME OF DEPARTURE.
[2021-08-23] MEDS: THERAHONEY GEL 1.5 OZ TUBE TP SCH (11:51)
== END 2021-08-23 10:25 | DRG 853 ==
LOC: ER 19:09 → TELE 22:19 → OBSVTOIN 22:19 → TELE 08-16 22:28 → MED 08-18 09:05
PROVIDERS: ADMIT Internal Medicine; ATTEND Internal Medicine
PROC: 0JBR0ZZ Excision of Left Foot Subcutaneous Tissue and Fascia, Open Approach (ICD-10-PCS; principal; 2021-08-19)
DX: A41.9 Sepsis, unspecified organism (principal); L89.313 Pressure ulcer of right buttock, stage 3; G93.41 Metabolic encephalopathy; N39.0 Urinary tract infection, site not specified; I13.0 Hypertensive heart and chronic kidney disease with heart failure and stage 1 through stage 4 chronic kidney disease, or unspecified chronic kidney disease; Z68.43 Body mass index [BMI] 50.0-59.9, adult; L97.429 Non-pressure chronic ulcer of left heel and midfoot with unspecified severity; Z16.12 Extended spectrum beta lactamase (ESBL) resistance; E87.5 Hyperkalemia; E11.65 Type 2 diabetes mellitus with hyperglycemia; Z20.822 Contact with and (suspected) exposure to COVID-19; L60.3 Nail dystrophy; Z87.19 Personal history of other diseases of the digestive system; E11.22 Type 2 diabetes mellitus with diabetic chronic kidney disease; Z85.828 Personal history of other malignant neoplasm of skin; Z79.4 Long term (current) use of insulin; Z79.82 Long term (current) use of aspirin; Z79.84 Long term (current) use of oral hypoglycemic drugs; Z79.899 Other long term (current) drug therapy; Z90.710 Acquired absence of both cervix and uterus; Z87.11 Personal history of peptic ulcer disease; Z90.49 Acquired absence of other specified parts of digestive tract; Z88.8 Allergy status to other drugs, medicaments and biological substances; Z91.048 Other nonmedicinal substance allergy status; I50.9 Heart failure, unspecified; Z79.01 Long term (current) use of anticoagulants; N18.9 Chronic kidney disease, unspecified; F31.9 Bipolar disorder, unspecified; E66.01 Morbid (severe) obesity due to excess calories; L60.0 Ingrowing nail; E11.621 Type 2 diabetes mellitus with foot ulcer; L97.529 Non-pressure chronic ulcer of other part of left foot with unspecified severity; F20.9 Schizophrenia, unspecified; E07.9 Disorder of thyroid, unspecified; D64.9 Anemia, unspecified; G47.33 Obstructive sleep apnea (adult) (pediatric); B96.1 Klebsiella pneumoniae [K. pneumoniae] as the cause of diseases classified elsewhere; J32.0 Chronic maxillary sinusitis; N28.1 Cyst of kidney, acquired
CPT/HCPCS: 36415; 36600; 70450-TC; 71045-TC; 76770-TC; 80048-TC; 80053-TC; 80076-TC; 81001; 82803-TC; 82962-TC; 83605-TC; 83690-TC; 83735-TC; 84100-TC; 84443-TC; 84484-TC; 85025-TC; 85730-TC; 87040-TC; 87081-TC; 87086-TC; 87186-TC; 92521; 92526; 92611-TC; C9803; G0378; G0480; J0360; J0696; J1815; J2185; J2270; J2405; J2543; J3475; J3490; J7030; J7040; J7050; J7060

== ENCOUNTER 2024-07-27 15:47 | Inpatient (IN) | payer MEDICARE, BC ==
[~2024-07-27] VITALS: Ht 165.1 cm; Wt 155.6 kg
[~2024-07-27 15:47] MED LIST changes: -CIPR500T5 PO; +MERO500V23 IV; -METF-440 PO
[2024-07-27] MEDS ORDERED: CHOL100043 PO (16:32)
[2024-07-27] MEDS ORDERED: AMLO-213 PO (16:32)
[2024-07-27] MEDS ORDERED: ESCI10TA PO (16:32)
[2024-07-27] MEDS ORDERED: SENN8.6T19 PO (16:32)
[2024-07-27] MEDS ORDERED: FERR-68 PO (16:32)
[2024-07-27] MEDS ORDERED: INSU100I4 SQ (16:32)
[2024-07-27] MEDS ORDERED: MAGN400T30 PO (16:32)
[2024-07-27] MEDS ORDERED: GLUC1KIT IM (16:32)
[2024-07-27] MEDS ORDERED: INSU100I26 SQ (16:32)
[2024-07-27] MEDS ORDERED: METO50TA16 PO (16:32)
[2024-07-27] MEDS ORDERED: OXYC-133 PO (16:32)
[2024-07-27] MEDS ORDERED: ISOS60TA72 PO (16:32)
[2024-07-27] MEDS ORDERED: PANT40TA2 PO (16:32)
[2024-07-27] MEDS ORDERED: MELA5TAB PO (16:32)
[2024-07-27] MEDS ORDERED: MULT-213 PO (16:32)
[2024-07-27] MEDS ORDERED: ATOR40TA PO (16:32)
[2024-07-27] MEDS ORDERED: GEMF600T90 PO (16:32)
[2024-07-27] MEDS ORDERED: HYDR100T27 PO (16:32)
[2024-07-27] MEDS ORDERED: SACU1TAB PO (16:32)
[2024-07-27] MEDS ORDERED: ACET-868 PO (16:32)
[2024-07-27] MEDS ORDERED: NITR0.4T48 SL (16:32)
[2024-07-27] MEDS ORDERED: ACET-2030 PO (16:32)
[2024-07-27] MEDS ORDERED: LUBI24CA5 PO (16:32)
[2024-07-27 16:43] LABS: BASOPHILS # (AUTO) 0.1 K/uL (0.0-0.2); BASOPHILS % (AUTO) 0.4 % (0.0-2.0); CALCIUM, SERUM 9.3 mg/dL (8.5-10.1); CARBON DIOXIDE 24 mmol/L (21-32); CHLORIDE 100 mmol/L (98-107); CREATININE 2.6 mg/dL (0.6-1.3); EOSINOPHILS # (AUTO) 0.1 K/uL (0.0-0.7); EOSINOPHILS % (AUTO) 0.8 % (0.0-6.0); GLUCOSE 260 mg/dL (74-106); HEMATOCRIT 38 % (33-45); LYMPHOCYTES # (AUTO) 1.3 K/uL (0.8-4.8); LYMPHOCYTES % (AUTO) 6.7 % (20.0-44.0); MEAN CORPUSCULAR HEMOGLOBIN 27 PG (26.0-33.0); MEAN CORPUSCULAR HGB CONC 31 g/dl (31.0-36.0); MEAN CORPUSCULAR VOLUME 86 fL (82-100); MONOCYTES # (AUTO) 1.6 K/uL (0.1-1.30); MONOCYTES % (AUTO) 8.2 % (2.0-12.0); NEUTROPHILS % (AUTO) 83.9 % (43.0-81.0); PLATELET COUNT (AUTO) 273 K/uL (150-450); POTASSIUM 4.7 mmol/L (3.5-5.1); RED BLOOD CELL COUNT(AUTO) 4.49 MIL/uL (4.0-5.2); RED CELL DISTRIBUTION WIDTH 14.6 % (11.5-15.0); SODIUM SERUM 133 mmol/L (136-145); UREA NITROGEN, BLOOD 69 mg/dL (7-18); WHITE BLOOD COUNT (AUTO) 19.1 K/uL (4.3-11.0)
[2024-07-27 16:49] LABS: ALANINE AMINOTRANSFERASE 22 U/L (12-78); ALBUMIN 2.6 g/dL (3.4-5.0); ALKALINE PHOSPHATASE 132 U/L (46-116); ASPARTATE AMINOTRANSFERASE 14 U/L (15-37); BILIRUBIN,DIRECT 0.1 mg/dL (0.0-0.2); BILIRUBIN,TOTAL 0.3 mg/dL (0.2-1.0); TOTAL PROTEIN, SERUM 7.2 g/dL (6.4-8.2)
[2024-07-27 16:50] LABS: ACETAMINOPHEN 0 ug/ml (10-30); ALCOHOL, BLOOD < 3 mg/dL (0-10); SALICYLATE 1.6 mg/dL (2.8-20.0)
[2024-07-27 16:59] LABS: APPEARANCE,URINE CLOUDY (CLEAR); BILIRUBIN,URINE NEGATIVE (NEGATIVE); BLOOD, URINE NEGATIVE Ery/uL (NEGATIVE); COLOR,URINE YELLOW (YELLOW); KETONES,URINE NEGATIVE (NEGATIVE); LEUKOCYTE ESTERASE ,URINE 1+ (NEGATIVE); NITRITE, URINE NEGATIVE (NEGATIVE); PROTEIN,URINE 2+ mg/dl (NEGATIVE); UGLUCOSE NEGATIVE (NEGATIVE); UROBILINOGEN,URINE 0.2 EU/dL (0.2)
[2024-07-27 17:09] LABS: ADD URINE CULTURE YES; AMPHETAMINE, URINE NEGATIVE (NEGATIVE); BACTERIA,URINE Many /HPF (None Seen); BARBITURATE, URINE NEGATIVE (NEGATIVE); BENZODIAZEPINE, URINE NEGATIVE (NEGATIVE); CANNABINOID, URINE NEGATIVE (NEGATIVE); COCCAINE, URINE NEGATIVE (NEGATIVE); PHENCYCLIDINE SCREEN,URINE NEGATIVE (NEGATIVE); RBC,URINE 0-2 /HPF (0-2); SQUAMOUS EPITHELIAL CELL,UR Few /HPF (None Seen); WBC,URINE 51-80 /HPF (0-3)
[2024-07-27 17:10] LABS: OPIATE, URINE POSITIVE (NEGATIVE)
[2024-07-27] MEDS ORDERED: DEXTROSE 50%-WATER 50 ML DISP.SYRIN IV PRN (17:30)
[2024-07-27] MEDS ORDERED: IV NS 0.9% 1,000 ML IV PRN (17:30)
[2024-07-27] MEDS ORDERED: MAGNESIUM HYDROXIDE 30 ML UDC PO PRN (17:30)
[2024-07-27] MEDS ORDERED: Z GUARD REMEDY 4 OZ OINT TP PRN (17:30)
[2024-07-27] MEDS ORDERED: ONDANSETRON HCL/PF 4 MG/2 ML VIAL IVP PRN (17:30)
[2024-07-27] MEDS: CEFTRIAXONE 1GM BAG (ER ONLY) 1 GM/50 ML PIGGYBACK IV ONE (17:33)
[2024-07-27] MEDS: IV NS 0.9% 1,000 ML BAG IV ONE (17:33)
[2024-07-27] MEDS ORDERED: BISACODYL SUPP (10 MG) 10 MG/SUPP.RECT SUPP.RECT RC PRN (18:00)
[2024-07-27] MEDS ORDERED: LUBIPROSTONE 24 MCG XX SCH (18:00)
[2024-07-27] MEDS: BLOOD SUGAR DIAGNOSTIC 1 EACH STRIP IN SCH (18:26)
[2024-07-27] MEDS: CEFEPIME 1 GM in IV D5W 50 ML IV ONE (19:30)
[2024-07-27] MEDS: INSULIN REGULAR, HUMAN 100 UNIT/ML 3 ML VIAL SQ PRN (20:09)
[2024-07-27 20:20] VITALS: BP 111/53; TEMP 97.9; O2SAT 96
[2024-07-27] MEDS: hydrALAZINE HCL 25 MG TABLET PO SCH (21:00)
[2024-07-27] MEDS ORDERED: CEFEPIME 1 GM VIAL ONE (21:25)
[2024-07-27] MEDS: SENNOSIDES 8.6 MG TABLET PO SCH (22:00)
[2024-07-27] MEDS: INSULIN GLARGINE,BASAGLAR 100 UNIT/ML INSULN.PEN SQ SCH (22:00)
[2024-07-27] MEDS: ATORVASTATIN 40 MG TABLET PO SCH (22:00)
[2024-07-27] MEDS: HYDROCODONE/APAP 5/325MG TABLET PO PRN (22:11)
[2024-07-28] MEDS: PANTOPRAZOLE 40 MG TABLET.DR PO SCH (06:37)
[2024-07-28 07:04] LABS: BASOPHILS % (AUTO) 0.2 % (0.0-2.0); EOSINOPHILS # (AUTO) 0.1 K/uL (0.0-0.7); EOSINOPHILS % (AUTO) 0.4 % (0.0-6.0); HEMATOCRIT 36 % (33-45); HEMOGLOBIN 11.4 g/dL (11.5-14.8); LYMPHOCYTES % (AUTO) 7.2 % (20.0-44.0); MEAN CORPUSCULAR HEMOGLOBIN 27 PG (26.0-33.0); MEAN CORPUSCULAR HGB CONC 32 g/dl (31.0-36.0); MEAN CORPUSCULAR VOLUME 85 fL (82-100); MONOCYTES # (AUTO) 1.3 K/uL (0.1-1.30); NEUTROPHILS # (AUTO) 11.9 K/uL (1.8-8.9); NEUTROPHILS % (AUTO) 83.2 % (43.0-81.0); PLATELET COUNT (AUTO) 275 K/uL (150-450); RED BLOOD CELL COUNT(AUTO) 4.25 MIL/uL (4.0-5.2); RED CELL DISTRIBUTION WIDTH 14.4 % (11.5-15.0); WHITE BLOOD COUNT (AUTO) 14.3 K/uL (4.3-11.0)
[2024-07-28 07:45] LABS: THYROID STIMULATING HORMONE 0.03 uIU/mL (0.358-3.74)
[2024-07-28 07:54] LABS: CALCIUM, SERUM 9.2 mg/dL (8.5-10.1); CREATININE 2.2 mg/dL (0.6-1.3); MAGNESIUM 1.9 mg/dL (1.8-2.4); PHOSPHORUS 3.7 mg/dL (2.5-4.9); POTASSIUM 4.7 mmol/L (3.5-5.1)
[2024-07-28 08:00] VITALS: BP 124/59; TEMP 97.9; O2SAT 96
[2024-07-28] MEDS ORDERED: IV NS 0.9% 1,000 ML BAG IV PRN (08:00)
[2024-07-28] MEDS ORDERED: IV NS 0.9% 1,000 ML IV PRN (08:30)
[2024-07-28] MEDS: CHOLECALCIFEROL 1,000 UNIT TABLET (VIT D3) PO SCH (08:55)
[2024-07-28] MEDS: MAGNESIUM OXIDE 400 MG TABLET PO SCH (08:55)
[2024-07-28] MEDS: ISOSORBIDE MONONITRATE (30MG) 30 MG TAB.SR.24H PO SCH (08:55)
[2024-07-28] MEDS: METOPROLOL TARTRATE 50 MG TABLET PO SCH (08:56)
[2024-07-28] MEDS: ASPIRIN 81 MG TAB.CHEW PO SCH (08:56)
[2024-07-28] MEDS: MULTIVITAMINS,THERAGRAN 1 UDTAB TABLET PO SCH (08:56)
[2024-07-28] MEDS: AMLODIPINE BESYLATE 10 MG TABLET PO SCH (08:56)
[2024-07-28] MEDS: GEMFIBROZIL 600 MG TABLET PO SCH (08:56)
[2024-07-28] MEDS: SACUBITRIL/VALSARTAN 24/26MG TABLET PO SCH (08:56)
[2024-07-28] MEDS: FERROUS SULFATE (325 MG) 325 MG/TAB TABLET PO SCH (08:56)
[2024-07-28] MEDS: RIVAROXABAN 10 MG TABLET PO SCH (08:58)
[2024-07-28] MEDS: ESCITALOPRAM OXALATE (10 MG) 10 MG TABLET PO SCH (08:59)
[2024-07-28] MEDS: INSULIN GLARGINE, 100 UNIT/ML CARTRIDGE SQ SCH ×2 (09:00→22:00)
[2024-07-28] MEDS: CEFEPIME 2 GM in IV D5W 100 ML IV SCH (09:25)
[2024-07-28 16:00] VITALS: BP 121/60; TEMP 97.5; O2SAT 98
[2024-07-28] MEDS: CEFTRIAXONE 1 G in IV D5W 50 ML IV SCH (17:12)
[2024-07-29] MEDS: OLANZAPINE 2.5 MG TABLET PO SCH ×2 (13:00→22:00)
[2024-07-29] MEDS: MAG HYDROX/AL HYDROX/SIMETH 30 ML UDC PO PRN (17:28)
[2024-07-29] MEDS: ACETAMINOPHEN 325 MG TABLET PO PRN (17:28)
[2024-07-29 17:30] VITALS: BP 156/66; TEMP 97.8; O2SAT 98
[2024-07-29 20:00] VITALS: BP 135/61; TEMP 97.9; O2SAT 95
[2024-07-30 00:26] VITALS: BP 141/71; O2SAT 96
[2024-07-30 06:52] LABS: BASOPHILS # (AUTO) 0.1 K/uL (0.0-0.2); BASOPHILS % (AUTO) 0.5 % (0.0-2.0); EOSINOPHILS # (AUTO) 0.2 K/uL (0.0-0.7); EOSINOPHILS % (AUTO) 2.2 % (0.0-6.0); HEMATOCRIT 35 % (33-45); HEMOGLOBIN 11.1 g/dL (11.5-14.8); LYMPHOCYTES # (AUTO) 1.9 K/uL (0.8-4.8); LYMPHOCYTES % (AUTO) 19.1 % (20.0-44.0); MEAN CORPUSCULAR HEMOGLOBIN 27 PG (26.0-33.0); MEAN CORPUSCULAR HGB CONC 32 g/dl (31.0-36.0); MEAN CORPUSCULAR VOLUME 84 fL (82-100); MONOCYTES # (AUTO) 1.2 K/uL (0.1-1.30); MONOCYTES % (AUTO) 12.8 % (2.0-12.0); NEUTROPHILS # (AUTO) 6.3 K/uL (1.8-8.9); NEUTROPHILS % (AUTO) 65.4 % (43.0-81.0); PLATELET COUNT (AUTO) 295 K/uL (150-450); RED BLOOD CELL COUNT(AUTO) 4.13 MIL/uL (4.0-5.2); RED CELL DISTRIBUTION WIDTH 14.3 % (11.5-15.0); WHITE BLOOD COUNT (AUTO) 9.7 K/uL (4.3-11.0)
[2024-07-30 06:56] LABS: CALCIUM, SERUM 9.8 mg/dL (8.5-10.1); CREATININE 1.7 mg/dL (0.6-1.3); POTASSIUM 4.7 mmol/L (3.5-5.1)
[2024-07-30 08:00] VITALS: BP 144/72; TEMP 98.1; O2SAT 97
[2024-07-30 16:00] VITALS: BP 133/63; TEMP 98.1; O2SAT 98
[2024-07-30] MEDS ORDERED: OLANZAPINE 2.5 MG TABLET PO PRN (21:00)
[2024-07-31 06:07] LABS: PTH, INTACT 30 pg/mL (15-65)
[2024-07-31] MEDS: SULFAMETH/TRIMETH 800/160 MG 1 UDTAB TABLET PO SCH (09:00)
[2024-07-31 16:00] VITALS: BP 124/81; TEMP 98.4; O2SAT 96
[2024-08-01 07:17] LABS: BASOPHILS % (AUTO) 0.3 % (0.0-2.0); EOSINOPHILS # (AUTO) 0.2 K/uL (0.0-0.7); EOSINOPHILS % (AUTO) 2.8 % (0.0-6.0); HEMATOCRIT 36 % (33-45); HEMOGLOBIN 11.5 g/dL (11.5-14.8); LYMPHOCYTES # (AUTO) 2.1 K/uL (0.8-4.8); LYMPHOCYTES % (AUTO) 24.1 % (20.0-44.0); MEAN CORPUSCULAR HEMOGLOBIN 27 PG (26.0-33.0); MEAN CORPUSCULAR HGB CONC 32 g/dl (31.0-36.0); MEAN CORPUSCULAR VOLUME 85 fL (82-100); MONOCYTES % (AUTO) 11.2 % (2.0-12.0); NEUTROPHILS # (AUTO) 5.4 K/uL (1.8-8.9); NEUTROPHILS % (AUTO) 61.6 % (43.0-81.0); PLATELET COUNT (AUTO) 291 K/uL (150-450); RED BLOOD CELL COUNT(AUTO) 4.27 MIL/uL (4.0-5.2); RED CELL DISTRIBUTION WIDTH 14.2 % (11.5-15.0); WHITE BLOOD COUNT (AUTO) 8.8 K/uL (4.3-11.0)
[2024-08-01] MEDS: GLUCERNA SHAKE 237 ML CAN PO SCH (07:53)
[2024-08-01 08:00] VITALS: BP 154/58; TEMP 97.7; O2SAT 96
[2024-08-01 08:06] LABS: CALCIUM, SERUM 10.1 mg/dL (8.5-10.1); CREATININE 1.5 mg/dL (0.6-1.3); POTASSIUM 4.9 mmol/L (3.5-5.1)
[2024-08-01 09:28] LABS: MAGNESIUM 2.2 mg/dL (1.8-2.4); PHOSPHORUS 3.8 mg/dL (2.5-4.9)
[2024-08-01 16:00] VITALS: BP 165/64; TEMP 98.8; O2SAT 98
[2024-08-02 04:19] VITALS: BP 0/0
== END 2024-08-02 13:27 | DRG 871 ==
LOC: ER 15:50 → MS IN 18:26 → MED 19:39
PROVIDERS: ADMIT Nurse Practitioner Acute Care; ATTEND Student in an Organized Health Care Education/Training Program
DX: A41.9 Sepsis, unspecified organism (principal); G93.41 Metabolic encephalopathy; N17.0 Acute kidney failure with tubular necrosis; J96.21 Acute and chronic respiratory failure with hypoxia; N39.0 Urinary tract infection, site not specified; I13.0 Hypertensive heart and chronic kidney disease with heart failure and stage 1 through stage 4 chronic kidney disease, or unspecified chronic kidney disease; I50.32 Chronic diastolic (congestive) heart failure; E66.2 Morbid (severe) obesity with alveolar hypoventilation; E87.1 Hypo-osmolality and hyponatremia; Z68.43 Body mass index [BMI] 50.0-59.9, adult; E11.22 Type 2 diabetes mellitus with diabetic chronic kidney disease; N18.9 Chronic kidney disease, unspecified; Z87.19 Personal history of other diseases of the digestive system; Z88.6 Allergy status to analgesic agent; Z88.8 Allergy status to other drugs, medicaments and biological substances; Z79.4 Long term (current) use of insulin; Z79.01 Long term (current) use of anticoagulants; Z79.82 Long term (current) use of aspirin; Z79.899 Other long term (current) drug therapy; E11.65 Type 2 diabetes mellitus with hyperglycemia; D64.9 Anemia, unspecified; E78.5 Hyperlipidemia, unspecified; E86.0 Dehydration; B96.1 Klebsiella pneumoniae [K. pneumoniae] as the cause of diseases classified elsewhere; E86.1 Hypovolemia; F29 Unspecified psychosis not due to a substance or known physiological condition; F43.10 Post-traumatic stress disorder, unspecified; F25.9 Schizoaffective disorder, unspecified; F31.9 Bipolar disorder, unspecified; K58.9 Irritable bowel syndrome, unspecified; M81.0 Age-related osteoporosis without current pathological fracture; M89.8X9 Other specified disorders of bone, unspecified site; Z53.20 Procedure and treatment not carried out because of patient's decision for unspecified reasons; Z85.828 Personal history of other malignant neoplasm of skin; Z87.11 Personal history of peptic ulcer disease; Z87.440 Personal history of urinary (tract) infections; Z87.891 Personal history of nicotine dependence; Z90.49 Acquired absence of other specified parts of digestive tract; Z90.710 Acquired absence of both cervix and uterus; Z91.048 Other nonmedicinal substance allergy status; Z91.199 Patient's noncompliance with other medical treatment and regimen due to unspecified reason; G89.29 Other chronic pain; Z98.891 History of uterine scar from previous surgery; Z98.890 Other specified postprocedural states; G31.84 Mild cognitive impairment of uncertain or unknown etiology; R94.6 Abnormal results of thyroid function studies
CPT/HCPCS: 36415; 71045-TC; 76770-TC; 80048-TC; 80061-TC; 80076-TC; 81001; 82962-TC; 83735-TC; 83970; 84100-TC; 84155; 84165; 84443-TC; 84481; 85025-TC; 87081-TC; 87086-TC; 87186-TC; 97110-TC; 97112-TC; 97530-TC; A4223; G0378; G0480; J0692; J0696; J1815; J7030; J7060